=== PATIENT | male | born 1955 | race African-American/Black ===

== ENCOUNTER → 2017-10-09 08:40 | Outpatient (CLI) | payer OTHER, SELFPAY ==
[2017-10-09 12:23] LABS: Absolute Lymphocyte Count 1.53 X10^3/ul (0.83-4.51); Absolute Neutrophil Count 3.5 X10^3/uL (2.0-7.7); Basophil# 0.01 X10^3/uL; Basophil% 0.2 % (0-1); Eosinophil# 0.22 X10^3/uL; Eosinophils% 3.9 % (0-5); Hematocrit 40.4 % (40-54); Hemoglobin 12.7 g/dl (13.0-16.5); Lymphocyte # 1.53 X10^3/ul (4.0); Lymphocyte % 26.9 % (19-41); Mean Corp Hgb Conc 31.4 g/gl (32-36); Mean Corpuscular Hgb 27.5 pg (27.0-32.0); Mean Corpuscular Volume 87.6 fL (80-94); Mean Platelet Vol. 9.9 fl (6.2-12.0); Monocyte# 0.41 X10^3/uL; Monocyte% 7.2 % (0-10); Neutrophil % 61.6 % (47-70); Platelet Count 308 K/mm3 (150-450); RBC Distribution Width CV 15.5 % (11.6-14.6); RBC Distribution Width SD 49.7 fl (35.1-43.9); Red Blood Count 4.61 M/mm3 (4.6-6.2); White Blood Count 5.7 K/mm3 (4.4-11.0)
[2017-10-09 12:31] LABS: POSITIVE COUNT NO; POSITIVE DIFFERENTIAL NO; POSITIVE MORPHOLOGY NO
[2017-10-09 13:00] LABS: ALB/GLOB Ratio 0.7 RATIO (0.9-2.4); AST(SGOT) 18 U/L (15-37); Alanine Aminotransfer ALT/SGPT 31 U/L (16-61); Alkaline Phosphatase 98 U/L (45-117); Anion Gap 12 (5-15); BUN 14 mg/dL (7-18); Calcium,Total 8.5 mg/dL (8.5-10.1); Chloride 107 mmol/L (98-107); Cholesterol 116 mg/dL (200); Creatinine, Serum 1.08 mg/dL (0.70-1.30); EST Glomerular Filtration Rate 74 mL/min (>60); Est Glom Filt Rate - Afr Amer 89 mL/min (>60); Ferritin 199 ng/mL (26-388); Globulin 4.4 g/dL (2.2-4.2); Glucose 103 mg/dL (74-106); High Density Lipoprotein 46 mg/dL; Iron 55 ug/dL (65-175); Potassium 3.6 mmol/L (3.5-5.1); Protein, Total 7.4 g/dL (6.4-8.2); Sodium Level 142 mmol/L (136-145); T4 Free Direct 1.05 ng/dL (0.76-1.46); Triglycerides 102 mg/dL; Very Low Density Lipoprotein 20 mg/dL (5-40)
== END ==
PROVIDERS: Family Provider Family Medicine; PCP Family Medicine; Visit Provider Family Medicine
DX: I25.10 Atherosclerotic heart disease of native coronary artery without angina pectoris (principal); I10 Essential (primary) hypertension; K76.0 Fatty (change of) liver, not elsewhere classified; E61.1 Iron deficiency
CPT/HCPCS: 36415; 80053; 80061; 82728; 83540; 84439; 84443; 85025

== ENCOUNTER 2017-10-20 20:12 | Inpatient (IN) | payer OTHER, MEDICARE, SELFPAY ==
[2017-10-20 20:13] VITALS: BP 180/95; PULSE 80; RESP 16; TEMP 36.8; O2SAT 94; BMI 55.8
[2017-10-20 20:54] LABS: Absolute Lymphocyte Count 2.08 X10^3/ul (0.83-4.51); Absolute Neutrophil Count 3.8 X10^3/uL (2.0-7.7); Basophil# 0.01 X10^3/uL; Basophil% 0.2 % (0-1); Eosinophil# 0.26 X10^3/uL; Eosinophils% 3.9 % (0-5); Hematocrit 41.5 % (40-54); Hemoglobin 13.3 g/dl (13.0-16.5); Lymphocyte # 2.08 X10^3/ul (4.0); Lymphocyte % 31.5 % (19-41); Mean Corpuscular Hgb 27.8 pg (27.0-32.0); Mean Corpuscular Volume 86.6 fL (80-94); Mean Platelet Vol. 9.3 fl (6.2-12.0); Monocyte# 0.49 X10^3/uL; Monocyte% 7.4 % (0-10); Neutrophil # 3.75 X10^3/uL (2.7-7.7); Neutrophil % 56.8 % (47-70); Platelet Count 293 K/mm3 (150-450); RBC Distribution Width CV 15.3 % (11.6-14.6); RBC Distribution Width SD 48.3 fl (35.1-43.9); Red Blood Count 4.79 M/mm3 (4.6-6.2); White Blood Count 6.6 K/mm3 (4.4-11.0)
[2017-10-20 21:00] LABS: POSITIVE COUNT NO; POSITIVE DIFFERENTIAL NO; POSITIVE MORPHOLOGY NO
[2017-10-20] MEDS: Ondansetron 4 MG/2 ML Vial IV (21:10)
--- NOTE | 2017-10-20 21:17 | ED.RN ---
CALLED LAB, THEY ARE LOOKING FOR CHEMISTRY TUBE TO RUN.
[2017-10-20 21:36] LABS: Anion Gap 8 (5-15); BUN 25 mg/dL (7-18); BUN/Creat Ratio 18.4 RATIO (10-20); Calcium,Total 8.9 mg/dL (8.5-10.1); Chloride 107 mmol/L (98-107); Creatinine, Serum 1.36 mg/dL (0.70-1.30); EST Glomerular Filtration Rate 57 mL/min (>60); Est Glom Filt Rate - Afr Amer 68 mL/min (>60); Estimated Creatinine Clearance 53.33 ml/min; Glucose 109 mg/dL (74-106); Potassium 4.1 mmol/L (3.5-5.1); Sodium Level 141 mmol/L (136-145)
[2017-10-20] MEDS: Lidocaine Jelly 2% 20 ML Syringe (URO-JET) 20 APPLIC TOPICAL (22:18)
--- NOTE | 2017-10-20 22:20 | ED.VISSUMM ---
- ER Visit Summary Date of Service: 10/20/17 Chief Complaint: Bright red blood with urination History of Present Illness: The patient is a 62 M who has a history of prostate cancer. He was last treated at the [facility] 2012. He states the last time he had bleeding this significantly was during treatment. He had problems after radiation treatment and had a stent placed which resulted in significant amount of bleeding. He states he had minimal bleeding October 03 of this year. He does complain of discomfort at the end of urination. He denies any vaginal discharge or lesions. He denies any testicular pain. He is uncertain whether he is voiding completely. He denies any low back or flank pain. He has no history of renal ureterolithiasis. Patient has history of COPD, type 2 diabetes, hypertension, obstructive sleep apnea and prostate cancer. He also has history of C. difficile (Pseudomonas enterocolitis), acute kidney injury and rhabdomyolysis. Physical Examination: Patient is morbidly obese with a BMI of 55.9. Blood pressure elevated 180/95. Head is atraumatic normocephalic. Pupils are equal round reactive. Extraocular muscles are intact. TMs are pearly white with landmarks noted. Nares patent with no drainage. Posterior pharynx without erythema or exudate. Uvula is midline. There is no dysphonia or dysphasia. Trachea is midline. There is no stridor with auscultation of the neck. Heart is regular without murmur, gallop or rub. S1 and S2 are normal. Lungs are clear to auscultation with good movement of air bilaterally. Abdomen is soft flabby nontender. Unable to appreciate whether he has a distended bladder secondary to a large panniculus. exam is limited because of body habitus. He has blood and small clots noted at the ureteral meatus. Testes are descended bilaterally. There is no inguinal lymphadenopathy or mass appreciated. Again, exam is limited secondary to body habitus. Test Results: White count is normal with an H&H of 13.3 and 41.5. Creatinine is slightly elevated 1.36. Urine is grossly bloody. Emergency Department Course and Treatment: Blood work was ordered and Urojet to anesthetize the urethra and prostate. Three-way was placed by nursing staff. He has been irrigated with 3.5 L. His urine has gone from bright red blood to a red tinged blood consistent with the color of a white [place]. He has never cleared. Treatment Plan: Dr. Gomez hospitalist has been paged to admit the patient so he can be seen in the morning by urology. Urology will be available at 08 100. It is my professional medical opinion that patient is hemogram is stable and does not require emergent surgery or intervention and could be observed overnight. Disposition: [facility] consultation to urology. Impression: Gross hematuria uncertain etiology History of prostate cancer, remote History of type 2 diabetes History of hypertension History obstructive sleep apnea History of COPD This note was generated with [employer] dictation software. It may contain incorrect words, spelling, and punctuation that were not noted in review of the chart prior to signing ED Disposition - Plan for ED Patient: Chief Complaint: Complaint Referrals: Keyur Mendez MD [Primary Care Provider] -
[2017-10-20 22:26] LABS: Bacteria 0 SEEN /hpf (None Seen); Mucous, Urine 0 SEEN /hpf (<or=2+)
[2017-10-20 22:29] LABS: Color, Urine Red (Yellow); Glucose, Dipstick Normal (Normal); Ketone-Dipstick Negative (Negative); Leukocyte Esterase-Dipstick 100 /ul (Negative); Nitrite-Dipstick Negative (Negative); Occult Blood-Urine 250 /ul (Negative); Protein-Dipstick 30 mg/dl (Negative); Specific Gravity, Urine 1.005 (1.002-1.030); Urine Bilirubin Dipstick Negative (Negative); Urine Clarity Cloudy (Clear); Urine Urobilinogen Normal (Normal); Urine pH 6.5 (5.0 - 8.0)
[2017-10-20 22:36] LABS: Red Blood Cells-Urine > 100 SEEN /hpf (0-5); Squamous Epithelial Cells - UA 0-5 SEEN /hpf (0-5); White Blood Cells 5-10 SEEN /hpf (0-5)
[2017-10-20 22:37] LABS: Amorphous Sediment 1+ URATE
[2017-10-20 23:01] VITALS: BP 130/69; PULSE 71; RESP 16; TEMP 37.2; O2SAT 99
--- NOTE | 2017-10-20 23:26 | HP.PCM_ITS ---
Problem List (1) Hematuria Status: Acute (2) RICO (acute kidney injury) Status: Acute (3) CAD (coronary artery disease) Status: Chronic Comment: moderate disease max 45% cath 09/08 [facility] oatebt stebt ramus intermedius (4) COPD, mild Status: Chronic Comment: mild-mod obstr, mild restrictive d/t obesity fvc 55% improved to 65% w aerosols fev1/fvc=75% tlc=71% (5) Depression Status: Chronic (6) Diabetes mellitus type 2 in obese Status: Chronic (7) HTN (hypertension) Status: Chronic (8) Non-compliance Status: Chronic (9) Onychomycosis Status: Chronic (10) Prostate cancer Status: Chronic Comment: radiotherapy (11) Sleep apnea Status: Chronic Comment: bipap History of Present Illness Date of Admission: 10/21/17 Chief Complaint: Hematuria The patient is a 62 year old male w/ h/o DMII, HTN, AMRIK, COPD, prostate cancer, and anemia admitted for gross hematuria. Pt had radiation for his prostate cancer in 2011 and has been doing well. Before he left to [place] 4-5 months ago , he followed up at the [facility]] and was cleared. On September 02, 2017, he had an episode of gross hematuria in [place]. He did not follow up because he knows he will be back to [place]. He had another episode of gross hematuria today. It was persistent and severe. No associated pain. He appeared to be very anxious about the event. Nothing made his hematuria better or worse. He became concern so he went to the ED for further workup. Past Medical History Past Medical History (Chronic Problems): Chronic Problems Obesities, morbid (Chronic) COPD, mild (Chronic) mild-mod obstr, mild restrictive d/t obesity fvc 55% improved to 65% w aerosols fev1/fvc=75% tlc=71% HTN (hypertension) (Chronic) Sleep apnea (Chronic) bipap Prostate cancer (Chronic) radiotherapy Diabetes mellitus type 2 in obese (Chronic) Anemia (Chronic) Non-compliance (Chronic) Super obesity (Chronic) CAD (coronary artery disease) (Chronic) moderate disease max 45% cath 09/08 [facility] oatebt stebt ramus intermedius Type II diabetes mellitus (Chronic) Onychomycosis (Chronic) Depression (Chronic) Allergies oxycodone HCl [From Percodan] Allergy (Verified 05/15/17 10:27) Hives oxycodone terephthalate [From Percodan] Allergy (Verified 05/15/17 10:27) Hives Home Medications: Ambulatory Orders Medication Instructions Recorded Albuterol Aerosols [Ventolin 2.5 mg INHALATION Q2H PRN PRN 05/15/17 Aerosols] Amlodipine Besylate [Norvasc] 10 mg PO DAILY 05/15/17 Aspirin [Aspirin, Baby] 81 mg PO DAILY@0800 05/15/17 Atorvastatin Calcium [Lipitor] 40 mg PO QHS 05/15/17 HydrALAZINE [Apresoline] 25 mg PO TID 05/15/17 Hydroxyzine HCl 50 mg PO DAILY 05/15/17 Ipratropium/Albuterol Respimat 1 puff INHALATION 4X/DAY 05/15/17 [Combivent Respimat Inhal [place]] Ipratropium/Albuterol Respimat 1 puff INHALATION PRN PRN 05/15/17 [Combivent Respimat Inhal [place]] Lisinopril/Hydrochlorothiazide 1 tablet PO DAILY 05/15/17 [Zestoretic 10/12.5 Tablet] Metoprolol Tartrate [Lopressor 25 mg PO BID 05/15/17 (Beta [place])] Nitroglycerin [Nitrostat] 0.4 mg SL PRN PRN 05/15/17 Nystatin Powder [Mycostatin Powder] 1 applic TOPICAL Q6H 05/15/17 Omeprazole 20 mg PO BID 05/15/17 Oxybutynin Chloride [Ditropan Xl] 10 mg PO DAILY 05/15/17 Tamsulosin HCl [Flomax] 0.4 mg PO DAILY 05/15/17 Surgical History: - - knee arthroscopy and menisectomy Psychiatric History: Depression Smoking Status: Former smoker - *Family History Sibling History Items: Asthma Maternal History Items: No pertinent history Paternal History Items: No pertinent history Review of Systems Constitutional: Denies: Chills, Fever, Weight Change HEENT: Denies: Head Aches, Sinus Congestion, Sinus Drainage Cardiovascular: Denies: Chest Pain, Palpitations Respiratory: Denies: Cough, Shortness of breath at rest, Sputum production Gastrointestinal: Denies: Abdominal Pain, Nausea, Vomiting Genitourinary: Denies: Dysuria Musculoskeletal: Denies: Joint Pain, Joint Tenderness Skin: Denies: Rash, Wounds Neurological: Denies: Numbness, Tingling, Focal weakness Psychiatric: Denies: Anxiety, Depression, Homicidal Ideations, Suicidal Ideations Hematologic/ Lymphatic: Denies: Easy Bruising, Easy Bleeding VTE Information - Inpt Only VTE Present on Admission: No VTE Mechan Device Prophylaxis: SCD's VTE Pharm Prophylaxis ordered?: Yes Patient Problems: Active and Suspected Problems Hematuria (Acute) RICO (acute kidney injury) (Acute) - Physical Exam General: Alert, Oriented x3, Cooperative HEENT: Atraumatic, PERRLA, EOMI, Normocephalic Neck: Supple, No JVD, Negative Carotid Bruits Lungs: Clear to auscultation, Normal air movement Cardiovascular: Regular rate, No murmurs Abdomen: Bowel Sounds Present, Soft, Non Tender Extremities: No edema, Capillary Refill Less than 3 Seconds Skin: No rashes, No breakdown Musculoskeletal: No Tenderness to Palpation of Joints or Extremities Neurological: Cranial nerves II-XII grossly intact Psych/Mental Status: Normal Affect, Appropriate Vital Signs Temp Pulse Resp BP Pulse Ox 98.9 F 71 16 130/69 H 99 10/20/17 23:01 10/20/17 23:01 10/20/17 23:01 10/20/17 23:01 10/20/17 23:01 Oxygen Delivery Method Room Air Weight: 161.8 kg Body Mass Index (BMI) 55.8 Laboratory Tests Past 24 Hrs 10/20/17 10/20/17 10/20/17 20:40 20:40 22:22 WBC 6.6 RBC 4.79 Hgb 13.3 Hct 41.5 MCV 86.6 MCH 27.8 MCHC 32.0 RDW 15.3 H RDW Differential 48.3 H Plt Count 293 MPV 9.3 Immature Gran % (Auto) 0.200 Neut % (Auto) 56.8 Lymph % (Auto) 31.5 [place] % (Auto) 7.4 Eos % (Auto) 3.9 Baso % (Auto) 0.2 Absolute Neuts (auto) 3.8 Absolute Lymphs (auto) 2.08 Total Counted Not Reportable Sodium 141 Potassium 4.1 Chloride 107 Carbon Dioxide 26.0 Anion Gap 8 BUN 25 H Creatinine 1.36 H Estim Creat Clear Calc 53.33 Est GFR (MDRD) Af Amer 68 Est GFR (MDRD) Non-Af 57 L BUN/Creatinine Ratio 18.4 Glucose 109 H Calcium 8.9 Urine Color Red Urine Clarity Cloudy Urine pH 6.5 Ur Specific [place] 1.005 Urine Protein 30 H Urine Glucose (UA) Normal Urine Ketones Negative Urine Occult Blood 250 H Urine Nitrite Negative Urine Bilirubin Negative Urine Urobilinogen Normal Ur Leukocyte Esterase 100 H Urine RBC > 100 SEEN Urine WBC 5-10 SEEN Ur Squamous Epith Cells 0-5 SEEN Amorphous Sediment 1+ URATE Urine Bacteria 0 SEEN Urine Mucus 0 SEEN Assessment/Plan Active and Suspected Problems Hematuria (Acute) RICO (acute kidney injury) (Acute) 62 year old male w/ h/o DMII, HTN, AMRIK, COPD, prostate cancer, and anemia admitted for gross hematuria. 1) Hematuria: Unclear etiology. Suspect recurrent prostate cancer. Will consult urology. Continuous bladder irrigation. If negative, will workup GNs. 2) RICO: Baseline Cr 1. Cr 1.3 Probably azotemia. If no resolution, consider renal U/S vs abdominal CT to r/o obstruction. Monitor. 3) H/o prostate cancer: C/w flomax and tolterodine. PSA pending. Urology consult. 4) Prophylaxis: SCD
[2017-10-20 23:54] VITALS: PULSE 86; RESP 16; BMI 57.1
[2017-10-21] VITALS (20 sets, daily range): BP systolic 119–184; BP diastolic 72–95; PULSE 75–102; RESP 16–19; TEMP 36.7–37.1; O2SAT 98–99; BMI 55.0
[2017-10-21] MEDS: Atorvastatin Calcium 40 MG Tablet PO (02:17)
[2017-10-21] MEDS: LORazepam 2 MG/ML Syringe IV ×3 (02:42→21:33)
--- NOTE | 2017-10-21 02:57 | NURSING ---
pt c/o having bladder spasms and very anxious, prn ativan and b&o supp given
--- NOTE | 2017-10-21 03:40 | NURSING ---
PT CALLED C/O SEVERE ABD PRESSURE, BLADDER IRRIGATED, LARGE CLOTS OUT. CONT IRRIGATION RESTARTED
[2017-10-21 06:23] LABS: Absolute Lymphocyte Count 1.34 X10^3/ul (0.83-4.51); Absolute Neutrophil Count 5.4 X10^3/uL (2.0-7.7); Basophil# 0.02 X10^3/uL; Basophil% 0.3 % (0-1); Eosinophil# 0.16 X10^3/uL; Eosinophils% 2.1 % (0-5); Hemoglobin 12.9 g/dl (13.0-16.5); Lymphocyte # 1.34 X10^3/ul (4.0); Lymphocyte % 17.8 % (19-41); Mean Corp Hgb Conc 33.1 g/gl (32-36); Mean Corpuscular Hgb 28.5 pg (27.0-32.0); Mean Corpuscular Volume 86.1 fL (80-94); Mean Platelet Vol. 9.5 fl (6.2-12.0); Monocyte# 0.58 X10^3/uL; Monocyte% 7.7 % (0-10); Platelet Count 278 K/mm3 (150-450); RBC Distribution Width CV 15.2 % (11.6-14.6); RBC Distribution Width SD 47.3 fl (35.1-43.9); Red Blood Count 4.53 M/mm3 (4.6-6.2); White Blood Count 7.5 K/mm3 (4.4-11.0)
[2017-10-21 06:29] LABS: POSITIVE COUNT NO; POSITIVE DIFFERENTIAL NO; POSITIVE MORPHOLOGY NO
[2017-10-21 06:35] LABS: Anion Gap 7 (5-15); BUN 23 mg/dL (7-18); BUN/Creat Ratio 17.8 RATIO (10-20); Calcium,Total 8.7 mg/dL (8.5-10.1); Chloride 103 mmol/L (98-107); Creatinine, Serum 1.29 mg/dL (0.70-1.30); EST Glomerular Filtration Rate 60 mL/min (>60); Est Glom Filt Rate - Afr Amer 73 mL/min (>60); Estimated Creatinine Clearance 56.22 ml/min; Glucose 113 mg/dL (74-106); Potassium 3.8 mmol/L (3.5-5.1); Sodium Level 137 mmol/L (136-145)
[2017-10-21 06:59] LABS: PSA,Total - Annual Screen 0.34 ng/mL (0.00-4.00)
[2017-10-21] MEDS: Ipratropium/Albuterol Sulfate 3 ML AMPUL.NEB INHALATION ×3 (07:07→19:10)
--- NOTE | 2017-10-21 08:21 | CPS ---
PT REQUESTED O2, SAYS IT HELPS HIM, R.T. INFORMED RN THAT O2 WAS FOR PT COMFORT NOT D/T LOW SAT.
[2017-10-21] MEDS: Pantoprazole Sodium 20 MG Tablet PO ×2 (10:09→21:31)
[2017-10-21] MEDS: amLODIPine 10 MG Tablet PO (10:09)
[2017-10-21] MEDS: Tolterodine Tartrate 2 MG CAP.SA PO (10:10)
[2017-10-21] MEDS: Tamsulosin HCl 0.4 MG Capsule PO (10:10)
[2017-10-21] MEDS: Metoprolol Tartrate 25 MG Tablet PO ×2 (10:10→21:32)
--- NOTE | 2017-10-21 10:46 | CASEMGMT ---
RN CM Face to Face with patient for initial transition planning/care coordination assessment. RN CM introduced self and role at [facility]. Patient lying in bed, alert and oriented and anxious. Patient is not willing to participate in assessment at this time and does not want to answer RN CM's questions. Patient states that he doesn't want to think about discharge needs till after he talks with the doctor and knows what is going on with him. Patient states that if his prostate cancer is back he wants to transfer to [place] to [facility]. If not he is going to go home and has no needs. RN CM offered to come back later after seen by physician and discuss discharge plans. CM to follow for discharge planning needs that may arise. Disposition Plan: TBD. RN CM will reassess patient at later time when he is more willing to participate.
[2017-10-21] MEDS: 0.9% NaCl Peripheral Flush Adult/Peds IV ×2 (11:01→21:33)
[2017-10-21] MEDS: Calcium (Elemental) 500 MG Tablet PO (13:33)
[2017-10-21] MEDS: Ferrous Sulfate 325 MG Tablet PO (13:33)
--- NOTE | 2017-10-21 14:18 | PCM.PROGNOTE ---
Patient Problems: Active and Suspected Problems Hematuria (Acute) RICO (acute kidney injury) (Acute) Gross hematuria (Acute) onset of gross hematuria, h/o prostate cancer treated with XRT Subjective: Patient is a 62-year-old male with a past medical history artery disease, COPD, depression, diabetes mellitus type 2, hypertension, noncompliance, prostate cancer, AMRIK and COPD who presented to the emergency room at [facility] on 10/20/2017 complaining of gross hematuria. He has had radiation for tx of prostate CA in 2011. Approximately 4-5 months ago he moved to [place] higher to that was seen at the [facility] and cleared of cancer per patient report. On September 02, 2017 he had an episode of gross hematuria and [place] not follow-up because he going to come back to [place] in follow-up at the [facility] He denied any dysuria and had no fevers or chills. Temp in the ER was 98.2 with a heart rate of 80, blood pressure of 180/95, respiratory rate of 16 and he was 94% saturated on room air. Lab in the emergency room revealed a normal white blood cell count of 6.6 with 57% neutrophils. BMP is unremarkable with a BUN of 23 and a creatinine of 1.29. Urine had greater than 100 RBCs per high-power field with 0-5 WBCs and no bacteria. He was admitted to the hospital with a diagnosis of gross hematuria and Dr. Chavis has been consulted. The urine in the fong bag today is clear after CBI. He appears to be in no distress. He is making sexually inappropriate comments to female staff again......he has been cautioned about this behavior on previous admissions. He was also rude to the [place] community development planner and would not answer her questions. He denies this which is his pattern. - Physical Exam General: No apparent distress, - - drowsy, does not have CPAP with him. Has not been out of bed since admission and will not even sit up to eat. HEENT: Atraumatic, Normocephalic Oral: Moist Mucosa Lungs: Clear to auscultation, Diminished Abdomen: Bowel Sounds Present, Soft, Non-Distended, Obese Extremities: No clubbing, No cyanosis, No Calf Tenderness Neurological: Cranial nerves II-XII grossly intact, Neuro grossly intact Psych/Mental Status: - - He is passive aggressive and makes inappropriate remarks to female staff. This is his pattern in the past and it has not changed. He is unwilling to do anything for himself if the nurse will do it for him. Vital Signs Temp Pulse Resp BP Pulse Ox 98.0 F 88 19 H 140/78 H 98 10/21/17 07:58 10/21/17 13:38 10/21/17 13:38 10/21/17 07:58 10/21/17 07:58 Oxygen Flow Rate 2 Oxygen Delivery Method Room Air Weight: 364 lb 14.193 oz Body Mass Index (BMI) 57.1 Intake and Output for Last 24 Hours 10/19/17 10/20/17 10/21/17 23:59 23:59 23:59 Intake Total 1200 / 1200 Output Total 1700 / 1700 Balance -500 / -500 Laboratory Tests Past 24 Hrs 10/21/17 10/21/17 10/21/17 05:48 05:48 05:48 WBC 7.5 RBC 4.53 L Hgb 12.9 L Hct 39.0 L MCV 86.1 MCH 28.5 MCHC 33.1 RDW 15.2 H RDW Differential 47.3 H Plt Count 278 MPV 9.5 Immature Gran % (Auto) 0.100 Neut % (Auto) 72.0 H Lymph % (Auto) 17.8 L [place] % (Auto) 7.7 Eos % (Auto) 2.1 Baso % (Auto) 0.3 Absolute Neuts (auto) 5.4 Absolute Lymphs (auto) 1.34 Total Counted Not Reportable Sodium 137 Potassium 3.8 Chloride 103 Carbon Dioxide 27.0 Anion Gap 7 BUN 23 H Creatinine 1.29 Estim Creat Clear Calc 56.22 Est GFR (MDRD) Af Amer 73 Est GFR (MDRD) Non-Af 60 BUN/Creatinine Ratio 17.8 Glucose 113 H Calcium 8.7 PSA Screen 0.34 Assessment/Plan Active and Suspected Problems Hematuria (Acute) RICO (acute kidney injury) (Acute) Gross hematuria (Acute) onset of gross hematuria, h/o prostate cancer treated with XRT Impressions 1. Gross hematuria, recurrent. With hx of prostate CA with a high [place] score he could have recurrent prostate CA and/or extension into the bladder. He also could have radiation cystitis. There is no evidence of infection. 2. Prostate cancer in the past with external beam radiation to the pelvis and no anti-hormone therapy. 3. super obesity 4. Coronary artery disease 5. COPD 6. Diabetes mellitus type 2 7. Hypertension 8. Obstructive sleep apnea 9. non-compliance 10. Chronic renal failure stage II Await Dr. Chavis's consult. Continue the CBI for now. Recheck a CBC in the AM and a BMP. PSA is 0.34 Check a hemoglobin A1c and order Accu-Cheks with sliding scale NovoLog
[2017-10-21] MEDS: Ibuprofen 200 MG Tablet PO ×2 (14:21→21:31)
--- NOTE | 2017-10-21 14:29 | PN_ITS ---
Patient Problems: Active and Suspected Problems Hematuria (Acute) RICO (acute kidney injury) (Acute) Gross hematuria (Acute) onset of gross hematuria, h/o prostate cancer treated with XRT Subjective: Patient is a 62-year-old male with a past medical history artery disease, COPD, depression, diabetes mellitus type 2, hypertension, noncompliance, prostate cancer, AMRIK and COPD who presented to the emergency room at [facility] on 10/20/2017 complaining of gross hematuria. He has had radiation for tx of prostate CA in 2011. Approximately 4-5 months ago he moved to [place] higher to that was seen at the [facility] and cleared of cancer per patient report. On September 02, 2017 he had an episode of gross hematuria and [place] not follow-up because he going to come back to [place] in follow-up at the [facility]. He denied any dysuria and had no fevers or chills. Temp in the ER was 98.2 with a heart rate of 80, blood pressure of 180/95, respiratory rate of 16 and he was 94% saturated on room air. Lab in the emergency room revealed a normal white blood cell count of 6.6 with 57% neutrophils. BMP is unremarkable with a BUN of 23 and a creatinine of 1.29. Urine had greater than 100 RBCs per high-power field with 0-5 WBCs and no bacteria. He was admitted to the hospital with a diagnosis of gross hematuria and Dr. Chavis has been consulted. The urine in the fong bag today is clear after CBI. He appears to be in no distress. He is making sexually inappropriate comments to female staff again......he has been cautioned about this behavior on previous admissions. He was also rude to the [place] cyber ops planner and would not answer her questions. He denies this which is his pattern. - Physical Exam General: No apparent distress, - - drowsy, does not have CPAP with him. Has not been out of bed since admission and will not even sit up to eat. HEENT: Atraumatic, Normocephalic Oral: Moist Mucosa Lungs: Clear to auscultation, Diminished Abdomen: Bowel Sounds Present, Soft, Non-Distended, Obese Extremities: No clubbing, No cyanosis, No Calf Tenderness Neurological: Cranial nerves II-XII grossly intact, Neuro grossly intact Psych/Mental Status: - - He is passive aggressive and makes inappropriate remarks to female staff. This is his pattern in the past and it has not changed. He is unwilling to do anything for himself if the nurse will do it for him. Vital Signs Temp Pulse Resp BP Pulse Ox 98.0 F 88 19 H 140/78 H 98 10/21/17 07:58 10/21/17 13:38 10/21/17 13:38 10/21/17 07:58 10/21/17 07:58 Oxygen Flow Rate 2 Oxygen Delivery Method Room Air Weight: 364 lb 14.193 oz Body Mass Index (BMI) 57.1 Intake and Output for Last 24 Hours 10/19/17 10/20/17 10/21/17 23:59 23:59 23:59 Intake Total 1200 / 1200 Output Total 1700 / 1700 Balance -500 / -500 Laboratory Tests Past 24 Hrs 10/21/17 10/21/17 10/21/17 05:48 05:48 05:48 WBC 7.5 RBC 4.53 L Hgb 12.9 L Hct 39.0 L MCV 86.1 MCH 28.5 MCHC 33.1 RDW 15.2 H RDW Differential 47.3 H Plt Count 278 MPV 9.5 Immature Gran % (Auto) 0.100 Neut % (Auto) 72.0 H Lymph % (Auto) 17.8 L [place] % (Auto) 7.7 Eos % (Auto) 2.1 Baso % (Auto) 0.3 Absolute Neuts (auto) 5.4 Absolute Lymphs (auto) 1.34 Total Counted Not Reportable Sodium 137 Potassium 3.8 Chloride 103 Carbon Dioxide 27.0 Anion Gap 7 BUN 23 H Creatinine 1.29 Estim Creat Clear Calc 56.22 Est GFR (MDRD) Af Amer 73 Est GFR (MDRD) Non-Af 60 BUN/Creatinine Ratio 17.8 Glucose 113 H Calcium 8.7 PSA Screen 0.34 Assessment/Plan Active and Suspected Problems Hematuria (Acute) RICO (acute kidney injury) (Acute) Gross hematuria (Acute) onset of gross hematuria, h/o prostate cancer treated with XRT Impressions 1. Gross hematuria, recurrent. With hx of prostate CA with a high [place] score he could have recurrent prostate CA and/or extension into the bladder. He also could have radiation cystitis. There is no evidence of infection. 2. Prostate cancer in the past with external beam radiation to the pelvis and no anti-hormone therapy. 3. super obesity 4. Coronary artery disease 5. COPD 6. Diabetes mellitus type 2 7. Hypertension 8. Obstructive sleep apnea 9. non-compliance 10. Chronic renal failure stage II Await Dr. Chavis's consult. Continue the CBI for now. Recheck a CBC in the AM and a BMP. PSA is 0.34 Check a hemoglobin A1c and order Accu-Cheks with sliding scale NovoLog
--- NOTE | 2017-10-21 17:27 | PCM.CONS.U ---
Problem List (1) Gross hematuria Status: Acute Comment: onset of gross hematuria, h/o prostate cancer treated with XRT Reason for Consult Date of Consultation: 10/21/17 Reason for Consultation: gross hematuria, pain in penis, rectal area History of Present Illness: The patient is a 62 year old male, who prostate cancer, [place] high grade, underwent radiation with no hormone shots had radiation therapy in [place] by Johnson Juan with [facility]. Onset on gross hematuria this past day, admitted to hospital with bleedind placed a fong, then on irrigation and now urine clear, no more bleeding. no imaging done, no prior cystoscopy. Past Medical History Past Medical History (Chronic Problems): Chronic Problems Obesities, morbid (Chronic) COPD, mild (Chronic) mild-mod obstr, mild restrictive d/t obesity fvc 55% improved to 65% w aerosols fev1/fvc=75% tlc=71% HTN (hypertension) (Chronic) Sleep apnea (Chronic) bipap Prostate cancer (Chronic) radiotherapy Diabetes mellitus type 2 in obese (Chronic) Anemia (Chronic) Non-compliance (Chronic) Super obesity (Chronic) CAD (coronary artery disease) (Chronic) moderate disease max 45% cath 09/08 [facility] oatebt stebt ramus intermedius Type II diabetes mellitus (Chronic) Onychomycosis (Chronic) Depression (Chronic) Allergies oxycodone HCl [From Percodan] Allergy (Verified 05/15/17 10:27) Hives oxycodone terephthalate [From Percodan] Allergy (Verified 05/15/17 10:27) Hives Home Medications: Ambulatory Orders Medication Instructions Recorded Albuterol Aerosols [Ventolin 2.5 mg INHALATION Q4H PRN PRN 05/15/17 Aerosols] Aspirin [Aspirin, Baby] 81 mg PO DAILY@0800 05/15/17 Atorvastatin Calcium [Lipitor] 40 mg PO QHS 05/15/17 HydrALAZINE [Apresoline] 25 mg PO TID 05/15/17 Metoprolol Tartrate [Lopressor 25 mg PO BID 05/15/17 (Beta Haydee)] Nitroglycerin [Nitrostat] 0.4 mg SL PRN PRN 05/15/17 Nystatin Powder [Mycostatin Powder] 1 applic TOPICAL Q6H 05/15/17 Acetaminophen 325 mg PO Q4H PRN PRN 10/21/17 Calcium Carbonate [Calcium] 500 mg PO DAILY 10/21/17 Docusate Sodium [Colace] 100 mg PO DAILY PRN PRN 10/21/17 Ferrous Sulfate 324 mg PO DAILY 10/21/17 Folic Acid 1 mg PO DAILY@0800 10/21/17 Guaifenesin [Mucinex] 600 mg PO Q12H PRN PRN 10/21/17 Ibuprofen 200 mg PO TID 10/21/17 Melatonin 10 mg PO QHS 10/21/17 Surgical History: - - knee arthroscopy and menisectomy heart Stent Psychiatric History: Depression Lives: Alone Smoking Status: Former smoker Tobacco Use: Non-smoker Alcohol: Rare Drugs: None - *Family History Sibling History Items: Asthma Maternal History Items: No pertinent history Paternal History Items: No pertinent history Review of Systems Constitutional: Denies: Chills, Fever, Weight Change HEENT: Denies: Head Aches, Sinus Congestion, Sinus Drainage Cardiovascular: Denies: Chest Pain, Palpitations Respiratory: Denies: Cough, Shortness of breath at rest, Sputum production Gastrointestinal: Denies: Abdominal Pain, Nausea, Vomiting Genitourinary: Denies: Dysuria Musculoskeletal: Denies: Joint Pain, Joint Tenderness Skin: Denies: Rash, Wounds Neurological: Denies: Numbness, Tingling, Focal weakness Psychiatric: Denies: Anxiety, Depression, Homicidal Ideations, Suicidal Ideations Hematologic/ Lymphatic: Denies: Easy Bruising, Easy Bleeding Physical Exam - Physical Exam Vital Signs Temp 98.5 F 10/21/17 14:30 Pulse 75 10/21/17 14:30 Resp 18 10/21/17 16:00 BP 142/81 H 10/21/17 14:30 Pulse Ox 99 10/21/17 14:30 Intake & Output 10/19/17 10/20/17 10/21/17 23:59 23:59 23:59 Intake Total 1200 / 1200 Output Total 1700 / 1700 Balance -500 / -500 Weight: 165.516 kg 165.51 kg Intake: Oral 1200 / 1200 Output: Urine 1700 / 1700 Other: Intake, Continuous Bladder 6,000 Irrigation Output, Continuous Bladder 6,000 Irrigation General: Alert, Oriented x3 HEENT: Atraumatic Oral: Moist Mucosa Neck: Supple Lungs: Normal air movement Cardiovascular: Regular rate, Regular Rhythm Abdomen: Bowel Sounds Present, Obese Rectal: Exam deferred Penis: Circumcised Extremities: No clubbing, No cyanosis, No edema Psych/Mental Status: Appropriate Laboratory Tests Past 24 Hrs 10/21/17 10/21/17 10/21/17 05:48 05:48 05:48 WBC 7.5 RBC 4.53 L Hgb 12.9 L Hct 39.0 L MCV 86.1 MCH 28.5 MCHC 33.1 RDW 15.2 H RDW Differential 47.3 H Plt Count 278 MPV 9.5 Immature Gran % (Auto) 0.100 Neut % (Auto) 72.0 H Lymph % (Auto) 17.8 L [place] % (Auto) 7.7 Eos % (Auto) 2.1 Baso % (Auto) 0.3 Absolute Neuts (auto) 5.4 Absolute Lymphs (auto) 1.34 Total Counted Not Reportable Sodium 137 Potassium 3.8 Chloride 103 Carbon Dioxide 27.0 Anion Gap 7 BUN 23 H Creatinine 1.29 Estim Creat Clear Calc 56.22 Est GFR (MDRD) Af Amer 73 Est GFR (MDRD) Non-Af 60 BUN/Creatinine Ratio 17.8 Glucose 113 H Calcium 8.7 PSA Screen 0.34 Assessment/Plan Active and Suspected Problems Hematuria (Acute) RICO (acute kidney injury) (Acute) Gross hematuria (Acute) onset of gross hematuria, h/o prostate cancer treated with XRT gross hematuria cleared up with irrigation plan to d/c fong in am stop cbi today check CT scan abd/pelvis IV contrast pt needs to follow up with treat oncologist in [facility] with regards to his gross hematuria.
--- NOTE | 2017-10-21 17:33 | CT_ITS ---
STUDY: CT ABDOMEN AND PELVIS WITH CONTRAST REASON FOR EXAM: Male, 62 years old. GROSS HEMATURIA RADIATION DOSAGE (If Supplied By Facility): CTDIvol = ( 18.33 ) mGy, DLP = ( 2155.03 ) mGycm TECHNIQUE: Transaxial images were obtained from the dome of the diaphragm to the symphysis pubis without oral contrast. 100 ml of Isovue 300 contrast was administered. Sagittal and coronal images were reconstructed. Individualized dose optimization techniques were used for this CT. COMPARISON: None. FINDINGS: There are atherosclerotic calcifications of visualized coronary arteries. The visualized portions of the heart are within normal limits. Normal liver. Normal gallbladder and extrahepatic biliary system. Normal spleen. Normal pancreas. Normal bilateral adrenal glands. Normal right kidney. Normal left kidney. Normal visualized stomach. Normal small intestine. Stool throughout the colon. The appendix is visualized and appears normal. There is diffuse atherosclerotic calcification of the abdominal aorta, without a demonstrated aneurysm. Normal inferior vena cava. Normal retroperitoneum. There is a Del Toro balloon catheter in the urinary bladder. There are prostatic seed implants. Urinary bladder wall has wall thickening. This can be related to a partially contractile state. However, a cystitis is not excluded. Urinalysis should be performed in an effort to exclude cystitis. Air in the urinary bladder. This is likely iatrogenic. There is a right-sided inguinal hernia containing adipose tissue. There is endplate spondylosis of the vertebral body. CT/Abdomen/Pelvis WITH Contrast IMPRESSION: CONSTIPATION Urinary bladder wall has wall thickening. This can be related to a partially contractile state. However, a cystitis is not excluded. Urinalysis should be performed in an effort to exclude cystitis. Electronically Signed: Say Mueller MD at 21:13 EST , Service support ,
--- NOTE | 2017-10-21 20:50 | NURSING ---
Patient returned from CT at this time
[2017-10-21] MEDS: MELATONIN 10 MG TABLET PO (21:32)
[2017-10-21 22:40] LABS: Bedside Glucose 105 mg/dL (70-110)
[2017-10-22] VITALS (14 sets, daily range): BP systolic 115–162; BP diastolic 58–86; PULSE 74–104; RESP 16–18; TEMP 36.6–36.8; O2SAT 95–98
[2017-10-22] MEDS: Ibuprofen 200 MG Tablet PO ×2 (06:19→13:24)
[2017-10-22 06:40] LABS: Hematocrit 38.4 % (40-54); Hemoglobin 12.1 g/dl (13.0-16.5); Mean Corp Hgb Conc 31.5 g/gl (32-36); Mean Corpuscular Hgb 27.8 pg (27.0-32.0); Mean Corpuscular Volume 88.1 fL (80-94); Mean Platelet Vol. 9.2 fl (6.2-12.0); Platelet Count 247 K/mm3 (150-450); RBC Distribution Width CV 15.6 % (11.6-14.6); RBC Distribution Width SD 50.3 fl (35.1-43.9); Red Blood Count 4.36 M/mm3 (4.6-6.2)
[2017-10-22 06:50] LABS: Bedside Glucose 107 mg/dL (70-110)
--- NOTE | 2017-10-22 06:50 | NURSING ---
Del Toro catheter removed this AM per orders.
[2017-10-22 06:54] LABS: Anion Gap 7 (5-15); BUN 18 mg/dL (7-18); BUN/Creat Ratio 14.6 RATIO (10-20); Calcium,Total 8.7 mg/dL (8.5-10.1); Chloride 102 mmol/L (98-107); Creatinine, Serum 1.23 mg/dL (0.70-1.30); EST Glomerular Filtration Rate 64 mL/min (>60); Est Glom Filt Rate - Afr Amer 77 mL/min (>60); Estimated Creatinine Clearance 58.96 ml/min; Glucose 106 mg/dL (74-106); Sodium Level 138 mmol/L (136-145)
[2017-10-22 07:13] LABS: Scan Indicated on CBC? Y/N NO
[2017-10-22] MEDS: Folic Acid 1 MG Tablet PO (08:09)
[2017-10-22] MEDS: Ferrous Sulfate 325 MG Tablet PO (08:10)
[2017-10-22 08:12] LABS: Hemoglobin A1c 6.7 % (4.2-6.3)
[2017-10-22] MEDS: Calcium (Elemental) 500 MG Tablet PO (08:12)
[2017-10-22] MEDS: Metoprolol Tartrate 25 MG Tablet PO (10:03)
[2017-10-22] MEDS: Tolterodine Tartrate 2 MG CAP.SA PO (10:03)
[2017-10-22] MEDS: amLODIPine 10 MG Tablet PO (10:04)
[2017-10-22] MEDS: Pantoprazole Sodium 20 MG Tablet PO (10:04)
[2017-10-22] MEDS: Tamsulosin HCl 0.4 MG Capsule PO (10:05)
[2017-10-22 12:26] LABS: Bedside Glucose 107 mg/dL (70-110)
[2017-10-22] MEDS: Ipratropium/Albuterol Sulfate 3 ML AMPUL.NEB INHALATION (12:45)
[2017-10-22 17:26] LABS: Bedside Glucose 96 mg/dL (70-110)
--- NOTE | 2017-10-22 19:03 | DCINST_ITS ---
- Discharge Diagnoses Current Active Problems: Current Active and Chronic Problems Hematuria (Acute) RICO (acute kidney injury) (Acute) Gross hematuria (Acute) onset of gross hematuria, h/o prostate cancer treated with XRT You will use the following diet at home:: Calorie/Carbohydrate Controlled ( specify 1200, 1400, etc), Cardiac Your food should be the consistency of: Regular Your liquids should be the consistency of: Regular/Thin Discharge Activity: Return to Normal Activity Call your doctor if you observe: Fever of 101 or Higher, Inability to urinate, Dizziness, Fainting spells Additional Instructions: Your kidney function is stable. You are able to urinate without difficulty. The CT scan of the abdomen and pelvis showed no massess but did show thickening of the bladder wall....this could be because the bladder was contracted but it needs to be checked out. You need to follow up with your oncololgist at [facility] as soon as possible. You do not have a urinary tract infection. The PSA is 0.34. Pending Tests on Discharge: none Allergies/Adverse Reactions: Allergies oxycodone HCl [From Percodan] Allergy (Verified 05/15/17 10:27) Hives oxycodone terephthalate [From Percodan] Allergy (Verified 05/15/17 10:27) Hives Medications to take at Discharge Albuterol Aerosols [Ventolin Aerosols] 2.5 mg INHALATION Q4H PRN PRN 05/15/17 Aspirin [Aspirin, Baby] 81 mg PO DAILY@0800 05/15/17 Atorvastatin Calcium [Lipitor] 40 mg PO QHS 05/15/17 HydrALAZINE [Apresoline] 25 mg PO TID 05/15/17 Metoprolol Tartrate [Lopressor (beta lev)] 25 mg PO BID 05/15/17 Nitroglycerin [Nitrostat] 0.4 mg SL PRN PRN 05/15/17 Nystatin Powder [Mycostatin Powder] 1 applic TOPICAL Q6H 05/15/17 Acetaminophen 325 mg PO Q4H PRN PRN 10/21/17 Calcium Carbonate [Calcium] 500 mg PO DAILY 10/21/17 Docusate Sodium [Colace] 100 mg PO DAILY PRN PRN 10/21/17 Ferrous Sulfate 324 mg PO DAILY 10/21/17 Folic Acid 1 mg PO DAILY@0800 10/21/17 Guaifenesin [Mucinex] 600 mg PO Q12H PRN PRN 10/21/17 Ibuprofen 200 mg PO TID 10/21/17 Melatonin 10 mg PO QHS 10/21/17 Amlodipine [Norvasc] 10 mg PO DAILY tablet 10/22/17 HydrOXYzine ARLEY [Vistaril] 50 mg PO DAILY capsule 10/22/17 Primary Care Physician: Keyur Mendez MD [Primary Care Provider] - Please follow up with your Primary Care Physician in: 3-5 days Proposed Discharge Date: 10/22/17
--- NOTE | 2017-10-22 19:05 | PCM.DC.SUM ---
Discharge Date and Diagnosis - Problem List Patient Problems: Active and Suspected Problems Hematuria (Acute) Date of Admission: 10/21/17 Date of Discharge: 10/22/17 - Primary Discharge Diagnosis Active and Suspected Problems Hematuria (Acute) - recurrent - Secondary Discharge Diagnosis Chronic Problems COPD, mild (Chronic) mild-mod obstr, mild restrictive d/t obesity fvc 55% improved to 65% w aerosols fev1/fvc=75% tlc=71% HTN (hypertension) (Chronic) Sleep apnea (Chronic) he is not compliant with CPAP bipap Prostate cancer (Chronic) radiotherapy - implanted seeds Diabetes mellitus type 2 in obese (Chronic) Anemia (Chronic) Non-compliance (Chronic) Super obesity (Chronic) CAD (coronary artery disease) (Chronic) moderate disease max 45% cath 09/08 [facility] oatebt stebt ramus intermedius Onychomycosis (Chronic) Depression (Chronic) Hospital Course and Treatment Imaging Results: Clinical Impression(s) from Imaging Studies Abdomen/Pelvis CT 10/21/17 17:33 IMPRESSION: CONSTIPATION Urinary bladder wall has wall thickening. This can be related to a partially contractile state. However, a cystitis is not excluded. Urinalysis should be performed in an effort to exclude cystitis. Electronically Signed: Say Mueller MD at 21:13 EST , Service support , Dr. Jovi Chavis - urology Operations: None Procedures: None Summary of Care Provided: Patient is a 62-year-old male with a past medical history pf coronary artery disease, COPD, super obesity, depression, diabetes mellitus type 2, hypertension, noncompliance, prostate cancer, AMRIK and COPD who presented to the emergency room at [facility] on 10/20/2017 complaining of gross hematuria. He has had radiation for tx of prostate CA in 2011. Approximately 4-5 months prior to presenting to the [facility] ED he moved to [place]. Prior to moving he was seen at the [facility] and cleared per pt. On September 02, 2017 he had an episode of gross hematuria while in [place] but did not see a physician not because he was going to come back to [place] and follow-up at the [facility]. He denied any dysuria and had no fevers or chills. vital signs in the ER were Temp 98.2, heart rate 80, blood pressure 180/95, respiratory rate 16 and he was 94% saturated on room air. Lab in the emergency room revealed a normal white blood cell count of 6.6 with 57% neutrophils. BMP was unremarkable with a BUN of 23 and a creatinine of 1.29. Urine had greater than 100 RBCs per high-power field with 0-5 WBCs and no bacteria. He was admitted to the hospital with a diagnosis of gross hematuria and Dr. Chavis was consulted. Del Toro catheter was placed and he was started on continuous bladder irrigation. The urine cleared up and the CBI was discontinued on the evening of 10/21. The urine the following morning was clear with occasional clot. He was able to urinate in a urinal without pain or obstruction. A CT scan of the abdomen and pelvis with contrast showed a normal right kidney and normal left kidney. There was a Del Toro balloon catheter in the urinary bladder and the prostatic seed implants were also visualized. The urinary bladder had wall thickening which was nonspecific. There were no definitive masses seen. A PSA level was normal at 0.34. Dr. Chavis recommended he follow up with the treating urologist at [facility]. He was discharged home on 10/22. HGB at DC is 12.1 and the CREAT is 1.23 with a BUN of 18. This note was generated with [employer] dictation software. It may contain incorrect words, spelling, and punctuation that were not noted in checking the note before signing. Discharge Activity: Return to Normal Activity Call your doctor if you observe: Fever of 101 or Higher, Inability to urinate, Dizziness, Fainting spells Home Medications: Medications to take at Discharge Albuterol Aerosols [Ventolin Aerosols] 2.5 mg INHALATION Q4H PRN PRN 05/15/17 Aspirin [Aspirin, Baby] 81 mg PO DAILY@0800 05/15/17 Atorvastatin Calcium [Lipitor] 40 mg PO QHS 05/15/17 HydrALAZINE [Apresoline] 25 mg PO TID 05/15/17 Metoprolol Tartrate [Lopressor (beta lev)] 25 mg PO BID 05/15/17 Nitroglycerin [Nitrostat] 0.4 mg SL PRN PRN 05/15/17 Nystatin Powder [Mycostatin Powder] 1 applic TOPICAL Q6H 05/15/17 Acetaminophen 325 mg PO Q4H PRN PRN 10/21/17 Calcium Carbonate [Calcium] 500 mg PO DAILY 10/21/17 Docusate Sodium [Colace] 100 mg PO DAILY PRN PRN 10/21/17 Ferrous Sulfate 324 mg PO DAILY 10/21/17 Folic Acid 1 mg PO DAILY@0800 10/21/17 Guaifenesin [Mucinex] 600 mg PO Q12H PRN PRN 10/21/17 Ibuprofen 200 mg PO TID 10/21/17 Melatonin 10 mg PO QHS 10/21/17 Amlodipine [Norvasc] 10 mg PO DAILY tablet 10/22/17 HydrOXYzine ARLEY [Vistaril] 50 mg PO DAILY capsule 10/22/17 Primary Care Physician: Keyur Mendez MD [Primary Care Provider] - Please follow up with your Primary Care Physician in: 3-5 days Disposition: Home Minutes spent on discharge:: 30 Patient Condition:: Stable Meaningful Use Info Meaningful Use Diagnoses (Choose all that apply): None applicable Code Visit Inpatient E&M: 51573 Disch Hosp
--- NOTE | 2017-10-22 19:17 | DS.PCM_ITS ---
Discharge Date and Diagnosis - Problem List Patient Problems: Active and Suspected Problems Hematuria (Acute) Date of Admission: 10/21/17 Date of Discharge: 10/22/17 - Primary Discharge Diagnosis Active and Suspected Problems Hematuria (Acute) - recurrent - Secondary Discharge Diagnosis Chronic Problems COPD, mild (Chronic) mild-mod obstr, mild restrictive d/t obesity fvc 55% improved to 65% w aerosols fev1/fvc=75% tlc=71% HTN (hypertension) (Chronic) Sleep apnea (Chronic) he is not compliant with CPAP bipap Prostate cancer (Chronic) radiotherapy - implanted seeds Diabetes mellitus type 2 in obese (Chronic) Anemia (Chronic) Non-compliance (Chronic) Super obesity (Chronic) CAD (coronary artery disease) (Chronic) moderate disease max 45% cath 09/08 [facility] oatebt stebt ramus intermedius Onychomycosis (Chronic) Depression (Chronic) Hospital Course and Treatment Imaging Results: Clinical Impression(s) from Imaging Studies Abdomen/Pelvis CT 10/21/17 17:33 IMPRESSION: CONSTIPATION Urinary bladder wall has wall thickening. This can be related to a partially contractile state. However, a cystitis is not excluded. Urinalysis should be performed in an effort to exclude cystitis. Electronically Signed: Say Mueller MD at 21:13 EST , Service support , Dr. Jovi Chavis - urology Operations: None Procedures: None Summary of Care Provided: Patient is a 62-year-old male with a past medical history pf coronary artery disease, COPD, super obesity, depression, diabetes mellitus type 2, hypertension, noncompliance, prostate cancer, AMRIK and COPD who presented to the emergency room at [facility] on 10/20/2017 complaining of gross hematuria. He has had radiation for tx of prostate CA in 2011. Approximately 4-5 months prior to presenting to the [facility] ED he moved to [place]. Prior to moving he was seen at the [facility] and cleared per pt. On September 02, 2017 he had an episode of gross hematuria while in [place] but did not see a physician not because he was going to come back to [place] and follow- up at the [facility]. He denied any dysuria and had no fevers or chills. vital signs in the ER were Temp 98.2, heart rate 80, blood pressure 180/95, respiratory rate 16 and he was 94% saturated on room air. Lab in the emergency room revealed a normal white blood cell count of 6.6 with 57% neutrophils. BMP was unremarkable with a BUN of 23 and a creatinine of 1.29. Urine had greater than 100 RBCs per high-power field with 0-5 WBCs and no bacteria. He was admitted to the hospital with a diagnosis of gross hematuria and Dr. Chavis was consulted. Del Toro catheter was placed and he was started on continuous bladder irrigation. The urine cleared up and the CBI was discontinued on the evening of 10/21. The urine the following morning was clear with occasional clot. He was able to urinate in a urinal without pain or obstruction. A CT scan of the abdomen and pelvis with contrast showed a normal right kidney and normal left kidney. There was a Del Toro balloon catheter in the urinary bladder and the prostatic seed implants were also visualized. The urinary bladder had wall thickening which was nonspecific. There were no definitive masses seen. A PSA level was normal at 0.34. Dr. Chavis recommended he follow up with the treating urologist at [facility]. He was discharged home on 10/22. HGB at DC is 12.1 and the CREAT is 1.23 with a BUN of 18. This note was generated with [employer] dictation software. It may contain incorrect words, spelling, and punctuation that were not noted in checking the note before signing. Discharge Activity: Return to Normal Activity Call your doctor if you observe: Fever of 101 or Higher, Inability to urinate, Dizziness, Fainting spells Home Medications: Medications to take at Discharge Albuterol Aerosols [Ventolin Aerosols] 2.5 mg INHALATION Q4H PRN PRN 05/15/17 Aspirin [Aspirin, Baby] 81 mg PO DAILY@0800 05/15/17 Atorvastatin Calcium [Lipitor] 40 mg PO QHS 05/15/17 HydrALAZINE [Apresoline] 25 mg PO TID 05/15/17 Metoprolol Tartrate [Lopressor (beta lev)] 25 mg PO BID 05/15/17 Nitroglycerin [Nitrostat] 0.4 mg SL PRN PRN 05/15/17 Nystatin Powder [Mycostatin Powder] 1 applic TOPICAL Q6H 05/15/17 Acetaminophen 325 mg PO Q4H PRN PRN 10/21/17 Calcium Carbonate [Calcium] 500 mg PO DAILY 10/21/17 Docusate Sodium [Colace] 100 mg PO DAILY PRN PRN 10/21/17 Ferrous Sulfate 324 mg PO DAILY 10/21/17 Folic Acid 1 mg PO DAILY@0800 10/21/17 Guaifenesin [Mucinex] 600 mg PO Q12H PRN PRN 10/21/17 Ibuprofen 200 mg PO TID 10/21/17 Melatonin 10 mg PO QHS 10/21/17 Amlodipine [Norvasc] 10 mg PO DAILY tablet 10/22/17 HydrOXYzine ARLEY [Vistaril] 50 mg PO DAILY capsule 10/22/17 Primary Care Physician: Keyur Mendez MD [Primary Care Provider] - Please follow up with your Primary Care Physician in: 3-5 days Disposition: Home Minutes spent on discharge:: 30 Patient Condition:: Stable Meaningful Use Info Meaningful Use Diagnoses (Choose all that apply): None applicable Code Visit Inpatient E&M: 80229 Disch Hosp
--- NOTE | 2017-10-22 19:45 | NURSING ---
Home medications returned to patient prior to D/C.
--- NOTE | 2017-11-06 12:29 | ED.RN ---
on October [address] [place] catheter was placed due to gross hematuria. order to place catheter was given by Dr. Thomas. pt was given a Urojet of lidocaine to help with the pain. pt was anxious about catheter start. pt reassured and procedure started. pt was a hard cath and required multiple stops of procedure for the patient to regain composer and agree to continue. medic was present at insertion and assisted with care. pt was cleaned and hospital procedure for catheter insertion was followed.
== END 2017-10-22 19:45 | disposition home or self-care (01) | DRG 699 ==
LOC: ED 23:33 → MS3 23:36
PROVIDERS: Admitting Provider Internal Medicine; Emergency Provider Emergency Medicine; Family Provider Family Medicine; PCP Family Medicine; Visit Provider Internal Medicine
DX: N02.9 Recurrent and persistent hematuria with unspecified morphologic changes (principal); Z68.43 Body mass index [BMI] 50.0-59.9, adult; E66.01 Morbid (severe) obesity due to excess calories; F32.9 Major depressive disorder, single episode, unspecified; D64.9 Anemia, unspecified; E11.9 Type 2 diabetes mellitus without complications; B35.1 Tinea unguium; G47.33 Obstructive sleep apnea (adult) (pediatric); I25.10 Atherosclerotic heart disease of native coronary artery without angina pectoris; J44.9 Chronic obstructive pulmonary disease, unspecified; Z87.891 Personal history of nicotine dependence; Z92.3 Personal history of irradiation; Z85.46 Personal history of malignant neoplasm of prostate; Z91.19 Patient's noncompliance with other medical treatment and regimen; I10 Essential (primary) hypertension
CPT/HCPCS: 36415; 74177; 80048; 81001; 82962; 83036; 84153; 85025; 85027; 94640; 99283; Q9967; A4216; G0103; J2405

== ENCOUNTER 2017-10-23 17:59 | Inpatient (IN) | payer OTHER, MEDICARE, SELFPAY ==
[2017-10-23] VITALS (7 sets, daily range): BP systolic 122–151; BP diastolic 65–85; PULSE 81–115; RESP 14–32; TEMP 36.3–38.1; O2SAT 92–97; BMI 53.2; BMI 57.2
--- NOTE | 2017-10-23 18:48 | CT_ITS ---
STUDY: CT BRAIN WITHOUT CONTRAST REASON FOR EXAM: Male, 62 years old. N/V SCHUSTER SINCE D/C 2 DAYS AGO, WAS HERE FOR HEMATURIA, PT HAS HX KS, COPD, HTN, CIRRHOSIS, DIAB, PROSTATE CA RADIATION DOSAGE (If Supplied By Facility): CTDIvol = ( 44.99 ) mGy, DLP = ( 829.85 ) mGycm TECHNIQUE: Transaxial CT imaging of the brain was performed without administration of intravenous contrast material. Individualized dose optimization techniques were used for this CT. COMPARISON: 05.06.14 FINDINGS: Normal soft tissue structures. Normal calvarium. Normal size ventricles and extra-axial spaces for the patient's age. Normal white matter tracts of the cerebral hemispheres. Normal basal ganglia and thalami. Normal brainstem. Normal cerebellum. There is no intracranial hemorrhage. There are no findings of an acute ischemic infarction. Normal visualized paranasal sinuses. CT/Brain/Head without Contrast IMPRESSION: Normal unenhanced CT scan of the brain. Electronically Signed: Say Mueller MD at 20:37 EST , Service support ,
[2017-10-23] MEDS: 0.9% Normal Saline 1,000 ML 150 ML IV (19:08)
[2017-10-23] MEDS: Ondansetron 4 MG/2 ML Vial IV (19:09)
[2017-10-23] MEDS: Albuterol 2.5 MG/3 ML VIAL.NEB. INHALATION (19:15)
[2017-10-23 19:20] LABS: Absolute Lymphocyte Count 1.51 X10^3/ul (0.83-4.51); Absolute Neutrophil Count 13.2 X10^3/uL (2.0-7.7); Basophil# 0.02 X10^3/uL; Basophil% 0.1 % (0-1); Eosinophil# 0.03 X10^3/uL; Eosinophils% 0.2 % (0-5); Hematocrit 36.5 % (40-54); Hemoglobin 11.9 g/dl (13.0-16.5); Lymphocyte # 1.51 X10^3/ul (4.0); Lymphocyte % 9.4 % (19-41); Mean Corp Hgb Conc 32.6 g/gl (32-36); Mean Corpuscular Hgb 28.1 pg (27.0-32.0); Mean Corpuscular Volume 86.1 fL (80-94); Mean Platelet Vol. 9.3 fl (6.2-12.0); Monocyte# 1.23 X10^3/uL; Monocyte% 7.7 % (0-10); Neutrophil # 13.18 X10^3/uL (2.7-7.7); Neutrophil % 82.4 % (47-70); POSITIVE COUNT NO; POSITIVE DIFFERENTIAL NO; POSITIVE MORPHOLOGY NO; Platelet Count 247 K/mm3 (150-450); RBC Distribution Width CV 15.5 % (11.6-14.6); RBC Distribution Width SD 49.4 fl (35.1-43.9); Red Blood Count 4.24 M/mm3 (4.6-6.2)
[2017-10-23 19:31] LABS: ALB/GLOB Ratio 0.5 RATIO (0.9-2.4); AST(SGOT) 24 U/L (15-37); Alanine Aminotransfer ALT/SGPT 23 U/L (16-61); Albumin, Serum 2.6 g/dL (3.2-5.0); Alkaline Phosphatase 130 U/L (45-117); Anion Gap 9 (5-15); BUN 17 mg/dL (7-18); BUN/Creat Ratio 11.3 RATIO (10-20); Calcium,Total 8.7 mg/dL (8.5-10.1); Chloride 101 mmol/L (98-107); EST Glomerular Filtration Rate 51 mL/min (>60); Est Glom Filt Rate - Afr Amer 61 mL/min (>60); Estimated Creatinine Clearance 48.35 ml/min; Globulin 5.1 g/dL (2.2-4.2); Glucose 114 mg/dL (74-106); Potassium 3.7 mmol/L (3.5-5.1); Protein, Total 7.7 g/dL (6.4-8.2); Sodium Level 138 mmol/L (136-145)
[2017-10-23 20:12] LABS: Mucous, Urine 0 SEEN /hpf (<or=2+); Squamous Epithelial Cells - UA 0 SEEN /hpf (0-5)
[2017-10-23 20:14] LABS: Color, Urine Yellow (Yellow); Glucose, Dipstick Normal (Normal); Ketone-Dipstick Negative (Negative); Leukocyte Esterase-Dipstick 500 /ul (Negative); Nitrite-Dipstick Negative (Negative); Occult Blood-Urine 150 /ul (Negative); Protein-Dipstick 100 mg/dl (Negative); Urine Bilirubin Dipstick Negative (Negative); Urine Clarity Cloudy (Clear); Urine Urobilinogen 1 mg/dl (Normal)
--- NOTE | 2017-10-23 20:20 | RAD_ITS ---
STUDY: X-RAY CHEST REASON FOR EXAM: Male, 62 years old. Nausea vomiting headache TECHNIQUE: Frontal and lateral view of the chest. COMPARISON: None. FINDINGS: The lungs are clear and expanded. There is no demonstrated pleural abnormality. There is borderline cardiomegaly. Normal mediastinum and henrique. Normal visualized pulmonary arteries. Normal visualized aortic arch and descending thoracic aorta. There are diffuse degenerative changes of the visualized thoracic spine. Normal visualized ribs, clavicles, and shoulders. There is no demonstrated abnormality of the visualized soft tissue structures of the upper abdomen. RAD/Chest PA and Lateral IMPRESSION: There are no acute findings in the chest. Electronically Signed: Say Mueller MD at 20:40 EST , Service support ,
[2017-10-23 20:35] LABS: Bacteria 1+ /hpf (None Seen); Red Blood Cells-Urine 0-5 SEEN /hpf (0-5); White Blood Cells 50-100 SEEN /hpf (0-5)
[2017-10-23 20:45] LABS: Lactic Acid 1.4 mmol/L (0.4-2.0)
--- NOTE | 2017-10-23 22:11 | PCM.HP.STD ---
Problem List (1) UTI (urinary tract infection) Status: Acute (2) Acute delirium Status: Chronic (3) Urinary incontinence Status: Acute (4) Hematuria Status: Acute (5) RICO (acute kidney injury) Status: Ruled-out (6) COPD, mild Status: Chronic Comment: mild-mod obstr, mild restrictive d/t obesity fvc 55% improved to 65% w aerosols fev1/fvc=75% tlc=71% (7) HTN (hypertension) Status: Chronic (8) Sleep apnea Status: Chronic Comment: bipap 20/16 (9) Prostate cancer Status: Chronic Comment: radiotherapy (10) Diabetes mellitus type 2 in obese Status: Chronic (11) Dehydration Status: Acute (12) Elevated serum creatinine Status: Acute (13) Anemia Status: Chronic (14) Non-compliance Status: Chronic (15) Super obesity Status: Chronic (16) CAD (coronary artery disease) Status: Chronic Comment: moderate disease max 45% cath 09/08 [facility] oatebt stebt ramus intermedius (17) Type II diabetes mellitus Status: Chronic (18) Onychomycosis Status: Chronic (19) Depression Status: Chronic History of Present Illness Date of Admission: 10/23/17 Chief Complaint: Confusion along with UTI The patient is a 62 year old M with multiple comorbidities including prostate cancer status post seeds was discharged yesterday after admitted for hematuria came back ER with complaint of nausea, vomiting, headache, generalized weakness along with confusion and altered mental status. Patient also complained of headache. As per his son, he is not answering questions appropriately and was not in himself. Patient had Del Toro catheter removed prior to discharge and patient is urinary incontinent. In ER UA shows UTI. Initial blood work shows leukocytosis 16,000 with left shift. Creatinine 1.5, lactic acid 1.4. He was discharged yesterday on creatinine 1.23. He also had history of acute kidney injury with creatinine 1.9 in February 2016. [] Past Medical History Past Medical History (Chronic Problems): Chronic Problems Acute delirium (Chronic) COPD, mild (Chronic) mild-mod obstr, mild restrictive d/t obesity fvc 55% improved to 65% w aerosols fev1/fvc=75% tlc=71% HTN (hypertension) (Chronic) Sleep apnea (Chronic) bipap 20/16 Prostate cancer (Chronic) radiotherapy Diabetes mellitus type 2 in obese (Chronic) Anemia (Chronic) Non-compliance (Chronic) Super obesity (Chronic) CAD (coronary artery disease) (Chronic) moderate disease max 45% cath 09/08 [facility] oatebt stebt ramus intermedius Type II diabetes mellitus (Chronic) Onychomycosis (Chronic) Depression (Chronic) Allergies oxycodone HCl [From Percodan] Allergy (Verified 05/15/17 10:27) Hives oxycodone terephthalate [From Percodan] Allergy (Verified 05/15/17 10:27) Hives Home Medications: Ambulatory Orders Medication Instructions Recorded Albuterol Aerosols [Ventolin 2.5 mg INHALATION Q4H PRN PRN 05/15/17 Aerosols] Aspirin [Aspirin, Baby] 81 mg PO DAILY@0800 05/15/17 Atorvastatin Calcium [Lipitor] 40 mg PO QHS 05/15/17 HydrALAZINE [Apresoline] 25 mg PO TID 05/15/17 Metoprolol Tartrate [Lopressor 25 mg PO BID 05/15/17 (beta lev)] Nitroglycerin [Nitrostat] 0.4 mg SL PRN PRN 05/15/17 Nystatin Powder [Mycostatin Powder] 1 applic TOPICAL Q6H 05/15/17 Acetaminophen 325 mg PO Q4H PRN PRN 10/21/17 Melatonin 10 mg PO QHS PRN 10/21/17 Ferrous Sulfate [Iron] 325 mg PO DAILY 10/23/17 Omeprazole [Prilosec] 20 mg PO BID 10/23/17 Oxybutynin Chloride [Ditropan Xl] 10 mg PO DAILY 10/23/17 Tamsulosin HCl [Flomax] 0.4 mg PO DAILY 10/23/17 Surgical History: - - knee arthroscopy and menisectomy heart Stent Psychiatric History: Depression Smoking Status: Never smoker - *Family History Sibling History Items: Asthma Maternal History Items: No pertinent history Paternal History Items: No pertinent history Review of Systems Constitutional: Reports: Anorexia, Chills, Fever, Weakness, Fatigue HEENT: Reports: Head Aches. Denies: Sinus Congestion, Sinus Drainage Cardiovascular: Denies: Chest Pain, Palpitations Respiratory: Denies: Cough, Shortness of breath at rest, Sputum production Gastrointestinal: Reports: Nausea, Vomiting. Denies: Abdominal Pain Genitourinary: Reports: Frequency, Incontinence, Urgency. Denies: Dysuria Musculoskeletal: Reports: Joint Pain. Denies: Joint Tenderness Skin: Denies: Rash, Wounds Neurological: Reports: Confusion, Headaches. Denies: Focal weakness, Numbness, Tingling Psychiatric: Reports: Anxiety. Denies: Depression, Homicidal Ideations, Suicidal Ideations Hematologic/ Lymphatic: Denies: Easy Bruising, Easy Bleeding VTE Information - Inpt Only VTE Present on Admission: No VTE Mechan Device Prophylaxis: SCD's VTE Pharm Prophylaxis ordered?: Yes Patient Problems: Active and Suspected Problems UTI (urinary tract infection) (Acute) Urinary incontinence (Acute) - Physical Exam General: Alert, Oriented x3, Cooperative HEENT: Atraumatic, PERRLA, EOMI, Normocephalic Oral: Dry Mucosa Neck: Supple, No JVD, Negative Carotid Bruits Lungs: Clear to auscultation, No rhonchi, No wheeze, No rales, Diminished Cardiovascular: Regular rate, Regular Rhythm, Normal S1, Normal S2, No murmurs Abdomen: Bowel Sounds Present, Soft, Non Tender, Non-Distended, - - Perineal region is soaked with urine. NH3 smell. Extremities: No edema, Capillary Refill Less than 3 Seconds Skin: No rashes, No breakdown Musculoskeletal: No Tenderness to Palpation of Joints or Extremities, Arthritic Changes, - - Weakness of lower extremity mainly due to arthritis and physical deconditioning Neurological: Cranial nerves II-XII grossly intact Psych/Mental Status: Normal Affect, Appropriate Vital Signs Temp Pulse Resp BP Pulse Ox 97.4 F L 112 H 14 151/65 H 95 10/23/17 18:00 10/23/17 21:35 10/23/17 21:35 10/23/17 21:35 10/23/17 21:35 Oxygen Delivery Method Room Air Weight: 340 lb Body Mass Index (BMI) 53.2 Microbiology Past 72 Hours 10/23/17 19:00 Influenza Types A,B Direct FA (ALISHA) - Final Mucosa - Nose Laboratory Tests Past 24 Hrs 10/23/17 10/23/17 10/23/17 19:00 19:00 20:00 WBC 16.0 H RBC 4.24 L Hgb 11.9 L Hct 36.5 L MCV 86.1 MCH 28.1 MCHC 32.6 RDW 15.5 H RDW Differential 49.4 H Plt Count 247 MPV 9.3 Immature Gran % (Auto) 0.200 Neut % (Auto) 82.4 H Lymph % (Auto) 9.4 L Walsh % (Auto) 7.7 Eos % (Auto) 0.2 Baso % (Auto) 0.1 Absolute Neuts (auto) 13.2 H Absolute Lymphs (auto) 1.51 Total Counted Not Reportable Sodium 138 Potassium 3.7 Chloride 101 Carbon Dioxide 28.0 Anion Gap 9 BUN 17 Creatinine 1.50 H Estim Creat Clear Calc 48.35 Est GFR (MDRD) Af Amer 61 Est GFR (MDRD) Non-Af 51 L BUN/Creatinine Ratio 11.3 Glucose 114 H Lactic Acid Calcium 8.7 Total Bilirubin 0.80 AST 24 ALT 23 Alkaline Phosphatase 130 H Total Protein 7.7 Albumin 2.6 L Globulin 5.1 H Albumin/Globulin Ratio 0.5 L Urine Color Yellow Urine Clarity Cloudy Urine pH 6.0 Ur Specific [employer] 1.010 Urine Protein 100 H Urine Glucose (UA) Normal Urine Ketones Negative Urine Occult Blood 150 H Urine Nitrite Negative Urine Bilirubin Negative Urine Urobilinogen 1 H Ur Leukocyte Esterase 500 H Urine RBC 0-5 SEEN Urine WBC 50-100 SEEN Ur Squamous Epith Cells 0 SEEN Urine Bacteria 1+ Urine Mucus 0 SEEN 10/23/17 20:10 WBC RBC Hgb Hct MCV MCH MCHC RDW RDW Differential Plt Count MPV Immature Gran % (Auto) Neut % (Auto) Lymph % (Auto) Walsh % (Auto) Eos % (Auto) Baso % (Auto) Absolute Neuts (auto) Absolute Lymphs (auto) Total Counted Sodium Potassium Chloride Carbon Dioxide Anion Gap BUN Creatinine Estim Creat Clear Calc Est GFR (MDRD) Af Amer Est GFR (MDRD) Non-Af BUN/Creatinine Ratio Glucose Lactic Acid 1.4 Calcium Total Bilirubin AST ALT Alkaline Phosphatase Total Protein Albumin Globulin Albumin/Globulin Ratio Urine Color Urine Clarity Urine pH Ur Specific [employer] Urine Protein Urine Glucose (UA) Urine Ketones Urine Occult Blood Urine Nitrite Urine Bilirubin Urine Urobilinogen Ur Leukocyte Esterase Urine RBC Urine WBC Ur Squamous Epith Cells Urine Bacteria Urine Mucus Assessment/Plan Active and Suspected Problems UTI (urinary tract infection) (Acute) Urinary incontinence (Acute) The patient is a 62 year old M with multiple comorbidities including prostate cancer status post seeds was discharged yesterday after admitted for hematuria came back ER with complaint of nausea, vomiting, headache, generalized weakness along with confusion and altered mental status. Patient also complained of headache. As per his son, he is not answering questions appropriately and was not in himself. Patient had Del Toro catheter removed prior to discharge and patient is urinary incontinent. In ER UA shows UTI. Initial blood work shows leukocytosis 16,000 with left shift. Creatinine 1.5, lactic acid 1.4. He was discharged yesterday on creatinine 1.23. He also had history of acute kidney injury with creatinine 1.9 in February 2016. 1. Altered mental status mainly acute encephalopathy most probably due to infectious/metabolic encephalopathy: [facility] on IV fluid normal saline. Treat the underlying cause as mentioned below. CT head is normal. 2. Complicated catheter associated UTI with urinary tract symptoms predominantly urinary incontinence and frequency history of prostate cancer: Patient recently had Del Toro catheter discontinued. Urine culture and blood culture ?2 ordered. Started on IV cefepime in ER when she is to ceftriaxone. Follow-up the culture. Follow-up CBC and BMP. Chest x-ray does not show acute finding. Continue Flomax and oxybutynin. 3. Recent hematuria with history of prostate cancer and chronic anemia, normocytic normochromic anemia.: Hemoglobin is 11.9 g percent. CBC tomorrow a.m. 4. Coronary artery disease, no chest pain. Continue home medication. Stable. Continue home cardiac medications including metoprolol and atorvastatin and aspirin. 5 Diabetes mellitus type 2 in obese: Accu-Chek before meals and at bedtime and cover with NovoLog sliding scale. Hypertension on hydralazine. 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 In view of recent hematuria and anemia, hold on pharmacological prophylaxis. Microbiology Past 72 Hours 10/23/17 19:00 Mucosa - Nose Influenza Types A,B Direct FA (ALISHA) - Final Laboratory Results 10/23/17 19:00: WBC 16.0 H, RBC 4.24 L, Hgb 11.9 L, Hct 36.5 L, MCV 86.1, MCH 28.1, MCHC 32.6, RDW 15.5 H, RDW Differential 49.4 H, Plt Count 247, MPV 9.3, Immature Gran % (Auto) 0.200, Neut % (Auto) 82.4 H, Lymph % (Auto) 9.4 L, Walsh % (Auto) 7.7, Eos % (Auto) 0.2, Baso % (Auto) 0.1, Absolute Neuts (auto) 13.2 H, Absolute Lymphs (auto) 1.51, Total Counted Not Reportable 10/23/17 19:00: Sodium 138, Potassium 3.7, Chloride 101, Carbon Dioxide 28.0, Anion Gap 9, BUN 17, Creatinine 1.50 H, Estim Creat Clear Calc 48.35, Est GFR (MDRD) Af Amer 61, Est GFR (MDRD) Non-Af 51 L, BUN/Creatinine Ratio 11.3, Glucose 114 H, Calcium 8.7, Total Bilirubin 0.80, AST 24, ALT 23, Alkaline Phosphatase 130 H, Total Protein 7.7, Albumin 2.6 L, Globulin 5.1 H, Albumin/Globulin Ratio 0.5 L 10/23/17 20:00: Urine Color Yellow, Urine Clarity Cloudy, Urine pH 6.0, Ur Specific [employer] 1.010, Urine Protein 100 H, Urine Glucose (UA) Normal, Urine Ketones Negative, Urine Occult Blood 150 H, Urine Nitrite Negative, Urine Bilirubin Negative, Urine Urobilinogen 1 H, Ur Leukocyte Esterase 500 H, Urine RBC 0-5 SEEN, Urine WBC 50-100 SEEN, Ur Squamous Epith Cells 0 SEEN, Urine Bacteria 1+, Urine Mucus 0 SEEN 10/23/17 20:10: Lactic Acid 1.4 Clinical Impression(s) from Imaging Studies Brain CT 10/23/17 18:48 IMPRESSION: Normal unenhanced CT scan of the brain. Electronically Signed: Say Mueller MD at 20:37 EST , Service support , Chest X-Ray 10/23/17 20:20 IMPRESSION: There are no acute findings in the chest. Electronically Signed: Say Mueller MD at 20:40 EST , Service support , Code Visit Inpatient E&M: 88405 Init Hosp L3
--- NOTE | 2017-10-23 23:34 | ED.VISSUMM ---
- ER Visit Summary Date of Service: 10/23/17 Chief Complaint: Headache and confusion History of Present Illness: The patient is a [address] Keyur Mendez and Dr. Vanessa. Patient was discharged from the hospital yesterday following a stay for hematuria. Family reports that he began to get confused last night. Patient complains of a headache that began yesterday. It is diffuse. Is gradually gotten worse. It is a sharp pain is 10 out of 10 at worst 9-10 currently. Is worsened by coughing. Is not taking anything for this. He does complain of nausea. He has not had any vomiting. He does have photophobia. Review of systems the patient complains of subjective fever and chills. He reports that he has a cough productive of white/yellow sputum without blood for the past 2 days. Complains of generalized abdominal pain. States his last bowel was 3 days ago. Physical Examination: Vitals: 97.4, 135/79, 81, 16, 96% sat on room air which is not hypoxic. General: Well-nourished and well-developed. Head: Normocephalic atraumatic. Neck: Supple, no lymphadenopathy. No JVD. Nontender. Cardiovascular: Regular rate and rhythm. No murmurs. Respiratory: No respiratory distress. Clear to auscultation bilaterally. Abdominal: Soft, mild suprapubic tenderness to palpation, nondistended, normal bowel sounds. No guarding, rebound, or peritoneal signs. Back: Nontender. Extremities: Nontender, no edema. Skin: Normal color, no rash. Neurologic: Alert with waxing and waning levels of confusion. He moves all extremities well. Test Results: CT head is normal. Chest x-ray shows no acute disease. CBC is marked for a white count of 16.0, H&H 11.0 and 36.5, 7 neutrophils 82, leukocytes of 9. Chem-7 is more for creatinine 1.5 and glucose 114. LFTs marked for an alk phos of 130, albumin 2.6, globulin 5.1. Lactic acid is 1.4. UA shows an obvious infection with 50-100 white blood cells leukocyte and blood. Emergency Department Course and Treatment: The patient was treated with Zofran and morphine for his headache. He was given albuterol Atrovent aerosol as he reports he supposed to take this at home. After urine culture and blood cultures were obtained. The patient was given a dose of cefepime IV as this is a healthcare acquired UTI. Treatment Plan: The patient was discussed with Dr. Quiñones. He will be admitted to the hospital for further wish and treatment. Disposition: Admitted in serious condition Impression: 1. UTI, healthcare acquired. 2. Acute delirium. This note was generated with [employer] dictation software. It may contain incorrect words, spelling, and punctuation that were not noted in review of the chart prior to signing ED Disposition - Plan for ED Patient: Disposition: Acute Care Hospital [facility] Chief Complaint: Headache
[2017-10-24] VITALS (8 sets, daily range): BP systolic 142–157; BP diastolic 57–73; PULSE 90–112; RESP 18–20; TEMP 36.7–37.9; O2SAT 94–100
[2017-10-24] MEDS: 0.9% Normal Saline 1,000 ML 100 ML IV ×2 (00:14→15:55)
[2017-10-24 01:02] LABS: Erythrocyte Sedimentation Rate 94 mm/hr (0-20)
[2017-10-24] MEDS: Acetaminophen 325 MG Tablet 650 MG PO ×2 (05:25→21:22)
[2017-10-24] MEDS: Docusate Sodium 100 MG Capsule 200 MG PO ×2 (05:29→21:22)
[2017-10-24 06:43] LABS: Absolute Lymphocyte Count 1.22 X10^3/ul (0.83-4.51); Absolute Neutrophil Count 11.6 X10^3/uL (2.0-7.7); Basophil# 0.02 X10^3/uL; Basophil% 0.1 % (0-1); Eosinophil# 0.03 X10^3/uL; Eosinophils% 0.2 % (0-5); Hematocrit 33.9 % (40-54); Hemoglobin 11.1 g/dl (13.0-16.5); Lymphocyte # 1.22 X10^3/ul (4.0); Lymphocyte % 8.2 % (19-41); Mean Corp Hgb Conc 32.7 g/gl (32-36); Mean Corpuscular Hgb 28.5 pg (27.0-32.0); Mean Corpuscular Volume 86.9 fL (80-94); Mean Platelet Vol. 9.5 fl (6.2-12.0); Monocyte# 1.89 X10^3/uL; Monocyte% 12.7 % (0-10); Neutrophil # 11.64 X10^3/uL (2.7-7.7); Neutrophil % 78.6 % (47-70); Platelet Count 238 K/mm3 (150-450); RBC Distribution Width CV 15.5 % (11.6-14.6); RBC Distribution Width SD 48.9 fl (35.1-43.9); White Blood Count 14.8 K/mm3 (4.4-11.0)
[2017-10-24 06:44] LABS: Differential Indicated SCAN CRITERIA MET; POSITIVE COUNT NO; POSITIVE DIFFERENTIAL YES; POSITIVE MORPHOLOGY NO
--- NOTE | 2017-10-24 10:00 | NURSING ---
attempted iv start without success. pt states difficult iv stick, verbalized has had to have IV in neck in the past and that IVT has had issues. Call placed to IVT, left message for her to call this nurse.
[2017-10-24] MEDS: Polyethylene Glycol 3350 17 GM PACKET PO (10:20)
[2017-10-24] MEDS: Ceftriaxone 1 GM/50 ML BAG IV ×2 (13:14→21:22)
--- NOTE | 2017-10-24 13:18 | PN_ITS ---
Patient Problems: Active and Suspected Problems UTI (urinary tract infection) (Acute) Urinary incontinence (Acute) Subjective: Patient is a 62-year-old gentleman recently discharged from the hospital following admission for hematuria readmitted with changes in mental status. On assessment of acute cystitis made admitted to regular nursing floor for further management 10/24/2017: Patient blood cultures so far positive for gram-negative rods on Rocephin Objective: GENERAL: cooperative HEENT: Clear conjunctiva, NECK; supple, normal thyroid, CHEST: Diminished to auscultation bilaterally, HEART: Regular S1 S2, no audible murmurs ABDOMEN: soft, non-tender, normoactive bowel sounds, RECTAL: deferred EXTREMITIES: No edema, no clubbing, no cyanosis. 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 SKIN: No Rash Vitals/I&O's: Vital Signs Temp Pulse Resp BP Pulse Ox 98.3 F 99 18 148/73 H 100 10/24/17 10:40 10/24/17 10:40 10/24/17 10:40 10/24/17 10:40 10/24/17 10:40 Oxygen Delivery Method Room Air Weight: 165.6 kg Body Mass Index (BMI) 57.2 Intake and Output for Last 24 Hours 10/22/17 10/23/17 10/24/17 23:59 23:59 23:59 Intake Total 1680 / 1680 Output Total 480 / 480 Balance 1200 / 1200 Laboratory Results 10/24/17 06:16: WBC 14.8 H, RBC 3.90 L, Hgb 11.1 L, Hct 33.9 L, MCV 86.9, MCH 28.5, MCHC 32.7, RDW 15.5 H, RDW Differential 48.9 H, Plt Count 238, MPV 9.5, Immature Gran % (Auto) 0.200, Neut % (Auto) 78.6 H, Lymph % (Auto) 8.2 L, [place] % (Auto) 12.7 H, Eos % (Auto) 0.2, Baso % (Auto) 0.1, Absolute Neuts (auto) 11.6 H, Absolute Lymphs (auto) 1.22, Total Counted Not Reportable Current Medications Acetaminophen (Tylenol) 650 mg PO Q6H PRN PRN PRN Reason: Mild Pain (scale 0-3)/T>100.7 Last Admin: 10/24/17 05:25 Dose: 650 mg Al Hydroxide/Mg Hydroxide (Mylanta Ii) 30 ml PO Q6H PRN PRN PRN Reason: Gastric Burning Bisacodyl (Dulcolax) 10 mg RECTAL DAILY PRN PRN PRN Reason: Constipation Docusate Sodium (Colace) 200 mg PO BID PRN PRN PRN Reason: Constipation Last Admin: 10/24/17 05:29 Dose: 200 mg Sodium Chloride () 1,000 mls @ 100 mls/hr IV .Q10H WILL Last Admin: 10/24/17 00:14 Dose: 100 mls/hr Ceftriaxone Sodium (Rocephin) 1 gm in 50 mls @ 100 mls/hr IV Q12 WILL Morphine Sulfate (Morphine) 1 - 2 mg IV Q4H PRN PRN PRN Reason: SEVERE PAIN (6-10/10) Last Admin: 10/24/17 05:25 Dose: 2 mg Ondansetron HCl (Zofran) 4 mg IV Q8H PRN PRN PRN Reason: Nausea Polyethylene Glycol (Miralax) 17 gm PO DAILY WILL Last Admin: 10/24/17 10:20 Dose: 17 gm Sodium Chloride () 5 - 30 ml IV UD PRN PRN Reason: SALINE FLUSH Zolpidem Tartrate (Ambien (Generic)) 5 mg PO QHS PRN PRN PRN Reason: INSOMNIA Assessment/Plan Active and Suspected Problems UTI (urinary tract infection) (Acute) Urinary incontinence (Acute) Patient is a 62-year-old gentleman recently discharged from the hospital following admission for hematuria readmitted with changes in mental status. On assessment of acute cystitis made admitted to regular nursing floor for further management 1. Acute infectious encephalopathy secondary to acute cystitis 2. Acute cystitis due to the presence of indwelling catheter (catheter associated UTI): Patient is bacteremic with gram-negative rods. Admitted to regular nursing floor managed with broad-spectrum antibiotic therapy with plans to adjust medication based on culture results 3. History of recent hematuria 4. Prostate CA patient is followed by a urologist in [facility] 5. CAD per history unstable 6. Morbid obesity with BMI of 57.2 lifestyle modification including weight loss advised 7. Hypertension-blood pressure controlled, home medications continued with dose adjustment as needed 8. Obesity hypoventilation syndrome with restrictive lung disease 9. Obstructive sleep apnea on BiPAP at night (apparently noncompliant) 10. Diabetes mellitus type 2 did continue with home regimen also placed on Accu -Cheks before meals and at bedtime with sliding scale coverage 11. DVT prophylaxis bilateral SCDs in view of patient recent hematuria chemoprophylaxis was avoided on admission Code Visit Inpatient E&M: [id number] Subs Hosp L3
[2017-10-24] MEDS: Ondansetron 4 MG/2 ML Vial IV (15:59)
[2017-10-25 01:59] VITALS: PULSE 87
[2017-10-25 02:31] VITALS: BP 137/54; PULSE 87; RESP 14; TEMP 37.8; O2SAT 95
[2017-10-25] MEDS: 0.9% Normal Saline 1,000 ML 100 ML IV ×2 (02:40→16:48)
--- NOTE | 2017-10-25 08:00 | PCM.PN.HOSP ---
Patient Problems: Active and Suspected Problems UTI (urinary tract infection) (Acute) Acute delirium (Acute) Urinary incontinence (Acute) Subjective: Urine cultures grew Klebsiella sensitive to ciprofloxacin therefore is for patient to be discharged home on Cipro Objective: GENERAL: cooperative HEENT: Clear conjunctiva, NECK; supple, normal thyroid, CHEST: Diminished to auscultation bilaterally, HEART: Regular S1 S2, no audible murmurs ABDOMEN: soft, non-tender, normoactive bowel sounds, RECTAL: deferred EXTREMITIES: No edema, no clubbing, no cyanosis. 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 SKIN: No Rash Vitals/I&O's: Vital Signs Temp Pulse Resp BP Pulse Ox 100.0 F H 87 14 137/54 H 95 10/25/17 02:31 10/25/17 02:31 10/25/17 02:31 10/25/17 02:31 10/25/17 02:31 Oxygen Delivery Method Room Air Weight: 165.6 kg Body Mass Index (BMI) 57.2 Intake and Output for Last 24 Hours 10/23/17 10/24/17 10/25/17 23:59 23:59 23:59 Intake Total 1680 / 1680 2011 Output Total 480 / 480 925 / 925 Balance 1200 / 1200 1087 / 1087 Current Medications Acetaminophen (Tylenol) 650 mg PO Q6H PRN PRN PRN Reason: Mild Pain (scale 0-3)/T>100.7 Last Admin: 10/24/17 21:22 Dose: 650 mg Al Hydroxide/Mg Hydroxide (Mylanta Ii) 30 ml PO Q6H PRN PRN PRN Reason: Gastric Burning Albuterol Sulfate (Ventolin Aerosols) 2.5 mg INHALATION Q4H PRN PRN PRN Reason: SOB &/OR WHEEZING Bisacodyl (Dulcolax) 10 mg RECTAL DAILY PRN PRN PRN Reason: Constipation Docusate Sodium (Colace) 200 mg PO BID PRN PRN PRN Reason: Constipation Last Admin: 10/24/17 21:22 Dose: 200 mg Sodium Chloride () 1,000 mls @ 100 mls/hr IV .Q10H WILL Last Admin: 10/25/17 02:40 Dose: 100 mls/hr Ceftriaxone Sodium (Rocephin) 1 gm in 50 mls @ 100 mls/hr IV Q12 WILL Last Admin: 10/24/17 21:22 Dose: 100 mls/hr Morphine Sulfate (Morphine) 1 - 2 mg IV Q4H PRN PRN PRN Reason: SEVERE PAIN (6-10/10) Last Admin: 10/24/17 21:34 Dose: 2 mg Ondansetron HCl (Zofran) 4 mg IV Q8H PRN PRN PRN Reason: Nausea Last Admin: 10/24/17 15:59 Dose: 4 mg Polyethylene Glycol (Miralax) 17 gm PO DAILY WILL Last Admin: 10/24/17 10:20 Dose: 17 gm Sodium Chloride () 5 - 30 ml IV UD PRN PRN Reason: SALINE FLUSH Zolpidem Tartrate (Ambien (Generic)) 5 mg PO QHS PRN PRN PRN Reason: INSOMNIA Assessment/Plan Active and Suspected Problems UTI (urinary tract infection) (Acute) Acute delirium (Acute) Urinary incontinence (Acute) Patient is a 62-year-old gentleman recently discharged from the hospital following admission for hematuria readmitted with changes in mental status. On assessment of acute cystitis made admitted to regular nursing floor for further management 1. Acute infectious encephalopathy secondary to acute cystitis 2. Acute cystitis due to the presence of indwelling catheter (catheter associated UTI): Patient is bacteremic with gram-negative rods. Admitted to regular nursing floor managed with broad-spectrum antibiotic therapy with plans to adjust medication based on culture results 3. History of recent hematuria 4. Prostate CA patient is followed by a urologist in [facility] 5. CAD per history unstable 6. Morbid obesity with BMI of 57.2 lifestyle modification including weight loss advised 7. Hypertension-blood pressure controlled, home medications continued with dose adjustment as needed 8. Obesity hypoventilation syndrome with restrictive lung disease 9. Obstructive sleep apnea on BiPAP at night (apparently noncompliant) 10. Diabetes mellitus type 2 did continue with home regimen also placed on Accu-Cheks before meals and at bedtime with sliding scale coverage 11. DVT prophylaxis bilateral SCDs in view of patient recent hematuria chemoprophylaxis was avoided on admission Code Visit Inpatient E&M: 03614 [facility] Hosp L3
[2017-10-25 09:16] LABS: Anion Gap 6 (5-15); BUN 14 mg/dL (7-18); BUN/Creat Ratio 9.5 RATIO (10-20); Calcium,Total 8.4 mg/dL (8.5-10.1); Chloride 105 mmol/L (98-107); Creatinine, Serum 1.47 mg/dL (0.70-1.30); EST Glomerular Filtration Rate 52 mL/min (>60); Est Glom Filt Rate - Afr Amer 63 mL/min (>60); Estimated Creatinine Clearance 49.34 ml/min; Glucose 103 mg/dL (74-106); Potassium 3.8 mmol/L (3.5-5.1); Sodium Level 139 mmol/L (136-145)
[2017-10-25 10:00] VITALS: PULSE 90
[2017-10-25 10:11] VITALS: BP 108/60; PULSE 87; RESP 18; TEMP 37; O2SAT 93
[2017-10-25] MEDS: Ceftriaxone 1 GM/50 ML BAG IV ×2 (10:31→21:44)
[2017-10-25] MEDS: Polyethylene Glycol 3350 17 GM PACKET PO (10:31)
--- NOTE | 2017-10-25 10:31 | PCM.DC ---
- Discharge Diagnoses Current Active Problems: Current Active and Chronic Problems UTI (urinary tract infection) (Acute) Acute delirium (Chronic) Urinary incontinence (Acute) You will use the following diet at home:: No restrictions Discharge Activity: Return to Normal Activity Allergies/Adverse Reactions: Allergies oxycodone HCl [From Percodan] Allergy (Verified 05/15/17 10:27) Hives oxycodone terephthalate [From Percodan] Allergy (Verified 05/15/17 10:27) Hives Medications to take at Discharge Albuterol Aerosols [Ventolin Aerosols] 2.5 mg INHALATION Q4H PRN PRN 05/15/17 Aspirin [Aspirin, Baby] 81 mg PO DAILY@0800 05/15/17 Atorvastatin Calcium [Lipitor] 40 mg PO QHS 05/15/17 HydrALAZINE [Apresoline] 25 mg PO TID 05/15/17 Metoprolol Tartrate [Lopressor (beta lev)] 25 mg PO BID 05/15/17 Nitroglycerin [Nitrostat] 0.4 mg SL PRN PRN 05/15/17 Nystatin Powder [Mycostatin Powder] 1 applic TOPICAL Q6H 05/15/17 Acetaminophen 325 mg PO Q4H PRN PRN 10/21/17 Melatonin 10 mg PO QHS PRN 10/21/17 Ferrous Sulfate [Iron] 325 mg PO DAILY 10/23/17 Omeprazole [Prilosec] 20 mg PO BID 10/23/17 Oxybutynin Chloride [Ditropan Xl] 10 mg PO DAILY 10/23/17 Tamsulosin HCl [Flomax] 0.4 mg PO DAILY 10/23/17 Ciprofloxacin [Cipro] 500 mg PO BID #16 tab 10/25/17 Lactobacillus Acidophilus [Acidophilus] 1 tab PO DAILY #30 tab 10/25/17 The following prescriptions were given: Ciprofloxacin [Cipro] 500 mg PO BID #16 tab Lactobacillus Acidophilus [Acidophilus] 1 tab PO DAILY #30 tab Primary Care Physician: Keyur Mendez MD [Primary Care Provider] - Please follow up with your Primary Care Physician in: in 5-7 days Proposed Discharge Date: 10/25/17
--- NOTE | 2017-10-25 10:33 | PCM.DC.SUM ---
Discharge Date and Diagnosis - Problem List Patient Problems: Active and Suspected Problems UTI (urinary tract infection) (Acute) Acute delirium (Acute) Urinary incontinence (Acute) Date of Admission: 10/23/17 Date of Discharge: 10/25/17 - Primary Discharge Diagnosis Active and Suspected Problems UTI (urinary tract infection) (Acute) Acute delirium (Acute) Urinary incontinence (Acute) - Secondary Discharge Diagnosis Chronic Problems COPD, mild (Chronic) mild-mod obstr, mild restrictive d/t obesity fvc 55% improved to 65% w aerosols fev1/fvc=75% tlc=71% HTN (hypertension) (Chronic) Sleep apnea (Chronic) bipap Prostate cancer (Chronic) radiotherapy Diabetes mellitus type 2 in obese (Chronic) Anemia (Chronic) Non-compliance (Chronic) Super obesity (Chronic) CAD (coronary artery disease) (Chronic) moderate disease max 45% cath 09/08 [facility] oatebt stebt ramus intermedius Type II diabetes mellitus (Chronic) Onychomycosis (Chronic) Depression (Chronic) Hospital Course and Treatment Imaging Results: Clinical Impression(s) from Imaging Studies Brain CT 10/23/17 18:48 IMPRESSION: Normal unenhanced CT scan of the brain. Electronically Signed: Say Mueller MD at 20:37 EST , Service support , Chest X-Ray 10/23/17 20:20 IMPRESSION: There are no acute findings in the chest. Electronically Signed: Say Mueller MD at 20:40 EST , Service support , Operations: None Summary of Care Provided: Patient is a 62-year-old gentleman recently discharged from the hospital following admission for hematuria readmitted with changes in mental status. On assessment of acute cystitis made admitted to regular nursing floor for further management 1. Acute infectious encephalopathy secondary to acute cystitis 2. Acute cystitis due to the presence of indwelling catheter (catheter associated UTI) Klebsiella pneumonia. Patient was also bacteremic: Patient is bacteremic with gram-negative rods. Admitted to regular nursing floor managed with broad-spectrum antibiotic therapy antibiotic therapy adjusted after obtaining culture result. Patient was discharged home on ciprofloxacin to complete a 10 day therapy she was counseled on the need to be compliant 3. History of recent hematuria 4. Prostate CA patient is followed by a urologist in [facility] 5. CAD per history unstable 6. Morbid obesity with BMI of 57.2 lifestyle modification including weight loss advised 7. Hypertension-blood pressure controlled, home medications continued with dose adjustment as needed 8. Obesity hypoventilation syndrome with restrictive lung disease 9. Obstructive sleep apnea on BiPAP at night (apparently noncompliant) 10. Diabetes mellitus type 2 did continue with home regimen also placed on Accu-Cheks before meals and at bedtime with sliding scale coverage 11. DVT prophylaxis bilateral SCDs in view of patient recent hematuria chemoprophylaxis was avoided on admission Discharge Activity: Return to Normal Activity Home Medications: Medications to take at Discharge Albuterol Aerosols [Ventolin Aerosols] 2.5 mg INHALATION Q4H PRN PRN 05/15/17 Aspirin [Aspirin, Baby] 81 mg PO DAILY@0800 05/15/17 Atorvastatin Calcium [Lipitor] 40 mg PO QHS 05/15/17 HydrALAZINE [Apresoline] 25 mg PO TID 05/15/17 Metoprolol Tartrate [Lopressor (beta lev)] 25 mg PO BID 05/15/17 Nitroglycerin [Nitrostat] 0.4 mg SL PRN PRN 05/15/17 Nystatin Powder [Mycostatin Powder] 1 applic TOPICAL Q6H 05/15/17 Acetaminophen 325 mg PO Q4H PRN PRN 10/21/17 Melatonin 10 mg PO QHS PRN 10/21/17 Ferrous Sulfate [Iron] 325 mg PO DAILY 10/23/17 Omeprazole [Prilosec] 20 mg PO BID 10/23/17 Oxybutynin Chloride [Ditropan Xl] 10 mg PO DAILY 10/23/17 Tamsulosin HCl [Flomax] 0.4 mg PO DAILY 10/23/17 Ciprofloxacin [Cipro] 500 mg PO BID #16 tab 10/25/17 Lactobacillus Acidophilus [Acidophilus] 1 tab PO DAILY #30 tab 10/25/17 Following Prescrptions Were Given to Patient: Ciprofloxacin [Cipro] 500 mg PO BID #16 tab Lactobacillus Acidophilus [Acidophilus] 1 tab PO DAILY #30 tab Primary Care Physician: Keyur Mendez MD [Primary Care Provider] - Please follow up with your Primary Care Physician in: in 5-7 days Disposition: Home Minutes spent on discharge:: 35 Patient Condition:: Stable Meaningful Use Info Meaningful Use Diagnoses (Choose all that apply): None applicable Code Visit Inpatient E&M: 28115 Disch Hosp
--- NOTE | 2017-10-25 15:00 | CCN.REFER ---
EZIO CM in to discuss discharge plans with patient and family. Family states that they feel patient is unable to go home. Patient currently has orders for discharge. Encouraged family to speak with physician. admission discharge rn nurse aware and of family requesting to speak with physician and Dr. Arianna gómez. EZIO CARUSO discussed possible HHC with patient and family and they were agreeable to HHC. EZIO CARUSO requested HHC referral through [facility] to set up HHC for care home and therapy. EZIO CARUSO will fax clinical information to [facility]. EZIO CARUSO will continue to follow patient and plan for a safe discharge.
--- NOTE | 2017-10-25 15:45 | CASEMGMT ---
EZIO CARUSO received update from physician that patient and family are now requesting SNF placement. EZIO CARUSO notified CHRISTIAN Cornejo of patient and family request for SNF placement.
[2017-10-25 16:15] VITALS: BP 142/75; PULSE 85; RESP 16; TEMP 36.9; O2SAT 96
--- NOTE | 2017-10-25 16:55 | CASEMGMT ---
Social Work SW received a referral from physician that pt cannot return home alone as previously planned. SW met with pt and brother and pt is agreeable to SNF placement. Brother does not feel pt is safe at home alone and cannot return home. CHRISTIAN provided a list of local SNFs in network with pt insurance. Pt would like to go to [facility]. Phone call to Farrah at [facility] and they will have a room available on Saturday. Clinicals faxed for review to determine if they can accept him. At this time pt has not accepted PT or OT. SW discussed this with pt and need to participate in therapy. Pt states he will participate with therapy. [facility] placement has not been confirmed and precert will need obtained. CHRISTIAN will follow up on Saturday. Plan: SNF, pending acceptance and insurance auth TL Natarajan
[2017-10-25 21:30] VITALS: BP 144/76; PULSE 98; RESP 14; TEMP 37.3; O2SAT 94
[2017-10-25] MEDS: Zolpidem Tartrate 5 MG Tablet PO (21:44)
[2017-10-26] VITALS (10 sets, daily range): BP systolic 128–160; BP diastolic 51–87; PULSE 74–101; RESP 16–24; TEMP 36.6–37.5; O2SAT 92–98
[2017-10-26] MEDS: 0.9% Normal Saline 1,000 ML 100 ML IV ×2 (02:56→14:21)
[2017-10-26] MEDS: Albuterol 2.5 MG/3 ML VIAL.NEB. INHALATION ×4 (04:09→22:21)
[2017-10-26 07:06] LABS: Hematocrit 31.3 % (40-54); Hemoglobin 10.2 g/dl (13.0-16.5); Mean Corp Hgb Conc 32.6 g/gl (32-36); Mean Corpuscular Hgb 28.2 pg (27.0-32.0); Mean Corpuscular Volume 86.5 fL (80-94); Mean Platelet Vol. 9.6 fl (6.2-12.0); Platelet Count 255 K/mm3 (150-450); RBC Distribution Width CV 15.7 % (11.6-14.6); RBC Distribution Width SD 48.6 fl (35.1-43.9); Red Blood Count 3.62 M/mm3 (4.6-6.2); White Blood Count 6.4 K/mm3 (4.4-11.0)
[2017-10-26 07:09] LABS: Scan Indicated on CBC? Y/N NO
[2017-10-26 07:28] LABS: Anion Gap 8 (5-15); BUN 14 mg/dL (7-18); BUN/Creat Ratio 11.4 RATIO (10-20); Calcium,Total 8.4 mg/dL (8.5-10.1); Chloride 103 mmol/L (98-107); Creatinine, Serum 1.23 mg/dL (0.70-1.30); EST Glomerular Filtration Rate 64 mL/min (>60); Est Glom Filt Rate - Afr Amer 77 mL/min (>60); Estimated Creatinine Clearance 58.96 ml/min; Glucose 95 mg/dL (74-106); Potassium 3.5 mmol/L (3.5-5.1); Sodium Level 137 mmol/L (136-145)
[2017-10-26] MEDS: Ceftriaxone 1 GM/50 ML BAG IV ×2 (09:33→22:18)
--- NOTE | 2017-10-26 09:38 | PCM.PN.HOSP ---
Patient Problems: Active and Suspected Problems UTI (urinary tract infection) (Acute) Acute delirium (Acute) Urinary incontinence (Acute) Subjective: Patient seen complains of feeling tired. Plan to discharge patient home was discontinued after he was found to be significantly deconditioned subsequently requested for PT OT eval and nephrology social worker to assist with discharge planning Objective: GENERAL: cooperative HEENT: Clear conjunctiva, NECK; supple, normal thyroid, CHEST: Diminished to auscultation bilaterally, HEART: Regular S1 S2, no audible murmurs ABDOMEN: soft, non-tender, normoactive bowel sounds, RECTAL: deferred EXTREMITIES: No edema, no clubbing, no cyanosis. 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 SKIN: No Rash Vitals/I&O's: Vital Signs Temp Pulse Resp BP Pulse Ox 98.7 F 91 18 128/59 H 92 10/26/17 02:49 10/26/17 04:09 10/26/17 04:09 10/26/17 02:49 10/26/17 02:49 Oxygen Delivery Method Room Air Intake and Output for Last 24 Hours 10/24/17 10/25/17 10/26/17 23:59 23:59 23:59 Intake Total 1843 / 1843 Output Total 500 / 500 Balance 1343 / 1343 Laboratory Results 10/26/17 06:10: Sodium 137, Potassium 3.5, Chloride 103, Carbon Dioxide 26.0, Anion Gap 8, BUN 14, Creatinine 1.23, Estim Creat Clear Calc 58.96, Est GFR (MDRD) Af Amer 77, Est GFR (MDRD) Non-Af 64, BUN/Creatinine Ratio 11.4, Glucose 95, Calcium 8.4 L 10/26/17 06:10: WBC 6.4, RBC 3.62 L, Hgb 10.2 L, Hct 31.3 L, MCV 86.5, MCH 28.2, MCHC 32.6, RDW 15.7 H, RDW Differential 48.6 H, Plt Count 255, MPV 9.6 Current Medications Acetaminophen (Tylenol) 650 mg PO Q6H PRN PRN PRN Reason: Mild Pain (scale 0-3)/T>100.7 Last Admin: 10/24/17 21:22 Dose: 650 mg Al Hydroxide/Mg Hydroxide (Mylanta Ii) 30 ml PO Q6H PRN PRN PRN Reason: Gastric Burning Albuterol Sulfate (Ventolin Aerosols) 2.5 mg INHALATION Q4H PRN PRN PRN Reason: SOB &/OR WHEEZING Last Admin: 10/26/17 04:09 Dose: 2.5 mg Bisacodyl (Dulcolax) 10 mg RECTAL DAILY PRN PRN PRN Reason: Constipation Docusate Sodium (Colace) 200 mg PO BID PRN PRN PRN Reason: Constipation Last Admin: 10/24/17 21:22 Dose: 200 mg Sodium Chloride () 1,000 mls @ 100 mls/hr IV .Q10H WILL Last Admin: 10/26/17 02:56 Dose: 100 mls/hr Ceftriaxone Sodium (Rocephin) 1 gm in 50 mls @ 100 mls/hr IV Q12 WILL Last Admin: 10/26/17 09:33 Dose: 100 mls/hr Morphine Sulfate (Morphine) 1 - 2 mg IV Q4H PRN PRN PRN Reason: SEVERE PAIN (6-10/10) Last Admin: 10/25/17 16:47 Dose: 2 mg Ondansetron HCl (Zofran) 4 mg IV Q8H PRN PRN PRN Reason: Nausea Last Admin: 10/24/17 15:59 Dose: 4 mg Polyethylene Glycol (Miralax) 17 gm PO DAILY WILL Last Admin: 10/25/17 10:31 Dose: 17 gm Sodium Chloride () 5 - 30 ml IV UD PRN PRN Reason: SALINE FLUSH Tramadol HCl (Ultram (G)) 50 mg PO Q4H PRN PRN PRN Reason: MODERATE PAIN (4-5/10) Zolpidem Tartrate (Ambien (Generic)) 5 mg PO QHS PRN PRN PRN Reason: INSOMNIA Last Admin: 10/25/17 21:44 Dose: 5 mg Assessment/Plan Active and Suspected Problems UTI (urinary tract infection) (Acute) Acute delirium (Acute) Urinary incontinence (Acute) Patient is a 62-year-old gentleman recently discharged from the hospital following admission for hematuria readmitted with changes in mental status. On assessment of acute cystitis made admitted to regular nursing floor for further management 1. Acute infectious encephalopathy secondary to acute cystitis 2. Acute cystitis due to the presence of indwelling catheter (catheter associated UTI) with klebsiella pneumonia. Patient was also bacteremic: Admitted to regular nursing floor managed with broad-spectrum antibiotic therapy antibiotic therapy adjusted after obtaining culture result. Antibiotic change ciprofloxacin after obtaining culture results 3. History of recent hematuria 4. Prostate CA patient is followed by a urologist in [facility] 5. CAD per history unstable 6. Morbid obesity with BMI of 57.2 lifestyle modification including weight loss advised 7. Hypertension-blood pressure controlled, home medications continued with dose adjustment as needed 8. Obesity hypoventilation syndrome with restrictive lung disease 9. Obstructive sleep apnea on BiPAP at night (apparently noncompliant) 10. Diabetes mellitus type 2 did continue with home regimen also placed on Accu-Cheks before meals and at bedtime with sliding scale coverage 11. DVT prophylaxis bilateral SCDs in view of patient recent hematuria chemoprophylaxis was avoided on admission 12. Physical deconditioning requested for PT OT and nephrology social worker to assist with discharge planning 13. Acute kidney injury resolved with rehydration Code Visit Inpatient E&M: 82701 Subs Hosp L2
--- NOTE | 2017-10-26 22:27 | EKG12_ITS ---
Test Reason : CP Blood Pressure : / mmHG Vent. Rate : 090 BPM Atrial Rate : 090 BPM P-R Int : 152 ms QRS Dur : 092 ms QT Int : 376 ms P-R-T Axes : 069 -60 059 degrees QTc Int : 459 ms Normal sinus rhythm Low voltage QRS Left anterior fascicular block Abnormal ECG Confirmed by BARBARA JACKSON, WIN ([id number]), newspaper editor DAGO SOMMERS ([id number]) on 11/06/2017 4:18:42 PM Referred By: JOSE MANUEL Confirmed By:WIN JIMENEZ MD
[2017-10-26] MEDS: Zolpidem Tartrate 5 MG Tablet PO (23:31)
[2017-10-27] VITALS (8 sets, daily range): BP systolic 129–172; BP diastolic 67–75; PULSE 67–88; RESP 18–20; TEMP 36.6–37.1; O2SAT 95–98
[2017-10-27] MEDS: 0.9% Normal Saline 1,000 ML 100 ML IV ×3 (00:22→22:12)
[2017-10-27] MEDS: Albuterol 2.5 MG/3 ML VIAL.NEB. INHALATION ×2 (02:21→07:15)
[2017-10-27 07:07] LABS: Hematocrit 30.5 % (40-54); Hemoglobin 9.9 g/dl (13.0-16.5); Mean Corp Hgb Conc 32.5 g/gl (32-36); Mean Corpuscular Hgb 28.2 pg (27.0-32.0); Mean Corpuscular Volume 86.9 fL (80-94); Mean Platelet Vol. 9.3 fl (6.2-12.0); Platelet Count 272 K/mm3 (150-450); RBC Distribution Width CV 15.8 % (11.6-14.6); RBC Distribution Width SD 49.1 fl (35.1-43.9); Red Blood Count 3.51 M/mm3 (4.6-6.2); White Blood Count 7.2 K/mm3 (4.4-11.0)
[2017-10-27 07:29] LABS: Scan Indicated on CBC? Y/N NO
--- NOTE | 2017-10-27 07:30 | NURSING ---
CPS came up to this nurse to inform her that Mr. Han has refused his Aerosol treatment this morning.
--- NOTE | 2017-10-27 07:35 | PN_ITS ---
Patient Problems: Active and Suspected Problems UTI (urinary tract infection) (Acute) Acute delirium (Acute) Urinary incontinence (Acute) Subjective: Patient seen admit to a more restful night compared to previous evenings. Awaiting social security assessor to assist with discharge planning to a [facility] facility Objective: GENERAL: cooperative HEENT: Clear conjunctiva, NECK; supple, normal thyroid, CHEST: Diminished to auscultation bilaterally, HEART: Regular S1 S2, no audible murmurs ABDOMEN: soft, non-tender, normoactive bowel sounds, RECTAL: deferred EXTREMITIES: No edema, no clubbing, no cyanosis. 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 SKIN: No Rash Vitals/I&O's: Vital Signs Temp Pulse Resp BP Pulse Ox 98.8 F 80 18 129/68 H 95 10/27/17 04:00 10/27/17 04:28 10/27/17 04:28 10/27/17 04:00 10/27/17 04:28 Oxygen Delivery Method Room Air Weight: 165.6 kg Intake and Output for Last 24 Hours 10/25/17 10/26/17 10/27/17 23:59 23:59 23:59 Intake Total 3936 / 3936 2158 / 2158 Output Total 1285 / 1285 825 / 825 Balance 2651 / 2651 1333 / 1333 Laboratory Results 10/26/17 22:50: Troponin I < 0.02 10/27/17 02:35: Troponin I < 0.02 10/27/17 06:00: Sodium Pending, Potassium Pending, Chloride Pending, Carbon Dioxide Pending, Anion Gap Pending, BUN Pending, Creatinine Pending, Est GFR ( MDRD) Af Amer Pending, Est GFR (MDRD) Non-Af Pending, BUN/Creatinine Ratio Pending, Glucose Pending, Calcium Pending 10/27/17 06:00: WBC 7.2, RBC 3.51 L, Hgb 9.9 L, Hct 30.5 L, MCV 86.9, MCH 28.2, MCHC 32.5, RDW 15.8 H, RDW Differential 49.1 H, Plt Count 272, MPV 9.3 10/27/17 06:00: Troponin I Pending Current Medications Acetaminophen (Tylenol) 650 mg PO Q6H PRN PRN PRN Reason: Mild Pain (scale 0-3)/T>100.7 Last Admin: 10/24/17 21:22 Dose: 650 mg Al Hydroxide/Mg Hydroxide (Mylanta Ii) 30 ml PO Q6H PRN PRN PRN Reason: Gastric Burning Albuterol Sulfate (Ventolin Aerosols) 2.5 mg INHALATION Q4H PRN PRN PRN Reason: SOB &/OR WHEEZING Last Admin: 10/27/17 02:21 Dose: 2.5 mg Bisacodyl (Dulcolax) 10 mg RECTAL DAILY PRN PRN PRN Reason: Constipation Docusate Sodium (Colace) 200 mg PO BID PRN PRN PRN Reason: Constipation Last Admin: 10/24/17 21:22 Dose: 200 mg Sodium Chloride () 1,000 mls @ 100 mls/hr IV .Q10H WILL Last Admin: 10/27/17 00:22 Dose: 100 mls/hr Ceftriaxone Sodium (Rocephin) 1 gm in 50 mls @ 100 mls/hr IV Q12 WILL Last Admin: 10/26/17 22:18 Dose: 100 mls/hr Morphine Sulfate (Morphine) 1 - 2 mg IV Q4H PRN PRN PRN Reason: SEVERE PAIN (6-10/10) Last Admin: 10/25/17 16:47 Dose: 2 mg Ondansetron HCl (Zofran) 4 mg IV Q8H PRN PRN PRN Reason: Nausea Last Admin: 10/24/17 15:59 Dose: 4 mg Polyethylene Glycol (Miralax) 17 gm PO DAILY WILL Last Admin: 10/26/17 12:47 Dose: Not Given Sodium Chloride () 5 - 30 ml IV UD PRN PRN Reason: SALINE FLUSH Tramadol HCl (Ultram (G)) 50 mg PO Q4H PRN PRN PRN Reason: MODERATE PAIN (4-5/10) Zolpidem Tartrate (Ambien (Generic)) 5 mg PO QHS PRN PRN PRN Reason: INSOMNIA Last Admin: 10/26/17 23:31 Dose: 5 mg Assessment/Plan Active and Suspected Problems UTI (urinary tract infection) (Acute) Acute delirium (Acute) Urinary incontinence (Acute) Patient is a 62-year-old gentleman recently discharged from the hospital following admission for hematuria readmitted with changes in mental status. On assessment of acute cystitis made admitted to regular nursing floor for further management 1. Acute infectious encephalopathy secondary to acute cystitis 2. Acute cystitis due to the presence of indwelling catheter (catheter associated UTI) with klebsiella pneumonia. Patient was also bacteremic: Admitted to regular nursing floor managed with broad-spectrum antibiotic therapy antibiotic therapy adjusted after obtaining culture result. Antibiotic changed to ciprofloxacin after obtaining culture results 3. History of recent hematuria 4. Prostate CA patient is followed by a urologist in [facility] 5. CAD per history unstable 6. Morbid obesity with BMI of 57.2 lifestyle modification including weight loss advised 7. Hypertension-blood pressure controlled, home medications continued with dose adjustment as needed 8. Obesity hypoventilation syndrome with restrictive lung disease 9. Obstructive sleep apnea on BiPAP at night (apparently noncompliant) 10. Diabetes mellitus type 2 did continue with home regimen also placed on Accu -Cheks before meals and at bedtime with sliding scale coverage 11. DVT prophylaxis bilateral SCDs in view of patient recent hematuria chemoprophylaxis was avoided on admission 12. Physical deconditioning requested for PT OT and social security assessor to assist with discharge planning 13. Acute kidney injury resolved with rehydration Code Visit Inpatient E&M: 46745 Subs Hosp L2
--- NOTE | 2017-10-27 08:19 | CPS ---
Walked into patients room to give aerosol treatment per patients request. Patient stated he did not want treatment. RN informed.
[2017-10-27 08:22] LABS: Anion Gap 9 (5-15); BUN 11 mg/dL (7-18); BUN/Creat Ratio 10.4 RATIO (10-20); Calcium,Total 7.6 mg/dL (8.5-10.1); Chloride 107 mmol/L (98-107); Creatinine, Serum 1.06 mg/dL (0.70-1.30); EST Glomerular Filtration Rate 75 mL/min (>60); Est Glom Filt Rate - Afr Amer 91 mL/min (>60); Estimated Creatinine Clearance 68.42 ml/min; Glucose 89 mg/dL (74-106); Potassium 3.5 mmol/L (3.5-5.1); Sodium Level 141 mmol/L (136-145)
[2017-10-27] MEDS: Ceftriaxone 1 GM/50 ML BAG IV ×2 (10:58→22:11)
[2017-10-27] MEDS: Polyethylene Glycol 3350 17 GM PACKET PO (10:58)
--- NOTE | 2017-10-27 18:45 | NURSING ---
pt med list reviewed after pt states he hasnt gotten his flomax. This nurse informed pt that the doctor could be called and asked if could order is home meds, that none of them are ordered. pt refused. I dont take them at night, dont worry about it.
[2017-10-27] MEDS: Zolpidem Tartrate 5 MG Tablet PO (23:02)
[2017-10-28 00:13] VITALS: BP 170/75; PULSE 72; RESP 20; O2SAT 99
[2017-10-28 01:49] VITALS: BP 185/91; PULSE 94; RESP 20; TEMP 36.8; O2SAT 97
--- NOTE | 2017-10-28 01:57 | NURSING ---
Pt BP is still up, Pt refused Apresoline. Had small amount of blood in stool, let him know I felt a hemorrhoid, he states he has had that forever and it is not the source of blood. Did cardiac workup yesterday. Pt stating he is having chest pressure. I said it could be anxiety related, and I could get some Ativan ordered. Pt refused. Pt refused Zofran for nausea, gave some Katiana Tanisha. Refused Morphine for pain. Got home med list ordered. Pt states he is not going to take them as he does not want to pay for the meds. Offered breathing treatment. Patient refused. Let know and he said to let patient rest as he does not want anything and see how he is in the morning.
[2017-10-28 02:01] VITALS: PULSE 94; RESP 20; O2SAT 97
--- NOTE | 2017-10-28 07:34 | NURSING ---
PER REPORT DR DIAZ REFUSED TO SEE PT AFTER BEING CALLED FOR CONSULT
--- NOTE | 2017-10-28 08:16 | PN_ITS ---
Patient Problems: Active and Suspected Problems UTI (urinary tract infection) (Acute) Acute delirium (Acute) Urinary incontinence (Acute) Subjective: Patient was seen and examined. He admits to having hematuria on and off, last had some this morning. Denied any fever or chills. Been on IV ceftriaxone for UTI. Patient appears alert, oriented, no episodes of confusion. According to the nursing staff, he has been refusing some of his medication. Noted blood pressure was elevated. Refusing IV hydralazine. According to the patient, he has an appointment in [facility] tomorrow morning at 7 AM and needs to be discharged to follow-up on the appointment. Made aware also by the nursing staff that Dr. Chavis would like patient to follow-up in [facility]. Vitals/I&O's: Vital Signs Temp Pulse Resp BP Pulse Ox 98.3 F 94 20 H 185/91 H 97 10/28/17 01:49 10/28/17 02:01 10/28/17 02:01 10/28/17 01:49 10/28/17 02:01 Oxygen Delivery Method Room Air Weight: 165.6 kg Intake and Output for Last 24 Hours 10/26/17 10/27/17 10/28/17 23:59 23:59 23:59 Intake Total 3936 / 3936 3336 / 3336 1937 / 1937 Output Total 1285 / 1285 2075 / 2075 1550 / 1550 Balance 2651 / 2651 1261 / 1261 387 / 387 General: Alert, Oriented x3, Cooperative, No apparent distress, - - obese HEENT: Atraumatic, PERRLA, EOMI, Normocephalic Oral: Moist Mucosa Neck: Supple Lungs: Clear to auscultation, Normal air movement Cardiovascular: Regular rate, Regular Rhythm, Normal S1, Normal S2, No murmurs Abdomen: Bowel Sounds Present, Soft, Non Tender, Non-Distended, No Hepato- splenomegaly, Obese Extremities: No edema Skin: No rashes Musculoskeletal: No Tenderness to Palpation of Joints or Extremities Neurological: Cranial nerves II-XII grossly intact, Neuro grossly intact Psych/Mental Status: Normal Affect, Appropriate Laboratory Results 10/27/17 06:00: Sodium 141, Potassium 3.5, Chloride 107, Carbon Dioxide 25.0, Anion Gap 9, BUN 11, Creatinine 1.06, Estim Creat Clear Calc 68.42, Est GFR ( MDRD) Af Amer 91, Est GFR (MDRD) Non-Af 75, BUN/Creatinine Ratio 10.4, Glucose 89, Calcium 7.6 L, Troponin I < 0.02 10/27/17 12:13: Troponin I < 0.02 Current Medications Acetaminophen (Tylenol) 650 mg PO Q6H PRN PRN PRN Reason: Mild Pain (scale 0-3)/T>100.7 Last Admin: 10/24/17 21:22 Dose: 650 mg Acetaminophen (Tylenol) 325 mg PO Q4H PRN PRN PRN Reason: PAIN Al Hydroxide/Mg Hydroxide (Mylanta Ii) 30 ml PO Q6H PRN PRN PRN Reason: Gastric Burning Albuterol Sulfate (Ventolin Aerosols) 2.5 mg INHALATION Q4H PRN PRN PRN Reason: SOB &/OR WHEEZING Last Admin: 10/27/17 07:15 Dose: 2.5 mg Aspirin (Aspirin, Baby) 81 mg PO DAILY@0800 [facility] Atorvastatin Calcium (Lipitor) 40 mg PO QHS [facility] Bisacodyl (Dulcolax) 10 mg RECTAL DAILY PRN PRN PRN Reason: Constipation Docusate Sodium (Colace) 200 mg PO BID PRN PRN PRN Reason: Constipation Last Admin: 10/24/17 21:22 Dose: 200 mg Ferrous Sulfate (Ferrous Sulfate) 325 mg PO DAILYCM [facility] Hydralazine HCl (Apresoline) 10 mg IV Q4H PRN PRN PRN Reason: BLOOD PRESSURE ELEVATION Last Admin: 10/27/17 23:03 Dose: 10 mg Hydralazine HCl (Apresoline) 25 mg PO TID [facility] Last Admin: 10/28/17 06:42 Dose: Not Given Sodium Chloride () 1,000 mls @ 100 mls/hr IV .Q10H [facility] Last Admin: 10/27/17 22:12 Dose: 100 mls/hr Ceftriaxone Sodium (Rocephin) 1 gm in 50 mls @ 100 mls/hr IV Q12 [facility] Last Admin: 10/27/17 22:11 Dose: 100 mls/hr Melatonin (Melatonin) 10 mg PO QHS PRN PRN PRN Reason: INSOMNIA Morphine Sulfate (Morphine) 1 - 2 mg IV Q4H PRN PRN PRN Reason: SEVERE PAIN (6-10/10) Last Admin: 10/25/17 16:47 Dose: 2 mg Ondansetron HCl (Zofran) 4 mg IV Q8H PRN PRN PRN Reason: Nausea Last Admin: 10/24/17 15:59 Dose: 4 mg Pantoprazole Sodium (Protonix) 20 mg PO BID WILL Polyethylene Glycol (Miralax) 17 gm PO DAILY WILL Last Admin: 10/27/17 10:58 Dose: 17 gm Sodium Chloride () 5 - 30 ml IV UD PRN PRN Reason: SALINE FLUSH Tamsulosin HCl (Flomax) 0.4 mg PO DAILY WILL Tolterodine Tartrate (Detrol La) 2 mg PO DAILY WILL Tramadol HCl (Ultram (G)) 50 mg PO Q4H PRN PRN PRN Reason: MODERATE PAIN (4-5/10) Zolpidem Tartrate (Ambien (Generic)) 5 mg PO QHS PRN PRN PRN Reason: INSOMNIA Last Admin: 10/27/17 23:02 Dose: 5 mg Assessment/Plan Active and Suspected Problems UTI (urinary tract infection) (Acute) Acute delirium (Acute) Urinary incontinence (Acute) 62-year-old gentleman recently discharged from the hospital for hematuria readmitted with acute encephalopathy secondary to acute cystitis. 1. Acute encephalopathy secondary to acute cystitis, improved. 2. Acute Klebisella cystitis due to the presence of indwelling catheter ( catheter associated UTI), on IV ceftriaxone, pansensitive, will be discharged on Cipro oral for 5 more days making 10 days total of antibiotics. 3. Klebsiella pneumonia bacteremia due to acute Klebsiella cystitis, repeat blood cultures have been negative ?48 hours, patient is on Cipro oral, we will needed for a total of 10 days of antibiotics, needs to follow-up with his primary care doctor on discharge and outpatient. 4. History of recent hematuria, Prostate CA patient, appointment to see his urologist in [facility] tomorrow at 7am. 5. CAD, on aspirin, statin, beta-lev 6. Morbid obesity with BMI of 57.2, lifestyle modification including weight loss advised 7. Hypertension-controlled, patient is refusing as needed hydralazine, would increase her home metoprolol to 50 mg p.o. twice daily 8. Obesity hypoventilation syndrome with restrictive lung disease 9. Obstructive sleep apnea on BiPAP at night (apparently noncompliant) 10. Diabetes mellitus type 2, continue with home regimen, on Accu-Cheks before meals and at bedtime with sliding scale coverage 11. DVT prophylaxis bilateral SCDs in view of patient recent hematuria chemoprophylaxis was avoided on admission 12. Physical deconditioning requested for PT OT and social insurance analyst to assist with discharge planning 13. cute kidney injury secondary to dehydration, resolved.
--- NOTE | 2017-10-28 08:49 | PCM.DC ---
- Discharge Diagnoses Current Active Problems: Current Active and Chronic Problems UTI (urinary tract infection) (Acute) Acute delirium (Acute) Urinary incontinence (Acute) Reason(s) for Visit for Discharge Instructions: Confusion, urine infection You will use the following diet at home:: Calorie/Carbohydrate Controlled (specify 1200, 1400, etc), Cardiac Your food should be the consistency of: Regular Your liquids should be the consistency of: Regular/Thin Discharge Activity: Return to Normal Activity Additional Instructions: Follow-up up with your urologist in [facility] as previous scheduled tomorrow morning. Continue to take all your medications. Allergies/Adverse Reactions: Allergies oxycodone HCl [From Percodan] Allergy (Verified 05/15/17 10:27) Hives oxycodone terephthalate [From Percodan] Allergy (Verified 05/15/17 10:27) Hives Medications to take at Discharge Albuterol Aerosols [Ventolin Aerosols] 2.5 mg INHALATION Q4H PRN PRN 05/15/17 Aspirin [Aspirin, Baby] 81 mg PO DAILY@0800 05/15/17 Atorvastatin Calcium [Lipitor] 40 mg PO QHS 05/15/17 HydrALAZINE [Apresoline] 25 mg PO TID 05/15/17 Nitroglycerin [Nitrostat] 0.4 mg SL PRN PRN 05/15/17 Nystatin Powder [Mycostatin Powder] 1 applic TOPICAL Q6H 05/15/17 Acetaminophen 325 mg PO Q4H PRN PRN 10/21/17 Melatonin 10 mg PO QHS PRN 10/21/17 Ferrous Sulfate [Iron] 325 mg PO DAILY 10/23/17 Omeprazole [Prilosec] 20 mg PO BID 10/23/17 Oxybutynin Chloride [Ditropan Xl] 10 mg PO DAILY 10/23/17 Tamsulosin HCl [Flomax] 0.4 mg PO DAILY 10/23/17 Lactobacillus Acidophilus [Acidophilus] 1 tab PO DAILY #30 tab 10/25/17 Ciprofloxacin [Cipro] 500 mg PO BID #10 tab 10/28/17 Metoprolol Tartrate [Lopressor (beta lev)] 50 mg PO BID #60 tab 10/28/17 The following prescriptions were given: Lactobacillus Acidophilus [Acidophilus] 1 tab PO DAILY #30 tab Ciprofloxacin [Cipro] 500 mg PO BID #10 tab Metoprolol Tartrate [Lopressor (beta lev)] 50 mg PO BID #60 tab Primary Care Physician: Keyur Mendez MD [Primary Care Provider] - Please follow up with your Primary Care Physician in: in 5-7 days to follow-up on your blood pressure and other medical problems. Proposed Discharge Date: 10/25/17
--- NOTE | 2017-10-28 08:52 | DCINST_ITS ---
- Discharge Diagnoses Current Active Problems: Current Active and Chronic Problems UTI (urinary tract infection) (Acute) Acute delirium (Acute) Urinary incontinence (Acute) Reason(s) for Visit for Discharge Instructions: Confusion, urine infection You will use the following diet at home:: Calorie/Carbohydrate Controlled ( specify 1200, 1400, etc), Cardiac Your food should be the consistency of: Regular Your liquids should be the consistency of: Regular/Thin Discharge Activity: Return to Normal Activity Additional Instructions: Follow-up up with your urologist in [facility] as previous scheduled tomorrow morning. Continue to take all your medications. Allergies/Adverse Reactions: Allergies oxycodone HCl [From Percodan] Allergy (Verified 05/15/17 10:27) Hives oxycodone terephthalate [From Percodan] Allergy (Verified 05/15/17 10:27) Hives Medications to take at Discharge Albuterol Aerosols [Ventolin Aerosols] 2.5 mg INHALATION Q4H PRN PRN 05/15/17 Aspirin [Aspirin, Baby] 81 mg PO DAILY@0800 05/15/17 Atorvastatin Calcium [Lipitor] 40 mg PO QHS 05/15/17 HydrALAZINE [Apresoline] 25 mg PO TID 05/15/17 Nitroglycerin [Nitrostat] 0.4 mg SL PRN PRN 05/15/17 Nystatin Powder [Mycostatin Powder] 1 applic TOPICAL Q6H 05/15/17 Acetaminophen 325 mg PO Q4H PRN PRN 10/21/17 Melatonin 10 mg PO QHS PRN 10/21/17 Ferrous Sulfate [Iron] 325 mg PO DAILY 10/23/17 Omeprazole [Prilosec] 20 mg PO BID 10/23/17 Oxybutynin Chloride [Ditropan Xl] 10 mg PO DAILY 10/23/17 Tamsulosin HCl [Flomax] 0.4 mg PO DAILY 10/23/17 Lactobacillus Acidophilus [Acidophilus] 1 tab PO DAILY #30 tab 10/25/17 Ciprofloxacin [Cipro] 500 mg PO BID #10 tab 10/28/17 Metoprolol Tartrate [Lopressor (beta lev)] 50 mg PO BID #60 tab 10/28/17 The following prescriptions were given: Lactobacillus Acidophilus [Acidophilus] 1 tab PO DAILY #30 tab Ciprofloxacin [Cipro] 500 mg PO BID #10 tab Metoprolol Tartrate [Lopressor (beta lev)] 50 mg PO BID #60 tab Primary Care Physician: Keyur Mendez MD [Primary Care Provider] - Please follow up with your Primary Care Physician in: in 5-7 days to follow-up on your blood pressure and other medical problems. Proposed Discharge Date: 10/25/17
--- NOTE | 2017-10-28 08:57 | DS.PCM_ITS ---
Discharge Date and Diagnosis - Problem List Patient Problems: Active and Suspected Problems UTI (urinary tract infection) (Acute) Acute delirium (Acute) Urinary incontinence (Acute) Date of Admission: 10/23/17 Date of Discharge: 10/28/17 - Primary Discharge Diagnosis Active and Suspected Problems UTI (urinary tract infection) (Acute) Acute delirium (Acute) Urinary incontinence (Acute) Klebsiella bacteremia Acute Klebsiella pneumoniae UTI - Secondary Discharge Diagnosis Chronic Problems COPD, mild (Chronic) mild-mod obstr, mild restrictive d/t obesity fvc 55% improved to 65% w aerosols fev1/fvc=75% tlc=71% HTN (hypertension) (Chronic) Sleep apnea (Chronic) bipap Prostate cancer (Chronic) radiotherapy Diabetes mellitus type 2 in obese (Chronic) Anemia (Chronic) Non-compliance (Chronic) Super obesity (Chronic) CAD (coronary artery disease) (Chronic) moderate disease max 45% cath 09/08 [facility] oatebt stebt ramus intermedius Type II diabetes mellitus (Chronic) Onychomycosis (Chronic) Depression (Chronic) Hospital Course and Treatment Imaging Results: Clinical Impression(s) from Imaging Studies Brain CT 10/23/17 18:48 IMPRESSION: Normal unenhanced CT scan of the brain. Electronically Signed: Say Mueller MD at 20:37 EST , Service support , Chest X-Ray 10/23/17 20:20 IMPRESSION: There are no acute findings in the chest. Electronically Signed: Say Mueller MD at 20:40 EST , Service support , Operations: None Procedures: None Summary of Care Provided: 62-year-old gentleman recently discharged from the hospital for hematuria readmitted with acute encephalopathy secondary to acute cystitis. She was found to be febrile, his blood cultures grew Klebsiella pneumoniae, cultures were negative ?48 hours. His urine culture also grew the same organisms. 1. Acute encephalopathy secondary to acute cystitis, resolved with antibiotic treatment. 2. Acute Klebisella cystitis due to the presence of indwelling catheter( catheter associated UTI), on IV ceftriaxone, pansensitive, catheter discontinued , patient discharged on Cipro oral for 5 more days making 10 days total of antibiotics. 3. Klebsiella pneumonia bacteremia due to acute Klebsiella cystitis, repeat blood cultures have been negative ?48 hours, on Cipro oral, will need to follow- up with his primary care doctor on discharge and outpatient. 4. History of recent hematuria, Prostate CA patient, appointment to see his urologist in [facility] tomorrow at 7am. 5. CAD, on aspirin, statin, beta-lev 6. Morbid obesity with BMI of 57.2, lifestyle modification including weight loss advised 7. Hypertension-controlled, patient is refusing as needed hydralazine, would increase his home metoprolol to 50 mg p.o. twice daily 8. Obesity hypoventilation syndrome with restrictive lung disease 9. Obstructive sleep apnea on BiPAP at night (apparently noncompliant) 10. Diabetes mellitus type 2, continue with home regimen, on Accu-Cheks before meals and at bedtime with sliding scale coverage 11. DVT prophylaxis bilateral SCDs in view of patient recent hematuria chemoprophylaxis was avoided on admission 12. Acute kidney injury secondary to dehydration, resolved. Discharge Diet: Low fat/ Low Cholesterol, 2000 mg Sodium Diet, Carb Control Diet Discharge Activity: Return to Normal Activity Home Medications: Medications to take at Discharge Albuterol Aerosols [Ventolin Aerosols] 2.5 mg INHALATION Q4H PRN PRN 05/15/17 Aspirin [Aspirin, Baby] 81 mg PO DAILY@0800 05/15/17 Atorvastatin Calcium [Lipitor] 40 mg PO QHS 05/15/17 HydrALAZINE [Apresoline] 25 mg PO TID 05/15/17 Nitroglycerin [Nitrostat] 0.4 mg SL PRN PRN 05/15/17 Nystatin Powder [Mycostatin Powder] 1 applic TOPICAL Q6H 05/15/17 Acetaminophen 325 mg PO Q4H PRN PRN 10/21/17 Melatonin 10 mg PO QHS PRN 10/21/17 Ferrous Sulfate [Iron] 325 mg PO DAILY 10/23/17 Omeprazole [Prilosec] 20 mg PO BID 10/23/17 Oxybutynin Chloride [Ditropan Xl] 10 mg PO DAILY 10/23/17 Tamsulosin HCl [Flomax] 0.4 mg PO DAILY 10/23/17 Lactobacillus Acidophilus [Acidophilus] 1 tab PO DAILY #30 tab 10/25/17 Ciprofloxacin [Cipro] 500 mg PO BID #10 tab 10/28/17 Metoprolol Tartrate [Lopressor (beta lev)] 50 mg PO BID #60 tab 10/28/17 Following Prescrptions Were Given to Patient: Lactobacillus Acidophilus [Acidophilus] 1 tab PO DAILY #30 tab Ciprofloxacin [Cipro] 500 mg PO BID #10 tab Metoprolol Tartrate [Lopressor (beta lev)] 50 mg PO BID #60 tab Primary Care Physician: Keyur Mendez MD [Primary Care Provider] - Please follow up with your Primary Care Physician in: in 5-7 days to follow-up on your blood pressure and other medical problems. Disposition: Home Minutes spent on discharge:: 25 Patient Condition:: Stable Meaningful Use Info Meaningful Use Diagnoses (Choose all that apply): None applicable Code Visit Inpatient E&M: 55486 Disch Hosp
[2017-10-28 09:13] VITALS: BP 158/72; PULSE 72; RESP 18; TEMP 37.2; O2SAT 97
[2017-10-28 09:26] VITALS: BP 158/72; PULSE 72
[2017-10-28] MEDS: Metoprolol Tartrate 50 MG Tablet PO (09:26)
[2017-10-28] MEDS: Tolterodine Tartrate 2 MG CAP.SA PO (09:26)
[2017-10-28] MEDS: Aspirin 81 MG TAB.CHEW PO (09:26)
[2017-10-28] MEDS: Ferrous Sulfate 325 MG Tablet PO (09:26)
[2017-10-28] MEDS: Pantoprazole Sodium 20 MG Tablet PO (09:27)
[2017-10-28] MEDS: Tamsulosin HCl 0.4 MG Capsule PO (09:27)
--- NOTE | 2017-10-28 10:20 | CASEMGMT ---
Social Work SW informed by RN SHADY that pt has decided that he does not want to go to [facility] and that he will be returning home today. SW entered pt room and attempted to engage in conversation about discharge plan. Pt stating he does not want to talk to SW as he needs his rest. SW explained reason for visit and need to confirm d/c plan. SW explained that d/c was planned for Saturday then pt and family decided pt was not safe to return home and SNF placement was planned. Pt stating he has an appointment tomorrow morning in [place] with cancer doctor and he will be going home today so he can stay overnight in [facility] SW reminded pt that on Saturday SW explained that pt can go to SNF and still keep appointment in [place]. Pt requesting SW leave the room as he does not want to discuss this further. SW left pt room. SW returned to room a second time to ask pt if SW could notify family of pt change of D/C plan and if so to obtain phone number. Pt did give permission to call pt brother and showed SW phone number on board in room. Phone call placed to Reverend Mil Han, Pt brother whom SW spoke with on Saturday ([phone]). Rev Han states he is aware of pt plan to return home and although he does not agree it is a good idea, he realizes he cannot make decisions for pt at this time. SW inquired if he will be transporting pt home and pt brother denied that he will. He states pt has made arrangements and although Rev Han does not know who will be assisting him, he will not be transporting pt home. RN notified of above. VM left with Farrah at [facility] and referral canceled. No further SW needs at this time. TL Natarajan
[2017-10-28 11:38] VITALS: BP 148/65; PULSE 67; RESP 18; TEMP 36.7; O2SAT 95
== END 2017-10-28 12:36 | disposition home or self-care (01) | DRG 698 ==
LOC: ED 19:30 → MS3 21:34
PROVIDERS: Internal Medicine; Admitting Provider Internal Medicine; Emergency Provider Emergency Medicine; Family Provider Family Medicine; PCP Family Medicine; Visit Provider Internal Medicine
DX: T83.511A Infection and inflammatory reaction due to indwelling urethral catheter, initial encounter (principal); G93.49 Other encephalopathy; N17.9 Acute kidney failure, unspecified; R78.81 Bacteremia; C61 Malignant neoplasm of prostate; E66.2 Morbid (severe) obesity with alveolar hypoventilation; B96.1 Klebsiella pneumoniae [K. pneumoniae] as the cause of diseases classified elsewhere; N30.00 Acute cystitis without hematuria; Z68.43 Body mass index [BMI] 50.0-59.9, adult; E11.9 Type 2 diabetes mellitus without complications; I10 Essential (primary) hypertension; R32 Unspecified urinary incontinence; J44.9 Chronic obstructive pulmonary disease, unspecified; I25.10 Atherosclerotic heart disease of native coronary artery without angina pectoris; E86.0 Dehydration; Y84.6 Urinary catheterization as the cause of abnormal reaction of the patient, or of later complication, without mention of misadventure at the time of the procedure
CPT/HCPCS: 36415; 70450; 71046; 80048; 80053; 81001; 83605; 83735; 84484; 85025; 85027; 85652; 87040; 87077; 87086; 87088; 87186; 87633; 87804; 93005; 94640; 99285; J7030; J2405

== ENCOUNTER → 2018-01-09 12:55 | Outpatient (CLI) | payer OTHER, MEDICARE, SELFPAY ==
[2018-01-09 14:10] LABS: Hemoglobin A1c 6.4 % (4.2-6.3)
[2018-01-09 14:24] LABS: ALB/GLOB Ratio 0.7 RATIO (0.9-2.4); AST(SGOT) 16 U/L (15-37); Alanine Aminotransfer ALT/SGPT 20 U/L (16-61); Albumin, Serum 3.3 g/dL (3.2-5.0); Alkaline Phosphatase 106 U/L (45-117); Amylase 81 U/L (25-115); Anion Gap 7 (5-15); BUN 16 mg/dL (7-18); BUN/Creat Ratio 12.2 RATIO (10-20); Calcium,Total 8.6 mg/dL (8.5-10.1); Chloride 105 mmol/L (98-107); Cholesterol 194 mg/dL (200); Creatinine, Serum 1.31 mg/dL (0.70-1.30); EST Glomerular Filtration Rate 59 mL/min (>60); Est Glom Filt Rate - Afr Amer 71 mL/min (>60); Globulin 4.6 g/dL (2.2-4.2); Glucose 119 mg/dL (74-106); High Density Lipoprotein 52 mg/dL; Lipase 217 U/L (73-393); Magnesium 1.5 mg/dL (1.6-2.6); Potassium 3.4 mmol/L (3.5-5.1); Protein, Total 7.9 g/dL (6.4-8.2); Sodium Level 139 mmol/L (136-145); T4 Free Direct 1.01 ng/dL (0.76-1.46); Thyroid Stim Hormone (TSH) 2.01 uIU/mL (0.358-3.74); Triglycerides 213 mg/dL; Very Low Density Lipoprotein 43 mg/dL (5-40)
[2018-01-10 09:15] LABS: T3 Total - Triiodothyronine 1.57 ng/mL (0.6-1.81); Vitamin D,25 Hydroxy 11.2 ng/mL (29.95-100.01)
[2018-01-15 03:08] LABS: HEPATITIS B SURFACE AG Negative (Negative); Hepatitis A IgM Antibody Negative (Negative); Hepatitis B Core AB IgM Negative (Negative); QNTFERON TB Ag Minus Nil Value < 0 IU/mL (.); QNTFERON TB Ag Value 0.04 IU/mL (.); QNTFERON TB Mitogen Value > 10.00 IU/mL (.); QNTFERON TB Nil Value 0.05 IU/mL (.)
[2018-01-15 10:22] LABS: Hep C Antibodies <0.1 s/co ratio (0.0-0.9); QNTIFERON TB Gold Negative (Negative)
== END ==
PROVIDERS: Family Provider Family Medicine; PCP Family Medicine
DX: E66.9 Obesity, unspecified (principal); F50.89 Other specified eating disorder
CPT/HCPCS: 36415; 80053; 80061; 80074; 82150; 82306; 83036; 83690; 83735; 84439; 84443; 84480; 86480

== ENCOUNTER 2018-08-27 14:17 | Observation (INO) | payer OTHER, MEDICARE, SELFPAY ==
[2018-08-27] VITALS (9 sets, daily range): BP systolic 156–188; BP diastolic 58–96; PULSE 74–110; RESP 16–20; TEMP 36.5–36.7; O2SAT 94–99; BMI 59.5; BMI 60.3
--- NOTE | 2018-08-27 16:15 | NURSING ---
CALLED [facility], TALKED TO JOSE MCFARLAND, FOR MED LIST AND LAST OFFICE VISIT. SHE WILL FAX IT
--- NOTE | 2018-08-27 16:15 | ED.RN ---
PT REFUSES TO GET IN BED. ALSO STATES HIS MIND IS TOO MESSED UP TO GIVE MEDICAL HISTORY OR MED LIST. CURRENTLY TRYING TO OBTAIN RECORDS AND MED LIST FROM DR AQUINO OFFICE.
--- NOTE | 2018-08-27 16:32 | EKG12_ITS ---
Test Reason : CP Blood Pressure : / mmHG Vent. Rate : 095 BPM Atrial Rate : 095 BPM P-R Int : 162 ms QRS Dur : 104 ms QT Int : 376 ms P-R-T Axes : 052 -61 066 degrees QTc Int : 472 ms Normal sinus rhythm Incomplete right bundle branch block Left anterior fascicular block Cannot rule out Anterior infarct , age undetermined Abnormal ECG Confirmed by JOSE JACKSON, ALPHONSE ([id number]), material expeditor DAGO SOMMERS ([id number]) on 08/29/2018 2:27:52 PM Referred By: TORIE Confirmed By:ALPHONSE GARCIA MD
--- NOTE | 2018-08-27 16:32 | RAD_ITS ---
STUDY: X-RAY CHEST REASON FOR EXAM: Male, 63 years old. Chest pain. TECHNIQUE: Single AP portable view of the chest. COMPARISON: October 23, 2017. FINDINGS: The lungs are clear and expanded. There is no demonstrated pleural abnormality. Normal size heart. Normal mediastinum and henrique. Normal visualized pulmonary arteries. Normal visualized aortic arch and descending thoracic aorta. There are diffuse degenerative changes of the visualized thoracic spine. Normal visualized ribs, clavicles, and shoulders. There is no demonstrated abnormality of the visualized soft tissue structures of the upper abdomen. RAD/Chest 1 View (Portable) IMPRESSION: No acute cardiopulmonary disease. There is no interval change. Electronically Signed: Jamie Kirkpatrick DO at 17:11 EST Tel [phone], Service support ,
--- NOTE | 2018-08-27 16:33 | RAD_ITS ---
STUDY: X-RAY - RIGHT FOOT CLINICAL: Male, 63 years old. Pain and swelling. TECHNIQUE: 3 view(s) of the foot. COMPARISON: January 13, 2014. FINDINGS: There is a plantar calcaneal spur. Normal talus and tarsal bones. Normal visualized subtalar, talonavicular, calcaneocuboid, tarsal and tarsometatarsal articulations. Normal metatarsi. Normal metatarsophalangeal joint of the great toe. Normal tibial and fibular sesamoid bones. Normal interphalangeal joint of the great toe. Normal phalanges of the great toe. Normal second through fifth metatarsophalangeal joints. Normal interphalangeal joints and phalanges of the lesser toes. There is stable mild swelling of the forefoot. RAD/Foot min 3 Views IMPRESSION: No acute abnormality of the right fourth or major interval change. Electronically Signed: Jamie Kirkpatrick DO at 17:12 EST Tel [phone], Service support ,
[2018-08-27 17:25] LABS: Absolute Lymphocyte Count 1.78 X10^3/ul (0.83-4.51); Basophil# 0.01 X10^3/uL; Basophil% 0.1 % (0-1); Eosinophil# 0.13 X10^3/uL; Eosinophils% 1.7 % (0-5); Hemoglobin 12.6 g/dl (13.0-16.5); Lymphocyte # 1.78 X10^3/ul (4.0); Lymphocyte % 23.5 % (19-41); Mean Corp Hgb Conc 32.3 g/gl (32-36); Mean Corpuscular Hgb 28.6 pg (27.0-32.0); Mean Corpuscular Volume 88.4 fL (80-94); Mean Platelet Vol. 8.6 fl (6.2-12.0); Monocyte# 0.63 X10^3/uL; Monocyte% 8.3 % (0-10); Neutrophil # 5.02 X10^3/uL (2.7-7.7); Neutrophil % 66.3 % (47-70); Platelet Count 287 K/mm3 (150-450); RBC Distribution Width CV 13.8 % (11.6-14.6); RBC Distribution Width SD 44.8 fl (35.1-43.9); Red Blood Count 4.41 M/mm3 (4.6-6.2); White Blood Count 7.6 K/mm3 (4.4-11.0)
[2018-08-27 17:28] LABS: POSITIVE COUNT NO; POSITIVE DIFFERENTIAL NO; POSITIVE MORPHOLOGY NO
[2018-08-27 17:41] LABS: Anion Gap 9 (5-15); BUN 13 mg/dL (7-18); BUN/Creat Ratio 9.6 RATIO (10-20); Calcium,Total 8.6 mg/dL (8.5-10.1); Chloride 108 mmol/L (98-107); Creatinine, Serum 1.35 mg/dL (0.70-1.30); EST Glomerular Filtration Rate 57 mL/min (>60); Est Glom Filt Rate - Afr Amer 69 mL/min (>60); Estimated Creatinine Clearance 53.04 ml/min; Glucose 94 mg/dL (74-106); Potassium 3.8 mmol/L (3.5-5.1); Sodium Level 142 mmol/L (136-145); Uric Acid 8.9 mg/dL (3.5-7.2)
[2018-08-27] MEDS: HYDROcodone Bitartrate/Apap 5/325 Tablet PO (18:37)
[2018-08-27] MEDS: predniSONE 20 MG Tablet 60 MG PO (18:37)
--- NOTE | 2018-08-27 18:43 | CM.ED ---
SOCIAL WORK ASSESSMENT REFERRAL DATE:08/27/17 DATE OF ASSESSMENT:08/27/17 INFORMANT: PHYSICIAN AND NURSING REASON FOR CONSULT: RESOURCES/SAFE D/C PLANNING INFORMATION OBTAINED FROM: NURSE, PHYSICIAN AND CHART REVIEW. LIVING ARRANGEMENTS: PT STATES LIVES HOME ALONE IN AN APARTMENT. EMPLOYMENT/FINANCIAL: PT STATES HAS BEEN ON DISABILITY SINCE 2013. SUPPORTS: PT STATES DOES NOT HAVE ANY SUPPORT OR FAMILY WHO CAN ASSIST. SOCIAL/FAMILY STRESSORS: PT STATES THE PAIN IN HIS FOOT IS MAKING HIM DEPENDANT FOR NEEDS. PT STATES URINATED ON THE FLOOR OF HIS APARTMENT HE WAS UNABLE TO GET TO THE BATHROOM. MENTAL HEALTH HX: PT DECLINED TO ANSWER QUESTION. PT DOES NOT VOICE ANY THOUGHTS OF HARMING SELF. SUBSTANCE ABUSE HX: PT ADMITS TO HX OF SUBSTANCE ABUSE, BUT DOES NOT DISCLOSE WHAT SUBSTANCES. PT STATES NO CURRENT USE. ASSESSMENT: PT IS A 63 Y/O MALE WHO PRESENTS TO ED WITH CHEST PAIN, ANXIETY, AND R FOOT PAIN. PT DECLINED TO ANSWER QUESTIONS REGARDING MENTAL HEALTH. PT STATES LIVES HOME ALONE IN AN APARTMENT AND STATES IS NORMALLY INDEPENDENT. PT STATES DROVE SELF TO HOSPITAL. PT REPORTS DME IN THE HOME CONSISTS OF WALKER AND CANE. PT STATES DOES NOT FEEL SAFE RETURNING HOME HE DOES NOT KNOW HOW HE WILL CARE FOR SELF BECAUSE THE PAIN IN FOOT IS SO BAD THAT HE CANNOT WALK. PT STATES I DON'T KNOW WHAT YOU CAN DO FOR ME. DISCUSSED POSSIBLE NEED FOR FPC PLACEMENT. PT DOES NOT GIVE ANY DIRECTION TO THIS WORKER ON NEEDS. PT STATES JUST WANTS MEDICATION TO HELP WITH THE PAIN AND MAYBE BE GIVEN A FEW HOURS TO SEE IF THE MEDICATION WORKS. PT STATES I KNOW THEY JUST WANT TO DISCHARGE ME. SUPPORT AND EDUCATION PROVIDED. CASE DISCUSSED WITH PHYSICIAN. PHYSICIAN REPORTS PT HAS NOT BEEN GIVEN ANY MEDICATIONS YET. WILL OBSERVE AFTER MEDICATIONS GIVEN. THIS WORKER TO FOLLOW UP. PLAN: TBD
--- NOTE | 2018-08-27 19:34 | ED.DCSUM_ITS ---
- ER Visit Summary Date of Service: 08/27/18 Chief Complaint: Right foot pain and chest pain History of Present Illness: The patient is a 63 M who presents with right foot pain for the past 4 days. No significant known injury. Foot is more swollen and he feels that it is slightly red. He is having difficulty ambulating on that foot secondary to pain and is having trouble taking care of himself because of this. He also reports chest heaviness and some mild shortness of breath since this morning. It is worse with movement and exertion. He did undergo heart cath at [facility] in June 2018 and this was reviewed. Physical Examination: Vital signs significant for blood pressure of 188/96, otherwise unremarkable. Patient sitting upright in his wheelchair. He is in no acute distress. Head and neck examination unremarkable. Heart is regular rate and rhythm. Lung sounds are clear. Abdomen is soft and nontender. Lower extremity examination reveals diffuse edema throughout the right foot. There are no open wounds or sores. There is very minimal erythema at the third and fourth MTP joints. Test Results: EKG is sinus at 95 with no acute ischemia. Right bundle branch block is noted. CBC was normal white count hemoglobin of 12.6. Chemistry stud ies significant for a creatinine 1.35. Troponin is less than 0.015. Uric acid is elevated at 8.9. Right foot x-ray showed no acute bony abnormality. Portable chest x-ray shows no acute disease. Emergency Department Course and Treatment: Patient was given prednisone and [place]. He attempted to stand at bedside and walk but was unable to secondary to his right foot pain. He will be discussed with hospitalist for overnight admission, PT eval, possible placement. Treatment Plan: [] Disposition: Admit Impression: 1. Right foot pain, suspect gout 2. Chest pain 3. Unable to ambulate secondary to pain This note was generated with [employer] dictation software. It may contain incorrect words, spelling, and punctuation that were not noted in review of the chart prior to signing ED Disposition - Plan for ED Patient: Chief Complaint: Chest Pain Referrals: Keyur Mendez MD [Primary Care Provider] -
--- NOTE | 2018-08-27 19:37 | HP.PCM_ITS ---
Problem List (1) Gout Status: Suspected History of Present Illness Date of Admission: 08/27/18 Chief Complaint: right foot pain The patient is a 63 year old M with a significant history of CAD status post stent; former smoker hypertension; diabetes; COPD; super morbid obesity; prostate cancer status post radiation who presented with 4 day history of progressively worsening excruciating right foot pain. Associated with his symptoms is right foot swelling. His pain increases with walking. There are no ameliorating factors. He tried home heat and ice without any real relief. His pain is so severe that he cannot bear weight on his right foot. His pain is aching type of pain. At emergency department his uric acid was elevated. Emergency department doctor suspected gout and prednisone as well as [place] was given. Chest pain Patient reported that he has had chest pain for 2-3 weeks. His chest pain is located at his right side of his chest. His chest pain is intermittent. His chest pain increases with exertion. There are no ameliorating factors. His chest pain radiated to in between his shoulder blades. He denies any vomiting or diaphoresis. He reports nausea. Patient was seen at [facility] and he had a heart cath on 07/08/2018. The heart cath showed:Patent ramus arterial stent. No significant disease in the territory assisted with abnormal stress. Unable to cannulate RCA from left radial. LVEDP approximately 30-35 mmHg. Shortness of breath Patient reports shortness of breath with exertion. He thinks he was having a panic attack on the day of admission as he was very anxious. He reported that he lost some weight but in the last year he gained about 30 pounds back. Past Medical History Past Medical History (Chronic Problems): Chronic Problems COPD, mild (Chronic) mild-mod obstr, mild restrictive d/t obesity fvc 55% improved to 65% w aerosols fev1/fvc=75% tlc=71% HTN (hypertension) (Chronic) Sleep apnea (Chronic) bipap Prostate cancer (Chronic) radiotherapy Diabetes mellitus type 2 in obese (Chronic) Anemia (Chronic) Non-compliance (Chronic) Super obesity (Chronic) CAD (coronary artery disease) (Chronic) moderate disease max 45% cath 09/08 [facility] oatebt stebt ramus intermedius Type II diabetes mellitus (Chronic) Onychomycosis (Chronic) Depression (Chronic) Allergies oxycodone HCl [From Percodan] Allergy (Verified 08/27/18 14:21) Hives oxycodone terephthalate [From Percodan] Allergy (Verified 08/27/18 14:21) Hives Home Medications: Ambulatory Orders Medication Instructions Recorded Albuterol Aerosols [Ventolin 2.5 mg INHALATION Q4H PRN PRN 05/15/17 Aerosols] Aspirin [Aspirin, Baby] 81 mg PO DAILY@0800 05/15/17 Atorvastatin Calcium [Lipitor] 40 mg PO QHS 05/15/17 Nitroglycerin [Nitrostat] 0.4 mg SL PRN PRN 05/15/17 Melatonin 10 mg PO QHS PRN 10/21/17 Oxybutynin Chloride [Ditropan Xl] 10 mg PO DAILY 10/23/17 Tamsulosin HCl [Flomax] 0.4 mg PO BID 10/23/17 Hydralazine HCl 50 mg PO TID 08/27/18 Ipratropium/Albuterol Respimat 1 puff INHALATION 4X/DAY 08/27/18 [Combivent Respimat Inhal [place]] Metoprolol Tartrate [Lopressor 50 mg PO BID 08/27/18 (beta lev)] Potassium Chloride [K-Dur] 10 meq PO DAILY 08/27/18 Surgical History: - - knee arthroscopy and menisectomy; heart Stent Psychiatric History: Depression Lives: Alone Smoking Status: Former smoker - *Family History Sibling History Items: Asthma Maternal History Items: Diabetes, Heart Disease, Hypertension Paternal History Items: - - Patient does not know. Review of Systems Constitutional: Reports: Weight Change - Reports gaining about 30 pounds in the last year.. Denies: Chills, Fever HEENT: Denies: Head Aches, Sinus Congestion, Sinus Drainage Cardiovascular: Reports: Chest Pain, Edema - Right foot. Denies: Palpitations Respiratory: Denies: Cough, Shortness of breath at rest, Sputum production Gastrointestinal: Reports: Nausea. Denies: Abdominal Pain, Vomiting Genitourinary: Denies: Dysuria Musculoskeletal: Reports: Foot Pain - Right. Denies: Joint Pain, Joint Tenderness Skin: Denies: Rash, Wounds Neurological: Denies: Numbness, Tingling, Focal weakness Psychiatric: Reports: Anxiety. Denies: Depression, Homicidal Ideations, Suicidal Ideations Hematologic/ Lymphatic: Denies: Easy Bruising, Easy Bleeding VTE Information - Inpt Only VTE Present on Admission: No VTE Mechan Device Prophylaxis: None VTE Pharm Prophylaxis ordered?: Yes Patient Problems: Active and Suspected Problems Gout (Suspected) - Physical Exam General: Alert, Oriented x3, Cooperative HEENT: Atraumatic, PERRLA, EOMI, Normocephalic Neck: Supple, No JVD, Negative Carotid Bruits Lungs: Clear to auscultation, Normal air movement Cardiovascular: Regular rate, No murmurs Abdomen: Bowel Sounds Present, Soft, Non Tender, Obese Extremities: Capillary Refill Less than 3 Seconds, Edema - Right foot, Tenderness - Right foot Skin: No rashes, No breakdown Musculoskeletal: No Muscle Wasting Neurological: Neuro grossly intact Psych/Mental Status: Normal Affect, Appropriate Vital Signs Temp Pulse Resp BP Pulse Ox 98.1 F 79 20 H 167/86 H 98 08/27/18 14:18 08/27/18 18:45 08/27/18 18:45 08/27/18 18:45 08/27/18 18:45 Oxygen Delivery Method Room Air Weight: 172.365 kg Body Mass Index (BMI) 59.5 Laboratory Tests Past 24 Hrs 08/27/18 08/27/18 17:15 17:15 WBC 7.6 RBC 4.41 L Hgb 12.6 L Hct 39.0 L MCV 88.4 MCH 28.6 MCHC 32.3 RDW 13.8 RDW Differential 44.8 H Plt Count 287 MPV 8.6 Immature Gran % (Auto) 0.100 Neut % (Auto) 66.3 Lymph % (Auto) 23.5 [place] % (Auto) 8.3 Eos % (Auto) 1.7 Baso % (Auto) 0.1 Absolute Neuts (auto) 5.0 Absolute Lymphs (auto) 1.78 Total Counted Not Reportable Sodium 142 Potassium 3.8 Chloride 108 H Carbon Dioxide 25.0 Anion Gap 9 BUN 13 Creatinine 1.35 H Estim Creat Clear Calc 53.04 Est GFR (MDRD) Af Amer 69 Est GFR (MDRD) Non-Af 57 L BUN/Creatinine Ratio 9.6 L Glucose 94 Uric Acid 8.9 H Calcium 8.6 Troponin I < 0.015 Assessment/Plan All Active Problems Hematuria (Resolved) Elevated serum creatinine (Acute) Abdominal pain (Resolved) Acute asthma exacerbation (Resolved) CAP (community acquired pneumonia) (Resolved) Chest pain (Resolved) Clostridium difficile enterocolitis (Resolved) Confusion (Resolved) Hypokalemia (Resolved) Hyponatremia (Resolved) Rhabdomyolysis (Resolved) Colonic mass (Ruled-out) The patient is a 63 year old M with a significant history of CAD status post stent; former smoker hypertension; diabetes; COPD; super morbid obesity; prostate cancer status post radiation who presented with a 4 day history of progressively worsening right foot pain; and also with shortness of breath; chest pain; and severely elevated blood pressure.. Suspect Gout of R foot. X-ray of his right foot was unremarkable. His uric acid on admission was 8.9. Although there is no classic podagra his uric acid is elevated and his other risk factor is obesity. He did not have any redness to his foot; it is unlikely cellulitis. He received prednisone and [place] at emergency department and indicated it help with his pain. We will schedule patient on prednisone 40 mg daily; and [place] as needed. Will stay away from Indocin and colchicine since his creatinine is elevated although not to the extent of RICO. Outpatient patient can get a 24 hours uric acid level. Patient is on baby aspirin daily. Because of association of low-dose aspirin with gout we will escalate aspirin regimen to 325 mg daily. High dose aspirin does not aggravate gout. Chest pain And had unremarkable cardiac cath about 2 months ago. His chest pain likely was due to hypertensive emergency; or anxiety. CXR does not show any acute cardiopulmonary process. EKG independently reviewed did not show any acute pathology. It showed right bundle branch block. ASA 325 mg p.o. daily SL NTG 0.4 mg prn as needed for chest pain Serial cardiac enzymes Stat EKG as needed for chest pain Hypertensive emergency. On admission his systolic blood pressure was 188. His diastolic blood pressure was 96. And it is probable that his chest pain could be due to his high blood pressure. Metoprolol and Apresoline continued. As needed labetalol ordered Pickwickian syndrome Likely contributing to his chest pain and shortness of breath. PT and OT to work patient. 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 Patient may be a candidate for rehabilitation. Elevated creatinine His creatinine on admission was 1.35. Review of records show that his baseline creatinine is about 1.23. At this time this does not qualify to be RICO. Trend BMP. COPD Breathing treatment continued History of CAD Aspirin as above Lipitor continued Anxiety disorder with probable panic attack Counselled. DVT prophylaxis Code Visit OBSV E&M: 53494 Initial observation care L3
--- NOTE | 2018-08-27 19:58 | CM.ED ---
SOCIAL WORK NOTE: UPDATED BY NURSE, PT UNABLE TO AMBULATE. UNSAFE FOR D/C HOME AT THIS TIME. PT TO BE ADMITTED.
--- NOTE | 2018-08-27 20:44 | EKG12_ITS ---
Test Reason : CP ADMIT Blood Pressure : / mmHG Vent. Rate : 069 BPM Atrial Rate : 069 BPM P-R Int : 166 ms QRS Dur : 098 ms QT Int : 412 ms P-R-T Axes : 076 -50 061 degrees QTc Int : 441 ms Normal sinus rhythm Left anterior fascicular block Cannot rule out Inferior infarct (masked by fascicular block?) , age undetermined Poor R wave progression Abnormal ECG Confirmed by JOSE JACKSON, ALPHONSE ([id number]), editor book DAGO SOMMERS ([id number]) on 08/29/2018 2:43:01 PM Referred By: DR WEST Confirmed By:ALPHONSE GARCIA MD
[2018-08-27] MEDS: hydrALAZINE 50 MG Tablet PO (22:41)
[2018-08-27] MEDS: Heparin Injection (Vial) 5,000 UNIT/ML VIAL 5000 UNIT SC (22:41)
[2018-08-27] MEDS: Metoprolol Tartrate 50 MG Tablet PO (22:41)
[2018-08-27] MEDS: Tamsulosin HCl 0.4 MG Capsule PO (22:43)
[2018-08-27] MEDS: Atorvastatin Calcium 40 MG Tablet PO (22:53)
[2018-08-27 23:45] LABS: Bedside Glucose 191 mg/dL (70-110)
[2018-08-28] VITALS (10 sets, daily range): BP systolic 111–164; BP diastolic 57–83; PULSE 66–90; RESP 18–20; TEMP 36.3–36.6; O2SAT 95–97
[2018-08-28 06:46] LABS: Absolute Lymphocyte Count 0.91 X10^3/ul (0.83-4.51); Absolute Neutrophil Count 6.9 X10^3/uL (2.0-7.7); Hematocrit 38.2 % (40-54); Hemoglobin 12.3 g/dl (13.0-16.5); Lymphocyte # 0.91 X10^3/ul (4.0); Mean Corp Hgb Conc 32.2 g/gl (32-36); Mean Corpuscular Hgb 28.7 pg (27.0-32.0); Mean Corpuscular Volume 89.3 fL (80-94); Mean Platelet Vol. 9.2 fl (6.2-12.0); Monocyte# 0.44 X10^3/uL; Monocyte% 5.3 % (0-10); Neutrophil # 6.93 X10^3/uL (2.7-7.7); Neutrophil % 83.6 % (47-70); Platelet Count 314 K/mm3 (150-450); RBC Distribution Width CV 13.7 % (11.6-14.6); RBC Distribution Width SD 44.1 fl (35.1-43.9); Red Blood Count 4.28 M/mm3 (4.6-6.2); White Blood Count 8.3 K/mm3 (4.4-11.0)
[2018-08-28 06:47] LABS: POSITIVE COUNT NO; POSITIVE DIFFERENTIAL NO; POSITIVE MORPHOLOGY NO
[2018-08-28] MEDS: Heparin Injection (Vial) 5,000 UNIT/ML VIAL 5000 UNIT SC (06:47)
[2018-08-28] MEDS: hydrALAZINE 50 MG Tablet PO (06:47)
[2018-08-28 06:55] LABS: Bedside Glucose 130 mg/dL (70-110)
[2018-08-28] MEDS: Ipratropium/Albuterol Sulfate 3 ML AMPUL.NEB INHALATION ×2 (07:08→10:39)
[2018-08-28 07:11] LABS: Anion Gap 9 (5-15); BUN 16 mg/dL (7-18); BUN/Creat Ratio 12.6 RATIO (10-20); Calcium,Total 8.6 mg/dL (8.5-10.1); Chloride 108 mmol/L (98-107); Creatinine, Serum 1.27 mg/dL (0.70-1.30); EST Glomerular Filtration Rate 61 mL/min (>60); Est Glom Filt Rate - Afr Amer 74 mL/min (>60); Estimated Creatinine Clearance 58.35 ml/min; Glucose 139 mg/dL (74-106); Potassium 4.5 mmol/L (3.5-5.1); Sodium Level 140 mmol/L (136-145)
[2018-08-28] MEDS: predniSONE 20 MG Tablet 40 MG PO (09:40)
[2018-08-28] MEDS: Metoprolol Tartrate 50 MG Tablet PO (09:40)
[2018-08-28] MEDS: Tamsulosin HCl 0.4 MG Capsule PO (09:40)
[2018-08-28] MEDS: Aspirin 325 MG Tablet PO (09:40)
[2018-08-28] MEDS: Senna/Docusate Sodium 1 Tablet 2 TABLET PO (09:40)
[2018-08-28] MEDS: Tolterodine Tartrate 2 MG CAP.SA PO (09:40)
--- NOTE | 2018-08-28 11:36 | PCM.DC ---
You will use the following diet at home:: Calorie/Carbohydrate Controlled (specify 1200, 1400, etc), Cardiac Discharge Activity: Return to Normal Activity Call your doctor if you observe: Shortness of breath, Dizziness, Fainting spells, Chest pain, Uncontrolled pain Allergies/Adverse Reactions: Allergies oxycodone HCl [From Percodan] Allergy (Verified 08/27/18 14:21) Hives oxycodone terephthalate [From Percodan] Allergy (Verified 08/27/18 14:21) Hives Medications to take at Discharge Albuterol Aerosols [Ventolin Aerosols] 2.5 mg INHALATION Q4H PRN PRN 05/15/17 Aspirin [Aspirin, Baby] 81 mg PO DAILY@0800 05/15/17 Atorvastatin Calcium [Lipitor] 40 mg PO QHS 05/15/17 Nitroglycerin [Nitrostat] 0.4 mg SL PRN PRN 05/15/17 Melatonin 10 mg PO QHS PRN 10/21/17 Oxybutynin Chloride [Ditropan Xl] 10 mg PO DAILY 10/23/17 Tamsulosin HCl [Flomax] 0.4 mg PO BID 10/23/17 Hydralazine HCl 50 mg PO TID 08/27/18 Ipratropium/Albuterol Respimat [Combivent Respimat Inhal [place]] 1 puff INHALATION 4X/DAY 08/27/18 Metoprolol Tartrate [Lopressor (beta lev)] 50 mg PO BID 08/27/18 Potassium Chloride [K-Dur] 10 meq PO DAILY 08/27/18 predniSONE tablet See Taper PO DAILY@0800 #30 tablet 08/28/18 The following prescriptions were given: predniSONE tablet See Taper PO DAILY@0800 #30 tablet Primary Care Physician: Keyur Mendez MD [Primary Care Provider] - Please follow up with your Primary Care Physician in: 1 Week Test Results: Test results from this visit will be discussed in further detail at your follow-up appointment, if applicable. Please Follow Up With: Caleb Dickens MD When: As scheduled Proposed Discharge Date: 08/28/18
--- NOTE | 2018-08-28 11:46 | PCM.DC.SUM ---
Discharge Date and Diagnosis Date of Admission: 08/27/18 Date of Discharge: 08/28/18 - Primary Discharge Diagnosis Active and Suspected Problems 1. Acute gout right foot 2. Non-cardiac chest pain 3. Hypertensive urgency due to noncompliance with prescribed blood pressure regimen 4. History of prostate cancer 5. Type 2 diabetes mellitus 6. Super obesity 7. COPD 8. AMRIK 9. CAD - Secondary Discharge Diagnosis Chronic Problems COPD, mild (Chronic) mild-mod obstr, mild restrictive d/t obesity fvc 55% improved to 65% w aerosols fev1/fvc=75% tlc=71% HTN (hypertension) (Chronic) Sleep apnea (Chronic) bipap Prostate cancer (Chronic) radiotherapy Diabetes mellitus type 2 in obese (Chronic) Anemia (Chronic) Non-compliance (Chronic) Super obesity (Chronic) CAD (coronary artery disease) (Chronic) moderate disease max 45% cath 09/08 [facility] oatebt stebt ramus intermedius Type II diabetes mellitus (Chronic) Onychomycosis (Chronic) Depression (Chronic) Hospital Course and Treatment Imaging Results: Diagnostic Data Chest X-Ray 08/27/18 16:32 IMPRESSION: No acute cardiopulmonary disease. There is no interval change. Electronically Signed: Jamie Kirkpatrick DO at 17:11 EST Tel [phone], Service support , Foot X-Ray 08/27/18 16:33 IMPRESSION: No acute abnormality of the right fourth or major interval change. Electronically Signed: Jamie Kirkpatrick DO at 17:12 EST Tel [phone], Service support , Operations: None Procedures: None Summary of Care Provided: The patient is a 63 year old M who presents emergency room due to right foot pain. Patient reported he was unable to ambulate due to significant right foot pain. He also complains of ongoing intermittent chest pain for 2 weeks. 1. Acute gout, right foot pain-uric acid level 8.9. X-ray of the right foot showed no acute abnormality. Pain improved with prednisone. Patient will continue prednisone taper at discharge. Follow-up with primary care physician in 1 week. 2. Non-cardiac chest pain-EKG on admission without evidence of ischemia. Troponin negative. Patient had recent cardiac catheterization at [facility] June 2018 without any intervention. Chest x-ray unremarkable. Patient will follow-up with primary credit negotiator as scheduled 09/17/2018. 3. Hypertensive urgency due to noncompliance with prescribed blood pressure regimen-patient reports he has not been taking his blood pressure medication. Blood pressure improved on home medication regimen. 4. History of prostate cancer-continue outpatient follow-up. 5. Type 2 diabetes mellitus-currently diet controlled. Recommend repeat hemoglobin A1c by primary care physician. Most recent hemoglobin A1c 6.4% 01/09/2018. 6. Super obesity-strongly encouraged diet lifestyle modifications. BMI 60.3. 7. COPD-no acute exacerbation. Continue albuterol inhaler as needed. 8. AMRIK 9. CAD-continue aspirin, statin, metoprolol. Recent cath with no significant disease. General: Alert, Oriented x3, Cooperative HEENT: Atraumatic, PERRLA, EOMI, Normocephalic Neck: Supple, No JVD, Negative Carotid Bruits Lungs: Clear to auscultation, Normal air movement Cardiovascular: Regular rate, regular rhythm, no murmurs Abdomen: Bowel Sounds Present, Soft, Non Tender, Obese Extremities: Capillary Refill Less than 3 Seconds, Edema - Right foot Skin: No rashes, No breakdown Musculoskeletal: Mild tenderness to palpation right foot Neurological: Neuro grossly intact Psych/Mental Status: Normal Affect, Appropriate Patient seen and examined prior to discharge. Physical assessment as noted above. Patient is stable for discharge with follow up recommendations as noted above. This patient was seen by MAYRA Granda under the supervision of Dr. Egan. - Physical Exam Vital Signs Temp Pulse Resp BP Pulse Ox 97.5 F L 71 18 155/78 H 96 08/28/18 11:03 08/28/18 11:03 08/28/18 11:03 08/28/18 11:03 08/28/18 11:03 Oxygen Flow Rate (L/min) 2 Oxygen Delivery Method Room Air Weight: 396 lb 13.313 oz Body Mass Index (BMI) 60.3 Intake and Output for Last 24 Hours 08/26/18 08/27/18 08/28/18 23:59 23:59 23:59 Intake Total 720 / 720 Output Total 400 / 400 Balance 320 / 320 Laboratory Tests Past 24 Hrs 08/27/18 08/27/18 08/27/18 17:15 17:15 20:55 WBC 7.6 RBC 4.41 L Hgb 12.6 L Hct 39.0 L MCV 88.4 MCH 28.6 MCHC 32.3 RDW 13.8 RDW Differential 44.8 H Plt Count 287 MPV 8.6 Immature Gran % (Auto) 0.100 Neut % (Auto) 66.3 Lymph % (Auto) 23.5 [place] % (Auto) 8.3 Eos % (Auto) 1.7 Baso % (Auto) 0.1 Absolute Neuts (auto) 5.0 Absolute Lymphs (auto) 1.78 Total Counted Not Reportable Sodium 142 Potassium 3.8 Chloride 108 H Carbon Dioxide 25.0 Anion Gap 9 BUN 13 Creatinine 1.35 H Estim Creat Clear Calc 53.04 Est GFR (MDRD) Af Amer 69 Est GFR (MDRD) Non-Af 57 L BUN/Creatinine Ratio 9.6 L Glucose 94 Uric Acid 8.9 H Calcium 8.6 Troponin I < 0.015 < 0.015 08/27/18 08/28/18 08/28/18 22:56 06:00 06:00 WBC 8.3 RBC 4.28 L Hgb 12.3 L Hct 38.2 L MCV 89.3 MCH 28.7 MCHC 32.2 RDW 13.7 RDW Differential 44.1 H Plt Count 314 MPV 9.2 Immature Gran % (Auto) 0.100 Neut % (Auto) 83.6 H Lymph % (Auto) 11.0 L [place] % (Auto) 5.3 Eos % (Auto) 0.0 Baso % (Auto) 0.0 Absolute Neuts (auto) 6.9 Absolute Lymphs (auto) 0.91 Total Counted Not Reportable Sodium 140 Potassium 4.5 Chloride 108 H Carbon Dioxide 23.0 Anion Gap 9 BUN 16 Creatinine 1.27 Estim Creat Clear Calc 58.35 Est GFR (MDRD) Af Amer 74 Est GFR (MDRD) Non-Af 61 BUN/Creatinine Ratio 12.6 Glucose 139 H Uric Acid Calcium 8.6 Troponin I < 0.015 POC Glucose 08/28/18 08/27/18 06:38 22:52 POC Glucose 130 H 191 H Discharge Diet: Low fat/ Low Cholesterol, 1800 Calorie Control Diet, Carb Control Diet Discharge Activity: Return to Normal Activity Call your doctor if you observe: Shortness of breath, Dizziness, Fainting spells, Chest pain, Uncontrolled pain Home Medications: Medications to take at Discharge Albuterol Aerosols [Ventolin Aerosols] 2.5 mg INHALATION Q4H PRN PRN 05/15/17 Aspirin [Aspirin, Baby] 81 mg PO DAILY@0800 05/15/17 Atorvastatin Calcium [Lipitor] 40 mg PO QHS 05/15/17 Nitroglycerin [Nitrostat] 0.4 mg SL PRN PRN 05/15/17 Melatonin 10 mg PO QHS PRN 10/21/17 Oxybutynin Chloride [Ditropan Xl] 10 mg PO DAILY 10/23/17 Tamsulosin HCl [Flomax] 0.4 mg PO BID 10/23/17 Hydralazine HCl 50 mg PO TID 08/27/18 Ipratropium/Albuterol Respimat [Combivent Respimat Inhal [place]] 1 puff INHALATION 4X/DAY 08/27/18 Metoprolol Tartrate [Lopressor (beta lev)] 50 mg PO BID 08/27/18 Potassium Chloride [K-Dur] 10 meq PO DAILY 08/27/18 predniSONE tablet See Taper PO DAILY@0800 #30 tablet 08/28/18 Following Prescrptions Were Given to Patient: predniSONE tablet See Taper PO DAILY@0800 #30 tablet Primary Care Physician: Keyur Mendez MD [Primary Care Provider] - Please follow up with your Primary Care Physician in: 1 Week Please Follow Up With: Caleb Dickens MD When: As scheduled Disposition: Home Minutes spent on discharge:: 35 Patient Condition:: Stable Medical Necessity - Tobacco Use Smoking Status: Former smoker Tobacco Use: Cigars Meaningful Use Info Meaningful Use Diagnoses (Choose all that apply): None applicable
--- NOTE | 2018-08-28 11:51 | DS.PCM_ITS ---
Discharge Date and Diagnosis Date of Admission: 08/27/18 Date of Discharge: 08/28/18 - Primary Discharge Diagnosis Active and Suspected Problems 1. Acute gout right foot 2. Non-cardiac chest pain 3. Hypertensive urgency due to noncompliance with prescribed blood pressure regimen 4. History of prostate cancer 5. Type 2 diabetes mellitus 6. Super obesity 7. COPD 8. AMRIK 9. CAD - Secondary Discharge Diagnosis Chronic Problems COPD, mild (Chronic) mild-mod obstr, mild restrictive d/t obesity fvc 55% improved to 65% w aerosols fev1/fvc=75% tlc=71% HTN (hypertension) (Chronic) Sleep apnea (Chronic) bipap Prostate cancer (Chronic) radiotherapy Diabetes mellitus type 2 in obese (Chronic) Anemia (Chronic) Non-compliance (Chronic) Super obesity (Chronic) CAD (coronary artery disease) (Chronic) moderate disease max 45% cath 09/08 [facility] oatebt stebt ramus intermedius Type II diabetes mellitus (Chronic) Onychomycosis (Chronic) Depression (Chronic) Hospital Course and Treatment Imaging Results: Diagnostic Data Chest X-Ray 08/27/18 16:32 IMPRESSION: No acute cardiopulmonary disease. There is no interval change. Electronically Signed: Jamie Kirkpatrick DO at 17:11 EST Tel [phone], Service support , Foot X-Ray 08/27/18 16:33 IMPRESSION: No acute abnormality of the right fourth or major interval change. Electronically Signed: Jamie Kirkpatrick DO at 17:12 EST Tel [phone], Service support , Operations: None Procedures: None Summary of Care Provided: The patient is a 63 year old M who presents emergency room due to right foot pain. Patient reported he was unable to ambulate due to significant right foot pain. He also complains of ongoing intermittent chest pain for 2 weeks. 1. Acute gout, right foot pain-uric acid level 8.9. X-ray of the right foot showed no acute abnormality. Pain improved with prednisone. Patient will continue prednisone taper at discharge. Follow-up with primary care physician in 1 week. 2. Non-cardiac chest pain-EKG on admission without evidence of ischemia. Troponin negative. Patient had recent cardiac catheterization at [facility] June 2018 without any intervention. Chest x-ray unremarkable. Patient will follow- up with primary seat maker as scheduled 09/17/2018. 3. Hypertensive urgency due to noncompliance with prescribed blood pressure regimen-patient reports he has not been taking his blood pressure medication. Blood pressure improved on home medication regimen. 4. History of prostate cancer-continue outpatient follow-up. 5. Type 2 diabetes mellitus-currently diet controlled. Recommend repeat hemoglobin A1c by primary care physician. Most recent hemoglobin A1c 6.4% 01/09/2018. 6. Super obesity-strongly encouraged diet lifestyle modifications. BMI 60.3. 7. COPD-no acute exacerbation. Continue albuterol inhaler as needed. 8. AMRIK 9. CAD-continue aspirin, statin, metoprolol. Recent cath with no significant disease. General: Alert, Oriented x3, Cooperative HEENT: Atraumatic, PERRLA, EOMI, Normocephalic Neck: Supple, No JVD, Negative Carotid Bruits Lungs: Clear to auscultation, Normal air movement Cardiovascular: Regular rate, regular rhythm, no murmurs Abdomen: Bowel Sounds Present, Soft, Non Tender, Obese Extremities: Capillary Refill Less than 3 Seconds, Edema - Right foot Skin: No rashes, No breakdown Musculoskeletal: Mild tenderness to palpation right foot Neurological: Neuro grossly intact Psych/Mental Status: Normal Affect, Appropriate Patient seen and examined prior to discharge. Physical assessment as noted above. Patient is stable for discharge with follow up recommendations as noted above. This patient was seen by MAYRA Granda under the supervision of Dr. Egan. - Physical Exam Vital Signs Temp Pulse Resp BP Pulse Ox 97.5 F L 71 18 155/78 H 96 08/28/18 11:03 08/28/18 11:03 08/28/18 11:03 08/28/18 11:03 08/28/18 11:03 Oxygen Flow Rate (L/min) 2 Oxygen Delivery Method Room Air Weight: 396 lb 13.313 oz Body Mass Index (BMI) 60.3 Intake and Output for Last 24 Hours 08/26/18 08/27/18 08/28/18 23:59 23:59 23:59 Intake Total 720 / 720 Output Total 400 / 400 Balance 320 / 320 Laboratory Tests Past 24 Hrs 08/27/18 08/27/18 08/27/18 17:15 17:15 20:55 WBC 7.6 RBC 4.41 L Hgb 12.6 L Hct 39.0 L MCV 88.4 MCH 28.6 MCHC 32.3 RDW 13.8 RDW Differential 44.8 H Plt Count 287 MPV 8.6 Immature Gran % (Auto) 0.100 Neut % (Auto) 66.3 Lymph % (Auto) 23.5 [place] % (Auto) 8.3 Eos % (Auto) 1.7 Baso % (Auto) 0.1 Absolute Neuts (auto) 5.0 Absolute Lymphs (auto) 1.78 Total Counted Not Reportable Sodium 142 Potassium 3.8 Chloride 108 H Carbon Dioxide 25.0 Anion Gap 9 BUN 13 Creatinine 1.35 H Estim Creat Clear Calc 53.04 Est GFR (MDRD) Af Amer 69 Est GFR (MDRD) Non-Af 57 L BUN/Creatinine Ratio 9.6 L Glucose 94 Uric Acid 8.9 H Calcium 8.6 Troponin I < 0.015 < 0.015 08/27/18 08/28/18 08/28/18 22:56 06:00 06:00 WBC 8.3 RBC 4.28 L Hgb 12.3 L Hct 38.2 L MCV 89.3 MCH 28.7 MCHC 32.2 RDW 13.7 RDW Differential 44.1 H Plt Count 314 MPV 9.2 Immature Gran % (Auto) 0.100 Neut % (Auto) 83.6 H Lymph % (Auto) 11.[address] [place] % (Auto) 5.3 Eos % (Auto) 0.0 Baso % (Auto) 0.0 Absolute Neuts (auto) 6.9 Absolute Lymphs (auto) 0.91 Total Counted Not Reportable Sodium 140 Potassium 4.5 Chloride 108 H Carbon Dioxide 23.0 Anion Gap 9 BUN 16 Creatinine 1.27 Estim Creat Clear Calc 58.35 Est GFR (MDRD) Af Amer 74 Est GFR (MDRD) Non-Af 61 BUN/Creatinine Ratio 12.6 Glucose 139 H Uric Acid Calcium 8.6 Troponin I < 0.015 POC Glucose 08/28/18 08/27/18 06:38 22:52 POC Glucose 130 H 191 H Discharge Diet: Low fat/ Low Cholesterol, 1800 Calorie Control Diet, Carb Control Diet Discharge Activity: Return to Normal Activity Call your doctor if you observe: Shortness of breath, Dizziness, Fainting spells, Chest pain, Uncontrolled pain Home Medications: Medications to take at Discharge Albuterol Aerosols [Ventolin Aerosols] 2.5 mg INHALATION Q4H PRN PRN 05/15/17 Aspirin [Aspirin, Baby] 81 mg PO DAILY@0800 05/15/17 Atorvastatin Calcium [Lipitor] 40 mg PO QHS 05/15/17 Nitroglycerin [Nitrostat] 0.4 mg SL PRN PRN 05/15/17 Melatonin 10 mg PO QHS PRN 10/21/17 Oxybutynin Chloride [Ditropan Xl] 10 mg PO DAILY 10/23/17 Tamsulosin HCl [Flomax] 0.4 mg PO BID 10/23/17 Hydralazine HCl 50 mg PO TID 08/27/18 Ipratropium/Albuterol Respimat [Combivent Respimat Inhal [place]] 1 puff INHALATION 4X/DAY 08/27/18 Metoprolol Tartrate [Lopressor (beta lev)] 50 mg PO BID 08/27/18 Potassium Chloride [K-Dur] 10 meq PO DAILY 08/27/18 predniSONE tablet See Taper PO DAILY@0800 #30 tablet 08/28/18 Following Prescrptions Were Given to Patient: predniSONE tablet See Taper PO DAILY@0800 #30 tablet Primary Care Physician: Keyur Mendez MD [Primary Care Provider] - Please follow up with your Primary Care Physician in: 1 Week Please Follow Up With: Caleb Dickens MD When: As scheduled Disposition: Home Minutes spent on discharge:: 35 Patient Condition:: Stable Medical Necessity - Tobacco Use Smoking Status: Former smoker Tobacco Use: Cigars Meaningful Use Info Meaningful Use Diagnoses (Choose all that apply): None applicable
== END 2018-08-28 11:37 | disposition home or self-care (01) ==
LOC: ED 17:47 → PCU 20:16
PROVIDERS: Admitting Provider Hospitalist; Emergency Provider Emergency Medicine; Family Provider Family Medicine; PCP Family Medicine; Visit Provider Internal Medicine
DX: M10.9 Gout, unspecified (principal); R07.89 Other chest pain; R06.02 Shortness of breath; I25.10 Atherosclerotic heart disease of native coronary artery without angina pectoris; E78.5 Hyperlipidemia, unspecified; J44.9 Chronic obstructive pulmonary disease, unspecified; Z68.44 Body mass index [BMI] 60.0-69.9, adult; Z71.3 Dietary counseling and surveillance; Z92.3 Personal history of irradiation; Z85.46 Personal history of malignant neoplasm of prostate; Z95.5 Presence of coronary angioplasty implant and graft; Z87.891 Personal history of nicotine dependence; Z79.899 Other long term (current) drug therapy; Z79.82 Long term (current) use of aspirin; I16.1 Hypertensive emergency; E66.2 Morbid (severe) obesity with alveolar hypoventilation; F41.9 Anxiety disorder, unspecified; G47.33 Obstructive sleep apnea (adult) (pediatric); Z91.19 Patient's noncompliance with other medical treatment and regimen
CPT/HCPCS: 36415; 71045; 73630; 80048; 82962; 84484; 84550; 85025; 93005; 94640; 96372; 97802; 99218; 99284; A4216; G0378

== ENCOUNTER 2018-11-20 16:42 | Emergency (ER) | payer MEDICARE, MEDICAID, SELFPAY ==
[2018-08-27 20:47] VITALS: BMI 60.3
[2018-11-20 16:43] VITALS: BP 143/61; PULSE 70; RESP 18; TEMP 36.6; O2SAT 98; BMI 61.8
--- NOTE | 2018-11-20 16:57 | ED.VISSUMM ---
- ER Visit Summary Date of Service: 11/20/18 Chief Complaint: Left foot pain History of Present Illness: The patient is a 63 M who presents with left foot pain that became severe today. Patient states the pain is gradually been getting worse over the past couple weeks. Patient describes the pain is burning and stabbing. Patient states pain is worse with weightbearing. Patient is concerned that he may have stepped on something and there may be something lodged in his foot. Patient is diabetic. Patient was recently started on prednisone and metformin. Physical Examination: Vital signs are stable. Patient is afebrile. Patient is in no acute distress. Musculoskeletal exam reveals tenderness over the plantar fascia of the left foot. There is no bony crepitance or step-off. There is some mild edema. There is no deformity noted. Range of motion is slightly limited in all motions of the left foot secondary to pain. Sensation was intact to light touch in all digits. Capillary refill is less than 2 seconds in all digits. Pedal pulses are equal bilaterally. Test Results: X-rays of the left foot were obtained. There is no acute fracture. There is no foreign body noted. Emergency Department Course and Treatment: Patient was instructed to ice and elevate the left foot. Patient was instructed to take his prednisone as prescribed. Patient was instructed to follow-up with his primary care physician in 5-7 days. Patient understood and was agreeable with the plan. All questions were answered. Disposition: Discharge home Impression: Plantar fasciitis This note was generated with [employer] dictation software. It may contain incorrect words, spelling, and punctuation that were not noted in review of the chart prior to signing ED Disposition - Plan for ED Patient: Disposition: Home or Assisted Living Diagnosis: Plantar fasciitis Instructions: ED Plantar Fasciitis Prescriptions: Meloxicam [Mobic] 15 mg PO DAILY #10 tab Referrals: Keyur Mendez MD [NON-STAFF] - 5-7 Days Additional Instructions: Use ice to the area. You may take a water bottle and put it in the freezer. When the water is frozen you may put her foot on top of it and roll it back and forth. This will help with the swelling and pain in your foot. This will also stretch the plantar fascia on the bottom of your foot which will help with the pain. Take your prednisone as prescribed.
--- NOTE | 2018-11-20 17:01 | RAD_ITS ---
STUDY: X-RAY - LEFT FOOT CLINICAL: Male, 63 years old. Pain, no known injury TECHNIQUE: 3 view(s) of the foot. COMPARISON: Prior study of 05/07/2014 FINDINGS: There is a small enthesophyte in the region of the Achilles tendon insertion on the posterior calcaneal tuberosity. There is a small plantar aspect calcaneal spur. Normal visualized subtalar, talonavicular, calcaneocuboid, tarsal and tarsometatarsal articulations. Normal metatarsi. Normal metatarsophalangeal joint of the great toe. Normal tibial and fibular sesamoid bones. Normal interphalangeal joint of the great toe. Normal phalanges of the great toe. Normal second through fifth metatarsophalangeal joints. Normal interphalangeal joints and phalanges of the lesser toes. The soft tissue structures are unremarkable. RAD/Foot min 3 Views IMPRESSION: Calcaneal spurs. There is no evidence of fracture or dislocation. Findings are stable in the interval. Electronically Signed: Cheng Pal MD at 18:06 EDT , Service support ,
[2018-11-20] MEDS: Ondansetron ODT 4 MG Tablet PO (18:59)
[2018-11-20] MEDS: Acetaminophen 500 MG Tablet 1000 MG PO (18:59)
[2018-11-20 19:00] VITALS: BP 149/70; PULSE 82; RESP 15; O2SAT 96
== END 2018-11-20 19:03 | disposition home or self-care (01) ==
PROVIDERS: Emergency Provider Emergency Medicine; Family Provider Family Medicine; PCP Family Medicine
DX: M72.2 Plantar fascial fibromatosis (principal); E11.9 Type 2 diabetes mellitus without complications; I10 Essential (primary) hypertension; E66.9 Obesity, unspecified; Z79.82 Long term (current) use of aspirin; Z79.899 Other long term (current) drug therapy
CPT/HCPCS: 73630; 99283

== ENCOUNTER 2020-05-12 17:23 | Emergency (ER) | payer MEDICARE, SELFPAY ==
[2020-05-12] VITALS (7 sets, daily range): BP systolic 151–195; BP diastolic 77–103; PULSE 94–102; RESP 16–25; TEMP 36.3; O2SAT 94–98; BMI 65.1
--- NOTE | 2020-05-12 17:40 | EKG12_ITS ---
Test Reason : CP Blood Pressure : / mmHG Vent. Rate : 100 BPM Atrial Rate : 100 BPM P-R Int : 184 ms QRS Dur : 106 ms QT Int : 380 ms P-R-T Axes : 060 -61 074 degrees QTc Int : 490 ms Normal sinus rhythm Low voltage QRS Incomplete right bundle branch block Left anterior fascicular block Cannot rule out Inferior infarct (masked by fascicular block?), age undetermined Possible Anterolateral infarct , age undetermined Abnormal ECG Confirmed by BARBARA JACKSON, WIN ([id number]), script editor CHACHA PACHECO ([id number]) on 05/16/2020 1:37:46 PM Referred By: Confirmed By:WIN JIMENEZ MD
--- NOTE | 2020-05-12 17:46 | ED.DCSUM_ITS ---
History of Present Illness Chief Complaint: Chest Pain Detail of Chief Complaint: Pleuritic right-sided chest pain Informant: Patient Onset: Today Context: Sudden Onset Timing: Intermittent Quality: Pain Location: Right anterior chest Current Severity: Mild Maximum Severity: Severe Worsened by: Breathing Relieved by: Nothing Associated Symptoms: Shortness of breath and upper respiratory symptoms Narrative: Wil is a 65-year-old morbidly obese male with history of coronary disease, COPD, hypertension, diabetes, hyperlipidemia, obstructive sleep apnea, pulmonary hypertension who presents with abrupt onset of right-sided pleuritic chest pain with increased shortness of breath. He states he has had shortness of breath that started 2 days ago. He does report congestion and sore throat as well as headache. He states he had chills last evening and had visual hallucinations. He did not take his temperature. He denies nausea, vomiting diarrhea. He denies food intolerance. He denies pain radiating through to his back. He denies black or maroon stool. He denies increased swelling of his lower extremities. He states the swelling has improved. There is no history of VTE. He denies ocular, visual or auditory symptoms. He does report nasal congestion. He also reports postnasal drainage. He denies hemoptysis. There is no history of trauma. Prior similar symptoms: No Recent Illness/Hospitalization: No - Past Medical History (1) Anemia Status: Chronic (2) CAD (coronary artery disease) Status: Chronic Comment: moderate disease max 45% cath 09/08 [facility] oatebt stebt ramus intermedius (3) COPD, mild Status: Chronic Comment: mild-mod obstr, mild restrictive d/t obesity fvc 55% improved to 65% w aerosols fev1/fvc=75% tlc=71% (4) Depression Status: Chronic (5) Diabetes mellitus type 2 in obese Status: Chronic (6) HTN (hypertension) Status: Chronic (7) Onychomycosis Status: Chronic (8) Prostate cancer Status: Chronic Comment: radiotherapy (9) Sleep apnea Status: Chronic Comment: bipap (10) Super obesity Status: Chronic (11) Gout Status: Suspected (12) Dehydration Status: Inactive Past Medical History - Allergies and Home Meds Allergies/Adverse Reactions: Allergies oxycodone HCl [From Percodan] Allergy (Verified 05/12/20 17:24) Hives oxycodone terephthalate [From Percodan] Allergy (Verified 05/12/20 17:24) Hives Primary Care Physician: Simon Victoria MD [Primary Care Provider] - Prior records reviewed: Yes Surgical History: - - knee arthroscopy and menisectomy; heart Stent Lives: Alone Smoking Status: Former smoker Alcohol: None Drugs: None - Family History Sibling Family History: Reports: Asthma Maternal Family History: Reports: Diabetes, Heart Disease, Hypertension Paternal Family History: Reports: - - Patient does not know. Review of Systems General: Reports: Chills. Denies: Fever, Malaise, Subjective, Sweats Eyes: Denies: Visual changes - bilaterally, Blurred Vision - bilaterally ENT: Denies: Rhinorrhea, Sore throat Cardiovascular: Reports: Chest pain Respiratory: Reports: Dyspnea, Cough, Sputum, Dyspnea on exertion. Denies: Orthopnea, Paroxysmal nocturnal dyspnea Gastrointestinal: Denies: Abdominal pain, Nausea, Vomiting, Diarrhea, Melena, Hematochezia Genitourinary: Denies: Dysuria, Hematuria, Frequency Musculoskeletal: Denies: Myalgias, Arthralgias, Neck pain, Back pain, Swelling, Extremity Pain, -, - Skin: Denies: Rash, Wounds Neurological: Reports: Headache. Denies: Weakness, Parasthesia, Numbness, -, - Endocrine: Denies: Polyuria, Polydipsia Allergy: Denies: Uticaria Physical Exam Vital Signs/Narrative: Vital Signs Temp Pulse Resp BP Pulse Ox 05/12/20 17:24 97.3 F L 102 H 25 H 195/103 H 98 Inital Vital Signs reviewed: Yes General: Well nourished, Well developed, Obese, Acute Distress - Patient does appear tachypneic. Head: Normocephalic, Atraumatic Eyes: Perrl, EOMI. Negative for: Pale conjunctiva, Scleral icterus ENT: Moist mucous membranes, No rhinorrhea, TM's clear Neck: Supple, Nontender, No lymphadenopathy, No JVD Cardiovascular: Regular rhythm, No murmurs, Normal S1, Normal S2, Tachycardia Respiratory: CTA bilaterally, Chest nontender. Negative for: No distress Abdomen: Soft, Nontender, Nondistended, Normal bowel sounds, No masses Rectal: Deferred Back: Nontender, Normal Inspection Extremities: Nontender, No edema Skin: Normal color, No rash Neurological: Alert, Oriented x3, Cranial nerves II-XII grossly intact, Normal Strength, Normal Sensation Psychological: Normal affect Diagnostic/Tx/Re-eval Impressions Chest X-Ray 05/12/20 18:55 IMPRESSION: Hazy opacity within the right mid and lower lung may be secondary to a confluence of shadows however cannot exclude underlying edema and/or an infectious process. Electronically Signed: Yvette Laguerre MD at 19:20 EDT Tel , Service support , 05/12/20 18:55 Chest 1 View (Portable) [RAD] Stat 05/12/20 21:18 CTA Chest W/WO Contrast [CT] Stat Laboratory Results 05/12/20 05/12/20 05/12/20 17:46 17:58 17:58 WBC RBC Hgb Hct MCV MCH MCHC RDW Std Deviation RDW Coeff of Francis Plt Count MPV Immature Gran % (Auto) Neut % (Auto) Lymph % (Auto) [place] % (Auto) Eos % (Auto) Baso % (Auto) Absolute Neuts (auto) Absolute Lymphs (auto) Nucleated RBC % D-Dimer Quant (PE/DVT) 0.63 H* Sodium 140 Potassium 3.6 Chloride 107 Carbon Dioxide 25.0 Anion Gap 8 BUN 12 Creatinine 1.37 H Estim Creat Clear Calc 50.93 Est GFR (MDRD) Af Amer 67 Est GFR (MDRD) Non-Af 56 L BUN/Creatinine Ratio 8.8 L Glucose 125 H Lactic Acid Calcium 8.9 Total Bilirubin 0.30 AST 15 ALT 26 Alkaline Phosphatase 89 Troponin I < 0.015 Total Protein 7.6 Albumin 3.2 Globulin 4.4 H Albumin/Globulin Ratio 0.7 L COVID-19 (PADMA) Negative 05/12/20 05/12/20 17:58 17:58 WBC 7.3 RBC 4.30 L Hgb 12.6 L Hct 38.4 L MCV 89.3 MCH 29.3 MCHC 32.8 RDW Std Deviation 44.9 H RDW Coeff of Francis 13.8 Plt Count 296 MPV 8.8 Immature Gran % (Auto) 0.600 Neut % (Auto) 65.8 Lymph % (Auto) 24.4 [place] % (Auto) 6.3 Eos % (Auto) 2.6 Baso % (Auto) 0.3 Absolute Neuts (auto) 4.8 Absolute Lymphs (auto) 1.77 Nucleated RBC % 0 D-Dimer Quant (PE/DVT) Sodium Potassium Chloride Carbon Dioxide Anion Gap BUN Creatinine Estim Creat Clear Calc Est GFR (MDRD) Af Amer Est GFR (MDRD) Non-Af BUN/Creatinine Ratio Glucose Lactic Acid 2.3 H* Calcium Total Bilirubin AST ALT Alkaline Phosphatase Troponin I Total Protein Albumin Globulin Albumin/Globulin Ratio COVID-19 (PADMA) Receive a call from radiologist. There is evidence of bilateral pulmonary embolus. Since patient not tachycardic, tachypneic or hypoxic plan is to treat with Eliquis. Received first dose in the emergency department. He was given a prescription for the first month supply. He will need to follow-up with his primary care physician. This is a unprovoked PE and per literature regarding requires anticoagulation therapy for life. - Medical Decision Making Differential diagnosis includes upper respiratory infection with pleurisy, pneumonia, pulmonary embolus, EKG, chest x-ray appropriate labs were obtained including COVID test since he has upper respiratory symptoms that started less than 48 hours ago. He states he attended a family gathering over the holiday weekend. He states there were many family members he did not wear a mask. Lactate is elevated. This may be due to multiple causes including diabetes. Agree with radiology read that there is mild subtle abnormalities which may represent inflammatory process from COVID, pneumonia, pulmonary infarct or artifact due to body habitus. Because d-dimer is elevated even after correction for age we will obtain CTA of the chest to evaluate for pulmonary embolus and to determine if these findings on chest x-ray are artifact or represent in filtrates. ED Disposition - Plan for ED Patient: Disposition: Home or Assisted Living Diagnosis: Bilateral pulmonary embolism, Lactic acidosis due to diabetes mellitus Instructions: Pulmonary Embolism Prescriptions: Apixaban [Eliquis] 5 mg PO BID #74 tab Transmission Status: Pending to [facility]/pharmacy #[id number] Referrals: Simon Victoria MD [Primary Care Provider] - 1-2 Weeks
[2020-05-12 18:08] LABS: Absolute Lymphocyte Count 1.77 X10^3/uL (0.83-4.51); Absolute Neutrophil Count 4.8 X10^3/uL (2.0-7.7); Basophil# 0.02 X10^3/uL; Basophil% 0.3 % (0-1); Eosinophil# 0.19 X10^3/uL; Eosinophils% 2.6 % (0-5); Hematocrit 38.4 % (40-54); Hemoglobin 12.6 g/dL (13.0-16.5); Lymphocyte # 1.77 X10^3/ul (4.0); Lymphocyte % 24.4 % (19-41); Mean Corp Hgb Conc 32.8 g/dL (32-36); Mean Corpuscular Hgb 29.3 pg (27.0-32.0); Mean Corpuscular Volume 89.3 fL (80-94); Mean Platelet Vol. 8.8 fl (6.2-12.0); Monocyte# 0.46 X10^3/uL; Monocyte% 6.3 % (0-10); NRBC Flagged by Analyzer 0 % (0-5); Neutrophil # 4.78 X10^3/uL (2.7-7.7); Neutrophil % 65.8 % (47-70); Platelet Count 296 K/mm3 (150-450); RBC Distribution Width CV 13.8 % (11.6-14.6); RBC Distribution Width SD 44.9 fl (35.1-43.9); White Blood Count 7.3 K/mm3 (4.4-11.0)
[2020-05-12 18:26] LABS: ALB/GLOB Ratio 0.7 RATIO (0.9-2.4); AST(SGOT) 15 U/L (15-37); Alanine Aminotransfer ALT/SGPT 26 U/L (16-61); Albumin, Serum 3.2 g/dL (3.2-5.0); Alkaline Phosphatase 89 U/L (45-117); Anion Gap 8 (5-15); BUN 12 mg/dL (7-18); BUN/Creat Ratio 8.8 RATIO (10-20); Calcium,Total 8.9 mg/dL (8.5-10.1); Chloride 107 mmol/L (98-107); Creatinine, Serum 1.37 mg/dL (0.70-1.30); EST Glomerular Filtration Rate 56 mL/min (>60); Est Glom Filt Rate - Afr Amer 67 mL/min (>60); Estimated Creatinine Clearance 50.93 ml/min; Globulin 4.4 g/dL (2.2-4.2); Glucose 125 mg/dL (74-106); Potassium 3.6 mmol/L (3.5-5.1); Protein, Total 7.6 g/dL (6.4-8.2); Sodium Level 140 mmol/L (136-145)
--- NOTE | 2020-05-12 18:55 | RAD_ITS ---
STUDY: X-RAY CHEST REASON FOR EXAM: Male, 65 years old. Chest pain and shortness of breath x2 days. TECHNIQUE: Single frontal view of the chest. COMPARISON: 08/27/2018. FINDINGS: There is a hazy opacity within the right mid and lower lung. Normal size heart. Normal mediastinum and henrique. Normal visualized pulmonary arteries. Normal visualized aortic arch and descending thoracic aorta. Normal visualized thoracic spine. Normal visualized ribs, clavicles, and shoulders. There is no demonstrated abnormality of the visualized soft tissue structures of the upper abdomen. RAD/Chest 1 View (Portable) IMPRESSION: Hazy opacity within the right mid and lower lung may be secondary to a confluence of shadows however cannot exclude underlying edema and/or an infectious process. Electronically Signed: Yvette Laguerre MD at 19:20 EDT Tel , Service support ,
[2020-05-12 19:07] LABS: D-Dimer Quantitative (DVT/PE) 0.63 FEU/ug/m (0.27-0.49)
[2020-05-12 20:05] LABS: Lactic Acid 2.3 mmol/L (0.4-1.9)
--- NOTE | 2020-05-12 21:18 | CT_ITS ---
STUDY: CTA CHEST REASON FOR EXAM: Male, 65 years old. SOB, CP, DIZZINESS X 2 DAYS, elevated D-DIMER, SORE THROAT, CHILL RADIATION DOSAGE (If Supplied By Facility): CTDIvol = ( 28.2 ) mGy, DLP = ( 879.60 ) mGycm TECHNIQUE: The examination was performed with the intravenous administration of IV 100mL Isovue-370. Post-processing of the angiographic images was performed, with multiplanar reformation and 3D reconstruction. Individualized dose optimization techniques were used for this CT. COMPARISON: 02/23/2016 FINDINGS: There is minimal atelectasis and/or scarring within the left upper lobe that is less pronounced than the prior examination. Normal enhancement of the main pulmonary artery and right and left pulmonary arteries. There is suboptimal enhancement of the bilateral peripheral pulmonary arteries. There appear to be filling defect within bilateral segmental and subsegmental pulmonary arteries. There is atherosclerotic calcification of the aortic . There is no demonstrated aortic dissection. There are calcifications of the coronary arteries. Normal mediastinum. Normal hilar regions. Normal visualized trachea and bronchi. Normal chest wall structures. There are degenerative changes of thoracic spine. The limited images of the upper abdomen demonstrate a diffusely low in attenuation liver consistent with fatty infiltration. CT/CTA Chest W/WO Contrast IMPRESSION: Suboptimal opacification of the peripheral pulmonary arteries with filling defects within bilateral segmental and central segmental pulmonary arteries suspicious for bilateral pulmonary emboli. Atherosclerosis. Fatty infiltration of the liver. N.B. : The above information has been verbally conveyed by Yvette Laguerre MD to Luis Enrique Thomas MD, , on 05/12/2020 22:10:12 (ET). Electronically Signed: Yvette Laguerre MD at 22:13 EDT Tel , Service support ,
--- NOTE | 2020-05-12 21:59 | ED.RN ---
pt refuses to leave monitor on.
[2020-05-12 22:02] LABS: Reflex Lactate? Y
[2020-05-12] MEDS: APIXABAN 5 MG TABLET 10 MG PO (22:31)
== END 2020-05-12 22:33 | disposition home or self-care (01) ==
PROVIDERS: Emergency Provider Emergency Medicine; PCP Family Medicine
DX: I26.99 Other pulmonary embolism without acute cor pulmonale (principal); E87.2 Acidosis; E11.69 Type 2 diabetes mellitus with other specified complication; E66.01 Morbid (severe) obesity due to excess calories; I10 Essential (primary) hypertension; B35.1 Tinea unguium; I27.20 Pulmonary hypertension, unspecified; I25.10 Atherosclerotic heart disease of native coronary artery without angina pectoris; J44.9 Chronic obstructive pulmonary disease, unspecified; E78.5 Hyperlipidemia, unspecified; F32.9 Major depressive disorder, single episode, unspecified; G47.33 Obstructive sleep apnea (adult) (pediatric); Z86.2 Personal history of diseases of the blood and blood-forming organs and certain disorders involving the immune mechanism; Z85.46 Personal history of malignant neoplasm of prostate; Z95.5 Presence of coronary angioplasty implant and graft; Z79.82 Long term (current) use of aspirin; Z79.899 Other long term (current) drug therapy; Z87.891 Personal history of nicotine dependence
CPT/HCPCS: 36415; 71045; 71275; 80053; 83605; 84484; 85025; 85379; 87040; 87633; 87635; 93005; 99285; C9803; Q9967; A4216; U0003

== ENCOUNTER → 2021-04-26 09:08 | Outpatient (CLI) | payer MEDICARE, SELFPAY ==
[2020-05-12 17:24] VITALS: BMI 65.1
[2021-04-26 11:28] LABS: PSA,Total- Diagnostic 0.34 ng/mL (0.0-4.0)
== END ==
LOC: LAB 09:15
PROVIDERS: PCP Family Medicine
DX: C61 Malignant neoplasm of prostate (principal)
CPT/HCPCS: 36415; 84153

== ENCOUNTER 2021-07-28 10:53 | Emergency (ER) | payer MEDICARE, SELFPAY ==
[2021-07-28] VITALS (8 sets, daily range): BP systolic 151–169; BP diastolic 83–91; PULSE 73–82; RESP 17–22; TEMP 36.3; O2SAT 95–98; BMI 60.9
--- NOTE | 2021-07-28 10:57 | EKG12_ITS ---
Test Reason : CP Blood Pressure : / mmHG Vent. Rate : 073 BPM Atrial Rate : 073 BPM P-R Int : 216 ms QRS Dur : 128 ms QT Int : 428 ms P-R-T Axes : 057 -49 039 degrees QTc Int : 471 ms Sinus rhythm with 1st degree A-V block Right bundle branch block Left anterior fascicular block Bifascicular block Abnormal ECG Confirmed by FARZAD JACKSON, RACHAEL ([id number]), proposal editor CHACHA PACHECO ([id number]) on 07/31/2021 9:10:27 AM Referred By: BART/TANG Confirmed By:KEISHA PANDA MD
[2021-07-28 12:07] LABS: Absolute Lymphocyte Count 1.79 X10^3/uL (0.83-4.51); Absolute Neutrophil Count 2.9 X10^3/uL (2.0-7.7); Basophil# 0.03 X10^3/uL; Basophil% 0.6 % (0-1); Eosinophil# 0.21 X10^3/uL; Eosinophils% 3.9 % (0-5); Hematocrit 40.4 % (40-54); Hemoglobin 12.9 g/dL (13.0-16.5); Lymphocyte # 1.79 X10^3/ul (0.83-4.51); Lymphocyte % 32.9 % (19-41); Mean Corp Hgb Conc 31.9 g/dL (32-36); Mean Corpuscular Hgb 28.5 pg (27.0-32.0); Mean Corpuscular Volume 89.2 fL (80-94); Mean Platelet Vol. 9.1 fl (6.2-12.0); Monocyte% 9.2 % (0-10); NRBC Flagged by Analyzer 0 % (0-5); Neutrophil # 2.89 X10^3/uL (2.7-7.7); Platelet Count 279 K/mm3 (150-450); RBC Distribution Width CV 13.9 % (11.6-14.6); RBC Distribution Width SD 45.4 fl (35.1-43.9); Red Blood Count 4.53 M/mm3 (4.6-6.2); White Blood Count 5.4 K/mm3 (4.4-11.0)
--- NOTE | 2021-07-28 12:17 | EDS_ITS ---
HPI History of Present Illness Chief Complaint: Shortness of Breath Narrative Narrative: Patient presents with shortness of breath. He states that symptoms began on the approximately 6 days ago. He went to get a Covid test but states that they lost it. Today, he wanted to get another Covid test because of shortness of breath and chest tightness along with fatigue, but he states he was told to come to the emergency department for his shortness of breath. Past medical history includes obstructive sleep apnea for which he wears CPAP. He states he has been wearing that during the day to help him breathe. He states he also has a heart condition and a stent. Past medical history also includes morbid obesity and he states he weighs 390 pounds. He presents because of the shortness of breath and also that he was told to come immediately to the emergency department by a provider where he wanted to get a Covid test. [facility] Medical History Chest pain COPD (chronic obstructive pulmonary disease) Encounter for screening for COVID-19 Obesity SOBOE (shortness of breath on exertion) Home Medications albuterol sulfate 2.5 mg INHALATION Q4H PRN PRN 05/15/17 [History Last Taken 08/26/18] aspirin 81 mg PO DAILY@0800 05/15/17 [History Last Taken 08/27/18] atorvastatin 40 mg PO QHS 05/15/17 [History Last Taken 08/26/18] nitroglycerin [Nitrostat] 0.4 mg SUBLINGUAL PRN PRN 05/15/17 [History Last Taken Unknown] melatonin 10 mg PO QHS PRN 10/21/17 [History Last Taken Unknown] oxybutynin chloride [Ditropan XL] 20 mg PO DAILY 10/23/17 [History Last Taken 08/26/18] tamsulosin 0.4 mg PO QHS 10/23/17 [History Last Taken 08/26/18] meloxicam 15 mg PO DAILY #10 tab 11/20/18 [Rx Last Taken Unknown] albuterol sulfate 2 puff INHALATION Q4H PRN PRN 05/12/20 [History Last Taken Unknown] amlodipine 5 mg PO DAILY 05/12/20 [History Last Taken Unknown] apixaban 5 mg PO BID #74 tab 05/12/20 [Rx Last Taken Unknown] carvedilol 25 mg PO BID 05/12/20 [History Last Taken Unknown] cholecalciferol (vitamin D3) 50,000 unit PO QWEEK 05/12/20 [History Last Taken Unknown] liraglutide 1.8 mg SQ DAILY 05/12/20 [History Last Taken Unknown] omeprazole 20 mg PO DAILY 05/12/20 [History Last Taken Unknown] Allergy/AdvReac Type Severity Reaction Status Date / Time oxycodone HCl [From Percodan] Allergy Hives Verified 07/28/21 10:53 oxycodone terephthalate Allergy Hives Verified 07/28/21 09:52 [From Percodan] Social History Smoking Status: Former smoker ROS ROS ED ROS Narrative Constitutional: No fever, no chills. HEENT: Positive sore throat-resolved. No neck pain. No loss of vision. No rhinorrhea. Cardiovascular: Positive chest pain. No palpitations. No pedal edema. Respiratory: No cough, positive shortness of breath. Abdominal: No abdominal pain. No nausea. No vomiting. Genitourinary: No dysuria. No hematuria. Musculoskeletal: No myalgias. No arthralgias. Neurologic: No headaches. No dizziness. No lightheadedness. Skin: No rash. No change in color. Psychiatric: No depression. No anxiety. EXAM Physical Exam Narrative Exam Narrative: Afebrile. Vital signs noted. HEENT: Normocephalic. Atraumatic. PERRL, EOMI. Neck soft and supple. No point tenderness or step off. Cardiovascular: Regular rate and rhythm. No murmurs, rubs, or gallops appreciated. Respiratory: No tachypnea. Lungs clear to auscultation bilaterally. Diminished breath sounds bilateral bases. No wheezing. Gastrointestinal: Abdomen soft, nontender, obese, with normoactive bowel sounds. No rebound or guarding. Neurological: Awake. Alert. Nonfocal, nonlateralizing. Sitting up in bed. Skin: No rash. Normal color. No pallor. Musculoskeletal: No pedal edema. Full range of motion extremities. Const Vital Signs: 07/28/21 10:53 07/28/21 10:56 07/28/21 11:56 Temperature 97.4 F L 97.4 F L 97.4 F L Temperature Source Temporal Temporal Temporal Pulse Rate 80 80 80 Respiratory Rate 22 H 22 H 22 H Respiratory Effort Blood Pressure 169/83 H 169/83 H 169/83 H Blood Pressure Mean 111 111 111 Pulse Ox 98 98 98 Oxygen Delivery Method Room Air Room Air Room Air 07/28/21 12:00 07/28/21 12:11 07/28/21 12:12 Temperature 97.4 F L Temperature Source Temporal Pulse Rate 74 Respiratory Rate 17 Respiratory Effort Short of Breath Labored Blood Pressure 159/91 H Blood Pressure Mean 113 Pulse Ox 98 98 Oxygen Delivery Method Room Air Room Air Room Air 07/28/21 13:00 Temperature Temperature Source Pulse Rate 82 Respiratory Rate 22 H Respiratory Effort Blood Pressure 151/86 H Blood Pressure Mean 107 Pulse Ox 95 Oxygen Delivery Method Room Air MDM MDM MDM Narrative Medical decision making narrative: Comprehensive work-up was pursued, nursing protocol was initiated. Covid swab was obtained. His Covid swab is negative. CBC shows WBC count normal at 5.4, hemoglobin stable at 12.9. Electrolyte panel is grossly unremarkable except for chloride slightly elevated 108. Troponin is negative at 9. B-natruretic peptide is also normal at 8.9. Chest x-ray shows no acute process. Pulse ox ranges from 95 to 98% on room air. At this point in time, I feel he can be discharged safely home with follow-up. I did discuss with him possible follow-up with pulmonology for his reported dyspnea on exertion and overall shortness of breath. Return instructions were reviewed. Disposition is discharged home in stable condition. Lab Data Attestation: I reviewed the patient's lab results. Labs: Laboratory Results - last 24 hr 07/28/21 07/28/21 07/28/21 12:00 12:00 12:00 WBC 5.4 RBC 4.53 L Hgb 12.9 L Hct 40.4 MCV 89.2 MCH 28.5 MCHC 31.9 L RDW Std Deviation 45.4 H RDW Coeff of Francis 13.9 Plt Count 279 MPV 9.1 Immature Gran % (Auto) 0.400 Neut % (Auto) 53.0 Lymph % (Auto) 32.9 [place] % (Auto) 9.2 Eos % (Auto) 3.9 Baso % (Auto) 0.6 Absolute Neuts (auto) 2.9 Absolute Lymphs (auto) 1.79 Nucleated RBC % 0 Sodium 139 Potassium 4.5 Chloride 108 H Carbon Dioxide 26.0 Anion Gap 5 BUN 13 Creatinine 1.16 Estim Creat Clear Calc 59.36 Est GFR (MDRD) Af Amer 81 Est GFR (MDRD) Non-Af 67 BUN/Creatinine Ratio 11.2 Glucose 87 Calcium 8.9 Troponin I High Sens 9 B-Natriuretic Peptide 8.9 Radiography Diagnostic Testing: Clinical Impression(s) from Imaging Studies Chest X-Ray 07/28/21 12:20 IMPRESSION: Nonacute portable x-ray examination of the chest. Electronically Signed: Sonny Perry MD ([place]) at 12:43 EST , Service support , Discharge Plan Triage Chief Complaint: Shortness of Breath ED Provider: Rl Nicolas Dx/Rx/DC Orders Clinical Impression: SOB (shortness of breath), Dyspnea on exertion Instructions: ED Dyspnea Prescriptions: No Action atorvastatin 40 MG tablet 40 mg PO QHS RF: 0 albuterol sulfate 2.5 MG/3 ML solution for nebulization 2.5 mg inhalation Q4H PRN PRN (Reason: Sob &/Or Wheezing) RF: 0 nitroglycerin [Nitrostat] 0.4 MG tablet, sublingual 0.4 mg sublingual PRN PRN (Reason: CHEST PAIN) RF: 0 aspirin 81 MG tablet,chewable 81 mg PO DAILY@0800 RF: 0 melatonin 10 MG tablet 10 mg PO QHS PRN (Reason: Insomnia) RF: 0 oxybutynin chloride [Ditropan XL] 10 MG tablet extended release 24hr 20 mg PO DAILY RF: 0 tamsulosin 0.4 MG capsule 0.4 mg PO QHS RF: 0 meloxicam 15 MG tablet 15 mg PO DAILY Qty: 10 RF: 0 carvedilol 25 MG tablet 25 mg PO BID RF: 0 amlodipine 5 MG tablet 5 mg PO DAILY RF: 0 omeprazole 20 MG capsule,delayed release(DR/EC) 20 mg PO DAILY RF: 0 albuterol sulfate 90 mcg/actuation HFA aerosol inhaler 2 puff inhalation Q4H PRN PRN (Reason: Sob &/Or Wheezing) RF: 0 cholecalciferol (vitamin D3) 1,250 MCG capsule 50,000 unit PO QWEEK RF: 0 liraglutide 0.6 mg/0.1 mL (18 mg/3 mL) pen injector 1.8 mg SQ DAILY RF: 0 apixaban 5 MG tablet 5 mg PO BID Qty: 74 RF: 0 Primary Care Provider: Simon Victoria Referrals: Mirza Jasmine MD [STAFF PHYSICIAN] - 08/04/21 Simon Victoria MD [Primary Care Provider] - 07/31/21 Disposition Disposition: Home, Self Care
--- NOTE | 2021-07-28 12:20 | RAD_ITS ---
STUDY: X-RAY CHEST REASON FOR EXAM: Male, 66 years old. chest pain TECHNIQUE: AP COMPARISON: 05/12/2020 FINDINGS: The lungs are clear and expanded. There is no demonstrated pleural abnormality. Normal size heart. Normal mediastinum and henrique. Normal visualized pulmonary arteries. Normal visualized aortic arch and descending thoracic aorta. There are diffuse degenerative changes of the visualized thoracic spine. Normal visualized ribs, clavicles, and shoulders. There is no demonstrated abnormality of the visualized soft tissue structures of the upper abdomen. RAD/Chest 1 View (Portable) IMPRESSION: Nonacute portable x-ray examination of the chest. Electronically Signed: Sonny Perry MD ([place]) at 12:43 EST , Service support ,
[2021-07-28 12:26] LABS: Anion Gap 5 (5-15); BUN 13 mg/dL (7-18); BUN/Creat Ratio 11.2 RATIO (10-20); Calcium,Total 8.9 mg/dL (8.5-10.1); Chloride 108 mmol/L (98-107); Creatinine, Serum 1.16 mg/dL (0.70-1.30); EST Glomerular Filtration Rate 67 mL/min (>60); Est Glom Filt Rate - Afr Amer 81 mL/min (>60); Estimated Creatinine Clearance 59.36 ml/min; Glucose 87 mg/dL (74-106); Potassium 4.5 mmol/L (3.5-5.1); Sodium Level 139 mmol/L (136-145); Troponin-I HS 9 pg/mL (3.0-78.0)
[2021-07-28 12:42] LABS: BNP,B-Type NATRIURETIC PEPTIDE 8.9 pg/mL (0-100)
== END 2021-07-28 15:35 | disposition home or self-care (01) ==
PROVIDERS: Emergency Provider Emergency Medicine; PCP Family Medicine
DX: R06.02 Shortness of breath (principal); R07.89 Other chest pain; R53.83 Other fatigue; E66.01 Morbid (severe) obesity due to excess calories; Z68.44 Body mass index [BMI] 60.0-69.9, adult; G47.33 Obstructive sleep apnea (adult) (pediatric); J44.9 Chronic obstructive pulmonary disease, unspecified; Z95.5 Presence of coronary angioplasty implant and graft; Z79.01 Long term (current) use of anticoagulants; Z79.82 Long term (current) use of aspirin; Z79.899 Other long term (current) drug therapy; Z87.891 Personal history of nicotine dependence
CPT/HCPCS: 71045; 80048; 83880; 84484; 85025; 87426; 93005; 99284

== ENCOUNTER 2021-12-27 10:33 | Emergency (ER) | payer MEDICARE, SELFPAY ==
[2021-12-27 10:34] VITALS: BP 185/97; PULSE 100; RESP 14; TEMP 36.8; O2SAT 99; BMI 62.1
[2021-12-27 10:45] LABS: Bedside Glucose 135 mg/dL (74-106)
--- NOTE | 2021-12-27 10:48 | CT_ITS ---
STUDY: CT BRAIN WITHOUT CONTRAST REASON FOR EXAM: Male, 66 years old. Altered mental status. RADIATION DOSAGE (If Supplied By Facility): CTDIvol = ( 44.99 ) mGy, DLP = ( 829.85 ) mGycm TECHNIQUE: Transaxial CT imaging of the brain was performed without administration of intravenous contrast material. Individualized dose optimization techniques were used for this CT. COMPARISON: Comparison is made with prior study 10/15/2017. FINDINGS: Normal soft tissue structures. Normal calvarium. Normal size ventricles and extra-axial spaces for the patient''s age. Normal white matter tracts of the cerebral hemispheres. Normal basal ganglia and thalami. Normal brainstem. Normal cerebellum. There is no intracranial hemorrhage. There are no findings of an acute ischemic infarction. Atherosclerotic calcific plaques of the cavernous portions of the internal carotid arteries bilaterally. Normal visualized paranasal sinuses. CT/Brain/Head without Contrast IMPRESSION: No acute abnormality is seen. Electronically Signed: Kevon Liz MD at 12:19 EDT ,
--- NOTE | 2021-12-27 10:49 | EKG12_ITS ---
Test Reason : DIZZY Blood Pressure : / mmHG Vent. Rate : 087 BPM Atrial Rate : 087 BPM P-R Int : 194 ms QRS Dur : 104 ms QT Int : 394 ms P-R-T Axes : 086 -51 031 degrees QTc Int : 474 ms Normal sinus rhythm Left axis deviation Inferior infarct , age undetermined Anterolateral infarct , age undetermined Abnormal ECG Confirmed by FARZAD JACKSON, RACHAEL ([id number]), general expeditor CHACHA PACHECO ([id number]) on 12/29/2021 8:11:12 AM Referred By: JACQUES Confirmed By:KEISHA PANDA MD
--- NOTE | 2021-12-27 10:50 | EDS_ITS ---
HPI History of Present Illness Chief Complaint: Dizziness Informant: patient Narrative Narrative: 66-year-old male presented to the emergency department with lightheadedness. Patient states that he woke this morning and felt pretty normal. He states he felt a little odd walking out of his bedroom but he got dressed and went to get a haircut. When he went to stand up out of the chair he was very lightheaded but was able to get into his car and start driving. He states he Smelling exhaust fumes in the car and wonders if he has a carbon monoxide leak. He states that he was very nauseated and was worried that he may pass out. He did not have any palpitations chest pain shortness of breath or sweating. He notes a slight headache. He feels better now but was very concerned especially while driving. [facility] Medical History Chest pain COPD (chronic obstructive pulmonary disease) Encounter for screening for COVID-19 Obesity SOBOE (shortness of breath on exertion) Home Medications albuterol sulfate 2.5 mg INHALATION Q4H PRN PRN 05/15/17 [History Last Taken 08/26/18] aspirin 81 mg PO DAILY@0800 05/15/17 [History Last Taken 08/27/18] atorvastatin 40 mg PO QHS 05/15/17 [History Last Taken 08/26/18] nitroglycerin [Nitrostat] 0.4 mg SUBLINGUAL PRN PRN 05/15/17 [History Last Taken Unknown] melatonin 10 mg PO QHS PRN 10/21/17 [History Last Taken Unknown] oxybutynin chloride [Ditropan XL] 20 mg PO DAILY 10/23/17 [History Last Taken 08/26/18] tamsulosin 0.4 mg PO QHS 10/23/17 [History Last Taken 08/26/18] meloxicam 15 mg PO DAILY #10 tab 11/20/18 [Rx Last Taken Unknown] albuterol sulfate 2 puff INHALATION Q4H PRN PRN 05/12/20 [History Last Taken Unknown] amlodipine 5 mg PO DAILY 05/12/20 [History Last Taken Unknown] apixaban 5 mg PO BID #74 tab 05/12/20 [Rx Last Taken Unknown] carvedilol 25 mg PO BID 05/12/20 [History Last Taken Unknown] cholecalciferol (vitamin D3) 50,000 unit PO QWEEK 05/12/20 [History Last Taken Unknown] liraglutide 1.8 mg SQ DAILY 05/12/20 [History Last Taken Unknown] omeprazole 20 mg PO DAILY 05/12/20 [History Last Taken Unknown] Allergy/AdvReac Type Severity Reaction Status Date / Time oxycodone HCl [From Percodan] Allergy Hives Verified 12/27/21 10:36 oxycodone terephthalate Allergy Hives Verified 12/27/21 10:36 [From Percodan] Social History (Updated 12/27/21 @ 10:[address] Yaya Warner, DO) current gender identity: male Smoking Status: Former smoker ROS ROS ED Constitutional Constitutional ED: Denies chills, fever(s) or weight loss Eyes Eyes: Denies change in vision or diplopia ENT ENT ED: Denies ear pain, rhinorrhea or sore throat Cardiovascular Cardiovascular: Reports other Details: Lightheaded ; Denies chest pain, orthopnea, palpitations or racing heartbeat Respiratory/Chest Respiratory/Chest: Denies cough, dyspnea or orthopnea Gastrointestinal Gastrointestinal: Reports nausea; Denies abdominal pain, diarrhea or vomiting Genitourinary Genitourinary ED: Denies dysuria, hematuria or urinary frequency Musculoskeletal Musculoskeletal: Denies arthralgias or myalgias Integumentary Denies abscess or rash Neurologic Neurologic: Reports headache(s); Denies weakness Psychiatric Psychiatric: Denies anxiety, depression, suicidal ideation or suicidal thoughts Endocrine Endocrinology: Denies polydipsia, polyphagia or polyuria Allergic/Immunologic Allergic/Immunologic ED: Denies mouth swelling, tongue swelling or urticaria EXAM Physical Exam Const Vital Signs: 12/27/21 10:34 12/27/21 10:44 12/27/21 12:34 Temperature 98.3 F Temperature Source Temporal Pulse Rate 100 78 Respiratory Rate 14 14 Respiratory Pattern Normal Blood Pressure 185/97 H 148/78 H Blood Pressure Mean 126 101 Pulse Ox 99 98 Oxygen Delivery Method Room Air Room Air Positive well nourished, well developed and obese General Appearance ED: well developed Nutritional Appearance: obese HEENT Reports normocephalic, head/scalp atraumatic, TM's clear and moist mucous membranes Negative for trauma Tympanic Membrane ED: Yes TM's clear Eyes PERRL and EOMs intact bilaterally Neck no lymphadenopathy, supple and no JVD Resp normal respiratory effort and clear to auscultation bilaterally Cardio regular rate, regular rhythm and no murmurs GI normal to inspection, nondistended, normoactive bowel sounds and non-tender Palpation: soft Back/Spine no CVA tenderness and normal ROM Extremity normal to inspection General Extremety ED: Negative for edema General Extremity: Negative for edema Neuro oriented x3 and CN's II-XII intact bilaterally Sensorium / Orientation: alert Motor Exam: strength 5/5 throughout Psych mental status grossly normal Mood & Affect: Negative for depressed or tearful Skin no rashes or lesions noted and no wounds MDM MDM MDM Narrative Medical decision making narrative: Patient had a episode of his dizziness while on the monitor in the presence of nursing. They note that his heart rate was unchanged on the monitor and that he was normotensive. Basic blood work showed a white count of 6.3 and hemoglobin of 13.9. Platelet count 304. CMP demonstrates a creatinine 1.41 with a glucose of 179. The patient's carboxyhemoglobin is elevated at 3.5% CT the brain was obtained which was negative. Patient developed a headache and was given Toradol. This point patient was advised to definitely get his car evaluated. Follow-up with primary care if not improving return if worsening or concerns Lab Data Attestation: I reviewed the patient's lab results. Labs: Laboratory Results - last 24 hr 12/27/21 12/27/21 12/27/21 10:41 11:20 11:20 WBC 6.3 RBC 4.84 Hgb 13.9 Hct 43.3 MCV 89.5 MCH 28.7 MCHC 32.1 RDW Std Deviation 44.2 H RDW Coeff of Francis 13.6 Plt Count 304 MPV 9.1 Immature Gran % (Auto) 0.500 Neut % (Auto) 61.5 Lymph % (Auto) 27.4 [place] % (Auto) 6.8 Eos % (Auto) 3.3 Baso % (Auto) 0.5 Absolute Neuts (auto) 3.9 Absolute Lymphs (auto) 1.73 Nucleated RBC % 0 Sodium 140 Potassium 4.0 Chloride 107 Carbon Dioxide 27.0 Anion Gap 6 BUN 18 Creatinine 1.41 H Estim Creat Clear Calc 48.83 Est GFR (MDRD) Af Amer 65 Est GFR (MDRD) Non-Af 54 L BUN/Creatinine Ratio 12.8 Glucose 179 H Calcium 9.2 Total Bilirubin 0.30 AST 16 ALT 22 Alkaline Phosphatase 100 Troponin I High Sens 10 Total Protein 7.6 Albumin 3.2 Globulin 4.4 H Albumin/Globulin Ratio 0.7 L POC Glucose 135 H ABG Data ABG results: ABG 12/27/21 11:20 VBG Carboxyhemoglobin 3.5 H Radiography Diagnostic Testing: Clinical Impression(s) from Imaging Studies Brain CT 12/27/21 10:48 IMPRESSION: No acute abnormality is seen. Electronically Signed: Kevon Liz MD at 12:19 EDT , Discharge Plan Triage Chief Complaint: Dizziness ED Provider: Yaya Warner Dx/Rx/DC Orders Clinical Impression: Lightheadedness, Accidental exposure to carbon monoxide Instructions: ED Dizziness, Uncertain Cause Prescriptions: No Action atorvastatin 40 MG tablet 40 mg PO QHS RF: 0 albuterol sulfate 2.5 MG/3 ML solution for nebulization 2.5 mg inhalation Q4H PRN PRN (Reason: Sob &/Or Wheezing) RF: 0 nitroglycerin [Nitrostat] 0.4 MG tablet, sublingual 0.4 mg sublingual PRN PRN (Reason: CHEST PAIN) RF: 0 aspirin 81 MG tablet,chewable 81 mg PO DAILY@0800 RF: 0 melatonin 10 MG tablet 10 mg PO QHS PRN (Reason: Insomnia) RF: 0 oxybutynin chloride [Ditropan XL] 10 MG tablet extended release 24hr 20 mg PO DAILY RF: 0 tamsulosin 0.4 MG capsule 0.4 mg PO QHS RF: 0 meloxicam 15 MG tablet 15 mg PO DAILY Qty: 10 RF: 0 carvedilol 25 MG tablet 25 mg PO BID RF: 0 amlodipine 5 MG tablet 5 mg PO DAILY RF: 0 omeprazole 20 MG capsule,delayed release(DR/EC) 20 mg PO DAILY RF: 0 albuterol sulfate 90 mcg/actuation HFA aerosol inhaler 2 puff inhalation Q4H PRN PRN (Reason: Sob &/Or Wheezing) RF: 0 cholecalciferol (vitamin D3) 1,250 MCG capsule 50,000 unit PO QWEEK RF: 0 liraglutide 0.6 mg/0.1 mL (18 mg/3 mL) pen injector 1.8 mg SQ DAILY RF: 0 apixaban 5 MG tablet 5 mg PO BID Qty: 74 RF: 0 Stand Alone Forms: ED Work / School Excuse Primary Care Provider: Simon Victoria Referrals: Simon Victoria MD [Primary Care Provider] - 3-5 Days if not improving Disposition Disposition: Home, Self Care
[2021-12-27 11:26] LABS: Absolute Lymphocyte Count 1.73 X10^3/uL (0.83-4.51); Absolute Neutrophil Count 3.9 X10^3/uL (2.0-7.7); Basophil# 0.03 X10^3/uL; Basophil% 0.5 % (0-1); Eosinophil# 0.21 X10^3/uL; Eosinophils% 3.3 % (0-5); Hematocrit 43.3 % (40-54); Hemoglobin 13.9 g/dL (13.0-16.5); Lymphocyte # 1.73 X10^3/ul (0.83-4.51); Lymphocyte % 27.4 % (19-41); Mean Corp Hgb Conc 32.1 g/dL (32-36); Mean Corpuscular Hgb 28.7 pg (27.0-32.0); Mean Corpuscular Volume 89.5 fL (80-94); Mean Platelet Vol. 9.1 fl (6.2-12.0); Monocyte# 0.43 X10^3/uL; Monocyte% 6.8 % (0-10); NRBC Flagged by Analyzer 0 % (0-5); Neutrophil # 3.88 X10^3/uL (2.7-7.7); Neutrophil % 61.5 % (47-70); Platelet Count 304 K/mm3 (150-450); RBC Distribution Width CV 13.6 % (11.6-14.6); RBC Distribution Width SD 44.2 fl (35.1-43.9); Red Blood Count 4.84 M/mm3 (4.6-6.2); White Blood Count 6.3 K/mm3 (4.4-11.0)
[2021-12-27 11:28] LABS: Carboxyhemoglobin Frac (CO) 3.5 % (0.0-1.5)
[2021-12-27 11:46] LABS: ALB/GLOB Ratio 0.7 RATIO (0.9-2.4); AST(SGOT) 16 U/L (15-37); Alanine Aminotransfer ALT/SGPT 22 U/L (16-61); Albumin, Serum 3.2 g/dL (3.2-5.0); Alkaline Phosphatase 100 U/L (45-117); Anion Gap 6 (5-15); BUN 18 mg/dL (7-18); BUN/Creat Ratio 12.8 RATIO (10-20); Calcium,Total 9.2 mg/dL (8.5-10.1); Chloride 107 mmol/L (98-107); Creatinine, Serum 1.41 mg/dL (0.70-1.30); EST Glomerular Filtration Rate 54 mL/min (>60); Est Glom Filt Rate - Afr Amer 65 mL/min (>60); Estimated Creatinine Clearance 48.83 ml/min; Globulin 4.4 g/dL (2.2-4.2); Glucose 179 mg/dL (74-106); Protein, Total 7.6 g/dL (6.4-8.2); Sodium Level 140 mmol/L (136-145); Troponin-I HS 10 pg/mL (3.0-78.0)
[2021-12-27] MEDS: Ketorolac 30 MG/ML Syringe IV (12:31)
[2021-12-27 12:34] VITALS: BP 148/78; PULSE 78; RESP 14; O2SAT 98
== END 2021-12-27 12:50 | disposition home or self-care (01) ==
PROVIDERS: Emergency Provider Emergency Medicine; PCP Family Medicine; Visit Provider Emergency Medicine
DX: R42 Dizziness and giddiness (principal); J44.9 Chronic obstructive pulmonary disease, unspecified; Z68.44 Body mass index [BMI] 60.0-69.9, adult; E66.9 Obesity, unspecified; Z79.82 Long term (current) use of aspirin; Z87.891 Personal history of nicotine dependence; T58.91XA Toxic effect of carbon monoxide from unspecified source, accidental (unintentional), initial encounter
CPT/HCPCS: 70450; 80053; 82375; 82962; 84484; 85025; 93005; 96374; 99284

== ENCOUNTER 2022-03-05 12:21 | Emergency (ER) | payer MEDICARE, SELFPAY ==
[2022-03-05 12:21] VITALS: BP 160/94; PULSE 96; RESP 16; TEMP 37; O2SAT 95; BMI 60.2
--- NOTE | 2022-03-05 13:07 | ED.RN ---
PT NOTICED BY THIS RN WALKING OUTSIDE TO THE BENCH IN FRONT OF ED ENTRANCE AT 1230. PT CALLED TO BE ROOMED AT THIS TIME AND NO ANSWER. PT IS NOT OUTSIDE OF ED ENTRANCE.
== END 2022-03-05 13:09 | disposition left against medical advice (07) ==
LOC: ED 13:08
PROVIDERS: PCP Family Medicine
DX: Z53.21 Procedure and treatment not carried out due to patient leaving prior to being seen by health care provider (principal)

== ENCOUNTER 2022-03-05 16:06 | Emergency (ER) | payer MEDICARE, SELFPAY ==
[2022-03-05 16:07] VITALS: BP 166/103; PULSE 103; RESP 16; TEMP 36.8; O2SAT 98; BMI 61.0
--- NOTE | 2022-03-05 16:33 | CT_ITS ---
STUDY: CT ABDOMEN AND PELVIS WITH CONTRAST ENHANCEMENT OF 1727 HOURS ON 03/05/2022 REASON FOR EXAM: 66-year-old male with left lower quadrant pain. RADIATION DOSAGE (If Supplied By Facility): CTDIvol = ( 17.33 ) mGy, DLP = ( 1939.12 ) mGycm TECHNIQUE: Transaxial images were obtained from the dome of the diaphragm to the symphysis pubis without oral contrast. [id number] 100ML was administered. Sagittal and coronal images were reconstructed. Individualized dose optimization techniques were used for this CT. COMPARISON: None. FINDINGS: Obesity. The visualized lung bases are unremarkable. The visualized portions of the heart are within normal limits. Mild hepatomegaly with mild diffuse fatty infiltration.. Normal gallbladder and extrahepatic biliary system; no cholelithiasis or cholecystitis.. Normal spleen. Normal pancreas; no pancreatitis or pancreatic mass lesions.. Normal bilateral adrenal glands. Normal kidneys without obstructive uropathy or pyelonephritis. Fluid-filled mildly dilated stomach. Mildly dilated fluid-filled loops of small intestine to the level of the mid ileum.. Mild sigmoid colitis. The appendix is visualized and appears normal. Normal abdominal aorta. Normal inferior vena cava. Normal retroperitoneum. Normal urinary bladder. Metallic densities in the prostate that either represent surgical clips or radioactive seeds. Normal abdominal wall. Normal osseous structures. CT/Abdomen/Pelvis W IV Cont ONLY IMPRESSION: 1. Mild sigmoid colitis. 2. Mildly dilated fluid-filled loops of small intestine to the level of the mid ileum. 3. Fluid-filled mildly dilated stomach. 4. Mild hepatomegaly with mild diffuse fatty infiltration. 5. No cholecystitis or pancreatitis. 6. Normal kidneys without obstructive uropathy or pyelonephritis. 7. Metallic densities of prostate evaluated represent surgical clips or radioactive seeds. 8. Obesity. Electronically Signed: Nicola Navarrete MD at 18:17 EDT ,
[2022-03-05] MEDS: 0.9% Normal Saline 1,000 ML 1000 ML IV (16:49)
[2022-03-05] MEDS: Ondansetron 4 MG/2 ML Vial IV (16:49)
[2022-03-05] MEDS: Morphine 4 MG/ML Syringe IV ×2 (16:50→18:08)
[2022-03-05 17:00] LABS: Absolute Lymphocyte Count 1.54 X10^3/uL (0.83-4.51); Absolute Neutrophil Count 7.1 X10^3/uL (2.0-7.7); Basophil# 0.01 X10^3/uL; Basophil% 0.1 % (0-1); Eosinophil# 0.06 X10^3/uL; Eosinophils% 0.7 % (0-5); Hematocrit 46.4 % (40-54); Hemoglobin 14.9 g/dL (13.0-16.5); Lymphocyte # 1.54 X10^3/ul (0.83-4.51); Lymphocyte % 16.7 % (19-41); Mean Corp Hgb Conc 32.1 g/dL (32-36); Mean Corpuscular Hgb 28.7 pg (27.0-32.0); Mean Corpuscular Volume 89.4 fL (80-94); Mean Platelet Vol. 9.3 fl (6.2-12.0); Monocyte# 0.51 X10^3/uL; Monocyte% 5.5 % (0-10); NRBC Flagged by Analyzer 0 % (0-5); Neutrophil # 7.05 X10^3/uL (2.7-7.7); Neutrophil % 76.7 % (47-70); Platelet Count 366 K/mm3 (150-450); RBC Distribution Width CV 13.7 % (11.6-14.6); RBC Distribution Width SD 44.3 fl (35.1-43.9); Red Blood Count 5.19 M/mm3 (4.6-6.2); White Blood Count 9.2 K/mm3 (4.4-11.0)
[2022-03-05 17:07] LABS: ALB/GLOB Ratio 0.8 RATIO (0.9-2.4); AST(SGOT) 18 U/L (15-37); Alanine Aminotransfer ALT/SGPT 26 U/L (16-61); Albumin, Serum 3.7 g/dL (3.2-5.0); Alkaline Phosphatase 114 U/L (45-117); Anion Gap 10 (5-15); BUN 17 mg/dL (7-18); BUN/Creat Ratio 11.3 RATIO (10-20); Calcium,Total 10.5 mg/dL (8.5-10.1); Chloride 102 mmol/L (98-107); EST Glomerular Filtration Rate 50 mL/min (>60); Est Glom Filt Rate - Afr Amer 60 mL/min (>60); Globulin 4.9 g/dL (2.2-4.2); Glucose 129 mg/dL (74-106); Lipase 130 U/L (73-393); Protein, Total 8.6 g/dL (6.4-8.2); Sodium Level 139 mmol/L (136-145)
--- NOTE | 2022-03-05 17:48 | ED.VIS.GI ---
HPI HPI - GI History of Present Illness Chief Complaint: Nausea/Vomiting/Diarrhea Narrative Narrative: 66 year old male with N/V/D as well as LLQ abdominal pain since last night. It started after eating chicken. Patient states he feels dehydrated. He denies coffee ground emesis, hematemesis, Melena, or hematochezia. He denies fever, chills. He denies headache. No urinary symptoms. Patient states he came to the ER earlier but vomited on him self and defecated in his pants so he went home to change and clean up and came back. PFSH [facility] Medical History Chest pain COPD (chronic obstructive pulmonary disease) Encounter for screening for COVID-19 Obesity SOBOE (shortness of breath on exertion) Home Medications albuterol sulfate 2.5 mg inhalation Q4H PRN PRN Sob &/Or Wheezing 05/15/17 [History Last Taken 08/26/18] aspirin 81 mg chewable tablet 81 mg PO DAILY@0800 heart health 05/15/17 [History Last Taken 08/27/18] atorvastatin 40 mg tablet 40 mg PO QHS cholesterol 05/15/17 [History Last Taken 08/26/18] nitroglycerin 0.4 mg sublingual tablet (Nitrostat) 0.4 mg sublingual PRN PRN CHEST PAIN 05/15/17 [History Last Taken Unknown] melatonin 10 mg sublingual tablet 10 mg PO QHS PRN Insomnia 10/21/17 [History Last Taken Unknown] oxybutynin chloride 10 mg tablet,extended release 24 hr (Ditropan XL) 20 mg PO DAILY 10/23/17 [History Last Taken 08/26/18] tamsulosin 0.4 mg capsule 0.4 mg PO QHS 10/23/17 [History Last Taken 08/26/18] meloxicam 15 mg tablet 15 mg PO DAILY #10 tabs 11/20/18 [Rx Last Taken Unknown] albuterol sulfate 90 mcg/actuation aerosol inhaler 2 puff inhalation Q4H PRN PRN Sob &/Or Wheezing 05/12/20 [History Last Taken Unknown] amlodipine 5 mg tablet 5 mg PO DAILY bp 05/12/20 [History Last Taken Unknown] apixaban 5 mg tablet 5 mg PO BID #74 tabs 05/12/20 [Rx Last Taken Unknown] carvedilol 25 mg tablet 25 mg PO BID heart 05/12/20 [History Last Taken Unknown] cholecalciferol (vitamin D3) 1,250 mcg (50,000 unit) capsule 50,000 unit PO QWEEK supplement 05/12/20 [History Last Taken Unknown] liraglutide 0.6 mg/0.1 mL (18 mg/3 mL) subcutaneous pen injector 1.8 mg SQ DAILY dm 05/12/20 [History Last Taken Unknown] omeprazole 20 mg capsule,delayed release 20 mg PO DAILY gerd 05/12/20 [History Last Taken Unknown] dicyclomine 10 mg capsule 10 mg PO BID #10 caps 03/05/22 [Rx Last Taken Unknown] ondansetron 4 mg disintegrating tablet 4 mg PO Q8H PRN nausea and vomiting #10 tabs 03/05/22 [Rx Last Taken Unknown] Allergy/AdvReac Type Severity Reaction Status Date / Time oxycodone HCl [From Percodan] Allergy Hives Verified 03/05/22 12:23 oxycodone terephthalate Allergy Hives Verified 03/05/22 12:23 [From Percodan] Social History Smoking Status: Former smoker ROS ROS ED Constitutional Constitutional ED: Denies chills or fever(s) ENT ENT ED: Denies rhinorrhea or sore throat Cardiovascular Cardiovascular: Denies chest pain or palpitations Respiratory/Chest Respiratory/Chest: Denies cough or dyspnea Gastrointestinal Gastrointestinal: Reports abdominal pain, diarrhea, nausea and vomiting Genitourinary Genitourinary ED: Denies dysuria or hematuria Musculoskeletal Musculoskeletal: Denies arthralgias or back pain Integumentary Denies abscess or Abrasions Neurologic Neurologic: Denies headache(s) or paresthesias Psychiatric Psychiatric: Denies anxiety or depression Endocrine Endocrinology: Denies polydipsia or polyphagia EXAM Physical Exam Const Vital Signs: 03/05/22 16:07 03/05/22 19:15 Temperature 98.3 F Temperature Source Temporal Pulse Rate 103 H Respiratory Rate 16 19 H Blood Pressure 166/103 H Blood Pressure Mean 124 Pulse Ox 98 Oxygen Delivery Method Room Air Positive obese General Appearance ED: NAD; Negative for pallor Nutritional Appearance: obese HEENT Reports TM's clear and moist mucous membranes Tympanic Membrane ED: Yes TM's clear Eyes PERRL and EOMs intact bilaterally Resp normal respiratory effort and clear to auscultation bilaterally Cardio regular rate and regular rhythm GI Palpation: tender LLQ and LUQ Back/Spine no CVA tenderness Neuro CN's II-XII intact bilaterally and moves all extremities Psych mental status grossly normal Skin General Skin Exam: Negative for jaundice or pallor MDM MDM MDM Narrative Medical decision making narrative: Patient with benign abdominal exam. I did obtain blood work and his CBC shows no leukocytosis. Hemoglobin hematocrit are stable. Renal function is near baseline. Electrolytes are normal. LFTs are normal. Lipase within normal limits. Patient treated initially with morphine and Zofran. He was also given IV fluids. On reevaluation he was still having some mild crampy pain and requested more pain medication. He was given a second dose of morphine. I obtained a CT of the abdomen pelvis which shows a mild colitis. Patient counseled on findings. This is likely either from the chicken that he ate or something viral however I do not believe he needs antibiotics. He is given Zofran and Bentyl for home. Return precautions are discussed. Impression: 1. Nausea/vomiting 2. Diarrhea 3. Colitis Lab Data Labs: Laboratory Results - last 24 hr 03/05/22 03/05/22 16:15 16:15 WBC 9.2 RBC 5.19 Hgb 14.9 Hct 46.4 MCV 89.4 MCH 28.7 MCHC 32.1 RDW Std Deviation 44.3 H RDW Coeff of Francis 13.7 Plt Count 366 MPV 9.3 Immature Gran % (Auto) 0.300 Neut % (Auto) 76.7 H Lymph % (Auto) 16.7 L [place] % (Auto) 5.5 Eos % (Auto) 0.7 Baso % (Auto) 0.1 Absolute Neuts (auto) 7.1 Absolute Lymphs (auto) 1.54 Nucleated RBC % 0 Sodium 139 Potassium 4.0 Chloride 102 Carbon Dioxide 27.0 Anion Gap 10 BUN 17 Creatinine 1.50 H Estim Creat Clear Calc 45.90 Est GFR (MDRD) Af Amer 60 Est GFR (MDRD) Non-Af 50 L BUN/Creatinine Ratio 11.3 Glucose 129 H Calcium 10.5 H Total Bilirubin 0.40 AST 18 ALT 26 Alkaline Phosphatase 114 Total Protein 8.6 H Albumin 3.7 Globulin 4.9 H Albumin/Globulin Ratio 0.8 L Lipase 130 Radiography Diagnostic Testing: Clinical Impression(s) from Imaging Studies Abdomen/Pelvis CT 03/05/22 16:33 IMPRESSION: 1. Mild sigmoid colitis. 2. Mildly dilated fluid-filled loops of small intestine to the level of the mid ileum. 3. Fluid-filled mildly dilated stomach. 4. Mild hepatomegaly with mild diffuse fatty infiltration. 5. No cholecystitis or pancreatitis. 6. Normal kidneys without obstructive uropathy or pyelonephritis. 7. Metallic densities of prostate evaluated represent surgical clips or radioactive seeds. 8. Obesity. Electronically Signed: Nicola Navarrete MD at 18:17 EDT , Discharge Plan Triage Chief Complaint: Nausea/Vomiting/Diarrhea ED Provider: Rafael Albarran Dx/Rx/DC Orders Instructions: ED Food Poison Or Gastroenteritis Prescriptions: New ondansetron 4 mg tablet,disintegrating 4 mg PO Q8H PRN (Reason: nausea and vomiting) Qty: 10 0RF dicyclomine 10 mg capsule 10 mg PO BID Qty: 10 0RF No Action atorvastatin 40 MG tablet 40 mg PO QHS albuterol sulfate 2.5 MG/3 ML solution for nebulization 2.5 mg inhalation Q4H PRN PRN (Reason: Sob &/Or Wheezing) nitroglycerin [Nitrostat] 0.4 MG tablet, sublingual 0.4 mg sublingual PRN PRN (Reason: CHEST PAIN) Label Comments: TAKEE Q 5 MIN PRN FOR CHEST PAIN X'S 3 DOSES aspirin 81 MG tablet,chewable 81 mg PO DAILY@0800 melatonin 10 MG tablet 10 mg PO QHS PRN (Reason: Insomnia) oxybutynin chloride [Ditropan XL] 10 MG tablet extended release 24hr 20 mg PO DAILY tamsulosin 0.4 MG capsule 0.4 mg PO QHS meloxicam 15 MG tablet 15 mg PO DAILY Qty: 10 0RF carvedilol 25 MG tablet 25 mg PO BID amlodipine 5 MG tablet 5 mg PO DAILY omeprazole 20 MG capsule,delayed release(DR/EC) 20 mg PO DAILY albuterol sulfate 90 mcg/actuation HFA aerosol inhaler 2 puff inhalation Q4H PRN PRN (Reason: Sob &/Or Wheezing) Label Comments: INHALE 2 PUFFS INSTRUCTED EVERY 4 HOURS NEEDED FOR WHEEZING/SHORTNESS OF BREATH. cholecalciferol (vitamin D3) 1,250 MCG capsule 50,000 unit PO QWEEK liraglutide 0.6 mg/0.1 mL (18 mg/3 mL) pen injector 1.8 mg SQ DAILY Label Comments: INJECT 1.8 MG UNDER THE SKIN ONCE DAILY apixaban 5 MG tablet 5 mg PO BID Qty: 74 0RF Rx Instructions: 10 mg twice a day for the first week. Then 5 mg twice a day. Primary Care Provider: Simon Victoria Referrals: Simon Victoria MD [Primary Care Provider] - Disposition Disposition: Home, Self Care
[2022-03-05 19:15] VITALS: RESP 19
== END 2022-03-05 20:35 | disposition home or self-care (01) ==
PROVIDERS: Emergency Provider Student in an Organized Health Care Education/Training Program; PCP Family Medicine; Visit Provider Student in an Organized Health Care Education/Training Program
DX: K52.9 Noninfective gastroenteritis and colitis, unspecified (principal); J44.9 Chronic obstructive pulmonary disease, unspecified; Z68.44 Body mass index [BMI] 60.0-69.9, adult; Z87.891 Personal history of nicotine dependence; E66.9 Obesity, unspecified; Z79.82 Long term (current) use of aspirin; Z79.899 Other long term (current) drug therapy
CPT/HCPCS: 74177; 80053; 83690; 85025; 87811; 96361; 96374; 96375; 96376; 99285; Q9967; A4216; J2405

== ENCOUNTER → 2022-04-07 | Outpatient (CLI) | payer MEDICARE, SELFPAY ==
--- NOTE | 2022-04-07 11:17 | RAD_ITS ---
STUDY: X-RAY - LEFT FOOT CLINICAL: Male, 66 years old. Rheumatoid arthritis, unspecified TECHNIQUE: 4 view(s) of the foot. COMPARISON: None. FINDINGS: Normal talus and tarsal bones. Calcaneal spurs Normal visualized subtalar, talonavicular, calcaneocuboid, tarsal and tarsometatarsal articulations. Normal metatarsi. Normal metatarsophalangeal joint of the great toe. Normal tibial and fibular sesamoid bones. Normal interphalangeal joint of the great toe. Normal phalanges of the great toe. Normal second through fifth metatarsophalangeal joints. Normal interphalangeal joints and phalanges of the lesser toes. The soft tissue structures are unremarkable. RAD/Foot min 3 Views IMPRESSION: Calcaneal spurs, no demonstrated fracture or suspicious osseous lesion Electronically Signed: Henry Lombardo MD at 11:12 EDT ,
[2022-04-07 11:45] LABS: Erythrocyte Sedimentation Rate 51 mm/hr (0-20)
[2022-04-07 11:56] LABS: Rheumatoid Factor < 10.0 IU/mL (<15); Uric Acid 7.5 mg/dL (3.5-7.2)
[2022-04-10 12:50] LABS: Anti-Nuclear Antibody Test Negative (.)
[2022-04-17 08:01] LABS: HLA B27 Negative (.)
== END | disposition home or self-care (01) ==
LOC: RAD 11:16
PROVIDERS: PCP Family Medicine; Referring Provider Podiatrist; Visit Provider Podiatrist
DX: M06.9 Rheumatoid arthritis, unspecified (principal)
CPT/HCPCS: 36415; 73630; 81374; 84550; 85652; 86038; 86140; 86431

== ENCOUNTER 2022-06-13 17:33 | Emergency (ER) | payer MEDICARE, SELFPAY ==
[2022-06-13] VITALS (8 sets, daily range): BP systolic 106–156; BP diastolic 64–84; PULSE 70–82; RESP 15–20; TEMP 36; O2SAT 97–100; BMI 61.0
--- NOTE | 2022-06-13 18:27 | EKG12_ITS ---
Test Reason : CP Blood Pressure : / mmHG Vent. Rate : 072 BPM Atrial Rate : 072 BPM P-R Int : 188 ms QRS Dur : 120 ms QT Int : 430 ms P-R-T Axes : 047 -43 031 degrees QTc Int : 470 ms Poor data quality, interpretation may be adversely affected Normal sinus rhythm Left axis deviation Right bundle branch block Cannot rule out Anterior infarct , age undetermined Abnormal ECG Confirmed by JOSE JACKSON, ALPHONSE ([id number]), research editor CHACHA PACHECO ([id number]) on 06/18/2022 9:37:14 AM Referred By: JAVIER Confirmed By:ALPHONSE GARCIA MD
--- NOTE | 2022-06-13 18:32 | ED.VIS.CHEST ---
HPI History of Present Illness Chief Complaint: Chest Pain Narrative Narrative: Patient presents with chest pain that began today. Patient states it began approximately 4 hours prior to arrival. Patient states it is gradually getting worse. Patient states it is constant. Patient describes it as aching. Patient states the pain is over the substernal area and radiates into both arms. Patient states nothing makes it better nothing makes it worse. Patient does admit to some shortness of breath. Patient also admits to some dizziness and acid reflux. Patient also states she has had diarrhea that has been very watery today. Patient denies any abdominal pain. Patient denies any nausea or vomiting. Patient denies any melena or hematochezia. CVD Risk Factors: Positive for Hypertension, Diabetes and Family History 1' </=55; Negative for Hypercholesterolemia or Smoking PE Risk Factors: Negative for Recent Travel/Surgery, Recent Immobilization, Prior DVT or PE, Cancer or OCP + Smoking + >/=35 PFSH PFSH Medical History Chest pain COPD (chronic obstructive pulmonary disease) Encounter for screening for COVID-19 Obesity SOBOE (shortness of breath on exertion) Home Medications albuterol sulfate 2.5 mg/3 mL (0.083 %) solution for nebulization 2.5 mg inhalation Q4H PRN PRN Sob &/Or Wheezing 05/15/17 [History Last Taken 08/26/18] atorvastatin 40 mg tablet 40 mg PO QHS cholesterol 05/15/17 [History Last Taken 08/26/18] nitroglycerin 0.4 mg sublingual tablet (Nitrostat) 0.4 mg sublingual PRN PRN CHEST PAIN 05/15/17 [History Last Taken Unknown] melatonin 10 mg sublingual tablet 10 mg PO QHS PRN Insomnia 10/21/17 [History Last Taken Unknown] tamsulosin 0.4 mg capsule 0.4 mg PO QHS 10/23/17 [History Last Taken 08/26/18] meloxicam 15 mg tablet 15 mg PO DAILY #10 tabs 11/20/18 [Rx Last Taken Unknown] albuterol sulfate 90 mcg/actuation aerosol inhaler 2 puff inhalation Q4H PRN PRN Sob &/Or Wheezing 05/12/20 [History Last Taken Unknown] amlodipine 5 mg tablet 5 mg PO DAILY bp 05/12/20 [History Last Taken Unknown] carvedilol 25 mg tablet 25 mg PO BID heart 05/12/20 [History Last Taken Unknown] cholecalciferol (vitamin D3) 1,250 mcg (50,000 unit) capsule 50,000 unit PO QWEEK supplement 05/12/20 [History Last Taken Unknown] liraglutide 0.6 mg/0.1 mL (18 mg/3 mL) subcutaneous pen injector 1.8 mg SQ DAILY dm 05/12/20 [History Last Taken Unknown] omeprazole 20 mg capsule,delayed release 20 mg PO DAILY gerd 05/12/20 [History Last Taken Unknown] dicyclomine 10 mg capsule 10 mg PO TID PRN cramps #10 caps 03/05/22 [Rx Last Taken Unknown] ondansetron 4 mg disintegrating tablet 4 mg PO Q8H PRN nausea and vomiting #10 tabs 03/05/22 [Rx Last Taken Unknown] oxybutynin chloride 10 mg tablet,extended release 24 hr 10 mg PO DAILY 06/13/22 [History Last Taken Unknown] Allergy/AdvReac Type Severity Reaction Status Date / Time oxycodone HCl [From Percodan] Allergy Hives Verified 06/13/22 17:34 oxycodone terephthalate Allergy Hives Verified 06/13/22 17:34 [From Percodan] Social History Smoking Status: Former smoker ROS ROS ED Constitutional Constitutional ED: Denies chills or fever(s) Eyes Eyes: Reports blurry vision; Denies change in vision ENT ENT ED: Denies rhinorrhea or sore throat Cardiovascular Cardiovascular: Reports chest pain; Denies palpitations Respiratory/Chest Respiratory/Chest: Reports dyspnea; Denies cough Gastrointestinal Gastrointestinal: Reports diarrhea; Denies abdominal pain, nausea or vomiting Genitourinary Genitourinary ED: Denies dysuria or hematuria Musculoskeletal Musculoskeletal: Reports neck pain; Denies back pain Integumentary Denies abscess or rash Neurologic Neurologic: Denies headache(s) or weakness Allergic/Immunologic Allergic/Immunologic ED: Denies mouth swelling or urticaria EXAM Physical Exam Const Vital Signs: 06/13/22 17:34 06/13/22 18:34 06/13/22 19:07 Temperature 96.8 F L Temperature Source Temporal Pulse Rate 72 73 Respiratory Rate 16 Blood Pressure 146/80 H 156/84 H Blood Pressure Mean 102 Pulse Ox 100 97 Oxygen Delivery Method Room Air Room Air 06/13/22 18:34 06/13/22 19:12 06/13/22 19:17 Temperature Temperature Source Pulse Rate 70 79 82 Respiratory Rate 15 Blood Pressure 128/71 H 112/64 Blood Pressure Mean Pulse Ox 99 Oxygen Delivery Method Room Air 06/13/22 19:00 06/13/22 20:22 06/13/22 22:12 Temperature Temperature Source Pulse Rate 79 70 81 Respiratory Rate 16 20 H 16 Blood Pressure 135/70 H 106/64 Blood Pressure Mean 91 78 Pulse Ox 97 100 97 Oxygen Delivery Method Room Air Room Air Positive well nourished, well developed and obese General Appearance ED: well developed and NAD Nutritional Appearance: obese morbidly obese HEENT normocephalic and atraumatic Eyes PERRL and EOMs intact bilaterally Neck supple and no JVD Chest Wall palpation of chest normal Resp normal respiratory effort and clear to auscultation bilaterally Effort and Inspection: Negative for respiratory distress Cardio regular rate, regular rhythm and no murmurs GI normal to inspection, nondistended, normoactive bowel sounds, soft to palpation, non-tender and non-distended Extremity normal to inspection General Extremety ED: Negative for edema or tenderness General Extremity: Negative for edema Neuro oriented x3, CN's II-XII intact bilaterally and no sensory deficits noted Sensorium / Orientation: awake and alert Motor Exam: strength 5/5 throughout Psych mental status grossly normal Heart Score History: Slightly/Non-Suspicious ECG: Normal Age: >/= 65 years Risk Factors: >/= 3 Risk Factors or History of CAD Troponin: </= Normal Limit Score: 4 MDM MDM MDM Narrative Medical decision making narrative: Patient was given aspirin and sublingual nitroglycerin here. Patient was given IV fluids. EKG was obtained. On my interpretation, it showed a normal sinus rhythm with a rate of 72. IN interval, QRS interval, and QTc intervals were all normal. There is left axis deviation at -43. There is a right bundle branch block pattern noted. There are nonspecific ST-T wave changes. Portable 1 view chest x-ray was obtained. On my interpretation, lung mclean are clear. There is normal cardiac silhouette. Bony thorax is normal. There is no acute process noted. Radiologist also interpreted the x-ray and agrees. CBC was within normal limits. Basic metabolic profile shows a creatinine of 1.37. D-dimer was elevated at 1.54. High-sensitivity troponin was normal at 17. Because of the elevated D-dimer, CTA of the chest was obtained. There is no evidence of pulmonary embolism or aortic dissection. This was interpreted by the radiologist and reviewed by myself. 2-hour repeat troponin was obtained and was normal at 14. Patient had no change of his chest pain with the nitroglycerin. Patient was advised of his findings. Patient has a HEART score of 3. Patient was advised that this is low risk for acute cardiac event. Patient was instructed to follow-up with his primary care physician in 5 to 7 days. Patient understood and was agreeable with the plan. All questions were answered. Lab Data Attestation: I reviewed the patient's lab results. Labs: Laboratory Results - last 24 hr 06/13/22 06/13/22 06/13/22 18:45 18:45 18:45 WBC 7.5 RBC 4.84 Hgb 13.8 Hct 43.7 MCV 90.3 MCH 28.5 MCHC 31.6 L RDW Std Deviation 46.6 H RDW Coeff of Francis 13.9 Plt Count 306 MPV 9.6 Immature Gran % (Auto) 0.500 Neut % (Auto) 62.1 Lymph % (Auto) 26.8 [place] % (Auto) 7.1 Eos % (Auto) 3.2 Baso % (Auto) 0.3 Absolute Neuts (auto) 4.7 Absolute Lymphs (auto) 2.01 Nucleated RBC % 0 D-Dimer Quant (PE/DVT) 1.54 H* Sodium 138 Potassium 3.8 Chloride 108 H Carbon Dioxide 24.0 Anion Gap 6 BUN 17 Creatinine 1.37 H Estim Creat Clear Calc 49.59 Est GFR (MDRD) Af Amer 67 Est GFR (MDRD) Non-Af 55 L BUN/Creatinine Ratio 12.4 Glucose 104 Calcium 9.4 Troponin I High Sens 17 06/13/22 21:00 WBC RBC Hgb Hct MCV MCH MCHC RDW Std Deviation RDW Coeff of Francis Plt Count MPV Immature Gran % (Auto) Neut % (Auto) Lymph % (Auto) [place] % (Auto) Eos % (Auto) Baso % (Auto) Absolute Neuts (auto) Absolute Lymphs (auto) Nucleated RBC % D-Dimer Quant (PE/DVT) Sodium Potassium Chloride Carbon Dioxide Anion Gap BUN Creatinine Estim Creat Clear Calc Est GFR (MDRD) Af Amer Est GFR (MDRD) Non-Af BUN/Creatinine Ratio Glucose Calcium Troponin I High Sens 14 Radiography Diagnostic Testing: Clinical Impression(s) from Imaging Studies Chest X-Ray 06/13/22 18:54 IMPRESSION: No acute cardiopulmonary disease or major interval change. Electronically Signed: Jamie Kirkpatrick DO at 19:09 EDT Reading Location ID and State: [facility] / [place] Tel [phone], Service support , Chest CTA 06/13/22 19:36 IMPRESSION: Normal CTA chest examination, without a demonstrated pulmonary embolism or arterial dissection. Electronically Signed: Jamie Kirkpatrick DO at 20:17 EDT Reading Location ID and State: [place] / [place] Tel [phone], Service support , EKG Initial EKG: Attestation: I personally reviewed and interpreted this EKG as follows: Interpretation: Sinus Rhythm (72), RBBB, Non-Specific ST Changes and - (Left axis deviation) Prior EKG tracings: available for review Prior: Unchanged (12/27/2021) Discharge Plan Triage Chief Complaint: Chest Pain ED Provider: Dawood Vasquez Dx/Rx/DC Orders Clinical Impression: Chest pain, Type II diabetes mellitus, HTN (hypertension), Diarrhea, Morbid obesity with BMI of 60.0-69.9, adult Instructions: ED Chest Pain, Uncertain Cause Prescriptions: No Action atorvastatin 40 MG tablet 40 mg PO QHS albuterol sulfate 2.5 MG/3 ML solution for nebulization 2.5 mg inhalation Q4H PRN PRN (Reason: Sob &/Or Wheezing) nitroglycerin [Nitrostat] 0.4 MG tablet, sublingual 0.4 mg sublingual PRN PRN (Reason: CHEST PAIN) Label Comments: TAKEE Q 5 MIN PRN FOR CHEST PAIN X'S 3 DOSES melatonin 10 MG tablet 10 mg PO QHS PRN (Reason: Insomnia) tamsulosin 0.4 MG capsule 0.4 mg PO QHS meloxicam 15 MG tablet 15 mg PO DAILY Qty: 10 0RF carvedilol 25 MG tablet 25 mg PO BID amlodipine 5 MG tablet 5 mg PO DAILY omeprazole 20 MG capsule,delayed release(DR/EC) 20 mg PO DAILY albuterol sulfate 90 mcg/actuation HFA aerosol inhaler 2 puff inhalation Q4H PRN PRN (Reason: Sob &/Or Wheezing) Label Comments: INHALE 2 PUFFS INSTRUCTED EVERY 4 HOURS NEEDED FOR WHEEZING/SHORTNESS OF BREATH. cholecalciferol (vitamin D3) 1,250 MCG capsule 50,000 unit PO QWEEK liraglutide 0.6 mg/0.1 mL (18 mg/3 mL) pen injector 1.8 mg SQ DAILY Label Comments: INJECT 1.8 MG UNDER THE SKIN ONCE DAILY ondansetron 4 mg tablet,disintegrating 4 mg PO Q8H PRN (Reason: nausea and vomiting) Qty: 10 0RF dicyclomine 10 mg capsule 10 mg PO TID PRN (Reason: cramps) Qty: 10 0RF oxybutynin chloride 10 mg Tablet Extended Release 24hr 10 mg PO DAILY Primary Care Provider: Simon Victoria Referrals: Simon Victoria MD [Primary Care Provider] - 3-5 Days Disposition Disposition: Home, Self Care Discharge Date/Time: 06/13/22 22:19
[2022-06-13 18:54] LABS: Absolute Lymphocyte Count 2.01 X10^3/uL (0.83-4.51); Absolute Neutrophil Count 4.7 X10^3/uL (2.0-7.7); Basophil# 0.02 X10^3/uL; Basophil% 0.3 % (0-1); Eosinophil# 0.24 X10^3/uL; Eosinophils% 3.2 % (0-5); Hematocrit 43.7 % (40-54); Hemoglobin 13.8 g/dL (13.0-16.5); Lymphocyte # 2.01 X10^3/ul (0.83-4.51); Lymphocyte % 26.8 % (19-41); Mean Corp Hgb Conc 31.6 g/dL (32-36); Mean Corpuscular Hgb 28.5 pg (27.0-32.0); Mean Corpuscular Volume 90.3 fL (80-94); Mean Platelet Vol. 9.6 fl (6.2-12.0); Monocyte# 0.53 X10^3/uL; Monocyte% 7.1 % (0-10); NRBC Flagged by Analyzer 0 % (0-5); Neutrophil # 4.66 X10^3/uL (2.7-7.7); Neutrophil % 62.1 % (47-70); Platelet Count 306 K/mm3 (150-450); RBC Distribution Width CV 13.9 % (11.6-14.6); RBC Distribution Width SD 46.6 fl (35.1-43.9); Red Blood Count 4.84 M/mm3 (4.6-6.2); White Blood Count 7.5 K/mm3 (4.4-11.0)
--- NOTE | 2022-06-13 18:54 | RAD_ITS ---
STUDY: X-RAY CHEST REASON FOR EXAM: Male, 67 years old. Chest pain for one day. Shortness of breath and pain radiating down both arms. History of cardiac stent placed 5 years ago. TECHNIQUE: Single AP portable view of the chest. COMPARISON: 07/30/2021 FINDINGS: The lungs are clear and expanded. There is no demonstrated pleural abnormality. Normal size heart. Normal mediastinum and henrique. Normal visualized pulmonary arteries. Normal visualized aortic arch and descending thoracic aorta. The thoracic spine is obscured by the mediastinum. There is degenerative osteoarthritis of the bilateral shoulders. There is no demonstrated abnormality of the visualized soft tissue structures of the upper abdomen. RAD/Chest 1 View (Portable) IMPRESSION: No acute cardiopulmonary disease or major interval change. Electronically Signed: Jamie Kirkpatrick DO at 19:09 EDT ,
[2022-06-13] MEDS: Aspirin 81 MG TAB.CHEW 324 MG PO (19:03)
[2022-06-13 19:05] LABS: D-Dimer Quantitative (DVT/PE) 1.54 FEU/ug/m (0.27-0.49)
--- NOTE | 2022-06-13 19:06 | ED.RN ---
d-dimer 1.54 md aware
[2022-06-13] MEDS: Nitroglycerin SL (ED/IMG/CATH) 0.4 MG TABLET SL ×3 (19:07→19:17)
[2022-06-13 19:14] LABS: Anion Gap 6 (5-15); BUN 17 mg/dL (7-18); BUN/Creat Ratio 12.4 RATIO (10-20); Calcium,Total 9.4 mg/dL (8.5-10.1); Chloride 108 mmol/L (98-107); Creatinine, Serum 1.37 mg/dL (0.70-1.30); EST Glomerular Filtration Rate 55 mL/min (>60); Est Glom Filt Rate - Afr Amer 67 mL/min (>60); Estimated Creatinine Clearance 49.59 ml/min; Glucose 104 mg/dL (74-106); Potassium 3.8 mmol/L (3.5-5.1); Sodium Level 138 mmol/L (136-145); Troponin-I HS (w/2H Reflex) 17 pg/mL (3.0-78.0)
--- NOTE | 2022-06-13 19:36 | CT_ITS ---
STUDY: CTA CHEST REASON FOR EXAM: Male, 67 years old. Pain. Elevated d-dimer. RADIATION DOSAGE (If Supplied By Facility): CTDIvol = ( 28.2 ) mGy, DLP = ( 902.15 ) mGycm TECHNIQUE: The examination was performed with the intravenous administration of IV 100mL [id number]. Post-processing of the angiographic images was performed, with multiplanar reformation and 3D reconstruction. Individualized dose optimization techniques were used for this CT. COMPARISON: Chest, 06/13/2022. CTA of the chest, 05/12/2020. FINDINGS: Normal enhancement of the main pulmonary artery and right and left pulmonary arteries. Normal enhancement of the bilateral peripheral pulmonary arteries. There is no demonstrated pulmonary embolism. Normal thoracic aorta and visualized great vessels. There is no demonstrated aortic dissection. Normal heart and pericardium. Normal mediastinum. Normal hilar regions. Normal visualized trachea and bronchi. The lungs are well expanded. Normal pulmonary parenchyma. Normal pleura. Normal chest wall structures. There are degenerative changes of thoracic spine. Normal visualized upper abdomen. CT/CTA Chest W/WO Contrast IMPRESSION: Normal CTA chest examination, without a demonstrated pulmonary embolism or arterial dissection. Electronically Signed: Jamie Kirkpatrick DO at 20:17 EDT ,
[2022-06-13] MEDS: 0.9% Normal Saline 1,000 ML 1000 ML IV (19:56)
[2022-06-13 20:49] LABS: Reflex Troponin-HS? (from REC) Y
[2022-06-13 21:27] LABS: Troponin-I HS 14 pg/mL (3.0-78.0)
== END 2022-06-13 22:19 | disposition home or self-care (01) ==
PROVIDERS: Emergency Provider Emergency Medicine; PCP Family Medicine; Visit Provider Emergency Medicine
DX: R07.9 Chest pain, unspecified (principal); J44.9 Chronic obstructive pulmonary disease, unspecified; E66.01 Morbid (severe) obesity due to excess calories; Z68.44 Body mass index [BMI] 60.0-69.9, adult; E11.9 Type 2 diabetes mellitus without complications; I10 Essential (primary) hypertension; I45.10 Unspecified right bundle-branch block; R19.7 Diarrhea, unspecified; R42 Dizziness and giddiness; Z87.891 Personal history of nicotine dependence
CPT/HCPCS: 71045; 71275; 80048; 84484; 85025; 85379; 93005; 96360; 99285; J7030; Q9967; A4216

== ENCOUNTER → 2022-09-20 | Outpatient (CLI) | payer MEDICARE, SELFPAY ==
[2022-09-20 09:14] LABS: PSA,Total- Diagnostic 0.62 ng/mL (0.0-4.0)
== END | disposition home or self-care (01) ==
LOC: PAVLAB 08:36
PROVIDERS: PCP Family Medicine
DX: C61 Malignant neoplasm of prostate (principal)
CPT/HCPCS: 36415; 84153

== ENCOUNTER 2023-06-24 21:11 | Emergency (ER) | payer MEDICARE, SELFPAY ==
[2023-06-24 21:11] VITALS: BP 187/77; BP 228/81; PULSE 86; PULSE 89; RESP 14; RESP 26; TEMP 35.9; O2SAT 98; O2SAT 99
[2023-06-24 21:14] VITALS: BMI 138.0
--- NOTE | 2023-06-24 22:13 | US_ITS ---
STUDY: VENOUS DOPPLER ULTRASOUND - LEFT LOWER EXTREMITY REASON FOR EXAM: Male, 68 years old. LT PAIN AND SWELLING TECHNIQUE: Ultrasound evaluation of the deep vein system to include solano-scale imaging and compression was performed. Solano-scale imaging and Doppler sonographic evaluation, including duplex spectral analysis and qualitative color flow sonography, was performed. COMPARISON: None. FINDINGS: Common Femoral Vein: Normal compression, spontaneity and augmentation. Normal color Doppler. Common Femoral Vein/Greater Saphenous Junction: Normal compression, spontaneity and augmentation. Normal color Doppler. Deep Femoral Vein: Normal compression. Normal color Doppler. Femoral Proximal: Normal compression. Normal color Doppler. Femoral Middle: Normal compression, spontaneity and augmentation. Normal color Doppler. Femoral Distal: Normal compression. Normal color Doppler. Popliteal Vein: Normal compression, spontaneity and augmentation. Normal color Doppler. Posterior Tibial Vein: Normal compression. Normal color Doppler. Peroneal Vein: Normal compression. Normal color Doppler. There is no demonstrated deep venous thrombosis. US/Venous Duplex Imag/Limited/Uni IMPRESSION: Normal venous Doppler ultrasound of the left lower extremity. Electronically Signed: Jessica Humphrey MD at 23:17 EDT ,
--- NOTE | 2023-06-24 22:13 | EX.ED.DYSGE1 ---
HPI History of Present Illness Chief Complaint: Edema Narrative Narrative: Presents with left lower extremity edema for 4 days. This is nontraumatic. He has no chest pain or shortness of breath. 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 He has no fevers or chills or erythema. [facility] Medical History Chest pain COPD (chronic obstructive pulmonary disease) Encounter for screening for COVID-19 Obesity SOBOE (shortness of breath on exertion) Home Medications albuterol sulfate 2.5 mg/3 mL (0.083 %) solution for nebulization 2.5 mg inhalation Q4H PRN PRN Sob &/Or Wheezing 05/15/17 [History Last Taken 08/26/18] atorvastatin 40 mg tablet 40 mg PO QHS cholesterol 05/15/17 [History Last Taken 08/26/18] nitroglycerin 0.4 mg sublingual tablet (Nitrostat) 0.4 mg sublingual PRN PRN CHEST PAIN 05/15/17 [History Last Taken Unknown] melatonin 10 mg sublingual tablet 10 mg PO QHS PRN Insomnia 10/21/17 [History Last Taken Unknown] tamsulosin 0.4 mg capsule 0.4 mg PO QHS 10/23/17 [History Last Taken 08/26/18] meloxicam 15 mg tablet 15 mg PO DAILY #10 tabs 11/20/18 [Rx Last Taken Unknown] albuterol sulfate 90 mcg/actuation aerosol inhaler 2 puff inhalation Q4H PRN PRN Sob &/Or Wheezing 05/12/20 [History Last Taken Unknown] amlodipine 5 mg tablet 5 mg PO DAILY bp 05/12/20 [History Last Taken Unknown] carvedilol 25 mg tablet 25 mg PO BID heart 05/12/20 [History Last Taken Unknown] cholecalciferol (vitamin D3) 1,250 mcg (50,000 unit) capsule 50,000 unit PO QWEEK supplement 05/12/20 [History Last Taken Unknown] liraglutide 0.6 mg/0.1 mL (18 mg/3 mL) subcutaneous pen injector 1.8 mg SQ DAILY dm 05/12/20 [History Last Taken Unknown] omeprazole 20 mg capsule,delayed release 20 mg PO DAILY gerd 05/12/20 [History Last Taken Unknown] dicyclomine 10 mg capsule 10 mg PO TID PRN cramps #10 caps 03/05/22 [Rx Last Taken Unknown] ondansetron 4 mg disintegrating tablet 4 mg PO Q8H PRN nausea and vomiting #10 tabs 03/05/22 [Rx Last Taken Unknown] oxybutynin chloride 10 mg tablet,extended release 24 hr 10 mg PO DAILY 06/13/22 [History Last Taken Unknown] hydrocodone-acetaminophen 5-325mg 5mg-325mg 1 tab PO Q4H PRN PRN Pain 3 days #10 TABLETS 06/24/23 [Rx Last Taken Unknown] Allergy/AdvReac Type Severity Reaction Status Date / Time oxycodone HCl [From Percodan] Allergy Hives Verified 06/13/22 17:34 oxycodone terephthalate Allergy Hives Verified 06/13/22 17:34 [From Percodan] Social History Smoking Status: Former smoker ROS ROS ED ROS Narrative Review of systems: All systems negative except as indicated General: No fever Eyes: No visual changes ENT: No upper airway congestion, normal voice Neck: No neck pain Cardiovascular: No chest pain Respiratory: No shortness of breath or cough Gastrointestinal: No abdominal pain, nausea vomiting or diarrhea Genitourinary: No dysuria Musculoskeletal: Lower extremity edema as in HPI Skin: No rash Neurological: No memory loss, confusion or any focal weakness EXAM Physical Exam Narrative Exam Narrative: Physical exam General: Well nourished, Well developed, No Acute Distress Head: Normocephalic, Atraumatic Eyes: Conjunctiva not pale ENT: Moist mucous membranes Neck: Supple, Nontender, No lymphadenopathy Cardiovascular: Regular rate, Regular rhythm Respiratory: No distress, CTA bilaterally Abdomen: Soft, Nontender, Nondistended Back: Nontender, Normal Inspection. Negative for: CVA tenderness Extremities: Asymmetric left lower extremity edema, includes the foot and the leg up to the knee. There is no erythema or calor. No bony tenderness. The right lower extremity also has edema but not as bad as the left side. Skin: Normal color, No rash Neurological: Alert, Normal Strength, Normal Sensation Const Vital Signs: 06/24/23 21:11 06/24/23 21:11 06/24/23 21:36 Temperature 96.7 F L Temperature Source Temporal Pulse Rate 89 86 Respiratory Rate 26 H 14 Respiratory Effort Short of Breath Respiratory Pattern Blood Pressure 228/81 H 187/77 H Blood Pressure Mean 130 113 Pulse Ox 99 98 Oxygen Delivery Method Room Air Room Air 06/24/23 21:36 Temperature Temperature Source Pulse Rate Respiratory Rate Respiratory Effort Respiratory Pattern Normal Blood Pressure Blood Pressure Mean Pulse Ox Oxygen Delivery Method MDM MDM MDM Narrative Medical decision making narrative: Patient's ultrasound is negative for DVT. He has chronic lower extremity edema, his doctor recently started him on spironolactone however patient has not filled his prescription. I urged him to do so, I talked him about stockings, I will give him analgesia until then. Otherwise I educated him on elevating his foot. At this time there is no signs or symptoms of cellulitis, natruretic peptide is normal therefore I do not believe this is a CHF issue, creatinine is at baseline thus I do not believe this is a renal issue for his peripheral edema it is likely secondary to venous insufficiency or the lymphatic systems. He can follow-up with PCP. At this time he appears well can ambulate and drove himself to the ED therefore he does not meet admission criteria. Lab Data Labs: Laboratory Results - last 24 hr 06/24/23 21:38 WBC 8.3 RBC 4.30 L Hgb 12.4 L Hct 39.0 L MCV 90.7 MCH 28.8 MCHC 31.8 L RDW Std Deviation 45.5 H RDW Coeff of Francis 13.8 Plt Count 348 MPV 9.1 Immature Gran % (Auto) 0.500 Neut % (Auto) 64.4 Lymph % (Auto) 22.8 [place] % (Auto) 9.4 Eos % (Auto) 2.5 Baso % (Auto) 0.4 Absolute Neuts (auto) 5.4 Absolute Lymphs (auto) 1.90 Nucleated RBC % 0 Sodium 138 Potassium 4.0 Chloride 107 Carbon Dioxide 27.0 Anion Gap 4 L BUN 16 Creatinine 1.50 H Estim Creat Clear Calc 44.68 Est GFR (MDRD) Af Amer 60 Est GFR (MDRD) Non-Af 50 L BUN/Creatinine Ratio 10.7 Glucose 91 Calcium 9.2 Total Bilirubin 0.20 AST 18 ALT 25 Alkaline Phosphatase 95 B-Natriuretic Peptide 9.8 Total Protein 7.7 Albumin 3.2 Globulin 4.5 H Albumin/Globulin Ratio 0.7 L EKG Initial EKG: Comments: Sinus rhythm with a rate of 85. Nonspecific intraventricular conduction delay. Nonspecific ST changes that are unchanged from prior EKG on June 13, 2022. Interpreted by emergency doctor Discharge Plan Triage Chief Complaint: Edema ED Provider: Henok Lentz Dx/Rx/DC Orders Clinical Impression: Edema, CKD (chronic kidney disease) Instructions: ED Lymphedema Prescriptions: New hydrocodone-acetaminophen 5-325 mg tablet 1 tab PO Q4H PRN PRN (Reason: Pain) 3 Days Qty: 10 0RF No Action atorvastatin 40 MG tablet 40 mg PO QHS albuterol sulfate 2.5 MG/3 ML solution for nebulization 2.5 mg inhalation Q4H PRN PRN (Reason: Sob &/Or Wheezing) nitroglycerin [Nitrostat] 0.4 MG tablet, sublingual 0.4 mg sublingual PRN PRN (Reason: CHEST PAIN) Patient Comments: TAKEE Q 5 MIN PRN FOR CHEST PAIN X'S 3 DOSES melatonin 10 MG tablet 10 mg PO QHS PRN (Reason: Insomnia) tamsulosin 0.4 MG capsule 0.4 mg PO QHS meloxicam 15 MG tablet 15 mg PO DAILY Qty: 10 0RF carvedilol 25 MG tablet 25 mg PO BID amlodipine 5 MG tablet 5 mg PO DAILY omeprazole 20 MG capsule,delayed release(DR/EC) 20 mg PO DAILY albuterol sulfate 90 mcg/actuation HFA aerosol inhaler 2 puff inhalation Q4H PRN PRN (Reason: Sob &/Or Wheezing) Patient Comments: INHALE 2 PUFFS INSTRUCTED EVERY 4 HOURS NEEDED FOR WHEEZING/SHORTNESS OF BREATH. cholecalciferol (vitamin D3) 1,250 MCG capsule 50,000 unit PO QWEEK liraglutide 0.6 mg/0.1 mL (18 mg/3 mL) pen injector 1.8 mg SQ DAILY Patient Comments: INJECT 1.8 MG UNDER THE SKIN ONCE DAILY ondansetron 4 mg tablet,disintegrating 4 mg PO Q8H PRN (Reason: nausea and vomiting) Qty: 10 0RF dicyclomine 10 mg capsule 10 mg PO TID PRN (Reason: cramps) Qty: 10 0RF oxybutynin chloride 10 mg Tablet Extended Release 24hr 10 mg PO DAILY Primary Care Provider: Simon Victoria Referrals: Simon Victoria MD [Primary Care Provider] - 3-5 Days Disposition Disposition: Home, Self Care
[2023-06-24 22:20] LABS: Absolute Neutrophil Count 5.4 X10^3/uL (2.0-7.7); Basophil# 0.03 X10^3/uL; Basophil% 0.4 % (0-1); Eosinophil# 0.21 X10^3/uL; Eosinophils% 2.5 % (0-5); Hemoglobin 12.4 g/dL (13.0-16.5); Lymphocyte % 22.8 % (19-41); Mean Corp Hgb Conc 31.8 g/dL (32-36); Mean Corpuscular Hgb 28.8 pg (27.0-32.0); Mean Corpuscular Volume 90.7 fL (80-94); Mean Platelet Vol. 9.1 fl (6.2-12.0); Monocyte# 0.78 X10^3/uL; Monocyte% 9.4 % (0-10); NRBC Flagged by Analyzer 0 % (0-5); Neutrophil # 5.38 X10^3/uL (2.7-7.7); Neutrophil % 64.4 % (47-70); Platelet Count 348 K/mm3 (150-450); RBC Distribution Width CV 13.8 % (11.6-14.6); RBC Distribution Width SD 45.5 fl (35.1-43.9); White Blood Count 8.3 K/mm3 (4.4-11.0)
[2023-06-24 22:39] LABS: ALB/GLOB Ratio 0.7 RATIO (0.9-2.4); AST(SGOT) 18 U/L (15-37); Alanine Aminotransfer ALT/SGPT 25 U/L (16-61); Albumin, Serum 3.2 g/dL (3.2-5.0); Alkaline Phosphatase 95 U/L (45-117); Anion Gap 4 (5-15); BUN 16 mg/dL (7-18); BUN/Creat Ratio 10.7 RATIO (10-20); Calcium,Total 9.2 mg/dL (8.5-10.1); Chloride 107 mmol/L (98-107); EST Glomerular Filtration Rate 50 mL/min (>60); Est Glom Filt Rate - Afr Amer 60 mL/min (>60); Estimated Creatinine Clearance 44.68 ml/min; Globulin 4.5 g/dL (2.2-4.2); Glucose 91 mg/dL (74-106); Protein, Total 7.7 g/dL (6.4-8.2); Sodium Level 138 mmol/L (136-145)
[2023-06-24 22:40] LABS: BNP,B-Type NATRIURETIC PEPTIDE 9.8 pg/mL (0-100)
[2023-06-24] MEDS: HYDROcodone Bitartrate/Apap 5/325 Tablet PO (23:22)
[2023-06-24 23:25] VITALS: BP 178/90; PULSE 83; RESP 16
== END 2023-06-24 23:26 | disposition home or self-care (01) ==
PROVIDERS: Emergency Provider Emergency Medicine; PCP Family Medicine; Visit Provider Emergency Medicine
DX: N18.9 Chronic kidney disease, unspecified (principal); J44.9 Chronic obstructive pulmonary disease, unspecified; R60.9 Edema, unspecified; Z87.891 Personal history of nicotine dependence; Z79.899 Other long term (current) drug therapy
CPT/HCPCS: 80053; 83880; 85025; 93005; 93971; 99284; A4216

== ENCOUNTER 2023-08-08 11:25 | Inpatient (IN) | payer MEDICARE, SELFPAY ==
[2023-08-08 11:27] VITALS: BP 178/115; PULSE 99; RESP 20; TEMP 37.2; O2SAT 95
--- NOTE | 2023-08-08 11:48 | EDS_ITS ---
HPI HPI - GI History of Present Illness Chief Complaint: Abd Pain Detail of Chief Complaint: Vomiting, diarrhea, and abdominal pain Informant: patient Narrative Narrative: Patient presents to the emergency department with complaint of vomiting and diarrhea that started 4 days ago. Patient has been unable to eat or drink very much since then. He has had copious watery stools with incontinence at times. Last vomited last evening. Had an episode of diarrhea this morning. Generally he feels weak. He denies cough. He had abdominal pain and cramping that was worse 2 days ago but has improved and is just minor currently. He had no fever. Denies sick contacts. He has not had any prior abdominal surgeries. [facility] Medical History Chest pain COPD (chronic obstructive pulmonary disease) Encounter for screening for COVID-19 Obesity SOBOE (shortness of breath on exertion) Home Medications albuterol sulfate 2.5 mg/3 mL (0.083 %) solution for nebulization 2.5 mg inhalation Q4H PRN WHEEZING/SHORTNESS OF BREATH 05/15/17 [History Last Taken 08/26/18] atorvastatin 40 mg tablet 40 mg PO QHS CHOLESTEROL 05/15/17 [History Last Taken 08/26/18] nitroglycerin 0.4 mg sublingual tablet (Nitrostat) 0.4 mg sublingual Q5M PRN CHEST PAIN 05/15/17 [History Last Taken Unknown] melatonin 10 mg sublingual tablet 10 mg PO QHS PRN INSOMNIA 10/21/17 [History Last Taken Unknown] tamsulosin 0.4 mg capsule 0.4 mg PO QHS PROSTATE 10/23/17 [History Last Taken 08/26/18] meloxicam 15 mg tablet 15 mg PO DAILY ANTI-INFLAMMATORY #10 tabs 11/20/18 [Rx Last Taken Unknown] albuterol sulfate 90 mcg/actuation aerosol inhaler 2 puff inhalation Q4H PRN WHEEZING/SHORTNESS OF BREATH 05/12/20 [History Last Taken Unknown] amlodipine 5 mg tablet 5 mg PO DAILY BLOOD PRESSURE 05/12/20 [History Last Taken Unknown] carvedilol 25 mg tablet 25 mg PO BID HEART 05/12/20 [History Last Taken Unknown] cholecalciferol (vitamin D3) 1,250 mcg (50,000 unit) capsule 50,000 unit PO QWEEK SUPPLEMENT 05/12/20 [History Last Taken Unknown] liraglutide 0.6 mg/0.1 mL (18 mg/3 mL) subcutaneous pen injector 1.8 mg SQ DAILY BLOOD SUGAR 05/12/20 [History Last Taken Unknown] omeprazole 20 mg capsule,delayed release 20 mg PO DAILY ACID REFLUX 05/12/20 [History Last Taken Unknown] dicyclomine 10 mg capsule 10 mg PO TID PRN IRRITABLE BOWELS #10 caps 03/05/22 [Rx Last Taken Unknown] ondansetron 4 mg disintegrating tablet 4 mg PO Q8H PRN NAUSEA/VOMITING #10 tabs 03/05/22 [Rx Last Taken Unknown] oxybutynin chloride 10 mg tablet,extended release 24 hr 10 mg PO DAILY OVERACTIVE BLADDER 06/13/22 [History Last Taken Unknown] hydrocodone-acetaminophen 5-325mg 5mg-325mg 1 tab PO Q4H PRN PAIN 08/08/23 [History Last Taken Unknown] semaglutide 2 mg/dose (8 mg/3 mL) subcutaneous pen injector (Ozempic) 2 mg subcut QWEEK DIABETES 08/08/23 [History Last Taken Unknown] spironolactone 25 mg tablet 25 mg PO DAILY BLOOD PRESSURE 08/08/23 [History Last Taken Unknown] Allergy/AdvReac Type Severity Reaction Status Date / Time oxycodone HCl [From Percodan] Allergy Hives Verified 08/08/23 11:27 oxycodone terephthalate Allergy Hives Verified 08/08/23 11:27 [From Percodan] Social History Smoking Status: Former smoker ROS ROS ED Review of Systems ROS Unobtainable: other Constitutional Constitutional ED: Reports lethargy; Denies chills, fever(s), sweats or weight loss Eyes Eyes: Denies blurry vision, change in vision or diplopia ENT ENT ED: Denies rhinorrhea or sore throat Cardiovascular Cardiovascular: Denies chest pain, orthopnea or racing heartbeat Respiratory/Chest Respiratory/Chest: Denies cough, dyspnea, dyspnea on exertion, orthopnea or sputum Gastrointestinal Gastrointestinal: Reports abdominal pain, diarrhea, nausea and vomiting Genitourinary Genitourinary ED: Denies dysuria, hematuria or urinary frequency Musculoskeletal Musculoskeletal: Denies arthralgias, back pain, myalgias or neck pain Integumentary Denies abscess, Abrasions or rash Neurologic Neurologic: Denies headache(s) or weakness Psychiatric Psychiatric: Denies anxiety, depression or suicidal thoughts Endocrine Endocrinology: Denies polydipsia, polyphagia or polyuria Hematologic/Lymphatic Hematologic/Lymphatic: Denies easy bleeding, easy bruising or lymphadenopathy Allergic/Immunologic Allergic/Immunologic ED: Denies mouth swelling, tongue swelling or urticaria EXAM Physical Exam Const Vital Signs: 08/08/23 11:27 Temperature 99 F Temperature Source Temporal Pulse Rate 99 Respiratory Rate 20 H Blood Pressure 178/115 H Blood Pressure Mean 136 Pulse Ox 95 Oxygen Delivery Method Room Air Positive well nourished and well developed General Appearance ED: well developed and NAD HEENT Reports TM's clear and moist mucous membranes normocephalic and atraumatic; Negative for trauma or tenderness Tympanic Membrane ED: Yes TM's clear Eyes PERRL and EOMs intact bilaterally General Eye ED: Negative for pale conjunctiva or scleral icterus Neck no lymphadenopathy, supple and no JVD General: Negative for tenderness Chest Wall inspection of chest normal and palpation of chest normal Chest: Negative for tenderness Resp normal respiratory effort and clear to auscultation bilaterally Effort and Inspection: Negative for respiratory distress or pain with movement Auscultation: Negative for rhonchi, wheezes or diminished lung sounds Cardio regular rate, regular rhythm, S1 normal heart sound, S2 normal heart sound and no murmurs Peripheral Pulses: pulses 2+ throughout GI normal to inspection, nondistended, normoactive bowel sounds, soft to palpation, non-tender, non-distended and no masses Back/Spine no CVA tenderness and no thoracic nor lumbar tenderness Extremity normal to inspection General Extremety ED: Negative for edema General Extremity: Negative for edema Neuro oriented x3, CN's II-XII intact bilaterally, no sensory deficits noted and gait normal Sensorium / Orientation: awake, alert, oriented to person, oriented to place and oriented to time Motor Exam: strength 5/5 throughout and strength abnormal Psych mental status grossly normal Skin no rashes or lesions noted and no wounds MDM MDM MDM Narrative Medical decision making narrative: Patient presents with vomiting and diarrhea and abdominal pain that started 5 days ago. Suspected initially viral gastroenteritis. Also on the differential would be bowel obstruction or other intra-abdominal process. IV line established. He had a CBC with differential that showed white count 7.7 with hemoglobin 15 and platelet count of 410. Chemistries unremarkable. BUN 17 creat 1.83. LFTs were unremarkable. Lipase was normal at 59. CT scan obtained as initially you medicated patient with Bentyl and Zofran as well as Imodium and he continued to complain of pain. CT scan shows gastric distention with fluid as well as small bowel distention with transition point concerning for early bowel obstruction. Contacted Dr. Alex who is on for general surgery however he is operating these for the next 45 minutes. Discussed case with hospitalist will evaluate patient for admission as well. Will turn case over to evening emergency room physician pending evaluation by general surgery and likely admission. Lab Data Labs: Laboratory Results - last 24 hr 08/08/23 11:55 WBC 7.7 RBC 5.26 Hgb 15.0 Hct 47.4 MCV 90.1 MCH 28.5 MCHC 31.6 L RDW Std Deviation 45.5 H RDW Coeff of Francis 13.7 Plt Count 410 MPV 9.0 Immature Gran % (Auto) 1.300 H Neut % (Auto) 63.0 Lymph % (Auto) 25.0 [place] % (Auto) 7.8 Eos % (Auto) 2.6 Baso % (Auto) 0.3 Absolute Neuts (auto) 4.9 Absolute Lymphs (auto) 1.92 Nucleated RBC % 0 Sodium 137 Potassium 4.8 Chloride 107 Carbon Dioxide 25.0 Anion Gap 5 BUN 17 Creatinine 1.83 H Estim Creat Clear Calc 36.62 Est GFR (MDRD) Af Amer 48 L Est GFR (MDRD) Non-Af 39 L BUN/Creatinine Ratio 9.3 L Glucose 130 H Calcium 10.1 Total Bilirubin 0.40 AST 33 ALT 54 Alkaline Phosphatase 110 Total Protein 9.2 H Albumin 3.5 Globulin 5.7 H Albumin/Globulin Ratio 0.6 L Lipase 59 Radiography Diagnostic Testing: Clinical Impression(s) from Imaging Studies Abdomen/Pelvis CT 08/08/23 14:11 IMPRESSION: Gastric distention with food and fluid. Mild degree of the fluid in the small bowel with the transition in the distal jejunum in the left lower quadrant. Electronically Signed: Kevon Liz MD at 14:57 EST , Discharge Plan Dx/Rx/DC Orders Clinical Impression: Acute renal insufficiency, SBO (small bowel obstruction), Abdominal pain Disposition Disposition: [facility] albuterol sulfate 2.5 MG/3 ML solution for nebulization 2.5 mg inhalation Q4H PRN PRN (Reason: Sob &/Or Wheezing) nitroglycerin [Nitrostat] 0.4 MG tablet, sublingual 0.4 mg sublingual PRN PRN (Reason: CHEST PAIN) Patient Comments: TAKEE Q 5 MIN PRN FOR CHEST PAIN X'S 3 DOSES melatonin 10 MG tablet 10 mg PO QHS PRN (Reason: Insomnia) tamsulosin 0.4 MG capsule 0.4 mg PO QHS meloxicam 15 MG tablet 15 mg PO DAILY Qty: 10 0RF carvedilol 25 MG tablet 25 mg PO BID amlodipine 5 MG tablet 5 mg PO DAILY omeprazole 20 MG capsule,delayed release(DR/EC) 20 mg PO DAILY albuterol sulfate 90 mcg/actuation HFA aerosol inhaler 2 puff inhalation Q4H PRN PRN (Reason: Sob &/Or Wheezing) Patient Comments: INHALE 2 PUFFS INSTRUCTED EVERY 4 HOURS NEEDED FOR WHEEZING/SHORTNESS OF BREATH. cholecalciferol (vitamin D3) 1,250 MCG capsule 50,000 unit PO QWEEK liraglutide 0.6 mg/0.1 mL (18 mg/3 mL) pen injector 1.8 mg SQ DAILY Patient Comments: INJECT 1.8 MG UNDER THE SKIN ONCE DAILY ondansetron 4 mg tablet,disintegrating 4 mg PO Q8H PRN (Reason: nausea and vomiting) Qty: 10 0RF dicyclomine 10 mg capsule 10 mg PO TID PRN (Reason: cramps) Qty: 10 0RF oxybutynin chloride 10 mg Tablet Extended Release 24hr 10 mg PO DAILY hydrocodone-acetaminophen 5-325 mg tablet 1 tab PO Q4H PRN PRN (Reason: Pain) 3 Days Qty: 10 0RF Primary Care Provider: Simon Victoria Referrals: Simon Victoria MD [Primary Care Provider] - Disposition Disposition: [facility]
[2023-08-08 11:54] VITALS: BMI 59.0
[2023-08-08] MEDS: Ondansetron 4 MG/2 ML Vial IV (12:11)
[2023-08-08] MEDS: 0.9% Normal Saline (1000mL) 1,000 ML 1000 ML IV (12:11)
[2023-08-08 12:15] LABS: Absolute Lymphocyte Count 1.92 X10^3/uL (0.83-4.51); Absolute Neutrophil Count 4.9 X10^3/uL (2.0-7.7); Basophil# 0.02 X10^3/uL; Basophil% 0.3 % (0-1); Eosinophils% 2.6 % (0-5); Hematocrit 47.4 % (40-54); Lymphocyte # 1.92 X10^3/ul (0.83-4.51); Mean Corp Hgb Conc 31.6 g/dL (32-36); Mean Corpuscular Hgb 28.5 pg (27.0-32.0); Mean Corpuscular Volume 90.1 fL (80-94); Monocyte% 7.8 % (0-10); NRBC Flagged by Analyzer 0 % (0-5); Neutrophil # 4.85 X10^3/uL (2.7-7.7); Platelet Count 410 K/mm3 (150-450); RBC Distribution Width CV 13.7 % (11.6-14.6); RBC Distribution Width SD 45.5 fl (35.1-43.9); Red Blood Count 5.26 M/mm3 (4.6-6.2); White Blood Count 7.7 K/mm3 (4.4-11.0)
[2023-08-08] MEDS: Dicyclomine 20 MG/2 ML Vial IM (12:17)
[2023-08-08] MEDS: Loperamide 2 MG Capsule 4 MG PO (12:17)
[2023-08-08 12:22] LABS: ALB/GLOB Ratio 0.6 RATIO (0.9-2.4); AST(SGOT) 33 U/L (15-37); Alanine Aminotransfer ALT/SGPT 54 U/L (16-61); Albumin, Serum 3.5 g/dL (3.2-5.0); Alkaline Phosphatase 110 U/L (45-117); Anion Gap 5 (5-15); BUN 17 mg/dL (7-18); BUN/Creat Ratio 9.3 RATIO (10-20); Calcium,Total 10.1 mg/dL (8.5-10.1); Chloride 107 mmol/L (98-107); Creatinine, Serum 1.83 mg/dL (0.70-1.30); EST Glomerular Filtration Rate 39 mL/min (>60); Est Glom Filt Rate - Afr Amer 48 mL/min (>60); Estimated Creatinine Clearance 36.62 ml/min; Globulin 5.7 g/dL (2.2-4.2); Glucose 130 mg/dL (74-106); Lipase 59 U/L (13-75); Potassium 4.8 mmol/L (3.5-5.1); Protein, Total 9.2 g/dL (6.4-8.2); Sodium Level 137 mmol/L (136-145)
--- NOTE | 2023-08-08 14:11 | CT_ITS ---
STUDY: CT ABDOMEN AND PELVIS WITHOUT CONTRAST REASON FOR EXAM: Male, 68 years old. Abdominal pain. Nausea and vomiting since Saturday. RADIATION DOSAGE (If Supplied By Facility): CTDIvol = ( 34.45 ) mGy, DLP = ( 1816.22 ) mGycm TECHNIQUE: Transaxial images were obtained from the dome of the diaphragm to the symphysis pubis without oral contrast, and without intravenous contrast. Sagittal and coronal images were reconstructed. Individualized dose optimization techniques were used for this CT. COMPARISON: Comparison is made with prior study dated March 05, 2022. FINDINGS: The visualized lung bases are unremarkable. The visualized portions of the heart are within normal limits. Normal liver. Normal gallbladder and extrahepatic biliary system. Normal spleen. Normal pancreas. Normal bilateral adrenal glands. Normal right kidney. Normal left kidney. The stomach is distended with residual food particles and fluid. Mildly distended fluid-filled small bowel loops. The transition zone is in the left lower quadrant in the distal jejunum. Normal colon. The appendix is visualized and appears normal. Normal abdominal aorta. Normal inferior vena cava. Normal retroperitoneum. Normal urinary bladder. Radiation seeds are seen within the prostate. Normal abdominal wall. There are mild degenerative changes of the visualized lumbar spine. CT/Abdomen/Pelvis without Cont IMPRESSION: Gastric distention with food and fluid. Mild degree of the fluid in the small bowel with the transition in the distal jejunum in the left lower quadrant. Electronically Signed: Kevon Liz MD at 14:57 EST ,
[2023-08-08 15:26] VITALS: BP 150/86; PULSE 85; RESP 16; O2SAT 96
[2023-08-08 15:50] VITALS: BP 150/68; PULSE 85; RESP 16; O2SAT 96
--- NOTE | 2023-08-08 15:52 | PCM.HP.STD ---
HPI - General General Date of Admission: 08/08/23 Date of Service: 08/08/23 Chief Complaint: N/V/D/Abd pain HPI Narrative IRAJ MANNING, is a 68-year-old male w/ history of COPD, obesity, GERD presented to [facility] 08/08/2023 with vomiting and diarrhea and abdominal pain for 4 days with decreased p.o. intake. Copious watery stools with incontinence at times with most recent episode this morning and vomited last evening. He also complained of some generalized weakness and abdominal pain, abdominal pain has been improving however. In ED patient's CBC fairly unremarkable, does have slight increase in his creatinine from baseline and is presently 1.83 with most recent in May 26 0.5, liver function within normal limits. Lipase 59 and COVID and flu negative. CT abdomen pelvis obtained in ED which demonstrated gastric distention with food and fluid and a mild degree of fluid in the small bowel with transition in the distal jejunum in the left lower quadrant. Hospitalist contacted for admission with surgery consult pending. Patient evaluated at bedside and endorsed that he was feeling fine and able to eat Saturday but since Saturday he has had nausea, vomiting, diarrhea as well as abdominal pain. Symptoms have waxed and waned and he thought initially were getting better last night however he woke up today and they are worse, abdominal pain primarily on the right side however generalized at times. Initially had loose stools but they have become liquid and patient has had incontinence of stool over the past 2 days with bodyaches and chills and said that moving at all seems to hurt. Reports still feeling unwell at time of exam and that he can tell he is having involuntary liquid stool but is unable to stop it. He reports he has not really been able to eat or drink for the past 4 to 5 days and when he tried to drink some liquid yesterday made him nauseous and also seem to go right through him. Today was up and moving around but felt dizzy which is a symptom that ended up prompting him to visit the emergency department. Not dizzy while laying flat but symptoms recur when he sits up. [facility] Medical History Chest pain COPD (chronic obstructive pulmonary disease) Encounter for screening for COVID-19 Obesity SOBOE (shortness of breath on exertion) Home Medications albuterol sulfate 2.5 mg/3 mL (0.083 %) solution for nebulization 2.5 mg inhalation Q4H PRN WHEEZING/SHORTNESS OF BREATH 05/15/17 [History Last Taken 08/26/18] atorvastatin 40 mg tablet 40 mg PO QHS CHOLESTEROL 05/15/17 [History Last Taken 08/07/23] nitroglycerin 0.4 mg sublingual tablet (Nitrostat) 0.4 mg sublingual Q5M PRN CHEST PAIN 05/15/17 [History Last Taken Unknown] tamsulosin 0.4 mg capsule 0.4 mg PO QHS PROSTATE 10/23/17 [History Last Taken 08/07/23] albuterol sulfate 90 mcg/actuation aerosol inhaler 2 puff inhalation Q4H PRN WHEEZING/SHORTNESS OF BREATH 05/12/20 [History Last Taken Unknown] amlodipine 5 mg tablet 5 mg PO DAILY BLOOD PRESSURE 05/12/20 [History Last Taken 08/07/23] carvedilol 25 mg tablet 25 mg PO BID HEART 05/12/20 [History Last Taken 08/07/23] omeprazole 20 mg capsule,delayed release 20 mg PO DAILY ACID REFLUX 05/12/20 [History Last Taken 08/07/23] ondansetron 4 mg disintegrating tablet 4 mg PO Q8H PRN NAUSEA/VOMITING #10 tabs 03/05/22 [Rx Last Taken Unknown] oxybutynin chloride 10 mg tablet,extended release 24 hr 20 mg PO DAILY OVERACTIVE BLADDER 06/13/22 [History Last Taken 08/07/23] artificial tears with lanolin eye ointment 1 applic EACH EYE DAILY PRN LEFT EYE 08/08/23 [History Last Taken Unknown] celecoxib 100 mg capsule 100 mg PO BID INFLAMMATION 08/08/23 [History Last Taken 08/07/23] cholecalciferol (vitamin D3) 50 mcg (2,000 unit) tablet (Vitamin D3) 50 mcg PO DAILY SUPPLEMENT 08/08/23 [History Last Taken 08/07/23] cyanocobalamin (vitamin B-12) 1,000 mcg tablet (Vitamin B-12) 1,000 mcg PO DAILY SUUPLEMENT 08/08/23 [History Last Taken 08/07/23] furosemide 40 mg tablet 40 mg PO DAILY FLUID 08/08/23 [History Last Taken 08/07/23] semaglutide 2 mg/dose (8 mg/3 mL) subcutaneous pen injector (Ozempic) 2 mg subcut TH DIABETES 08/08/23 [History Last Taken 08/01/23] spironolactone 25 mg tablet 25 mg PO DAILY BLOOD PRESSURE 08/08/23 [History Last Taken 08/07/23] Allergy/AdvReac Type Severity Reaction Status Date / Time oxycodone HCl [From Percodan] Allergy Hives Verified 08/08/23 11:27 oxycodone terephthalate Allergy Hives Verified 08/08/23 11:27 [From Percodan] Social History Smoking Status: Former smoker Vital Signs Vital Signs Vital Signs: 08/08/23 11:27 08/08/23 15:26 08/08/23 15:50 Temperature 99 F Temperature Source Temporal Pulse Rate 99 85 85 Respiratory Rate 20 H 16 16 Blood Pressure 178/115 H 150/86 H 150/68 H Blood Pressure Mean 136 107 95 Pulse Ox 95 96 96 Oxygen Delivery Method Room Air Room Air Weight Weight: 170.9 kg Body Mass Index (BMI) 59.0 Results Lab / Micro Data 08/08/23 11:55 08/08/23 11:55 Labs: Laboratory Results - last 24 hr 08/08/23 11:55: WBC 7.7, RBC 5.26, Hgb 15.0, Hct 47.4, MCV 90.1, MCH 28.5, MCHC 31.6 L, RDW Std Deviation 45.5 H, RDW Coeff of Francis 13.7, Plt Count 410, MPV 9.0, Immature Gran % (Auto) 1.300 H, Neut % (Auto) 63.0, Lymph % (Auto) 25.0, [place] % (Auto) 7.8, Eos % (Auto) 2.6, Baso % (Auto) 0.3, Absolute Neuts (auto) 4.9, Absolute Lymphs (auto) 1.92, Nucleated RBC % 0, Sodium 137, Potassium 4.8, Chloride 107, Carbon Dioxide 25.0, Anion Gap 5, BUN 17, Creatinine 1.83 H, Estim Creat Clear Calc 36.62, Est GFR (MDRD) Af Amer 48 L, Est GFR (MDRD) Non-Af 39 L, BUN/Creatinine Ratio 9.3 L, Glucose 130 H, Calcium 10.1, Total Bilirubin 0.40, AST 33, ALT 54, Alkaline Phosphatase 110, Total Protein 9.2 H, Albumin 3.5, Globulin 5.7 H, Albumin/Globulin Ratio 0.6 L, Lipase 59 Micro: Microbiology 08/08/23 12:14 Nasal Secretion SARS-CoV-2 & FLU Antigen (Rapid) - Final Imagaing Radiology Impression Abdomen/Pelvis CT 08/08/23 14:11 IMPRESSION: Gastric distention with food and fluid. Mild degree of the fluid in the small bowel with the transition in the distal jejunum in the left lower quadrant. Electronically Signed: Kevon Liz MD at 14:57 EST , Assessment & Plan Assessment/Plan (1) Abdominal pain: (2) COPD, mild: (3) RICO (acute kidney injury): (4) Diabetes mellitus type 2 in obese: (5) HTN (hypertension): (6) Obesity: (7) SBO (small bowel obstruction): (8) Sleep apnea: PLAN: Plan # Intractable diarrhea and abdominal pain with nausea and vomiting -CT scan in ED with gastric distention with food and fluid and a mild degree of fluid in the small bowel with transition in the distal jejunum in the left lower quadrant, concerning for early bowel obstruction -Pain control, nausea control, supportive care -NPO pending surgery recs -Surgery consult -IV fluids # RICO on CKD stage IIIa -Suspect due to decreased p.o. intake especially given pts symptoms of feeling dizzy when standing up after not eating or drinking well for 4-5 days -IV fluids, hold diuretics -Supportive care -Hold celecoxib #Hx prostate cancer -s/p radiation # AMRIK -Continue home BiPAP -If patient requires OR may need extubated to BiPAP # COPD -With mild to moderate obstruction -Only see as needed albuterol, will add nebs while admitted # Hypertension -Continue carvedilol and amlodipine, will hold diuretics #GERD -Continue PPI # BPH -Chronic BPH with obstruction on chronic tamsulosin therapy, continue tamsulosin #Type 2 diabetes mellitus -Glucose checks and sliding scale insulin -Will check a.m. A1c #Morbid obesity -BMI 59 kg/m? -Complicates treatment, prognosis, outcomes -Recommend weight loss and lifestyle changes #DVT ppx: SCDs Kerrie Mullins MD Charges/Coding Visit Charges Inpatient E&M: 60022 Init Hosp L2
[2023-08-08 16:22] LABS: Lactic Acid 1.4 mmol/L (0.4-1.9)
[2023-08-08] MEDS: Lidocaine Jelly 2% 20 ML Syringe (URO-JET) 1 APPLIC TOPICAL (17:24)
[2023-08-08] MEDS: Oxymetazoline 0.05% 1 SPRAY SPRAY.BTL NASAL (17:24)
--- NOTE | 2023-08-08 17:46 | RAD_ITS ---
STUDY: X-RAY - ABDOMEN/PELVIS REASON FOR EXAM: Male, 68 years old. NG Insertion TECHNIQUE: Single AP view of the abdomen / pelvis. COMPARISON: None. FINDINGS: Nasogastric tube coiled in the left upper quadrant likely in the body the stomach. There are dilated loops of the small intestine with a non-distended colon consistent with a small bowel obstruction. The visualized liver, spleen and kidneys are grossly normal in size and morphology. Normal soft tissue structures. Normal visualized osseous structures. RAD/Abdomen Single View (Portable) IMPRESSION: 1. Nasogastric tube with the tip in the left upper quadrant likely in the body the stomach. 2. Moderately dilated small bowel. Electronically Signed: Torsten Trevino MD at 18:10 EST ,
[2023-08-08 18:30] VITALS: BMI 61.7
[2023-08-08 18:37] VITALS: BP 165/82; PULSE 98; RESP 16; TEMP 36.8; O2SAT 98
--- NOTE | 2023-08-08 20:14 | EX.PCM.CON.S ---
Assessment & Plan Assessment/Plan (1) SBO (small bowel obstruction): (2) Diarrhea in adult patient: PLAN: Plan This is a 68-year-old male, with multiple comorbidities, who presents with 4 days of intractable symptoms of nausea, vomiting, and diarrhea with resultant signs of dehydration. Workup with imaging was concerning for possible small bowel obstruction, however, patient's ongoing diarrhea seems to argue for a alternative explanation. Further, patient has no history of prior operation and no evidence of hernia. There is no evidence of mass on CT imaging. Taken together, my impression is that this likely represents infectious enteritis with dehydration. Nasogastric tube was placed on account of gastric distention per emergency medicine. Appearance of this tube on KUB shows it to be in good position. Recommend overnight decompression with low intermittent wall suction and regular flushing. Recommend stool sample analysis. Depending on patient's abdominal exam tomorrow, would consider small bowel follow-through versus diet challenge. Remainder of care per primary team Joey Alex MD General Surgery Endocrine Surgery Pager: [facility] [address] [place] [address], [address] [place] [address] Office: [phone] HPI Consult Data Date of Consult: 08/08/23 HPI Narrative Reason for Consultation: Concern for small bowel obstruction HPI Narrative: IRAJ MANNING, is a 68 M who presents to [facility] [place] with complaints of nausea, vomiting, abdominal pain, and profuse diarrhea since 08/04/2023. He confirms that he was asymptomatic on 08/03/2023, but thereafter began with vomiting and diarrhea ultimately leading to dehydration and dizziness. He denies any prior experience similar to this. His ER workup has been notable for laboratories that show no elevated white blood cell count, no elevated lactate, but mild elevation of his creatinine. CT imaging of the abdomen pelvis was concerning for a small bowel obstruction given multiple dilated loops of small bowel. Mr. Manning is having a nasogastric tube inserted upon my arrival to the room and is limited in his history, however he confirms the above. He also shares that he has had no prior abdominal surgeries. He confirms that he diagnosis of C. difficile colitis approximately 5 years ago, but states that his recall of this event was limited since he passed out and was found down with this diagnosis. [facility] Medical History Chest pain COPD (chronic obstructive pulmonary disease) Encounter for screening for COVID-19 Obesity SOBOE (shortness of breath on exertion) Home Medications albuterol sulfate 2.5 mg/3 mL (0.083 %) solution for nebulization 2.5 mg inhalation Q4H PRN WHEEZING/SHORTNESS OF BREATH 05/15/17 [History Last Taken 08/26/18] atorvastatin 40 mg tablet 40 mg PO QHS CHOLESTEROL 05/15/17 [History Last Taken 08/07/23] nitroglycerin 0.4 mg sublingual tablet (Nitrostat) 0.4 mg sublingual Q5M PRN CHEST PAIN 05/15/17 [History Last Taken Unknown] tamsulosin 0.4 mg capsule 0.4 mg PO QHS PROSTATE 10/23/17 [History Last Taken 08/07/23] albuterol sulfate 90 mcg/actuation aerosol inhaler 2 puff inhalation Q4H PRN WHEEZING/SHORTNESS OF BREATH 05/12/20 [History Last Taken Unknown] amlodipine 5 mg tablet 5 mg PO DAILY BLOOD PRESSURE 05/12/20 [History Last Taken 08/07/23] carvedilol 25 mg tablet 25 mg PO BID HEART 05/12/20 [History Last Taken 08/07/23] omeprazole 20 mg capsule,delayed release 20 mg PO DAILY ACID REFLUX 05/12/20 [History Last Taken 08/07/23] ondansetron 4 mg disintegrating tablet 4 mg PO Q8H PRN NAUSEA/VOMITING #10 tabs 03/05/22 [Rx Last Taken Unknown] oxybutynin chloride 10 mg tablet,extended release 24 hr 20 mg PO DAILY OVERACTIVE BLADDER 06/13/22 [History Last Taken 08/07/23] artificial tears with lanolin eye ointment 1 applic EACH EYE DAILY PRN LEFT EYE 08/08/23 [History Last Taken Unknown] celecoxib 100 mg capsule 100 mg PO BID INFLAMMATION 08/08/23 [History Last Taken 08/07/23] cholecalciferol (vitamin D3) 50 mcg (2,000 unit) tablet (Vitamin D3) 50 mcg PO DAILY SUPPLEMENT 08/08/23 [History Last Taken 08/07/23] cyanocobalamin (vitamin B-12) 1,000 mcg tablet (Vitamin B-12) 1,000 mcg PO DAILY SUUPLEMENT 08/08/23 [History Last Taken 08/07/23] furosemide 40 mg tablet 40 mg PO DAILY FLUID 08/08/23 [History Last Taken 08/07/23] semaglutide 2 mg/dose (8 mg/3 mL) subcutaneous pen injector (Ozempic) 2 mg subcut TH DIABETES 08/08/23 [History Last Taken 08/01/23] spironolactone 25 mg tablet 25 mg PO DAILY BLOOD PRESSURE 08/08/23 [History Last Taken 08/07/23] Allergy/AdvReac Type Severity Reaction Status Date / Time oxycodone HCl [From Percodan] Allergy Hives Verified 08/08/23 11:27 oxycodone terephthalate Allergy Hives Verified 08/08/23 11:27 [From Percodan] Social History Smoking Status: Former smoker Physical Exam Const alert and oriented x3 Constitutional Narrative: Mild distress from nasogastric tube General Appearance: cooperative Resp normal respiratory effort GI GI Narrative: Obese, no obvious hernias, soft, mild tenderness to palpation of the right and left abdomen. Patient shares that right is more tender than left rating them as a 7 out of 10 and 3 out of 10, respectively. There is no guarding. Nasogastric tube output is thin and brown in character. Lab / Micro Data 08/08/23 11:55 08/08/23 11:55 Labs: Laboratory Results - last 24 hr 08/08/23 11:55: WBC 7.7, RBC 5.26, Hgb 15.0, Hct 47.4, MCV 90.1, MCH 28.5, MCHC 31.6 L, RDW Std Deviation 45.5 H, RDW Coeff of Francis 13.7, Plt Count 410, MPV 9.0, Immature Gran % (Auto) 1.300 H, Neut % (Auto) 63.0, Lymph % (Auto) 25.0, [place] % (Auto) 7.8, Eos % (Auto) 2.6, Baso % (Auto) 0.3, Absolute Neuts (auto) 4.9, Absolute Lymphs (auto) 1.92, Nucleated RBC % 0, Sodium 137, Potassium 4.8, Chloride 107, Carbon Dioxide 25.0, Anion Gap 5, BUN 17, Creatinine 1.83 H, Estim Creat Clear Calc 36.62, Est GFR (MDRD) Af Amer 48 L, Est GFR (MDRD) Non-Af 39 L, BUN/Creatinine Ratio 9.3 L, Glucose 130 H, Calcium 10.1, Total Bilirubin 0.40, AST 33, ALT 54, Alkaline Phosphatase 110, Total Protein 9.2 H, Albumin 3.5, Globulin 5.7 H, Albumin/Globulin Ratio 0.6 L, Lipase 59 08/08/23 15:42: Lactic Acid 1.4 Micro: Microbiology 08/08/23 12:14 Nasal Secretion SARS-CoV-2 & FLU Antigen (Rapid) - Final Imagaing Radiology Impression Abdomen/Pelvis CT 08/08/23 14:11 IMPRESSION: Gastric distention with food and fluid. Mild degree of the fluid in the small bowel with the transition in the distal jejunum in the left lower quadrant. Electronically Signed: Kevon Liz MD at 14:57 EST , KUB X-Ray 08/08/23 17:46 IMPRESSION: 1. Nasogastric tube with the tip in the left upper quadrant likely in the body the stomach. 2. Moderately dilated small bowel. Electronically Signed: Torsten Trevino MD at 18:10 EST , Charges/Coding Visit Charges Inpatient E&M: 38448 Init Hosp L2
--- NOTE | 2023-08-08 21:30 | CPS ---
Pt refused to wear BiPAP.
[2023-08-08] MEDS: Pantoprazole Sodium 40 MG in 0.9% Normal Saline (100mL MB+) 100 ML 330 MG IV (22:31)
[2023-08-08] MEDS: 0.9% Normal Saline (1000mL) 1,000 ML 75 ML IV (22:31)
[2023-08-08] MEDS: Carvedilol 25 MG Tablet PO (22:50)
[2023-08-08] MEDS: Tamsulosin HCl 0.4 MG Capsule PO (22:51)
[2023-08-08] MEDS: Atorvastatin Calcium 40 MG Tablet PO (22:51)
[2023-08-09 00:35] VITALS: BP 168/89; PULSE 89; RESP 17; TEMP 36.8; O2SAT 99
[2023-08-09 02:06] VITALS: BP 175/78; PULSE 95; RESP 16; TEMP 36.7; O2SAT 95
[2023-08-09] MEDS: Morphine 2 MG/ML Syringe IV ×2 (02:28→10:30)
[2023-08-09] MEDS: 0.9% Saline Lock 10 ML Syringe IV ×2 (02:30→10:29)
[2023-08-09 02:45] LABS: Bedside Glucose 110 mg/dL (74-106)
[2023-08-09 05:42] VITALS: BMI 61.7
--- NOTE | 2023-08-09 07:37 | RAD_ITS ---
EXAM: FL SMALL BOWEL FOLLOW THROUGH CLINICAL INDICATION: f/u SBO -- Films: Immediately post GG, 6 h, 12 h, and 24h TECHNIQUE: Fluoroscopy of the small bowel including multiple serial delayed images following oral contrast administration. Fluoroscopic guidance was provided by a physician. COMPARISON: No relevant prior studies available. FINDINGS: Contrast administered into the stomach via the endogastric tube demonstrates diffusely distended large and small bowel loops. Contrast is noted within the large bowel at 6 hours. The terminal hour image demonstrates contrast extending to the distal colon and rectum. RAD/Small Bowel Series Only IMPRESSION: No evidence of bowel obstruction. Diffuse bowel distention consistent with ileus. Electronically Signed: Kranthi Montano MD at 9:27 EST ,
--- NOTE | 2023-08-09 08:00 | NURSING ---
Not able to flush NG tube due to patient having a bowel series @ 8am
--- NOTE | 2023-08-09 08:25 | PN.SURG_ITS ---
Subjective Subjective Patient seen and examined during AM rounds. He denies any present nausea. He is still having a headache from the sinus irritation of his nasogastric tube. He does report that he had an additional bowel movement since the emergency department and that his specimen was collected and sent to lab. Objective Data Objective Data Vital Signs: Vital Signs Temp Pulse Resp BP Pulse Ox O2 Del Method 98.1 F 95 16 175/78 H 95 Room Air 08/09/23 02:06 08/09/23 02:06 08/09/23 02:06 08/09/23 02:06 08/09/23 02:06 08/09/23 02:06 Oxygen Delivery Method Room Air Weight: 394 lb 2.984 oz Body Mass Index (BMI) 61.7 Intake & Output: Intake and Output for Last 24 Hours 08/07/23 08/08/23 08/09/23 23:59 23:59 23:59 Intake Total 1130 / 1130 0 / 0 Output Total 300 / 300 Balance 1130 / 830 -300 / -300 Lab / Micro Data 08/09/23 08:45 08/09/23 08:45 Labs: Laboratory Results - last 24 hr 08/08/23 11:55: WBC 7.7, RBC 5.26, Hgb 15.0, Hct 47.4, MCV 90.1, MCH 28.5, MCHC 31.6 L, RDW Std Deviation 45.5 H, RDW Coeff of Francis 13.7, Plt Count 410, MPV 9.0, Immature Gran % (Auto) 1.300 H, Neut % (Auto) 63.0, Lymph % (Auto) 25.0, [place] % (Auto) 7.8, Eos % (Auto) 2.6, Baso % (Auto) 0.3, Absolute Neuts (auto) 4.9, Absolute Lymphs (auto) 1.92, Nucleated RBC % 0, Sodium 137, Potassium 4.8, Chloride 107, Carbon Dioxide 25.0, Anion Gap 5, BUN 17, Creatinine 1.83 H, Estim Creat Clear Calc 36.62, Est GFR (MDRD) Af Amer 48 L, Est GFR (MDRD) Non-Af 39 L, BUN/Creatinine Ratio 9.3 L, Glucose 130 H, Calcium 10.1, Total Bilirubin 0.40, AST 33, ALT 54, Alkaline Phosphatase 110, Total Protein 9.2 H, Albumin 3.5, Globulin 5.7 H, Albumin/Globulin Ratio 0.6 L, Lipase 59 08/08/23 15:42: Lactic Acid 1.4 08/08/23 22:29: POC Glucose 110 H Micro: Microbiology 08/08/23 20:46 Stool C. difficile DNA Amplification - Final 08/08/23 12:14 Nasal Secretion SARS-CoV-2 & FLU Antigen (Rapid) - Final Radiography Diagnostic Testing: Radiology Impression Abdomen/Pelvis CT 08/08/23 14:11 IMPRESSION: Gastric distention with food and fluid. Mild degree of the fluid in the small bowel with the transition in the distal jejunum in the left lower quadrant. Electronically Signed: Kevon Liz MD at 14:57 EST , KUB X-Ray 08/08/23 17:46 IMPRESSION: 1. Nasogastric tube with the tip in the left upper quadrant likely in the body the stomach. 2. Moderately dilated small bowel. Electronically Signed: Torsten Trevino MD at 18:10 EST , Physical Exam Const oriented x3 Constitutional Narrative: Mild distress from nasogastric tube Resp normal respiratory effort GI GI Narrative: Abdomen is obese and does not appear to be significantly distended. Patient's abdomen is also soft and he reports improved tenderness. Assessment & Plan Assessment/Plan (1) SBO (small bowel obstruction): (2) Diarrhea in adult patient: PLAN: Plan This is a 68-year-old male, with multiple comorbidities, who presents with 4 days of intractable symptoms of nausea, vomiting, and diarrhea with resultant signs of dehydration. Workup with imaging was concerning for possible small bowel obstruction, however, patient's ongoing diarrhea seems to argue for a alternative explanation. Further, patient has no history of prior operation and no evidence of hernia. There is no evidence of mass on CT imaging. Taken together, my impression is that this likely represents infectious enteritis with dehydration. Today patient is reporting the symptoms are stable, however he has not had any additional nausea. His nasogastric tube output has been rather minimal despite what appears to be a well-positioned/well-functioning tube. Stool sample results were reviewed and he does not appear to have any positivity for the assayed viruses or bacteria. Yet, on the early pictures from his small bowel follow-through which has been ordered today, there appears to be more colonic gas and less evidence of small bowel distention. Will follow-up the results of the small bowel follow-through to determine further clinical plan. Joey Alex MD General Surgery Endocrine Surgery Pager: [facility] [address] [place] [address], [address] [place] [id number] Office: [phone] Charges/Coding Visit Charges Inpatient E&M: 48878 Subs Hosp L2
[2023-08-09 09:01] LABS: Absolute Lymphocyte Count 1.98 X10^3/uL (0.83-4.51); Absolute Neutrophil Count 5.1 X10^3/uL (2.0-7.7); Basophil# 0.03 X10^3/uL; Basophil% 0.4 % (0-1); Eosinophil# 0.18 X10^3/uL; Eosinophils% 2.3 % (0-5); Hematocrit 41.8 % (40-54); Hemoglobin 13.2 g/dL (13.0-16.5); Lymphocyte # 1.98 X10^3/ul (0.83-4.51); Lymphocyte % 24.9 % (19-41); Mean Corp Hgb Conc 31.6 g/dL (32-36); Mean Corpuscular Hgb 28.6 pg (27.0-32.0); Mean Corpuscular Volume 90.5 fL (80-94); Mean Platelet Vol. 8.6 fl (6.2-12.0); Monocyte# 0.68 X10^3/uL; Monocyte% 8.6 % (0-10); NRBC Flagged by Analyzer 0 % (0-5); Neutrophil # 5.06 X10^3/uL (2.7-7.7); Neutrophil % 63.5 % (47-70); Platelet Count 334 K/mm3 (150-450); RBC Distribution Width CV 14.2 % (11.6-14.6); RBC Distribution Width SD 46.6 fl (35.1-43.9); Red Blood Count 4.62 M/mm3 (4.6-6.2)
[2023-08-09 09:24] LABS: ALB/GLOB Ratio 0.7 RATIO (0.9-2.4); AST(SGOT) 26 U/L (15-37); Alanine Aminotransfer ALT/SGPT 40 U/L (16-61); Albumin, Serum 3.1 g/dL (3.2-5.0); Alkaline Phosphatase 94 U/L (45-117); Anion Gap 6 (5-15); BUN 15 mg/dL (7-18); BUN/Creat Ratio 8.8 RATIO (10-20); Calcium,Total 9.1 mg/dL (8.5-10.1); Chloride 111 mmol/L (98-107); Creatinine, Serum 1.71 mg/dL (0.70-1.30); EST Glomerular Filtration Rate 43 mL/min (>60); Est Glom Filt Rate - Afr Amer 52 mL/min (>60); Estimated Creatinine Clearance 39.19 ml/min; Globulin 4.6 g/dL (2.2-4.2); Glucose 130 mg/dL (74-106); Protein, Total 7.7 g/dL (6.4-8.2); Sodium Level 141 mmol/L (136-145)
[2023-08-09 09:52] LABS: Hemoglobin A1c 6.4 % (3.8-5.6)
[2023-08-09 10:14] VITALS: BP 172/78; PULSE 98; RESP 18; TEMP 36.9; O2SAT 97
[2023-08-09 10:15] VITALS: BP 172/78; PULSE 94; RESP 18; TEMP 36.9; O2SAT 97
--- NOTE | 2023-08-09 10:15 | EKG12_ITS ---
Test Reason : CP Blood Pressure : / mmHG Vent. Rate : 093 BPM Atrial Rate : 093 BPM P-R Int : 162 ms QRS Dur : 128 ms QT Int : 414 ms P-R-T Axes : 056 -60 054 degrees QTc Int : 514 ms Normal sinus rhythm Left axis deviation Right bundle branch block Possible Lateral infarct (cited on or before 27-DEC-2021) Inferior infarct (cited on or before 27-DEC-2021) Abnormal ECG When compared with ECG of 24-JUN-2023 21:29, No significant change was found Confirmed by BARBARA JACKSON, WIN ([id number]), web content editor CHACHA PACHECO ([id number]) on 08/13/2023 11:01:27 AM Referred By: Confirmed By:WIN JIMENEZ MD
[2023-08-09] MEDS: Pantoprazole Sodium 40 MG in 0.9% Normal Saline (100mL MB+) 100 ML 330 MG IV (10:28)
--- NOTE | 2023-08-09 10:45 | CASEMGMT ---
Patient refused RN CM to complete assessment at this time. Patient states he will go home at discharge. CM will attempt to complete assessment at later time.
[2023-08-09 11:42] LABS: Troponin-I HS 15 pg/mL (3.0-78.0)
[2023-08-09 12:40] LABS: Bedside Glucose 128 mg/dL (74-106)
[2023-08-09] MEDS: 0.9% Normal Saline (1000mL) 1,000 ML 75 ML IV (13:00)
[2023-08-09 13:26] LABS: Troponin-I HS 13 pg/mL (3.0-78.0)
--- NOTE | 2023-08-09 14:35 | PN_ITS ---
Subjective Subjective Patient seen and examined. He was admitted with a complaint of nausea, vomiting and abdominal pain as well as diarrhea. Imaging as concerning for small bowel obstruction. He has no active complaints today. He has an NG tube in situ. He denied any nausea, vomiting, fever, chills or any other complaints. He hasnt had any more diarrhea. Review of systems is otherwise negative. Objective Data Objective Data Vital Signs: Vital Signs Temp Pulse Resp BP Pulse Ox O2 Del Method 98.4 F 94 18 172/78 H 97 Room Air 08/09/23 10:15 08/09/23 10:15 08/09/23 10:15 08/09/23 10:15 08/09/23 10:15 08/09/23 12:00 Oxygen Delivery Method Room Air Weight: 394 lb 2.984 oz Body Mass Index (BMI) 61.7 Intake & Output: Intake and Output for Last 24 Hours 08/07/23 08/08/23 08/09/23 23:59 23:59 23:59 Intake Total 1130 / 1130 1110 / 1110 Output Total 600 / 600 Balance 1130 / 830 510 / 510 Lab / Micro Data 08/09/23 08:45 08/09/23 08:45 Labs: Laboratory Results - last 24 hr 08/08/23 15:42: Lactic Acid 1.4 08/08/23 22:29: POC Glucose 110 H 08/09/23 08:45: WBC 8.0, RBC 4.62, Hgb 13.2, Hct 41.8, MCV 90.5, MCH 28.6, MCHC 31.6 L, RDW Std Deviation 46.6 H, RDW Coeff of Francis 14.2, Plt Count 334, MPV 8.6, Immature Gran % (Auto) 0.300, Neut % (Auto) 63.5, Lymph % (Auto) 24.9, [place] % (Auto) 8.6, Eos % (Auto) 2.3, Baso % (Auto) 0.4, Absolute Neuts (auto) 5.1, Absolute Lymphs (auto) 1.98, Nucleated RBC % 0, Sodium 141, Potassium 4.0, Ch loride 111 H, Carbon Dioxide 24.0, Anion Gap 6, BUN 15, Creatinine 1.71 H, Estim Creat Clear Calc 39.19, Est GFR (MDRD) Af Amer 52 L, Est GFR (MDRD) Non-Af 43 L, BUN/Creatinine Ratio 8.8 L, Glucose 130 H, Hemoglobin A1c 6.4 H, Calcium 9.1, Total Bilirubin 0.50, AST 26, ALT 40, Alkaline Phosphatase 94, Total Protein 7.7, Albumin 3.1 L, Globulin 4.6 H, Albumin/Globulin Ratio 0.7 L 08/09/23 11:15: Troponin I High Sens 15 08/09/23 12:04: POC Glucose 128 H 08/09/23 12:43: Troponin I High Sens 13 Micro: Microbiology 08/08/23 20:46 Stool Enteric Bacteriology - Final 08/08/23 20:46 Stool C. difficile DNA Amplification - Final 08/08/23 12:14 Nasal Secretion SARS-CoV-2 & FLU Antigen (Rapid) - Final Radiography Diagnostic Testing: Radiology Impression Abdomen/Pelvis CT 08/08/23 14:11 IMPRESSION: Gastric distention with food and fluid. Mild degree of the fluid in the small bowel with the transition in the distal jejunum in the left lower quadrant. Electronically Signed: Kevon Liz MD at 14:57 EST , KUB X-Ray 08/08/23 17:46 IMPRESSION: 1. Nasogastric tube with the tip in the left upper quadrant likely in the body the stomach. 2. Moderately dilated small bowel. Electronically Signed: Torsten Trevino MD at 18:10 EST , Physical Exam Const alert, oriented x3 and no apparent distress Constitutional Narrative: super morbid obesity General Appearance: cooperative HEENT normocephalic, head/scalp atraumatic and moist oral mucous membranes Eyes PERRL and EOMs intact bilaterally Neck no lymphadenopathy and supple Lymph Lymphatic: no lymphadenopathy noted and no lymphedema noted Resp normal respiratory effort, normal air movement and clear to auscultation bilaterally Cardio regular rate, regular rhythm, S1 normal heart sound, S2 normal heart sound and no murmurs GI normal to inspection, nondistended, normoactive bowel sounds, soft to palpation and non-tender GI Narrative: obese, soft, has good bowel sounds, no guarding or rebound tenderness. Extremity normal capillary refill, no clubbing, cyanosis or edema and no calf tenderness General Extremity: no tenderness to palpation of joints or extremities Skin General Skin Exam: no breakdown Neuro CN's II-XII intact bilaterally, no focal motor deficits, no sensory deficits noted and deep tendon reflexes 2+ bilaterally Motor Exam: strength 5/5 throughout Psych thought process normal, cooperative and affect normal Appearance: appropriate Assessment & Plan Assessment/Plan (1) SBO (small bowel obstruction): (2) Abdominal pain: (3) Diarrhea in adult patient: PLAN: Plan #Intractable diarrhea * Diarrhea is improving. CT of the abdomen in the ED showed gastric distention and mild degree of fluid in the small bowel with a transition in the distal jejunum concerning for a bowel obstruction. * Patient was however having diarrhea also it is unlikely he has small bowel obstruction. * Has NG tube in situ. Being gently hydrated with IV fluids. General surgery on board. * IV morphine as needed for pain. * By general surgery, small bowel follow-through today showed that the findings were more Colonic gas and less likely small bowel distention. * #R[place] on CKD stage IIIa: Diuretics on hold. Patient be hydrated gently with IV f luids. CR is 1.71, down from 1.83 on admission. #History of prostate cancer: S/p radiation. #AMRIK: On BiPAP #COPD: Not in exacerbation. Breathing treatments bronchodilators. #Hypertension: On carvedilol and amlodipine. Diuretics on hold on account of RICO on CKD. #GERD: On PPI. 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 #Type 2 diabetes mellitus: On insulin sliding scale. Accu-Cheks every 6 hourly as patient is NPO. #Super morbid obesity: BMI 61.7. Complicates acute care, expected recovery and prognosis. Charges/Coding Visit Charges Inpatient E&M: 99628 Subs Hosp L2
--- NOTE | 2023-08-09 14:48 | CASEMGMT ---
EZIO CARUSO NOTE: RN SHADY to room to complete initial assessment. Pt resting in bed w/NG tube in place. Pt states shook his head No when RN SHADY introduced self. Visitors @ bedside. Asked pt if EZIO CARUSO could return later to complete assessment and he shook his head again and stated, No, I don't need anything. I'm self-sufficient and stated, You have my address and insurance information and you have everything you need. This RN SHADY reviewed PT note from today and no additional therapy recommended. Pt did inform EZIO CARUSO, Ella, earlier that he plans to discharge home. Plan: discharge home. EZIO CARUSO will be available if any discharge planning need arise. Km MENENDEZN EZIO CARUSO
--- NOTE | 2023-08-09 15:46 | CASEMGMT ---
Per nursing admission questions patient does not have a Healthcare Power of Operation Research Analyst or Healthcare Living Will and is not interested in documents. Meghann Donnelly TECHNICAL AIDE SILVERIO
[2023-08-09 16:00] VITALS: BP 193/79; PULSE 98; RESP 18; TEMP 36.4; O2SAT 96; O2SAT 97
[2023-08-09] MEDS: amLODIPine 5 MG Tablet PO (17:30)
[2023-08-09 18:22] LABS: Bedside Glucose 101 mg/dL (74-106)
[2023-08-09 22:00] VITALS: BP 160/81; PULSE 88; RESP 16; TEMP 36.8; O2SAT 88; O2SAT 98
[2023-08-09] MEDS: Carvedilol 25 MG Tablet PO (22:26)
[2023-08-09] MEDS: Tamsulosin HCl 0.4 MG Capsule PO (22:26)
[2023-08-09] MEDS: Atorvastatin Calcium 40 MG Tablet PO (22:26)
[2023-08-09] MEDS: MELATONIN 3 MG TABLET PO (22:34)
[2023-08-09 23:53] LABS: Bedside Glucose 112 mg/dL (74-106)
[2023-08-10] MEDS: Morphine 2 MG/ML Syringe IV (02:37)
[2023-08-10] MEDS: 0.9% Saline Lock 10 ML Syringe IV ×2 (02:38→09:07)
[2023-08-10 04:00] VITALS: BP 120/61; PULSE 91; RESP 16; TEMP 36.8; O2SAT 96
[2023-08-10 05:28] VITALS: BMI 61.7
[2023-08-10 07:04] LABS: Absolute Neutrophil Count 5.3 X10^3/uL (2.0-7.7); Basophil# 0.02 X10^3/uL; Basophil% 0.2 % (0-1); Eosinophil# 0.23 X10^3/uL; Eosinophils% 2.7 % (0-5); Hematocrit 40.9 % (40-54); Hemoglobin 12.4 g/dL (13.0-16.5); Lymphocyte % 23.9 % (19-41); Mean Corp Hgb Conc 30.3 g/dL (32-36); Mean Corpuscular Hgb 27.9 pg (27.0-32.0); Mean Corpuscular Volume 91.9 fL (80-94); Mean Platelet Vol. 10.5 fl (6.2-12.0); Monocyte# 0.77 X10^3/uL; Monocyte% 9.2 % (0-10); NRBC Flagged by Analyzer 0 % (0-5); Neutrophil # 5.32 X10^3/uL (2.7-7.7); Neutrophil % 63.6 % (47-70); Platelet Count 227 K/mm3 (150-450); RBC Distribution Width SD 47.6 fl (35.1-43.9); Red Blood Count 4.45 M/mm3 (4.6-6.2); White Blood Count 8.4 K/mm3 (4.4-11.0)
[2023-08-10 07:11] LABS: Bedside Glucose 113 mg/dL (74-106)
[2023-08-10 07:25] LABS: Anion Gap 4 (5-15); BUN 16 mg/dL (7-18); BUN/Creat Ratio 10.5 RATIO (10-20); Calcium,Total 9.1 mg/dL (8.5-10.1); Chloride 111 mmol/L (98-107); Creatinine, Serum 1.52 mg/dL (0.70-1.30); EST Glomerular Filtration Rate 49 mL/min (>60); Est Glom Filt Rate - Afr Amer 59 mL/min (>60); Estimated Creatinine Clearance 44.09 ml/min; Glucose 116 mg/dL (74-106); Potassium 4.1 mmol/L (3.5-5.1); Sodium Level 138 mmol/L (136-145)
--- NOTE | 2023-08-10 07:53 | PCM.PN.SRG ---
Subjective Subjective Patient notes that he was feeling better yesterday and then the NG was removed and he tried clear liquids and that made the pain started again in his lower abdomen. He reports he is still having some pain. He had several liquid bowel movements overnight and he is passing flatus. He denies any nausea or vomiting this morning. Objective Data Objective Data Vital Signs: Vital Signs Temp Pulse Resp BP Pulse Ox O2 Del Method 98.3 F 91 16 120/61 96 Room Air 08/10/23 04:00 08/10/23 04:00 08/10/23 04:00 08/10/23 04:00 08/10/23 04:00 08/10/23 04:00 Oxygen Delivery Method Room Air Weight: 394 lb 6.511 oz Body Mass Index (BMI) 61.7 Intake & Output: Intake and Output for Last 24 Hours 08/08/23 08/09/23 08/10/23 23:59 23:59 23:59 Intake Total 1130 / 1130 2373.75 / 2473.75 130 / 130 Output Total 600 / 600 0 / 0 Balance 1130 / 830 1773.75 / 1873.75 130 / 130 Lab / Micro Data 08/10/23 06:24 08/10/23 06:24 Labs: Laboratory Results - last 24 hr 08/09/23 08:45: WBC 8.0, RBC 4.62, Hgb 13.2, Hct 41.8, MCV 90.5, MCH 28.6, MCHC 31.6 L, RDW Std Deviation 46.6 H, RDW Coeff of Francis 14.2, Plt Count 334, MPV 8.6, Immature Gran % (Auto) 0.300, Neut % (Auto) 63.5, Lymph % (Auto) 24.9, [place] % (Auto) 8.6, Eos % (Auto) 2.3, Baso % (Auto) 0.4, Absolute Neuts (auto) 5.1, Absolute Lymphs (auto) 1.98, Nucleated RBC % 0, Sodium 141, Potassium 4.0, Chloride 111 H, Carbon Dioxide 24.0, Anion Gap 6, BUN 15, Creatinine 1.71 H, Estim Creat Clear Calc 39.19, Est GFR (MDRD) Af Amer 52 L, Est GFR (MDRD) Non-Af 43 L, BUN/Creatinine Ratio 8.8 L, Glucose 130 H, Hemoglobin A1c 6.4 H, Calcium 9.1, Total Bilirubin 0.50, AST 26, ALT 40, Alkaline Phosphatase 94, Total Protein 7.7, Albumin 3.1 L, Globulin 4.6 H, Albumin/Globulin Ratio 0.7 L 08/09/23 11:15: Troponin I High Sens 15 08/09/23 12:04: POC Glucose 128 H 08/09/23 12:43: Troponin I High Sens 13 08/09/23 17:33: POC Glucose 101 08/09/23 22:33: POC Glucose 112 H 08/10/23 06:24: WBC 8.4, RBC 4.45 L, Hgb 12.4 L, Hct 40.9, MCV 91.9, MCH 27.9, MCHC 30.3 L, RDW Std Deviation 47.6 H, RDW Coeff of Francis 14.0, Plt Count 227, MPV 10.5, Immature Gran % (Auto) 0.400, Neut % (Auto) 63.6, Lymph % (Auto) 23.9, [place] % (Auto) 9.2, Eos % (Auto) 2.7, Baso % (Auto) 0.2, Absolute Neuts (auto) 5.3, Absolute Lymphs (auto) 2.00, Nucleated RBC % 0, Sodium 138, Potassium 4.1, Chloride 111 H, Carbon Dioxide 23.0, Anion Gap 4 L, BUN 16, Creatinine 1.52 H, Estim Creat Clear Calc 44.09, Est GFR (MDRD) Af Amer 59 L, Est GFR (MDRD) Non-Af 49 L, BUN/Creatinine Ratio 10.5, Glucose 116 H, Calcium 9.1 08/10/23 06:48: POC Glucose 113 H Micro: Microbiology 08/08/23 20:46 Stool Enteric Bacteriology - Final 08/08/23 20:46 Stool C. difficile DNA Amplification - Final 08/08/23 12:14 Nasal Secretion SARS-CoV-2 & FLU Antigen (Rapid) - Final Physical Exam Const oriented x3 and no apparent distress Cardio regular rate and regular rhythm GI soft to palpation Inspection: Negative for abdominal distention Assessment & Plan Assessment/Plan (1) Abdominal pain: QUALIFIERS: Abdominal location: lower abdomen, unspecified Qualified Code(s): R10.30 - Lower abdominal pain, unspecified PLAN: The patient had small bowel follow-through yesterday which showed passage of contrast all the way to the rectum and he is having liquid bowel movements still. He likely had viral gastroenteritis causing this. Unsure why he is still having pain a week after the symptoms started but this may be cramping due to his bowels waking up. At this time I do not believe there is anything surgical to do. Continue observation and I would not advance his diet beyond clears until he is pain-free. Hardik Thomson MD Pager: [facility] [address] [place] [address], [address] [place] [address] Office:
[2023-08-10 08:54] VITALS: BP 132/64; PULSE 80; RESP 16; TEMP 36.6; O2SAT 97
[2023-08-10] MEDS: amLODIPine 5 MG Tablet PO (09:06)
[2023-08-10] MEDS: Carvedilol 25 MG Tablet PO ×2 (09:07→21:32)
[2023-08-10] MEDS: Pantoprazole Sodium 40 MG in 0.9% Normal Saline (100mL MB+) 100 ML 330 MG IV (09:07)
[2023-08-10 13:01] LABS: Bedside Glucose 83 mg/dL (74-106)
--- NOTE | 2023-08-10 13:07 | PN_ITS ---
Subjective Subjective Patient seen and examined. He still complains of abdominal pain. Diarrhea is improving. Review of systems is otherwise negative. Objective Data Objective Data Vital Signs: Vital Signs Temp Pulse Resp BP Pulse Ox O2 Del Method 97.8 F 80 16 132/64 H 97 Room Air 08/10/23 08:54 08/10/23 08:54 08/10/23 08:54 08/10/23 08:54 08/10/23 08:54 08/10/23 08:55 Oxygen Delivery Method Room Air Weight: 394 lb 6.511 oz Body Mass Index (BMI) 61.7 Intake & Output: Intake and Output for Last 24 Hours 08/08/23 08/09/23 08/10/23 23:59 23:59 23:59 Intake Total 1130 / 1130 2373.75 / 2473.75 1040 / 1040 Output Total 600 / 600 0 / 0 Balance 1130 / 830 1773.75 / 1873.75 1040 / 1040 Lab / Micro Data 08/10/23 06:24 08/10/23 06:24 Labs: Laboratory Results - last 24 hr 08/09/23 12:43: Troponin I High Sens 13 08/09/23 17:33: POC Glucose 101 08/09/23 22:33: POC Glucose 112 H 08/10/23 06:24: WBC 8.4, RBC 4.45 L, Hgb 12.4 L, Hct 40.9, MCV 91.9, MCH 27.9, MCHC 30.3 L, RDW Std Deviation 47.6 H, RDW Coeff of Francis 14.0, Plt Count 227, MPV 10.5, Immature Gran % (Auto) 0.400, Neut % (Auto) 63.6, Lymph % (Auto) 23.9, [place] % (Auto) 9.2, Eos % (Auto) 2.7, Baso % (Auto) 0.2, Absolute Neuts (auto) 5.3, Absolute Lymphs (auto) 2.00, Nucleated RBC % 0, Sodium 138, Potassium 4.1, Chloride 111 H, Carbon Dioxide 23.0, Anion Gap 4 L, BUN 16, Creatinine 1.52 H, Estim Creat Clear Calc 44.09, Est GFR (MDRD) Af Amer 59 L, Est GFR (MDRD) Non-Af 49 L, BUN/Creatinine Ratio 10.5, Glucose 116 H, Calcium 9.1 08/10/23 06:48: POC Glucose 113 H 08/10/23 12:43: POC Glucose 83 Micro: Microbiology 08/08/23 20:46 Stool Enteric Bacteriology - Final 08/08/23 20:46 Stool C. difficile DNA Amplification - Final 08/08/23 12:14 Nasal Secretion SARS-CoV-2 & FLU Antigen (Rapid) - Final Radiography Diagnostic Testing: Radiology Impression Small Bowel X-Ray 08/09/23 07:37 IMPRESSION: No evidence of bowel obstruction. Diffuse bowel distention consistent with ileus. Electronically Signed: Kranthi Montano MD at 9:27 EST , Physical Exam Const alert, oriented x3 and no apparent distress Constitutional Narrative: super morbid obesity General Appearance: cooperative HEENT normocephalic, head/scalp atraumatic and moist oral mucous membranes Eyes PERRL and EOMs intact bilaterally Neck no lymphadenopathy and supple Lymph Lymphatic: no lymphadenopathy noted and no lymphedema noted Resp normal respiratory effort, normal air movement and clear to auscultation bilaterally Cardio regular rate, regular rhythm, S1 normal heart sound, S2 normal heart sound and no murmurs GI normal to inspection, nondistended, normoactive bowel sounds and soft to palpation GI Narrative: obese, soft, has good bowel sounds, minimal guarding or rebound tenderness. Extremity normal capillary refill, no clubbing, cyanosis or edema and no calf tenderness General Extremity: no tenderness to palpation of joints or extremities Skin General Skin Exam: no breakdown Neuro CN's II-XII intact bilaterally, no focal motor deficits, no sensory deficits noted and deep tendon reflexes 2+ bilaterally Motor Exam: strength 5/5 throughout and general weakness Psych thought process normal, cooperative and affect normal Appearance: appropriate Assessment & Plan Assessment/Plan (1) SBO (small bowel obstruction): (2) Abdominal pain: QUALIFIERS: Abdominal location: lower abdomen, unspecified Qualified Code(s): R10.30 - Lower abdominal pain, unspecified (3) Diarrhea in adult patient: PLAN: Plan #Intractable diarrhea * Diarrhea is improving. CT of the abdomen in the ED showed gastric distention and mild degree of fluid in the small bowel with a transition in the distal jejunum concerning for a bowel obstruction. * Patient was however having diarrhea also it is unlikely he has small bowel obstruction. * NG tube removed. Symptoms thought to be due to viral gastroenteritis. * Being gently hydrated with IV fluids. General surgery on board. * IV morphine as needed for pain. * small bowel obstruction showed evidence of diffuse bowel distention consistent with ileus, and no evidence of of bowel obstruction. * C Diff negative, and enteric pathogen negative. Per general surgery, likely due to viral gastroenteritis. * per general surgery, to keep on clear liquid diet until abdominal pain resolves. * #RICO on CKD stage IIIa: Diuretics on hold. Patient be hydrated gently with IV fluids. CR is down to 1.52. #History of prostate cancer: S/p radiation. #AMRIK: On BiPAP #COPD: Not in exacerbation. Breathing treatments bronchodilators. #Hypertension: On carvedilol and amlodipine. Diuretics on hold on account of RICO on CKD. #GERD: On PPI. 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 #Type 2 diabetes mellitus: On insulin sliding scale. Accu-Cheks every 6 hourly as patient is NPO. #Super morbid obesity: BMI 61.7. Complicates acute care, expected recovery and prognosis. DVT prophylaxis: lovenox Charges/Coding Visit Charges Inpatient E&M: 99352 Subs Hosp L2
[2023-08-10 16:02] VITALS: BP 142/80; PULSE 88; RESP 16; TEMP 36.9; O2SAT 98
[2023-08-10 17:43] LABS: Bedside Glucose 112 mg/dL (74-106)
[2023-08-10] MEDS: Tamsulosin HCl 0.4 MG Capsule PO (21:32)
[2023-08-10] MEDS: Heparin Injection (Vial) 5,000 UNIT/ML VIAL 5000 UNIT SC (21:32)
[2023-08-10] MEDS: Atorvastatin Calcium 40 MG Tablet PO (21:35)
[2023-08-10 22:00] VITALS: BP 164/63; PULSE 88; RESP 16; TEMP 36.6; O2SAT 99
[2023-08-10 22:25] VITALS: BP 164/63; PULSE 88; RESP 16; TEMP 36.6; O2SAT 99
[2023-08-10 22:27] LABS: Bedside Glucose 77 mg/dL (74-106)
[2023-08-11 03:45] VITALS: BMI 58.6
[2023-08-11 04:00] VITALS: BP 125/83; PULSE 96; RESP 17; TEMP 36.6; O2SAT 93
[2023-08-11 04:25] VITALS: BP 125/83; PULSE 96; RESP 17; TEMP 36.6; O2SAT 93
[2023-08-11] MEDS: Heparin Injection (Vial) 5,000 UNIT/ML VIAL 5000 UNIT SC ×3 (06:24→23:06)
[2023-08-11 06:25] LABS: Absolute Lymphocyte Count 1.92 X10^3/uL (0.83-4.51); Absolute Neutrophil Count 5.9 X10^3/uL (2.0-7.7); Basophil# 0.03 X10^3/uL; Basophil% 0.3 % (0-1); Eosinophil# 0.27 X10^3/uL; Hemoglobin 11.9 g/dL (13.0-16.5); Lymphocyte # 1.92 X10^3/ul (0.83-4.51); Lymphocyte % 21.5 % (19-41); Mean Corp Hgb Conc 32.2 g/dL (32-36); Mean Corpuscular Hgb 29.5 pg (27.0-32.0); Mean Corpuscular Volume 91.6 fL (80-94); Mean Platelet Vol. 9.5 fl (6.2-12.0); Monocyte# 0.81 X10^3/uL; Monocyte% 9.1 % (0-10); NRBC Flagged by Analyzer 0 % (0-5); Neutrophil # 5.87 X10^3/uL (2.7-7.7); Neutrophil % 65.9 % (47-70); Platelet Count 249 K/mm3 (150-450); RBC Distribution Width CV 13.9 % (11.6-14.6); RBC Distribution Width SD 46.9 fl (35.1-43.9); Red Blood Count 4.04 M/mm3 (4.6-6.2); White Blood Count 8.9 K/mm3 (4.4-11.0)
[2023-08-11 06:50] LABS: Anion Gap 4 (5-15); BUN 11 mg/dL (7-18); BUN/Creat Ratio 7.2 RATIO (10-20); Calcium,Total 9.1 mg/dL (8.5-10.1); Chloride 108 mmol/L (98-107); Creatinine, Serum 1.52 mg/dL (0.70-1.30); EST Glomerular Filtration Rate 49 mL/min (>60); Est Glom Filt Rate - Afr Amer 59 mL/min (>60); Estimated Creatinine Clearance 44.09 ml/min; Glucose 96 mg/dL (74-106); Potassium 3.6 mmol/L (3.5-5.1); Sodium Level 137 mmol/L (136-145)
--- NOTE | 2023-08-11 08:20 | PN.SURG_ITS ---
Subjective Subjective Patient reports his abdominal pain has resolved and he did not have any nausea yesterday or overnight. He still did have 2 bouts of diarrhea overnight. Objective Data Objective Data Vital Signs: Vital Signs Temp Pulse Resp BP Pulse Ox O2 Del Method 98 F 96 17 125/83 H 93 Room Air 08/11/23 04:25 08/11/23 04:25 08/11/23 04:25 08/11/23 04:25 08/11/23 04:25 08/11/23 04:25 Oxygen Delivery Method Room Air Weight: 374 lb 12.573 oz Body Mass Index (BMI) 58.6 Intake & Output: Intake and Output for Last 24 Hours 08/09/23 08/10/23 08/11/23 23:59 23:59 23:59 Intake Total 2373.75 / 2473.75 2240 / 2440 200 / 200 Output Total 600 / 600 0 / 0 0 / 0 Balance 1773.75 / 1873.75 2240 / 2440 200 / 200 Lab / Micro Data 08/11/23 05:50 08/11/23 05:50 Labs: Laboratory Results - last 24 hr 08/10/23 12:43: POC Glucose 83 08/10/23 17:21: POC Glucose 112 H 08/10/23 20:57: POC Glucose 77 08/11/23 05:50: WBC 8.9, RBC 4.04 L, Hgb 11.9 L, Hct 37.0 L, MCV 91.6, MCH 29.5, MCHC 32.2 D, RDW Std Deviation 46.9 H, RDW Coeff of Francis 13.9, Plt Count 249, MPV 9.5, Immature Gran % (Auto) 0.200, Neut % (Auto) 65.9, Lymph % (Auto) 21.5, [place] % (Auto) 9.1, Eos % (Auto) 3.0, Baso % (Auto) 0.3, Absolute Neuts (auto) 5.9, Absolute Lymphs (auto) 1.92, Nucleated RBC % 0, Sodium 137, Potassium 3.6, Chloride 108 H, Carbon Dioxide 25.0, Anion Gap 4 L, BUN 11, Creatinine 1.52 H, Estim Creat Clear Calc 44.09, Est GFR (MDRD) Af Amer 59 L, Est GFR (MDRD) Non-Af 49 L, BUN/Creatinine Ratio 7.2 L, Glucose 96, Calcium 9.1 Micro: Microbiology 08/08/23 20:46 Stool Enteric Bacteriology - Final 08/08/23 20:46 Stool C. difficile DNA Amplification - Final 08/08/23 12:14 Nasal Secretion SARS-CoV-2 & FLU Antigen (Rapid) - Final Radiography Diagnostic Testing: Radiology Impression Small Bowel X-Ray 08/09/23 07:37 IMPRESSION: No evidence of bowel obstruction. Diffuse bowel distention consistent with ileus. Electronically Signed: Kranthi Montano MD at 9:27 EST , Physical Exam Const oriented x3 and no apparent distress Resp normal respiratory effort GI soft to palpation and non-tender Assessment & Plan Assessment/Plan (1) Abdominal pain: QUALIFIERS: Abdominal location: lower abdomen, unspecified Qualified Code(s): R10.30 - Lower abdominal pain, unspecified (2) Diarrhea in adult patient: PLAN: Plan Patient's abdominal pain has improved. I will try a regular diet to see if this helps thicken up his stools as well. This is likely gastroenteritis or some viral syndrome. If he tolerates regular diet he can go home from my standpoint and follow-up with Dr. Alex as needed. Hardik Thomson MD Pager: [facility] [address] [place] [address], [address] [place] [address] Office:
[2023-08-11 08:45] LABS: Bedside Glucose 99 mg/dL (74-106)
[2023-08-11 09:07] VITALS: BP 132/68; PULSE 90; RESP 14; TEMP 36.8; O2SAT 97
[2023-08-11] MEDS: Pantoprazole Sodium 40 MG in 0.9% Normal Saline (100mL MB+) 100 ML 330 MG IV (09:10)
[2023-08-11] MEDS: amLODIPine 5 MG Tablet PO (09:11)
[2023-08-11] MEDS: Carvedilol 25 MG Tablet PO ×2 (09:11→23:06)
[2023-08-11] MEDS: 0.9% Saline Lock 10 ML Syringe IV (09:12)
[2023-08-11] MEDS: Acetaminophen 325 MG Tablet 650 MG PO (09:31)
[2023-08-11 15:39] VITALS: BP 134/63; PULSE 92; RESP 14; TEMP 36.6; O2SAT 96
--- NOTE | 2023-08-11 16:04 | PCM.PN.HOSP ---
Reason for Visit Reason for Visit: Diagnoses Type 2 diabetes mellitus without complications (08/08/23) Obesity, unspecified (08/08/23) Sleep apnea, unspecified (08/08/23) Essential (primary) hypertension (08/08/23) Chronic obstructive pulmonary disease, unspecified (08/08/23) Unspecified intestinal obstruction, unspecified as to partial versus complete obstruction (08/08/23) Acute kidney failure, unspecified (08/08/23) Lower abdominal pain, unspecified (08/08/23) Unspecified abdominal pain (08/08/23) Diarrhea, unspecified (08/08/23) Subjective Subjective Patient was seen and examined today, he has not had any diarrhea today, he states he wants to stay until tomorrow to make sure he does not get sick when he goes home. His diet was changed this morning by surgery. Objective Data Objective Data Vital Signs: Vital Signs Temp Pulse Resp BP Pulse Ox O2 Del Method 98 F 92 14 134/63 H 96 Room Air 08/11/23 15:39 08/11/23 15:39 08/11/23 15:39 08/11/23 15:39 08/11/23 15:39 08/11/23 15:39 Oxygen Delivery Method Room Air Weight: 170 kg Body Mass Index (BMI) 58.6 Intake & Output: Intake and Output for Last 24 Hours 08/09/23 08/10/23 08/11/23 23:59 23:59 23:59 Intake Total 2373.75 / 2473.75 2240 / 2440 977.5 / 977.5 Output Total 600 / 600 0 / 0 0 / 0 Balance 1773.75 / 1873.75 2240 / 2440 977.5 / 977.5 Lab / Micro Data 08/11/23 05:50 08/11/23 05:50 Labs: Laboratory Results - last 24 hr 08/10/23 17:21: POC Glucose 112 H 08/10/23 20:57: POC Glucose 77 08/11/23 05:50: WBC 8.9, RBC 4.04 L, Hgb 11.9 L, Hct 37.0 L, MCV 91.6, MCH 29.5, MCHC 32.2 D, RDW Std Deviation 46.9 H, RDW Coeff of Francis 13.9, Plt Count 249, MPV 9.5, Immature Gran % (Auto) 0.200, Neut % (Auto) 65.9, Lymph % (Auto) 21.5, [place] % (Auto) 9.1, Eos % (Auto) 3.0, Baso % (Auto) 0.3, Absolute Neuts (auto) 5.9, Absolute Lymphs (auto) 1.92, Nucleated RBC % 0, Sodium 137, Potassium 3.6, Chloride 108 H, Carbon Dioxide 25.0, Anion Gap 4 L, BUN 11, Creatinine 1.52 H, Estim Creat Clear Calc 44.09, Est GFR (MDRD) Af Amer 59 L, Est GFR (MDRD) Non-Af 49 L, BUN/Creatinine Ratio 7.2 L, Glucose 96, Calcium 9.1 08/11/23 06:22: POC Glucose 99 Micro: Microbiology 08/08/23 20:46 Stool Enteric Bacteriology - Final 08/08/23 20:46 Stool C. difficile DNA Amplification - Final 08/08/23 12:14 Nasal Secretion SARS-CoV-2 & FLU Antigen (Rapid) - Final Physical Exam Const alert, oriented x3 and no apparent distress Constitutional Narrative: Patient is morbidly obese General Appearance: cooperative, well kempt and well developed Orientation / Consciousness: awake, oriented to person, oriented to place and oriented to time HEENT normocephalic, head/scalp atraumatic and moist oral mucous membranes Eyes PERRL, EOMs intact bilaterally and conjunctivae normal Neck supple, no JVD, thyroid normal and no carotid bruits General: trachea midline Resp normal respiratory effort, no retractions, no use of accessory muscles and clear to auscultation bilaterally Auscultation: Negative for rales, rhonchi or wheezes Cardio regular rate, regular rhythm, S1 normal heart sound, S2 normal heart sound, no murmurs, no rub and no gallops GI normal to inspection, nondistended, normoactive bowel sounds, soft to palpation, non-tender and non-distended Extremity no clubbing, cyanosis or edema Skin no rashes or lesions noted General Skin Exam: no breakdown Neuro oriented x3, CN's II-XII intact bilaterally, moves all extremities, no focal motor deficits and no sensory deficits noted Sensorium / Orientation: awake, alert, oriented to person, oriented to place and oriented to time Speech: speech normal Psych affect normal Assessment & Plan Assessment/Plan (1) Diarrhea in adult patient: PLAN: Plan 1. Acute gastroenteritis-patient's diet was increased today, if he remains stable tomorrow, I told him most likely he would be discharged home. #2 chronic kidney disease stage IIIa secondary to type 2 diabetes-complicates care, medical course, recovery, and prognosis #3 morbid obesity-complicates care, medical course, recovery, and prognosis #4 essential hypertension-patient will remain on his present medication #5 hyperlipidemia-patient is on a statin Total clinical time spent by myself addressing the patient's medical issues, reviewing all of his data, and collaborating with patient's care team: 25 minutes Charges/Coding Visit Charges Inpatient E&M: 51488 Subs Hosp L1
[2023-08-11 17:27] LABS: Bedside Glucose 165 mg/dL (74-106)
[2023-08-11 22:00] VITALS: BP 154/68; PULSE 79; RESP 16; TEMP 36.5; O2SAT 100
[2023-08-11 22:54] VITALS: BP 154/68; PULSE 79; RESP 16; TEMP 36.5; O2SAT 100
[2023-08-11] MEDS: Tamsulosin HCl 0.4 MG Capsule PO (23:07)
[2023-08-11] MEDS: MELATONIN 3 MG TABLET PO (23:07)
[2023-08-11] MEDS: Atorvastatin Calcium 40 MG Tablet PO (23:07)
[2023-08-12 00:24] LABS: Bedside Glucose 108 mg/dL (74-106)
[2023-08-12 02:58] VITALS: BP 129/65; PULSE 86; RESP 16; TEMP 36.7; O2SAT 96
[2023-08-12 04:00] VITALS: BP 129/65; PULSE 86; RESP 16; TEMP 36.6; O2SAT 96
[2023-08-12 05:05] VITALS: BMI 58.6
[2023-08-12] MEDS: Heparin Injection (Vial) 5,000 UNIT/ML VIAL 5000 UNIT SC (07:52)
[2023-08-12 08:13] LABS: Bedside Glucose 96 mg/dL (74-106)
--- NOTE | 2023-08-12 08:36 | PCM.PN.HOSP ---
Reason for Visit Reason for Visit: Diagnoses Type 2 diabetes mellitus without complications (08/08/23) Obesity, unspecified (08/08/23) Sleep apnea, unspecified (08/08/23) Essential (primary) hypertension (08/08/23) Chronic obstructive pulmonary disease, unspecified (08/08/23) Unspecified intestinal obstruction, unspecified as to partial versus complete obstruction (08/08/23) Acute kidney failure, unspecified (08/08/23) Lower abdominal pain, unspecified (08/08/23) Unspecified abdominal pain (08/08/23) Diarrhea, unspecified (08/08/23) Objective Data Objective Data Vital Signs: Vital Signs Temp Pulse Resp BP Pulse Ox O2 Del Method 98 F 86 16 129/65 H 96 Room Air 08/12/23 04:00 08/12/23 04:00 08/12/23 04:00 08/12/23 04:00 08/12/23 04:00 08/12/23 04:00 Oxygen Delivery Method Room Air Weight: 170 kg Body Mass Index (BMI) 58.6 Intake & Output: Intake and Output for Last 24 Hours 08/10/23 08/11/23 08/12/23 23:59 23:59 23:59 Intake Total 2240 / 2440 1527.5 / 1527.5 Output Total 0 / 0 0 / 0 Balance 2240 / 2440 1527.5 / 1527.5 Lab / Micro Data 08/11/23 05:50 08/11/23 05:50 Labs: Laboratory Results - last 24 hr 08/11/23 06:22: POC Glucose 99 08/11/23 17:06: POC Glucose 165 H 08/11/23 22:51: POC Glucose 108 H 08/12/23 07:46: POC Glucose 96 Micro: Microbiology 08/08/23 20:46 Stool Enteric Bacteriology - Final 08/08/23 20:46 Stool C. difficile DNA Amplification - Final 08/08/23 12:14 Nasal Secretion SARS-CoV-2 & FLU Antigen (Rapid) - Final Physical Exam Narrative GENERAL: cooperative HEENT: Atraumatic; normocephalic EYES; Anicteric, Normal Conjunctiva NECK; supple, normal thyroid, RESPIRATORY: Diminished to auscultation CARDIOVASCULAR: Regular S1 S2, GI: soft, normoactive bowel sounds, : No Renal angle tenderness; EXTREMITIES: No edema, no clubbing, MUSCULOSKELETAL: no muscle wasting NEURO: Awake; no lateralizing signs. SKIN: No Rash PSYCH; Flat affect Assessment & Plan Assessment/Plan (1) Diarrhea in adult patient: PLAN: Plan 1. Acute gastroenteritis-patient's diet was increased today, if he remains stable tomorrow, I told him most likely he would be discharged home. #2 chronic kidney disease stage IIIa secondary to type 2 diabetes-complicates care, medical course, recovery, and prognosis #3 morbid obesity-complicates care, medical course, recovery, and prognosis #4 essential hypertension-patient will remain on his present medication #5 hyperlipidemia-patient is on a statin Total clinical time spent by myself addressing the patient's medical issues, reviewing all of his data, and collaborating with patient's care team: 25 minutes
[2023-08-12] MEDS: Carvedilol 25 MG Tablet PO (09:57)
[2023-08-12] MEDS: Pantoprazole Sodium 40 MG Tablet PO (09:57)
[2023-08-12] MEDS: amLODIPine 5 MG Tablet PO (09:57)
[2023-08-12 10:00] VITALS: BP 137/67; PULSE 82; RESP 18; TEMP 36.6; O2SAT 97
--- NOTE | 2023-08-12 10:58 | PCM.DC.SUM ---
Providers Date of Admission: 08/08/23 Date of Discharge: 08/12/23 Primary Care Physician: Dr. Simon Victoria MD Consultations 08/08/23 18:30 Consult: General Surgery Routine Consulting Provider: Joey Alex Reason for Consult: concern for developing bowel obstruction EMERGENT Consult: No MD Notified: Yes Date Notified: 08/08/23 Time Notified: 16:07 Method of Notification: Text Reason For Visit: CONCERN FOR DEVELOPING SBO, INTRACTABLE DIARRHEA, Diagnosis Discharge Diagnosis (1) Diarrhea in adult patient: Status: Acute Code(s): R19.7 - Diarrhea, unspecified Medications at Discharge Home Medications albuterol sulfate 2.5 mg/3 mL (0.083 %) solution for nebulization 2.5 mg inhalation Q4H PRN WHEEZING/SHORTNESS OF BREATH 05/15/17 atorvastatin 40 mg tablet 40 mg PO QHS CHOLESTEROL 05/15/17 nitroglycerin 0.4 mg sublingual tablet (Nitrostat) 0.4 mg sublingual Q5M PRN CHEST PAIN 05/15/17 tamsulosin 0.4 mg capsule 0.4 mg PO QHS PROSTATE 10/23/17 albuterol sulfate 90 mcg/actuation aerosol inhaler 2 puff inhalation Q4H PRN WHEEZING/SHORTNESS OF BREATH 05/12/20 amlodipine 5 mg tablet 5 mg PO DAILY BLOOD PRESSURE 05/12/20 carvedilol 25 mg tablet 25 mg PO BID HEART 05/12/20 omeprazole 20 mg capsule,delayed release 20 mg PO DAILY ACID REFLUX 05/12/20 ondansetron 4 mg disintegrating tablet 4 mg PO Q8H PRN NAUSEA/VOMITING #10 tabs 03/05/22 oxybutynin chloride 10 mg tablet,extended release 24 hr 20 mg PO DAILY OVERACTIVE BLADDER 06/13/22 artificial tears with lanolin eye ointment 1 applic EACH EYE DAILY PRN LEFT EYE 08/08/23 celecoxib 100 mg capsule 100 mg PO BID INFLAMMATION 08/08/23 cholecalciferol (vitamin D3) 50 mcg (2,000 unit) tablet (Vitamin D3) 50 mcg PO DAILY SUPPLEMENT 08/08/23 cyanocobalamin (vitamin B-12) 1,000 mcg tablet (Vitamin B-12) 1,000 mcg PO DAILY SUUPLEMENT 08/08/23 furosemide 40 mg tablet 40 mg PO DAILY FLUID 08/08/23 semaglutide 2 mg/dose (8 mg/3 mL) subcutaneous pen injector (Ozempic) 2 mg subcut TH DIABETES 08/08/23 spironolactone 25 mg tablet 25 mg PO DAILY BLOOD PRESSURE 08/08/23 Hospital Course Summary of Care Provided Minutes Spent on Discharge: 35 Hospital Course: Patient is a 68-year-old gentleman admitted with nausea vomiting diarrhea as well as abdominal pain 1. Acute gastroenteritis ? Manage conservatively patient's symptoms did improve 2. Acute kidney injury ? Superimposed on chronic kidney disease stage IIIa. Patient baseline creatinine 1.5 Creatinine on admission was 1.83 potential nephrotoxic medications held patient kidney function did improve 3. Class III obesity with BMI of 58.7 ? Patient is on Ozempic as outpatient 4. BPH with lower urinary obstruction - Patient treated with tamsulosin 5. GERD ? On PPI 6. Diabetes mellitus type 2 ? Patient is on Ozempic 7. Hypertension - Blood pressure controlled, home medications continued with dose adjustment as needed 8. Dyslipidemia -Patient is on statin therapy, continued at home dose 9. Generalized osteoarthritis ? Patient is on celecoxib did continue 10. Obstructive sleep apnea ? On BiPAP at night 11. History of prostate CA ? Status post radiation therapy currently remission Physical Exam Narrative GENERAL: cooperative HEENT: Atraumatic; normocephalic EYES; Anicteric, Normal Conjunctiva NECK; supple, normal thyroid, RESPIRATORY: Diminished to auscultation CARDIOVASCULAR: Regular S1 S2, GI: soft, normoactive bowel sounds, : No Renal angle tenderness; EXTREMITIES: No edema, no clubbing, MUSCULOSKELETAL: no muscle wasting NEURO: Awake; no lateralizing signs. SKIN: No Rash PSYCH; Flat affect Weight / BMI Weight Weight: 170 kg Body Mass Index (BMI) 58.6 ABG / Lab / Microbiology Data 08/11/23 05:50 08/11/23 05:50 Laboratory: Laboratory Results - last 24 hr 08/11/23 17:06: POC Glucose 165 H 08/11/23 22:51: POC Glucose 108 H 08/12/23 07:46: POC Glucose 96 Microbiology: Microbiology 08/08/23 20:46 Stool Enteric Bacteriology - Final 08/08/23 20:46 Stool C. difficile DNA Amplification - Final 08/08/23 12:14 Nasal Secretion SARS-CoV-2 & FLU Antigen (Rapid) - Final D/C Instructions Discharge Diet: Low fat / Low cholesterol and 1800 Calorie Control Diet Discharge Activity: Return to Normal Activity Call your doctor if you observe: Fever of 101 or Higher, Shortness of breath, Fainting spells and Chest pain Meaningful Use Info Meaningful Use Diagnoses (Choose all that apply): None applicable Discharge Plan Admission Admit Date/Time: 08/08/23 16:03 Attending Provider: Weston Keller Primary Care Provider: Simon Victoria Consulting Providers: Joey Alex; Dawood Fuentes; Simon Egan Discharge Orders/Prescriptions Prescriptions: Continued atorvastatin 40 MG tablet 40 mg PO QHS albuterol sulfate 2.5 MG/3 ML solution for nebulization 2.5 mg inhalation Q4H PRN (Reason: WHEEZING/SHORTNESS OF BREATH ) nitroglycerin [Nitrostat] 0.4 MG tablet, sublingual 0.4 mg sublingual Q5M PRN (Reason: CHEST PAIN) Rx Instructions: DISSOLVE ONE TABLET UNDER THE TONGUE EVERY 5 MINUTES NEEDED FOR CHEST PAIN. DO NOT EXCEED 3 DOSES. tamsulosin 0.4 MG capsule 0.4 mg PO QHS carvedilol 25 MG tablet 25 mg PO BID amlodipine 5 MG tablet 5 mg PO DAILY omeprazole 20 MG capsule,delayed release(DR/EC) 20 mg PO DAILY albuterol sulfate 90 mcg/actuation HFA aerosol inhaler 2 puff inhalation Q4H PRN (Reason: WHEEZING/SHORTNESS OF BREATH ) ondansetron 4 mg tablet,disintegrating 4 mg PO Q8H PRN (Reason: NAUSEA/VOMITING ) Qty: 10 0RF oxybutynin chloride 10 mg Tablet Extended Release 24hr 20 mg PO DAILY Ozempic 2 mg/dose (8 mg/3 mL) pen injector 2 mg SUBCUT TH Patient Comments: PT STATES THEY ARE DUE FOR THEIR WEEKLY INJECTION TODAY 08-08-23 spironolactone 25 mg tablet 25 mg PO DAILY furosemide 40 mg tablet 40 mg PO DAILY celecoxib 100 mg capsule 100 mg PO BID cholecalciferol (vitamin D3) [Vitamin D3] 50 mcg (2,000 unit) tablet 50 mcg PO DAILY cyanocobalamin (vitamin B-12) [Vitamin B-12] 1,000 mcg tablet 1,000 mcg PO DAILY artificial tears with lanolin Ointment 1 applic EACH EYE DAILY PRN (Reason: LEFT EYE ) Referrals / Follow Up: Simon Victoria MD [Primary Care Provider] - Within 2 Weeks Disposition Disposition (needs filled in before D/C Order can be placed): Home, Self Care Charges/Coding Visit Charges Inpatient E&M: 40455 Disch Hosp >30min
--- NOTE | 2023-08-12 11:12 | PHA.DC.MR.R ---
Pharmacy [place] Med Reconciliation Pharmacy Service has performed discharge medication reconciliation for this patient. The patient's discharge medication list was reviewed for discrepancies and discrepancies were resolved. Medications at Discharge Home Medications albuterol sulfate 2.5 mg/3 mL (0.083 %) solution for nebulization 2.5 mg inhalation Q4H PRN WHEEZING/SHORTNESS OF BREATH 05/15/17 atorvastatin 40 mg tablet 40 mg PO QHS CHOLESTEROL 05/15/17 nitroglycerin 0.4 mg sublingual tablet (Nitrostat) 0.4 mg sublingual Q5M PRN CHEST PAIN 05/15/17 tamsulosin 0.4 mg capsule 0.4 mg PO QHS PROSTATE 10/23/17 albuterol sulfate 90 mcg/actuation aerosol inhaler 2 puff inhalation Q4H PRN WHEEZING/SHORTNESS OF BREATH 05/12/20 amlodipine 5 mg tablet 5 mg PO DAILY BLOOD PRESSURE 05/12/20 carvedilol 25 mg tablet 25 mg PO BID HEART 05/12/20 omeprazole 20 mg capsule,delayed release 20 mg PO DAILY ACID REFLUX 05/12/20 ondansetron 4 mg disintegrating tablet 4 mg PO Q8H PRN NAUSEA/VOMITING #10 tabs 03/05/22 oxybutynin chloride 10 mg tablet,extended release 24 hr 20 mg PO DAILY OVERACTIVE BLADDER 06/13/22 artificial tears with lanolin eye ointment 1 applic EACH EYE DAILY PRN LEFT EYE 08/08/23 celecoxib 100 mg capsule 100 mg PO BID INFLAMMATION 08/08/23 cholecalciferol (vitamin D3) 50 mcg (2,000 unit) tablet (Vitamin D3) 50 mcg PO DAILY SUPPLEMENT 08/08/23 cyanocobalamin (vitamin B-12) 1,000 mcg tablet (Vitamin B-12) 1,000 mcg PO DAILY SUUPLEMENT 08/08/23 furosemide 40 mg tablet 40 mg PO DAILY FLUID 08/08/23 semaglutide 2 mg/dose (8 mg/3 mL) subcutaneous pen injector (Ozempic) 2 mg subcut TH DIABETES 08/08/23 spironolactone 25 mg tablet 25 mg PO DAILY BLOOD PRESSURE 08/08/23
--- NOTE | 2023-08-12 12:00 | CASEMGMT ---
Patient has order for discharge. RN CM in to discuss needs at discharge. Patient state he's cool and denies needs at discharge. Patient had no further questions or concerns at this time.
[2023-08-12 12:27] VITALS: BP 137/67; PULSE 82; RESP 18; TEMP 36.6; O2SAT 97
[2023-08-12 12:33] LABS: Bedside Glucose 90 mg/dL (74-106)
== END 2023-08-12 12:46 | disposition home or self-care (01) | DRG 392 ==
LOC: ED 16:12 → PCU 17:28
PROVIDERS: Internal Medicine; Student in an Organized Health Care Education/Training Program; Admitting Provider Internal Medicine; Emergency Provider Emergency Medicine; PCP Family Medicine; Visit Provider Internal Medicine
DX: A08.4 Viral intestinal infection, unspecified (principal); N13.8 Other obstructive and reflux uropathy; N17.9 Acute kidney failure, unspecified; Z68.43 Body mass index [BMI] 50.0-59.9, adult; E11.22 Type 2 diabetes mellitus with diabetic chronic kidney disease; J44.9 Chronic obstructive pulmonary disease, unspecified; N18.31 Chronic kidney disease, stage 3a; E66.01 Morbid (severe) obesity due to excess calories; I12.9 Hypertensive chronic kidney disease with stage 1 through stage 4 chronic kidney disease, or unspecified chronic kidney disease; K21.9 Gastro-esophageal reflux disease without esophagitis; E78.5 Hyperlipidemia, unspecified; M15.9 Polyosteoarthritis, unspecified; N40.1 Benign prostatic hyperplasia with lower urinary tract symptoms; Z79.1 Long term (current) use of non-steroidal anti-inflammatories (NSAID); Z79.85 Long-term (current) use of injectable non-insulin antidiabetic drugs; Z79.899 Other long term (current) drug therapy; Z85.46 Personal history of malignant neoplasm of prostate; Z92.3 Personal history of irradiation; Z87.891 Personal history of nicotine dependence
CPT/HCPCS: 36415; 74018; 74176; 74250; 80048; 80053; 82962; 83036; 83605; 83690; 84484; 85025; 87428; 87493; 87506; 93005; 97162; 99285; J7030; J7040; A4216; J2405

== ENCOUNTER → 2024-12-18 | Outpatient (CLI) | payer MEDICARE, SELFPAY | END | disposition home or self-care (01) | LOC: SL 21:17 | PROVIDERS: PCP Family Medicine; Referring Provider Family Medicine; Visit Provider Family Medicine | DX: G47.33 Obstructive sleep apnea (adult) (pediatric) (principal) | CPT/HCPCS: 95811 ==

== ENCOUNTER 2024-12-29 10:25 | Inpatient (IN) | payer MEDICARE, SELFPAY ==
[2024-12-29] VITALS (11 sets, daily range): BP systolic 112–173; BP diastolic 63–71; PULSE 73–143; RESP 16–34; TEMP 36.6–37.1; O2SAT 95–97; BMI 60.9
--- NOTE | 2024-12-29 10:31 | EDS_ITS ---
HPI History of Present Illness Chief Complaint: Nausea/Vomiting/Diarrhea [facility] Medical History (Updated 12/29/24 @ 10:33 by Kristen Austin) Prostate cancer Diabetes Anxiety Cancer Coronary artery disease COPD (chronic obstructive pulmonary disease) Encounter for screening for COVID-19 Obesity SOBOE (shortness of breath on exertion) Chest pain Home Medications ?Medication ?Instructions ?Recorded ?Last Taken ?Type albuterol sulfate 2.5 mg/3 mL 2.5 mg inhalation Q4H FL N 05/15/17 08/26/18 History (0.083 %) solution for nebulization WHEEZING/SHORTNESS OF BREATH atorvastatin 40 mg tablet 40 mg PO QHS CHOLESTEROL 08/07/23 History nitroglycerin 0.4 mg sublingual 0.4 mg sublingual Q5M PRN CHEST 05/15/17 Unknown History tablet (Nitrostat) PAIN tamsulosin 0.4 mg capsule 0.4 mg PO QHS PROSTATE 10/2308/07/23 History albuterol sulfate 90 mcg/actuation 2 puff inhalation Q 4H PRN 05/12/20 Unknown History aerosol inhaler WHEEZING/SHORTNESS OF BREATH amlodipine 5 mg tablet 5 mg PO DAILY BLOOD PRESSURE 05/12/20 08/07/23 History carvedilol 25 mg tablet 25 mg PO BID HEART 05/12/20 08/07/23 History omeprazole 20 mg capsule,delayed 20 mg PO DAILY ACID R EFLUX 05/12/20 08/07/23 History release oxybutynin chloride 10 mg 20 mg PO DAILY OVERACTIVE BL ADDER 06/13/22 08/07/23 History tablet,extended release 24 hr artificial tears with lanolin eye 1 applic EACH EYE DA RAMÓN PRN LEFT 08/08/23 Unknown History ointment EYE celecoxib 100 mg capsule 100 mg PO BID INFLAMMATION 1 10/09/22 08/07/23 History cholecalciferol (vitamin D3) 50 50 mcg PO DAILY SUPPLE MENT 08/08/23 08/07/23 History mcg (2,000 unit) tablet (Vitamin D3) furosemide 40 mg tablet 40 mg PO DAILY FLUID 3 08/07/23 History spironolactone 25 mg tablet 25 mg PO DAILY BLOOD PRESS URE 08/08/23 08/07/23 History acetaminophen 500 mg tablet 500 mg PO Q6H PRN pain 02/17 Unknown History sildenafil 100 mg tablet 100 mg PO DAILY PRN sexual a ctivity 12/29/24 Unknown History Allergy/AdvReac Type Severity Reaction Status Date / Time oxycodone HCl (From Percodan) Allergy Hives Verified 12/29/24 10:31 oxycodone terephthalate Allergy Hives Verified 12/29/24 10:31 (From Percodan) Surgical History (Updated 12/29/24 @ 10:33 by Kristen Austin) H/O knee surgery Social History Smoking Status: Former smoker EXAM Physical Exam Const Vital Signs: 12/29/24 10:25 12/29/24 10:30 Temperature 98.4 F 98.4 F Temperature Source Oral Oral Pulse Rate 122 H 121 H Respiratory Rate 34 H 34 H Blood Pressure 173/71 H 133/63 H Blood Pressure Mean 105 86 Pulse Ox 96 97 Oxygen Delivery Method Room Air Room Air MDM MDM MDM Narrative Medical decision making narrative: HISTORY OF PRESENT ILLNESS: Chief complaint: Nausea vomiting diarrhea 69-year-old male history of CAD, COPD, hypertension, type 2 diabetes, obesity presents with nausea vomiting diarrhea. Notes started Saturday (12/23/2024). Notes he has been unable got a bed secondary to weakness from nausea vomiting diarrhea as well as left knee pain. Denies any trauma. REVIEW OF SYSTEMS: Pertinent positives: Nausea vomiting diarrhea, abdominal pain Pertinent negatives: PHYSICAL EXAM: Nursing triage notes reviewed, Vital signs reviewed Constitutional: please see mdm HENT: MMM Eyes: Pupils equal round and reactive to light, Extraocular muscles intact Neck: No stridor, no JVD, full neck ROM Lungs: Clear to auscultation, No wheezing or rales. No increased work of breathing, no conversational dyspnea, no accessory muscle use, no nasal flaring. No respiratory distress noted Heart: Regular rate and rhythm, No murmurs, No rubs and No gallops, 2+ distal pulses (radial, femoral, posterior tibial) in all extremities Abdomen: Soft, there is no tenderness, rigidity, rebound or guarding, no obvious peritoneal signs, no palpable pulsatile abdominal masses, no auscultated abdominal bruit : No CVAT Extremities: No edema Neuro: No new focal neurological deficits, cranial nerves II through XII intact, 5/5 strength in all present extremities. Intact sensation to light touch in all present extremities, 2+ reflexes bilateral patella tendons. Skin: No rash or lesions noted MEDICAL DECISION MAKING: Chief Complaint: please see HPI External records reviewed: reviewed prior imaging studies: Reviewed CT scan abdomen pelvis from 2022 which showed gastric distention, Small bowel distention Factors affecting care: As per HPI Social determinants of health: None History obtained from others: none Consults: none [facility] Narrative: The patient was initially tachycardic with a heart rate of 122, tachypneic to 34, saturating well on room air. I considered the following differential diagnosis: Dehydration, intra-abdominal surgical pathology, sepsis, UTI, invasive bacterial diarrhea, C. difficile Initially resuscitated patient 1 L normal saline, Zofran and Toradol. I obtained a broad lab and imaging workup to further elucidate etiology of the patient's complaint ALL IMAGES (IF OBTAINED) HAVE BEEN PERSONALLY REVIEWED AND INTERPRETED BY MYSELF. EKG with sinus tachycardia rate of 119, right axis deviation, prolonged QT interval, right bundle branch block, no obvious STEMI BMP with hyponatremia, metabolic acidosis, severe RICO LFTs show no evidence of hepatobiliary pathology. Lipase is wnl indicating no pancreatic inflammation. Initial lactate elevated consistent with endorgan hypoperfusion The patient and/or family, caregivers express understanding. The patient and/or family, caregivers agrees with the plan. Shared decision making: I will have a discussion with the patient and or visitors regarding risk/benefits of further testing or admission. They will be made aware of of the risk/benefits inherent in this decision they will be given the opportunity to voice understanding. Total critical care time today provided was at least 35 minutes. This excludes separately billable procedures. Critical care time (if documented) is secondary to the patient having high probability of clinically significant/life threatening deterioration in the patient's condition which required my urgent intervention. Impression: 1. Acute abdominal pain 2. Nausea vomiting diarrhea 3. Dehydration 4. RICO on CKD Dispo: Admit This note was generated with [employer] dictation software. It may contain incorrect words, spelling, and punctuation that were not noted in review of the chart prior to signing. Lab Data Labs: Laboratory Results - last 24 hr 12/29/24 10:58 Sodium 131 L Potassium 4.0 Chloride 98 Carbon Dioxide 19.2 L Anion Gap 14 BUN 45 H Creatinine 3.71 H Estim Creat Clear Calc 29.71 L Est GFR (MDRD) Non-Af 17 L BUN/Creatinine Ratio 12.0 Glucose 174 H Calcium 9.4 Total Bilirubin 0.71 AST 22 ALT 13 Alkaline Phosphatase 133 H Total Protein 8.0 Albumin 3.3 L Globulin 4.7 H Albumin/Globulin Ratio 0.7 L Lipase 31 Discharge Plan Triage Chief Complaint: Nausea/Vomiting/Diarrhea ED Provider: Felix Rivera Dx/Rx/DC Orders Prescriptions: No Action atorvastatin 40 MG tablet 40 mg PO QHS albuterol sulfate 2.5 MG/3 ML solution for nebulization 2.5 mg inhalation Q4H PRN (Reason: WHEEZING/SHORTNESS OF BREATH ) nitroglycerin [Nitrostat] 0.4 MG tablet, sublingual 0.4 mg sublingual Q5M PRN (Reason: CHEST PAIN) Rx Instructions: DISSOLVE ONE TABLET UNDER THE TONGUE EVERY 5 MINUTES NEEDED FOR CHEST PAIN. DO NOT EXCEED 3 DOSES. tamsulosin 0.4 MG capsule 0.4 mg PO QHS carvedilol 25 MG tablet 25 mg PO BID amlodipine 5 MG tablet 5 mg PO DAILY omeprazole 20 MG capsule,delayed release(DR/EC) 20 mg PO DAILY albuterol sulfate 90 mcg/actuation HFA aerosol inhaler 2 puff inhalation Q4H PRN (Reason: WHEEZING/SHORTNESS OF BREATH ) oxybutynin chloride 10 mg Tablet Extended Release 24hr 20 mg PO DAILY spironolactone 25 mg tablet 25 mg PO DAILY furosemide 40 mg tablet 40 mg PO DAILY celecoxib 100 mg capsule 100 mg PO BID cholecalciferol (vitamin D3) [Vitamin D3] 50 mcg (2,000 unit) tablet 50 mcg PO DAILY artificial tears with lanolin Ointment 1 applic EACH EYE DAILY PRN (Reason: LEFT EYE ) acetaminophen 500 mg tablet 500 mg PO Q6H PRN (Reason: pain) sildenafil 100 mg tablet 100 mg PO DAILY PRN (Reason: sexual activity) Rx Instructions: administer 30 minutes to 4 hours before activity Primary Care Provider: Simon Victoria Referrals: Simon Victoria MD [Primary Care Provider] - Print Language: Setswana
--- NOTE | 2024-12-29 10:31 | EX.ED.GENINJ ---
HPI History of Present Illness Chief Complaint: Nausea/Vomiting/Diarrhea [facility] Medical History (Updated 12/29/24 @ 13:50 by Delma Jeter) History of alcohol abuse Hx of substance abuse Former smoker BiPAP (biphasic positive airway pressure) dependence Myocardial infarct Migraines Prostate cancer Diabetes Anxiety Cancer Coronary artery disease COPD (chronic obstructive pulmonary disease) Encounter for screening for COVID-19 Obesity SOBOE (shortness of breath on exertion) Chest pain Home Medications ?Medication ?Instructions ?Recorded ?Last Taken ?Type albuterol sulfate 2.5 mg/3 mL 2.5 mg inhalation Q4H PRN 05/15/17 08/26/18 History (0.083 %) solution for nebulization WHEEZING/SHORTNESS OF BREATH atorvastatin 40 mg tablet 40 mg PO QHS CHOLESTEROL 05/15/17 08/07/23 History nitroglycerin 0.4 mg sublingual 0.4 mg sublingual Q5M PRN CHEST 05/15/17 Unknown History tablet (Nitrostat) PAIN tamsulosin 0.4 mg capsule 0.4 mg PO QHS PROSTATE 10/23/17 08/07/23 History albuterol sulfate 90 mcg/actuation 2 puff inhalation Q4H PRN 05/12/20 Unknown History aerosol inhaler WHEEZING/SHORTNESS OF BREATH amlodipine 5 mg tablet 5 mg PO DAILY BLOOD PRESSURE 05/12/20 08/07/23 History carvedilol 25 mg tablet 25 mg PO BID HEART 05/12/20 08/07/23 History omeprazole 20 mg capsule,delayed 20 mg PO DAILY ACID REFLUX 05/12/20 08/07/23 History release oxybutynin chloride 10 mg 20 mg PO DAILY OVERACTIVE BLADDER 06/13/22 08/07/23 History tablet,extended release 24 hr artificial tears with lanolin eye 1 applic EACH EYE DAILY PRN LEFT 08/08/23 Unknown History ointment EYE celecoxib 100 mg capsule 100 mg PO BID INFLAMMATION 08/08/23 08/07/23 History cholecalciferol (vitamin D3) 50 50 mcg PO DAILY SUPPLEMENT 08/08/23 08/07/23 History mcg (2,000 unit) tablet (Vitamin D3) furosemide 40 mg tablet 40 mg PO DAILY FLUID 08/08/23 08/07/23 History spironolactone 25 mg tablet 25 mg PO DAILY BLOOD PRESSURE 12/14/23 12/13/23 History acetaminophen 500 mg tablet 500 mg PO Q6H PRN pain 12/29/24 Unknown History sildenafil 100 mg tablet 100 mg PO DAILY PRN sexual activity 12/29/24 Unknown History Allergy/AdvReac Type Severity Reaction Status Date / Time oxycodone HCl (From Percodan) Allergy Hives Verified 12/29/24 10:31 oxycodone terephthalate Allergy Hives Verified 12/29/24 10:31 (From Percodan) Surgical History (Updated 12/29/24 @ 13:50 by Delma Jeter) History of coronary artery stent placement H/O knee surgery Social History Smoking Status: Former smoker EXAM Physical Exam Const Vital Signs: 12/29/24 10:25 12/29/24 10:30 12/29/24 11:30 Temperature 98.4 F 98.4 F 98.8 F Temperature Source Oral Oral Oral Pulse Rate 122 H 121 H 110 H Respiratory Rate 34 H 34 H 27 H Blood Pressure 173/71 H 133/63 H 119/66 Blood Pressure Mean 105 86 83 Pulse Ox 96 97 97 Oxygen Delivery Method Room Air Room Air Room Air 12/29/24 12:25 Temperature Temperature Source Pulse Rate 107 H Respiratory Rate 24 H Blood Pressure 119/66 Blood Pressure Mean 83 Pulse Ox 95 Oxygen Delivery Method Room Air MDM MDM MDM Narrative Medical decision making narrative: HISTORY OF PRESENT ILLNESS: Chief complaint: Nausea vomiting diarrhea 69-year-old male history of CAD, COPD, hypertension, type 2 diabetes, obesity presents with nausea vomiting diarrhea. Notes started Saturday (12/23/2024). Notes he has been unable got a bed secondary to weakness from nausea vomiting diarrhea as well as left knee pain. Denies any trauma. Denies shortness of breath or chest pain. Denies recent travel, new foods, sick contacts or recent antibiotics. REVIEW OF SYSTEMS: Pertinent positives: Nausea vomiting diarrhea, abdominal pain Pertinent negatives: PHYSICAL EXAM: Nursing triage notes reviewed, Vital signs reviewed Constitutional: please see mdm HENT: MMM Eyes: Pupils equal round and reactive to light, Extraocular muscles intact Neck: No stridor, no JVD, full neck ROM Lungs: Clear to auscultation, No wheezing or rales. No increased work of breathing, no conversational dyspnea, no accessory muscle use, no nasal flaring. No respiratory distress noted Heart: Regular rate and rhythm, No murmurs, No rubs and No gallops, 2+ distal pulses (radial, femoral, posterior tibial) in all extremities Abdomen: Limited by body habitus, soft, there is no tenderness, rigidity, rebound or guarding, no obvious peritoneal signs, no palpable pulsatile abdominal masses, no auscultated abdominal bruit : No CVAT Extremities: No edema Neuro: No new focal neurological deficits, cranial nerves II through XII intact, 5/5 strength in all present extremities. Intact sensation to light touch in all present extremities, 2+ reflexes bilateral patella tendons. Skin: No rash or lesions noted, there was stool noted along bilateral legs MEDICAL DECISION MAKING: Chief Complaint: please see HPI External records reviewed: reviewed prior imaging studies: Reviewed CT scan abdomen pelvis from 2022 which showed gastric distention, Small bowel distention Factors affecting care: As per [facility] Social determinants of health: None History obtained from others: none Consults: Internal medicine (Dr. Fuentes) recommended PCU admission MDM Narrative: The patient was initially tachycardic with a heart rate of 122, tachypneic to 34, saturating well on room air. Patient denied any respiratory symptoms despite tachypnea. Lungs were clear. Abdomen was distended and exam severe limited by body habitus. I considered the following differential diagnosis: Dehydration, intra-abdominal surgical pathology, sepsis, UTI, invasive bacterial diarrhea, C. difficile Initially resuscitated patient 1 L normal saline, Zofran and Toradol. I obtained a broad lab and imaging workup to further elucidate etiology of the patient's complaint ALL IMAGES (IF OBTAINED) HAVE BEEN PERSONALLY REVIEWED AND INTERPRETED BY MYSELF. EKG with sinus tachycardia rate of 119, right axis deviation, prolonged QT interval, right bundle branch block, no obvious STEMI BMP with hyponatremia, metabolic acidosis, severe RICO LFTs show no evidence of hepatobiliary pathology. Lipase is wnl indicating no pancreatic inflammation. Initial lactate elevated consistent with endorgan hypoperfusion LFTs show no evidence of hepatobiliary pathology. I have personally reviewed the patient's chest x-ray. Chest x-ray is unremarkable for pulmonary edema, pneumothorax, pneumonia or focal cardiopulmonary abnormality. CT scan of the abdomen pelvis shows stranding along the ureter and bladder wall thickening consistent with cystitis was pyelonephritis this could be the source of the patient's infection. Will begin broad-spectrum antibiotics The synthesis of the patient's history, physical exam, labs images suggest dehydration versus sepsis. Source could be urine. Gave broad-spectrum antibiotics and fluid resuscitation. Given abnormal vital signs, signs of RICO on CKD and sepsis will admit to PCU. Discussed with Dr. Fuentes who accepted the patient's case. The patient and/or family, caregivers express understanding. The patient and/or family, caregivers agrees with the plan. Shared decision making: I will have a discussion with the patient and or visitors regarding risk/benefits of further testing or admission. They will be made aware of of the risk/benefits inherent in this decision they will be given the opportunity to voice understanding. Total critical care time today provided was at least 35 minutes. This excludes separately billable procedures. Critical care time (if documented) is secondary to the patient having high probability of clinically significant/life threatening deterioration in the patient's condition which required my urgent intervention. Impression: 1. Acute abdominal pain 2. Nausea vomiting diarrhea 3. Dehydration 4. RICO on CKD 5. Hyponatremia 6. Metabolic acidosis Dispo: Admit This note was generated with Screenburn dictation software. It may contain incorrect words, spelling, and punctuation that were not noted in review of the chart prior to signing. Lab Data Labs: Laboratory Results - last 24 hr 12/29/24 12/29/24 10:58 12:06 WBC 6.9 RBC 3.72 L Hgb 10.7 L Hct 33.1 L MCV 89.0 MCH 28.8 MCHC 32.3 RDW Std Deviation 56.3 H RDW Coeff of Francis 17.2 H Plt Count 245 MPV 9.6 Immature Gran % (Auto) 0.600 Neut % (Auto) 60.0 Lymph % (Auto) 17.2 L [place] % (Auto) 14.8 H Eos % (Auto) 6.8 H Baso % (Auto) 0.6 Absolute Neuts (auto) 4.2 Absolute Lymphs (auto) 1.19 Nucleated RBC % 0 Sodium 131 L Potassium 4.0 Chloride 98 Carbon Dioxide 19.2 L Anion Gap 14 BUN 45 H Creatinine 3.71 H Estim Creat Clear Calc 29.71 L Est GFR (MDRD) Non-Af 17 L BUN/Creatinine Ratio 12.0 Glucose 174 H Lactic Acid 2.7 H* Calcium 9.4 Total Bilirubin 0.71 AST 22 ALT 13 Alkaline Phosphatase 133 H Total Protein 8.0 Albumin 3.3 L Globulin 4.7 H Albumin/Globulin Ratio 0.7 L Lipase 31 Radiography Diagnostic Testing: Clinical Impression(s) from Imaging Studies Abdomen/Pelvis CT 12/29/24 12:08 IMPRESSION: 1. Limited noncontrast exam. 2. Asymmetric stranding along the RIGHT kidney and ureter. No hydronephrosis or visualized ureteral calculus. Bladder wall thickening versus underdistention. Correlate for cystitis and ascending urinary tract infection such as pyelonephritis. 3. Colonic air-fluid levels suggesting malabsorption/diarrhea. No convincing inflammation to suggest colitis. 4. Partially imaged marked gynecomastia on the RIGHT, also present on CTA chest 06/13/2022. Although not definitely changed, given the marked asymmetry, the rare diagnosis of male breast cancer cannot be entirely excluded. Recommend clinical follow-up. 5. 6 mm nodule in the LEFT lung base. Given presumed history of prostate cancer, recommend clinical follow-up. Note that in the setting of known malignancy, the Fleischner recommendations for pulmonary nodule follow-up cannot be applied. 6. Mild splenomegaly. 7. Additional description as above. Reading Location: [facility] Chest X-Ray 12/29/24 12:15 IMPRESSION: 1. Limited underpenetrated exam. 2. Suspect perihilar bronchovascular prominence and mild interstitial/airspace disease. Consider edema or pneumonia/pneumonitis. PA and lateral chest radiographs or CT could be considered for improved delineation. 3. Additional description as above. Reading Location: [facility] Knee X-Ray 12/29/24 12:15 IMPRESSION: 1. No visible acute displaced fracture. 2. Additional description as above. Reading Location: [facility] Discharge Plan Triage Chief Complaint: Nausea/Vomiting/Diarrhea ED Provider: Felix Rivera Dx/Rx/DC Orders Prescriptions: No Action atorvastatin 40 MG tablet 40 mg PO QHS albuterol sulfate 2.5 MG/3 ML solution for nebulization 2.5 mg inhalation Q4H PRN (Reason: WHEEZING/SHORTNESS OF BREATH ) nitroglycerin [Nitrostat] 0.4 MG tablet, sublingual 0.4 mg sublingual Q5M PRN (Reason: CHEST PAIN) Rx Instructions: DISSOLVE ONE TABLET UNDER THE TONGUE EVERY 5 MINUTES NEEDED FOR CHEST PAIN. DO NOT EXCEED 3 DOSES. tamsulosin 0.4 MG capsule 0.4 mg PO QHS carvedilol 25 MG tablet 25 mg PO BID amlodipine 5 MG tablet 5 mg PO DAILY omeprazole 20 MG capsule,delayed release(DR/EC) 20 mg PO DAILY albuterol sulfate 90 mcg/actuation HFA aerosol inhaler 2 puff inhalation Q4H PRN (Reason: WHEEZING/SHORTNESS OF BREATH ) oxybutynin chloride 10 mg Tablet Extended Release 24hr 20 mg PO DAILY spironolactone 25 mg tablet 25 mg PO DAILY furosemide 40 mg tablet 40 mg PO DAILY celecoxib 100 mg capsule 100 mg PO BID cholecalciferol (vitamin D3) [Vitamin D3] 50 mcg (2,000 unit) tablet 50 mcg PO DAILY artificial tears with lanolin Ointment 1 applic EACH EYE DAILY PRN (Reason: LEFT EYE ) acetaminophen 500 mg tablet 500 mg PO Q6H PRN (Reason: pain) sildenafil 100 mg tablet 100 mg PO DAILY PRN (Reason: sexual activity) Rx Instructions: administer 30 minutes to 4 hours before activity Primary Care Provider: Simon Victoria Referrals: Simon Victoria MD [Primary Care Provider] - Print Language: Georgian
--- NOTE | 2024-12-29 10:40 | EKG12_ITS ---
Test Reason : HIGH HR Blood Pressure : */* mmHG Vent. Rate : 119 BPM Atrial Rate : 119 BPM P-R Int : 156 ms QRS Dur : 126 ms QT Int : 356 ms P-R-T Axes : 79 -84 66 degrees QTcB Int : 500 ms Sinus tachycardia with Premature atrial complexes Right bundle branch block Left anterior fascicular block Bifascicular block Abnormal ECG Confirmed by Joey Reyes ([id number]), video editor CHACHA PACHECO ([id number]) on 01/01/2025 12:53:10 PM Referred By: Simon Victoria Confirmed By: Joey Reyes
[2024-12-29] MEDS: Ondansetron 4 MG/2 ML Vial IV (11:37)
[2024-12-29] MEDS: Ketorolac 15 MG/ML Vial IV (11:37)
[2024-12-29] MEDS: 0.9% Normal Saline (1000mL) 1,000 ML 999 ML IV ×2 (11:38→13:32)
[2024-12-29 11:47] LABS: ALB/GLOB Ratio 0.7 RATIO (0.9-2.4); AST(SGOT) 22 U/L (<=37); Alanine Aminotransfer ALT/SGPT 13 U/L (<=46); Albumin, Serum 3.3 g/dL (3.4-4.8); Alkaline Phosphatase 133 U/L (40-129); Anion Gap 14 (5-15); BUN 45 mg/dL (4-19); Calcium,Total 9.4 mg/dL (7.6-11.0); Carbon Dioxide 19.2 mmol/L (21.0-32.0); Chloride 98 mmol/L (98-108); Creatinine, Serum 3.71 mg/dL (0.70-1.20); EST Glomerular Filtration Rate 17 (>60); Estimated Creatinine Clearance 29.71 ml/min (50-250); Globulin 4.7 g/dL (2.2-4.2); Glucose 174 mg/dL (70-99); Lipase 31 U/L (13-75); Sodium Level 131 mmol/L (133-145); Total Bilirubin 0.71 mg/dL (0.00-1.30)
--- NOTE | 2024-12-29 12:08 | CT_ITS ---
PROCEDURE: ABDOMEN/PELVIS WITHOUT CONT, 12/29/2024 REASON FOR EXAM: ABDOMINAL PAIN TECHNIQUE: CT abdomen and pelvis was performed without IV contrast. Multiplanar reformats were generated. IV contrast: None. RADIATION DOSE SUMMARY: CTDlvol: 24.18 mGy DLP: 1425.68 mGycm One or more dose reduction techniques were used (e.g., Automated exposure control, adjustment of the mA and/or kV according to patient size, use of iterative reconstruction technique). COMPARISON: 08/08/2023 FINDINGS: Exam limited by generalized photon starvation. Note that evaluation of the abdominopelvic viscera, vasculature, and remaining soft tissues is limited in the absence of IV contrast. Lung bases: Minimally imaged marked gynecomastia on the RIGHT, also present 06/13/2022. Coronary atherosclerosis and/or stents. Trace aortic annular calcification. Mild atelectasis/scarring. 6 mm subpleural nodule in the posterior LEFT costophrenic sulcus abutting the diaphragm (series 2, image 35). Similarly elevated LEFT hemidiaphragm. Liver: Unremarkable. Spleen: Mild splenomegaly, 13.5 cm.. Gallbladder: Unremarkable. Pancreas: Unremarkable. Adrenals: Unremarkable. Kidneys: Asymmetric RIGHT perinephric and periureteral stranding. No hydronephrosis or ureteral calculus identified. Bowel: Mild sigmoid diverticulosis colonic air-fluid levels suggesting malabsorption/diarrhea.. 3.3 cm cecal lipoma. Normal caliber appendix. Lymph nodes: Unremarkable. Vasculature: Mild atherosclerosis. Peritoneum: Unremarkable. Bladder: Bladder wall thickening versus underdistention. Reproductive Organs: Prostatic likely fiducial markers Body Wall: Tiny fat containing umbilical hernia. Small fat containing RIGHT inguinal hernia.. Bones: Multilevel spondylosis. Multilevel spinal canal stenoses probably up to severe, suboptimally evaluated by CT. Trace thoracolumbar levoscoliosis may be positional. Degenerative changes of the SI joints and pubic symphysis. CT/Abdomen/Pelvis without Cont IMPRESSION: 1. Limited noncontrast exam. 2. Asymmetric stranding along the RIGHT kidney and ureter. No hydronephrosis o r visualized ureteral calculus. Bladder wall thickening versus underdistention. Correlate for cystitis and ascending urinar y tract infection such as pyelonephritis. 3. Colonic air-fluid levels suggesting malabsorption/diarrhea. No convincing i nflammation to suggest colitis. 4. Partially imaged marked gynecomastia on the RIGHT, also present on CTA chest 06/13/2022. Although not definitely changed, given the marked asymmetry, the rare diagnosis of male breast cancer cannot be entirely excluded. Recommend clinical follow-up. 5. 6 mm nodule in the LEFT lung base. Given presumed history of prostate cance r, recommend clinical follow-up. Note that in the setting of known malignancy, the Fleischner recommendations for pulmonary nodul e follow-up cannot be applied. 6. Mild splenomegaly. 7. Additional description as above. Reading Location: [id number]
[2024-12-29 12:12] LABS: Lactic Acid 2.7 mmol/L (0.0-2.0)
--- NOTE | 2024-12-29 12:15 | RAD_ITS ---
PROCEDURE: KNEE 1 OR 2 VIEWS, 12/29/2024 REASON FOR EXAM: KNEE PAIN TECHNIQUE: PA and lateral views of the LEFT knee were obtained COMPARISON: None FINDINGS: Limited evaluation on the lateral view as the knee is held in greater than 90 degrees of flexion. Fracture/dislocation: None visible. Joint space(s): Mild loss of medial compartment joint space without bony hypertrophic changes suspected mild patellofemoral joint space loss suboptimally delineated.. Soft tissues: Unremarkable. Foreign bodies: None visible. Bone mineralization: Unremarkable. Other: None. RAD/Knee 1 or 2 Views IMPRESSION: 1. No visible acute displaced fracture. 2. Additional description as above. Reading Location: [id number]
--- NOTE | 2024-12-29 12:15 | RAD_ITS ---
PROCEDURE: CHEST 1 VIEW (PORTABLE), 12/29/2024 REASON FOR EXAM: SHORTNESS OF BREATH TECHNIQUE: A single portable AP view of the chest was obtained. COMPARISON: 06/13/2022 FINDINGS: Exam limited by underpenetration. Heart: Similar borderline mild cardiomegaly. Mediastinum: Central vascular prominence. Lungs/pleura: Suspect perihilar bronchovascular prominence and interstitial/airspace disease. Suspect prominent epicardial fat pad, similar to prior exams. No large pleural effusion or visible pneumothorax. Bones: Trace thoracolumbar dextroscoliosis may be positional.. Lines and support devices: None. Other: None. RAD/Chest 1 View (Portable) IMPRESSION: 1. Limited underpenetrated exam. 2. Suspect perihilar bronchovascular prominence and mild interstitial/airspace disease. Consider edema or pneumonia/pneumonitis. PA and lateral chest radiographs or CT could be considered for improved delinea tion. 3. Additional description as above. Reading Location: [id number]
[2024-12-29 12:17] LABS: Absolute Lymphocyte Count 1.19 X10^3/uL (0.83-4.51); Absolute Neutrophil Count 4.2 X10^3/uL (2.0-7.7); Basophil# 0.04 X10^3/uL; Basophil% 0.6 % (0-1); Eosinophil# 0.47 X10^3/uL; Eosinophils% 6.8 % (0-5); Hematocrit 33.1 % (40-54); Hemoglobin 10.7 g/dL (13.0-16.5); Lymphocyte # 1.19 X10^3/ul (0.83-4.51); Lymphocyte % 17.2 % (19-41); Mean Corp Hgb Conc 32.3 g/dL (32-36); Mean Corpuscular Hgb 28.8 pg (27.0-32.0); Mean Platelet Vol. 9.6 fl (6.2-12.0); Monocyte# 1.02 X10^3/uL; Monocyte% 14.8 % (0-10); NRBC Flagged by Analyzer 0 % (0-5); Neutrophil # 4.15 X10^3/uL (2.7-7.7); Platelet Count 245 K/mm3 (150-450); RBC Distribution Width CV 17.2 % (11.6-14.6); RBC Distribution Width SD 56.3 fl (35.1-43.9); Red Blood Count 3.72 M/mm3 (4.6-6.2); White Blood Count 6.9 K/mm3 (4.4-11.0)
[2024-12-29] MEDS: Piperacil/Tazobactam 4.5 GM in 0.9% Normal Saline (100mL MB+) 100 ML IV (13:32)
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
[2024-12-29] MEDS: Vancomycin HCl 2,000 MG in 0.9% Normal Saline (500mL Bag) 500 ML 250 MG IV (14:38)
[2024-12-29] MEDS: Carvedilol 25 MG Tablet PO (15:44)
--- NOTE | 2024-12-29 15:52 | PCM.RX.CS ---
Consult Antibiotic Management Pharmacy has been consulted to manage selected antibiotic: Vancomycin Type of Intervention Type of Consult: New start Suspected Infection Suspected Infection: Sepsis and Other (UTI) Prior Doses of Antibiotics Prior Doses of Antibiotics Received/Current Regimen: Vancomycin 2000 mg IV x 1 given 12/29/24 @ 1438 Labs Labs: Sodium 131 mmol/L (133-145) L 12/29/24 10:58 Potassium 4.0 mmol/L (3.3-5.1) 12/29/24 10:58 Chloride 98 mmol/L (98-108) 12/29/24 10:58 Carbon Dioxide 19.2 mmol/L (21.0-32.0) L 12/29/24 10:58 Anion Gap 14 (5-15) 12/29/24 10:58 BUN 45 mg/dL (4-19) H 12/29/24 10:58 Creatinine 3.71 mg/dL (0.70-1.20) H 12/29/24 10:58 Est GFR (MDRD) Non-Af 17 (>60) L 12/29/24 10:58 BUN/Creatinine Ratio 12.0 RATIO (10-20) 12/29/24 10:58 Glucose 174 mg/dL (70-99) H 12/29/24 10:58 Dosing Weight Weight used for dosin kg Estimated Creatinine Clearance Estimated Creatinine Clearance: ~30 Goal Trough Goal Trough: 15-20 mcg/mL Pharmacy Plan for Drug Dosing Pharmacy Plan for Drug Dosing: Vancomycin 2000 mg IV x 1 followed by 1500 mg Q24H Pharmacy Service will continue to monitor and adjust dosing as required. Follow-Up Labs Follow-Up Labs: Trough: Vancomycin Date/Time Labs Ordered Labs to be done on [date and time ordered]: 12/31/24 @ 1400
[2024-12-29 16:41] LABS: Bedside Glucose 134 mg/dL (74-106)
[2024-12-29] MEDS: 0.9% Normal Saline (1000mL) 1,000 ML 150 ML IV (17:14)
[2024-12-29 19:16] LABS: Lactic Acid 1.6 mmol/L (0.0-2.0)
[2024-12-29] MEDS: Tamsulosin HCl 0.4 MG Capsule PO (21:18)
[2024-12-29] MEDS: Atorvastatin Calcium 40 MG Tablet PO (21:18)
[2024-12-29] MEDS: Heparin Injection (Vial) 5,000 UNIT/ML VIAL 5000 UNIT SC (21:19)
[2024-12-29] MEDS: Acetaminophen 500 MG Tablet PO (21:36)
[2024-12-29] MEDS: Piperacil/Tazobactam 3.375 GM in 0.9% Normal Saline (50mL MB+) 50 ML IV (21:37)
[2024-12-29 22:03] LABS: Bedside Glucose 131 mg/dL (74-106)
[2024-12-30 03:43] VITALS: BP 143/83; PULSE 72; RESP 16; TEMP 36.2; O2SAT 95
[2024-12-30] MEDS: 0.9% Normal Saline (250mL Bag) 250 ML 15 ML IV (04:25)
[2024-12-30] MEDS: Piperacil/Tazobactam 3.375 GM in 0.9% Normal Saline (50mL MB+) 50 ML IV ×2 (05:24→22:33)
[2024-12-30] MEDS: Heparin Injection (Vial) 5,000 UNIT/ML VIAL 5000 UNIT SC ×3 (05:24→22:33)
[2024-12-30 06:46] LABS: Bedside Glucose 124 mg/dL (74-106)
[2024-12-30 06:47] LABS: Absolute Lymphocyte Count 0.64 X10^3/uL (0.83-4.51); Absolute Neutrophil Count 10.9 X10^3/uL (2.0-7.7); Basophil# 0.03 X10^3/uL; Basophil% 0.2 % (0-1); Eosinophils% 1.5 % (0-5); Hematocrit 36.7 % (40-54); Hemoglobin 11.9 g/dL (13.0-16.5); Lymphocyte # 0.64 X10^3/ul (0.83-4.51); Lymphocyte % 4.7 % (19-41); Mean Corp Hgb Conc 32.4 g/dL (32-36); Mean Corpuscular Hgb 28.5 pg (27.0-32.0); Mean Platelet Vol. 9.2 fl (6.2-12.0); Monocyte# 1.77 X10^3/uL; Monocyte% 12.9 % (0-10); NRBC Flagged by Analyzer 0 % (0-5); Neutrophil # 10.94 X10^3/uL (2.7-7.7); POSITIVE DIFFERENTIAL YES; POSITIVE MORPHOLOGY YES; Platelet Count 221 K/mm3 (150-450); RBC Distribution Width CV 14.3 % (11.6-14.6); RBC Distribution Width SD 46.1 fl (35.1-43.9); Red Blood Count 4.17 M/mm3 (4.6-6.2); White Blood Count 13.7 K/mm3 (4.4-11.0)
[2024-12-30 06:50] LABS: Differential Indicated SCAN CRITERIA MET
[2024-12-30 07:12] LABS: ALB/GLOB Ratio 0.7 RATIO (0.9-2.4); AST(SGOT) 23 U/L (<=37); Alanine Aminotransfer ALT/SGPT 14 U/L (<=46); Albumin, Serum 2.9 g/dL (3.4-4.8); Alkaline Phosphatase 107 U/L (40-129); Anion Gap 14 (5-15); BUN 61 mg/dL (4-19); Calcium,Total 8.8 mg/dL (7.6-11.0); Carbon Dioxide 18.3 mmol/L (21.0-32.0); Chloride 103 mmol/L (98-108); Creatinine, Serum 5.52 mg/dL (0.70-1.20); EST Glomerular Filtration Rate 11 (>60); Estimated Creatinine Clearance 19.97 ml/min (50-250); Globulin 4.5 g/dL (2.2-4.2); Glucose 138 mg/dL (70-99); Potassium 4.3 mmol/L (3.3-5.1); Protein, Total 7.4 g/dL (5.9-8.4); Sodium Level 135 mmol/L (133-145); Total Bilirubin 0.46 mg/dL (0.00-1.30)
[2024-12-30 07:58] LABS: Hemoglobin A1c 7.4 % (<=5.6)
[2024-12-30 08:17] LABS: Mucous, Urine 0 SEEN /hpf (<or=2+); Squamous Epithelial Cells - UA 0 SEEN /hpf (0-5)
[2024-12-30 08:21] LABS: Color, Urine Yellow (Yellow); Glucose, Dipstick Normal (Normal); Ketone-Dipstick Negative (Negative); Leukocyte Esterase-Dipstick 500 /ul (Negative); Nitrite-Dipstick Negative (Negative); Occult Blood-Urine 250 /ul (Negative); Protein-Dipstick 100 mg/dl (Negative); Urine Bilirubin Dipstick Negative (Negative); Urine Clarity Cloudy (Clear); Urine Urobilinogen Normal (Normal)
[2024-12-30 08:28] LABS: Bacteria 2+ /hpf (None Seen); White Blood Cells 25-50 SEEN /hpf (0-5)
[2024-12-30 08:29] LABS: Red Blood Cells-Urine 0-5 SEEN /hpf (0-5)
[2024-12-30 08:53] VITALS: BP 141/61; PULSE 88; RESP 17; TEMP 36.8; O2SAT 96
[2024-12-30] MEDS: Acetaminophen 500 MG Tablet PO (08:59)
[2024-12-30] MEDS: Tolterodine Tartrate 2 MG CAP.SA PO (09:00)
[2024-12-30] MEDS: Pantoprazole Sodium 20 MG Tablet PO (09:00)
[2024-12-30] MEDS: Carvedilol 25 MG Tablet PO ×2 (09:00→16:56)
[2024-12-30] MEDS: amLODIPine 5 MG Tablet PO (09:01)
[2024-12-30] MEDS: Cholecalciferol (VIT D3) 25 MCG TABLET (1,000 UNITS) 50 MCG PO (09:01)
--- NOTE | 2024-12-30 09:09 | PN.HOSP_ITS ---
Reason for Visit Reason for Visit: Diagnoses Sepsis, unspecified organism (12/29/24) Pressure ulcer of unspecified site, unspecified stage (12/29/24) Acute kidney failure, unspecified (12/29/24) Tachycardia, unspecified (12/29/24) Other malaise (12/29/24) Subjective Subjective uncomfortable in his chair. Feels cold. Started having urine output. Objective Data Objective Data Vital Signs: Vital Signs Temp Pulse Resp BP Pulse Ox O2 Del Method FiO2 36.8 C 88 17 141/61 H 96 Room Air 21 12/30/24 08:53 12/30/24 08:53 12/30/24 08:53 12/30/24 08:53 12/30/24 08:53 12/30/24 08:53 12/30/24 03:32 Oxygen Delivery Method Room Air Weight: 176.4 kg Body Mass Index (BMI) 60.9 Intake & Output: Intake and Output for Last 24 Hours 12/28/24 12/29/24 12/30/24 23:59 23:59 23:59 Intake Total 2740 / 2740 1150 / 1150 Balance 2740 / 2740 1150 / 1150 Lab / Micro Data 12/30/24 06:30 12/30/24 06:30 Labs: Laboratory Results - last 24 hr 12/29/24 10:58: Sodium 131 L, Potassium 4.0, Chloride 98, Carbon Dioxide 19.2 L, Anion Gap 14, BUN 45 H, Creatinine 3.71 H, Estim Creat Clear Calc 29.71 L, Est GFR (MDRD) Non-Af 17 L, BUN/Creatinine Ratio 12.0, Glucose 174 H, Lactic Acid 2.7 H*, Calcium 9.4, Total Bilirubin 0.71, AST 22, ALT 13, Alkaline Phosphatase 133 H, Total Protein 8.0, Albumin 3.3 L, Globulin 4.7 H, Albumin/Globulin Ratio 0.7 L, Lipase 31 12/29/24 12:06: WBC 6.9, RBC 3.72 L, Hgb 10.7 L, Hct 33.1 L, MCV 89.0, MCH 28.8, MCHC 32.3, RDW Std Deviation 56.3 H, RDW Coeff of Francis 17.2 H, Plt Count 245, MPV 9.6, Immature Gran % (Auto) 0.600, Neut % (Auto) 60.0, Lymph % (Auto) 17.2 L, M nelson % (Auto) 14.8 H, Eos % (Auto) 6.8 H, Baso % (Auto) 0.6, Absolute Neuts (auto) 4.2, Absolute Lymphs (auto) 1.19, Nucleated RBC % 0 12/29/24 16:22: POC Glucose 134 H 12/29/24 18:34: Lactic Acid 1.6 12/29/24 21:42: POC Glucose 131 H 12/30/24 06:26: POC Glucose 124 H 12/30/24 06:30: WBC 13.7 H, RBC 4.17 L, Hgb 11.9 L, Hct 36.7 L, MCV 88.0, MCH 28.5, MCHC 32.4, RDW Std Deviation 46.1 H, RDW Coeff of Francis 14.3, Plt Count 221, MPV 9.2, Immature Gran % (Auto) 0.700, Neut % (Auto) 80.0 H, Lymph % (Auto) 4.7 L, Isabela % (Auto) 12.9 H, Eos % (Auto) 1.5, Baso % (Auto) 0.2, Absolute Neuts (auto) 10.9 H, Absolute Lymphs (auto) 0.64 L, Nucleated RBC % 0, Differential Comment COMMENT, Sodium 135, Potassium 4.3, Chloride 103, Carbon Dioxide 18.3 L, Anion Gap 14, BUN 61 H, Creatinine 5.52 H, Estim Creat Clear Calc 19.97 L, Est GFR (MDRD) Non-Af 11 L, BUN/Creatinine Ratio 11.0, Glucose 138 H, Hemoglobin A1c 7.4 H, Calcium 8.8, Total Bilirubin 0.46, AST 23, ALT 14, Alkaline Phosphatase 107, Total Protein 7.4, Albumin 2.9 L, Globulin 4.5 H, Albumin/Globulin Ratio 0.7 L 12/30/24 08:10: Urine Color Yellow, Urine Clarity Cloudy, Urine pH 5.0, Ur Specific Rhame 1.020, Urine Protein 100 H, Urine Glucose (UA) Normal, Urine Ketones Negative, Urine Occult Blood 250 H, Urine Nitrite Negative, Urine Bilirubin Negative, Urine Urobilinogen Normal, Ur Leukocyte Esterase 500 H, Urine RBC 0-5 SEEN, Urine WBC 25-50 SEEN, Ur Squamous Epith Cells 0 SEEN, Urine Bacteria 2+, Urine Mucus 0 SEEN Micro: Microbiology 12/29/24 Unknown Stool Enteric Bacteriology - Final 12/29/24 12:29 Blood Culture (Wb) - Venous Blood Culture - Preliminary 12/29/24 10:58 Blood Culture (Wb) - Venous Blood Culture - Preliminary 12/29/24 Unknown Stool Clostridioides difficile (PCR) - Final Radiography Diagnostic Testing: Radiology Impression Abdomen/Pelvis CT 12/29/24 12:08 IMPRESSION: 1. Limited noncontrast exam. 2. Asymmetric stranding along the RIGHT kidney and ureter. No hydronephrosis or visualized ureteral calculus. Bladder wall thickening versus underdistention. Correlate for cystitis and ascending urinary tract infection such as pyelonephritis. 3. Colonic air-fluid levels suggesting malabsorption/diarrhea. No convincing inflammation to suggest colitis. 4. Partially imaged marked gynecomastia on the RIGHT, also present on CTA chest 06/13/2022. Although not definitely changed, given the marked asymmetry, the rare diagnosis of male breast cancer cannot be entirely excluded. Recommend clinical follow-up. 5. 6 mm nodule in the LEFT lung base. Given presumed history of prostate cancer, recommend clinical follow-up. Note that in the setting of known malignancy, the Fleischner recommendations for pulmonary nodule follow-up cannot be applied. 6. Mild splenomegaly. 7. Additional description as above. Reading Location: [facility] Chest X-Ray 12/29/24 12:15 IMPRESSION: 1. Limited underpenetrated exam. 2. Suspect perihilar bronchovascular prominence and mild interstitial/airspace disease. Consider edema or pneumonia/pneumonitis. PA and lateral chest radiographs or CT could be considered for improved delineation. 3. Additional description as above. Reading Location: [facility] Knee X-Ray 12/29/24 12:15 IMPRESSION: 1. No visible acute displaced fracture. 2. Additional description as above. Reading Location: [id number] Physical Exam Const alert and no apparent distress Constitutional Narrative: alert. nontoxic. afebrile. Resp normal respiratory effort, no retractions and no use of accessory muscles Cardio regular rate, regular rhythm, S1 normal heart sound and S2 normal heart sound GI normal to inspection, nondistended, normoactive bowel sounds, soft to palpation, non-tender and non-distended Extremity normal to inspection and full ROM Assessment & Plan Assessment/Plan (1) Sepsis: PLAN: Unclear source but there is concern for perinephric stranding on his CT. Urinalysis not yet performed in the emergency room though was ordered. Therefore concerning for urinary source. Lactic acid elevated at 2.7. Patient is tachycardic but he is normotensive and alert and not hypoxic. He did receive 2 L of IV fluid. I do not feel the patient requires 30 cc/kg IV fluid is out quite out to roughly 5.3 L and I would be concerned about the patient developing pulmonary vascular congestion and respiratory distress or even failure if he were to receive the full quantity. Therefore he will not receive the 30 cc/kg of IV fluid. I will continue to give him IV fluids as he does have RICO. Follow-up blood cultures, UA equivocal. UCx pending. Continue the antibiotics with pip-tazo and vancomycin (2) RICO (acute kidney injury): PLAN: Worse today. Suspect prerenal Patient noted that his urine is bloody. I suspect is probably just more concentrated from the RICO. Will continue with IV fluids and monitor. Hold furosemide and spironolactone renal US negative. Check urine studies. (3) Debility: PLAN: Secondary to the underlying infection and sepsis. PT OT evaluate and treat Case management to assist with disposition. (4) Decubitus ulcer: PLAN: Ruled out. No wound identified, likely injury from laying on this extremity. (5) Sinus tachycardia: PLAN: Resolved Is more likely reactive secondary to his underlying sepsis, RICO but also the fact that he is probably not been taking his carvedilol. Patient received a dose of carvedilol in the emergency room. Will continue to monitor and continue with his carvedilol We will add as needed IV metoprolol if needed. PLAN: Plan Chronic conditions * Obesity class III: BMI of 60. Complicates care and recovery * AMRIK: Patient does use BiPAP. Patient can resume his BiPAP with sleep and naps. * Diabetes mellitus type 2: Sliding scale insulin. Check an A1c. * Prostate cancer: Follow-up with oncology * Hyperlipidemia: Continue with atorvastatin * Hypertension: Continue with amlodipine * BPH: Continue with tamsulosin VTE prophylaxis with subcu heparin CODE STATUS: Addressed with the patient. Patient wishes to be full code. Charges/Coding Visit Charges Inpatient E&M: 68200 Subs Hosp L2
--- NOTE | 2024-12-30 09:15 | US_ITS ---
PROCEDURE: KIDNEY AND BLADDER, 12/30/2024 REASON FOR EXAM: RICO TECHNIQUE: Grayscale and color doppler ultrasound of the kidneys and bladder was performed. COMPARISON: 12/29/2024 FINDINGS: Exam limited by soft tissue attenuation. Right kidney: 12.7 cm in length. No visualized mass, calculus, or hydronephrosis. Left kidney: 12.8 cm in length. No visualized mass, calculus, or hydronephrosis. Bladder: Decompressed by a Del Toro catheter and suboptimally evaluated.. Other: Suspect echogenic appearance of the minimally imaged hepatic parenchyma.. US/Kidney and Bladder IMPRESSION: 1. No hydronephrosis. 2. Appearance of the minimally imaged hepatic parenchyma most commonly associat ed with hepatic steatosis, however note is made of normal attenuation on previous CT. Fibrosis could appear similarly. Correlate for clinical and laboratory evidence of chronic liver disease. 3. Additional description as above. Reading Location: [id number]
--- NOTE | 2024-12-30 09:32 | PCM.RX.CS ---
Consult Antibiotic Management Pharmacy has been consulted to manage selected antibiotic: Vancomycin Type of Intervention Type of Consult: Follow-up Suspected Infection Suspected Infection: Sepsis Prior Doses of Antibiotics Prior Doses of Antibiotics Received/Current Regimen: current dose is vanc 1500mg IV q24h Labs Labs: Sodium 135 mmol/L (133-145) 12/30/24 06:30 Potassium 4.3 mmol/L (3.3-5.1) 12/30/24 06:30 Chloride 103 mmol/L (98-108) 12/30/24 06:30 Carbon Dioxide 18.3 mmol/L (21.0-32.0) L 12/30/24 06:30 Anion Gap 14 (5-15) 12/30/24 06:30 BUN 61 mg/dL (4-19) H 12/30/24 06:30 Creatinine 5.52 mg/dL (0.70-1.20) H 12/30/24 06:30 Est GFR (MDRD) Non-Af 11 (>60) L 12/30/24 06:30 BUN/Creatinine Ratio 11.0 RATIO (10-20) 12/30/24 06:30 Glucose 138 mg/dL (70-99) H 12/30/24 06:30 Microbiology Microbiology: Microbiology 12/29/24 Unknown Stool Enteric Bacteriology - Final 12/29/24 12:29 Blood Culture (Wb) - Venous Blood Culture - Preliminary 12/29/24 10:58 Blood Culture (Wb) - Venous Blood Culture - Preliminary 12/29/24 Unknown Stool Clostridioides difficile (PCR) - Final Dosing Weight Weight used for dosin.4 kg Estimated Creatinine Clearance Estimated Creatinine Clearance: 20 ml/min Goal Trough Goal Trough: 15-20 mcg/mL Pharmacy Plan for Drug Dosing Pharmacy Plan for Drug Dosing: The patient's SCr went up to 5.52 today from 3.71 yesterday and CrCl is about 20 today so will hold current dose and check a vanc level today approximately 24 hours after the 2000mg dose that the patient received yesterday in ER. Will use that level to determine if a dose should be given today. Pharmacy Service will continue to monitor and adjust dosing as required. Follow-Up Labs Follow-Up Labs: Trough: Vancomycin Date/Time Labs Ordered Labs to be done on [date and time ordered]: 12/31/24 14:00
--- NOTE | 2024-12-30 09:56 | WOUNDNOTE ---
was asked to see patient for possible decub to the left hip. patient states he had fallen at home and was not able to get up for a few days. states that he had laid in urine. pt repositioned in the bed to assess skin. no open areas or breakdown noted. pt pointed to the area he laid on to the left hip. skin blanches and is intact. will monitor. pt will most likely need NH placement at discharge.
[2024-12-30] MEDS: Insulin Lispro 100 UNIT/ML INSULN.PEN SC (11:34)
[2024-12-30 11:45] LABS: Bedside Glucose 179 mg/dL (74-106)
--- NOTE | 2024-12-30 13:31 | CASEMGMT ---
This RN CM to pt room at this time for initial assessment. Patient refused RN CM to complete assessment at this time. Pt states to maybe try again at a later time. PCU CM notified.
[2024-12-30 14:49] VITALS: BP 144/70; PULSE 79; RESP 18; TEMP 36.8; O2SAT 95
[2024-12-30 16:22] LABS: Lactic Acid 1.6 mmol/L (0.0-2.0)
--- NOTE | 2024-12-30 16:46 | PCM.RX.CS ---
Consult Antibiotic Management Pharmacy has been consulted to manage selected antibiotic: Vancomycin Type of Intervention Type of Consult: Follow-up Labs Labs: Sodium 135 mmol/L (133-145) 12/30/24 06:30 Potassium 4.3 mmol/L (3.3-5.1) 12/30/24 06:30 Chloride 103 mmol/L (98-108) 12/30/24 06:30 Carbon Dioxide 18.3 mmol/L (21.0-32.0) L 12/30/24 06:30 Anion Gap 14 (5-15) 12/30/24 06:30 BUN 61 mg/dL (4-19) H 12/30/24 06:30 Creatinine 5.52 mg/dL (0.70-1.20) H 12/30/24 06:30 Est GFR (MDRD) Non-Af 11 (>60) L 12/30/24 06:30 BUN/Creatinine Ratio 11.0 RATIO (10-20) 12/30/24 06:30 Glucose 138 mg/dL (70-99) H 12/30/24 06:30 Random Vancomycin 14.0 ug/mL (0.0-15.0) 12/30/24 15:15 Microbiology Microbiology: Microbiology 12/29/24 12:29 Blood Culture (Wb) - Anticubital Right Blood Culture - Preliminary 12/29/24 10:58 Blood Culture (Wb) - Anticubital Right Blood Culture - Preliminary GNR lactose weather strip mechanic 12/29/24 Unknown Stool Enteric Bacteriology - Final 12/29/24 Unknown Stool Clostridioides difficile (PCR) - Final Pharmacy Plan for Drug Dosing Pharmacy Plan for Drug Dosing: VANCOMYCIN LEVEL RECEIVED Current Vancomycin Dose: on hold Number of Doses Received: 1 Vancomycin Level: 14 MG/DL Hours Since Last Dose: 24.5 Renal Function: SCr 5.52 mg/dL, CrCl 20 ML/MIN Renal Function Trend: SCr worsened, 3.71 mg/dL, 5/ Lab/Micro: blood cx - GNR, urine Cx pending Vancomycin Plan/Comments: 24.5 hour random level is subtherapeutic at 14 mg/dL (goal 15-20). Will give a x1 1500mg dose as patient us just below therapeutic level and had a large jump in SCr today. Will get another level in 24 hours. Pending Level: 12/31/24 @ 1700 - random Pharmacy Service will continue to monitor and adjust dosing as required.
[2024-12-30] MEDS: Vancomycin HCl 1,500 MG in 0.9% Normal Saline (500mL Bag) 500 ML 250 MG IV (17:03)
[2024-12-30 17:25] LABS: Bedside Glucose 139 mg/dL (74-106)
[2024-12-30 22:00] VITALS: BP 136/63; PULSE 75; RESP 16; TEMP 36.8; O2SAT 99
[2024-12-30] MEDS: Tamsulosin HCl 0.4 MG Capsule PO (22:33)
[2024-12-30] MEDS: Atorvastatin Calcium 40 MG Tablet PO (22:33)
[2024-12-30] MEDS: 0.9% Saline Lock 10 ML Syringe IV (22:34)
[2024-12-30] MEDS: Ondansetron 4 MG/2 ML Vial IV (22:34)
[2024-12-30 23:31] LABS: Bedside Glucose 145 mg/dL (74-106)
[2024-12-30 23:47] LABS: Urea Nitrogen, Urine 274 mg/dL (NO RANGE EST.)
[2024-12-31 00:15] VITALS: RESP 18; O2SAT 99
[2024-12-31 03:50] VITALS: BP 138/69; PULSE 78; RESP 18; TEMP 36.6; O2SAT 95
[2024-12-31] MEDS: Insulin Lispro 100 UNIT/ML INSULN.PEN SC (06:10)
[2024-12-31] MEDS: 0.9% Saline Lock 10 ML Syringe IV (06:10)
[2024-12-31] MEDS: Heparin Injection (Vial) 5,000 UNIT/ML VIAL 5000 UNIT SC ×3 (06:10→21:29)
[2024-12-31 06:16] LABS: Absolute Lymphocyte Count 1.14 X10^3/uL (0.83-4.51); Absolute Neutrophil Count 10.7 X10^3/uL (2.0-7.7); Basophil# 0.03 X10^3/uL; Basophil% 0.2 % (0-1); Eosinophil# 0.46 X10^3/uL; Eosinophils% 3.3 % (0-5); Hematocrit 34.6 % (40-54); Hemoglobin 11.3 g/dL (13.0-16.5); Lymphocyte # 1.14 X10^3/ul (0.83-4.51); Lymphocyte % 8.1 % (19-41); Mean Corp Hgb Conc 32.7 g/dL (32-36); Mean Corpuscular Hgb 28.3 pg (27.0-32.0); Mean Corpuscular Volume 86.7 fL (80-94); Mean Platelet Vol. 9.7 fl (6.2-12.0); Monocyte# 1.62 X10^3/uL; Monocyte% 11.6 % (0-10); NRBC Flagged by Analyzer 0 % (0-5); Neutrophil # 10.68 X10^3/uL (2.7-7.7); Neutrophil % 76.3 % (47-70); POSITIVE DIFFERENTIAL YES; Platelet Count 257 K/mm3 (150-450); RBC Distribution Width CV 14.6 % (11.6-14.6); RBC Distribution Width SD 46.5 fl (35.1-43.9); Red Blood Count 3.99 M/mm3 (4.6-6.2)
[2024-12-31 06:31] LABS: Anion Gap 16 (5-15); BUN 73 mg/dL (4-19); BUN/Creat Ratio 10.2 RATIO (10-20); Carbon Dioxide 17.3 mmol/L (21.0-32.0); Chloride 99 mmol/L (98-108); Creatinine, Serum 7.13 mg/dL (0.70-1.20); EST Glomerular Filtration Rate 8 (>60); Estimated Creatinine Clearance 15.46 ml/min (50-250); Glucose 156 mg/dL (70-99); Potassium 3.9 mmol/L (3.3-5.1); Sodium Level 132 mmol/L (133-145)
[2024-12-31 06:40] LABS: Bedside Glucose 156 mg/dL (74-106)
[2024-12-31] MEDS: Calcium Carbonate 500 MG Tablet 1000 MG PO (06:40)
[2024-12-31 07:19] LABS: Differential Indicated SCAN CRITERIA MET
--- NOTE | 2024-12-31 08:36 | PCM.PN.HOSP ---
Reason for Visit Reason for Visit: Diagnoses Sepsis, unspecified organism (12/29/24) Pressure ulcer of unspecified site, unspecified stage (12/29/24) Acute kidney failure, unspecified (12/29/24) Tachycardia, unspecified (12/29/24) Other malaise (12/29/24) Subjective Subjective Bailey unwell last night that he may not make it. Upset with therapy today as a work coming off the wrong way with the patient. He had declined physical therapy today though he understands the reasoning for it. No appetite but states when he does eat meat vomits it up. Objective Data Objective Data Vital Signs: Vital Signs Temp Pulse Resp BP Pulse Ox O2 Del Method FiO2 36.6 C 78 18 138/69 H 95 Room Air 21 12/31/24 03:50 12/31/24 03:50 12/31/24 03:50 12/31/24 03:50 12/31/24 03:50 12/31/24 03:50 12/31/24 00:15 Oxygen Delivery Method Room Air Weight: 176.4 kg Body Mass Index (BMI) 60.9 Intake & Output: Intake and Output for Last 24 Hours 12/29/24 12/30/24 12/31/24 23:59 23:59 23:59 Intake Total 2740 / 2740 2830 / 2830 50 / 50 Output Total 330 / 580 650 / 650 Balance 2740 / 2740 2500 / 2250 -600 / -600 Lab / Micro Data 12/31/24 05:36 12/31/24 05:36 Labs: Laboratory Results - last 24 hr 12/30/24 08:10: Urine Creatinine 160.00 12/30/24 11:25: POC Glucose 179 H 12/30/24 13:00: Lactic Acid 1.6 12/30/24 15:15: Random Vancomycin 14.0 12/30/24 16:53: POC Glucose 139 H 12/30/24 22:31: POC Glucose 145 H 12/30/24 23:15: Urine Creatinine 128.00, Urine Urea Nitrogen 274 12/31/24 05:36: WBC 14.0 H, RBC 3.99 L, Hgb 11.3 L, Hct 34.6 L, MCV 86.7, MCH 28.3, MCHC 32.7, RDW Std Deviation 46.5 H, RDW Coeff of Francis 14.6, Plt Count 257, MPV 9.7, Immature Gran % (Auto) 0.500, Neut % (Auto) 76.3 H, Lymph % (Auto) 8.1 L, Putnam % (Auto) 11.6 H, Eos % (Auto) 3.3, Baso % (Auto) 0.2, Absolute Neuts (auto) 10.7 H, Absolute Lymphs (auto) 1.14, Nucleated RBC % 0, Sodium 132 L, Potassium 3.9, Chloride 99, Carbon Dioxide 17.3 L, Anion Gap 16 H, BUN 73 H, Creatinine 7.13 H, Estim Creat Clear Calc 15.46 L, Est GFR (MDRD) Non-Af 8 L, BUN/Creatinine Ratio 10.2, Glucose 156 H, Calcium 9.0 12/31/24 06:08: POC Glucose 156 H Micro: Microbiology 12/29/24 12:29 Blood Culture (Wb) - Anticubital Right Blood Culture - Preliminary 12/29/24 10:58 Blood Culture (Wb) - Anticubital Right Blood Culture - Preliminary GNR lactose manager primary care 12/29/24 Unknown Stool Enteric Bacteriology - Final 12/29/24 Unknown Stool Clostridioides difficile (PCR) - Final Radiography Diagnostic Testing: Radiology Impression Renal Ultrasound 12/30/24 09:15 IMPRESSION: 1. No hydronephrosis. 2. Appearance of the minimally imaged hepatic parenchyma most commonly associated with hepatic steatosis, however note is made of normal attenuation on previous CT. Fibrosis could appear similarly. Correlate for clinical and laboratory evidence of chronic liver disease. 3. Additional description as above. Reading Location: [facility] Physical Exam Const alert and no apparent distress HEENT head/scalp atraumatic and moist oral mucous membranes Neck no lymphadenopathy Resp normal respiratory effort, no retractions, no use of accessory muscles and clear to auscultation bilaterally Cardio regular rate, regular rhythm, S1 normal heart sound and S2 normal heart sound GI normal to inspection, nondistended, normoactive bowel sounds and soft to palpation GI Narrative: Abdomen obese. Extremity normal to inspection and no clubbing, cyanosis or edema Neuro no focal motor deficits Sensorium / Orientation: awake and alert Psych affect normal Assessment & Plan Assessment/Plan (1) Sepsis: PLAN: Unclear source but there is concern for perinephric stranding on his CT. and therefore concerning for pyelonephritis. It also appears that he has bacteremia with E. coli. His urine culture is growing out gram-negative rods thus far. Continue the antibiotics with pip-tazo and vancomycin Blood cultures showing E. coli (2) RICO (acute kidney injury): PLAN: Worse today. Suspect prerenal Patient noted that his urine is bloody. I suspect is probably just more concentrated from the RICO. Will continue with IV fluids and monitor. Hold furosemide and spironolactone renal US negative. FEUrea 19.37% consistent with prerenal azotemia. Continue IVF. Consult nephrology who is recommending continue with IV fluids. (3) Debility: PLAN: Secondary to the underlying infection and sepsis. PT OT evaluate and treat Case management to assist with disposition. (4) Sinus tachycardia: PLAN: Resolved Is more likely reactive secondary to his underlying sepsis, RICO but also the fact that he is probably not been taking his carvedilol. Patient received a dose of carvedilol in the emergency room. Will continue to monitor and continue with his carvedilol We will add as needed IV metoprolol if needed. (5) Vomiting: PLAN: Unclear significance at this [place] of his underlying infection. I will check an abdominal x-ray. PLAN: Plan Chronic conditions Obesity class III: BMI of 60. Complicates care and recovery AMRIK: Patient does use BiPAP. Patient can resume his BiPAP with sleep and naps. Diabetes mellitus type 2: Sliding scale insulin. Check an A1c. Prostate cancer: Follow-up with oncology Hyperlipidemia: Continue with atorvastatin Hypertension: Continue with amlodipine BPH: Continue with tamsulosin VTE prophylaxis with subcu heparin CODE STATUS: Addressed with the patient. Patient wishes to be full code. Greater than 50 minutes of which greater than 5% of time was counseling patient at bedside about RICO, underlying infection, treatment course, importance of therapy, and also providing reassurance that overall he is going to continue to improve. Charges/Coding Visit Charges Inpatient E&M: 950[address] [facility] H[facility] L3
[2024-12-31 09:07] VITALS: BP 151/77; PULSE 79; RESP 18; TEMP 36.6; O2SAT 96
[2024-12-31] MEDS: Piperacil/Tazobactam 3.375 GM in 0.9% Normal Saline (50mL MB+) 50 ML IV ×2 (09:13→21:29)
[2024-12-31] MEDS: 0.9% Normal Saline (1000mL) 1,000 ML 150 ML IV ×2 (09:13→17:20)
[2024-12-31] MEDS: amLODIPine 5 MG Tablet PO (09:17)
[2024-12-31] MEDS: Pantoprazole Sodium 20 MG Tablet PO (09:17)
[2024-12-31] MEDS: Carvedilol 25 MG Tablet PO ×2 (09:18→16:52)
[2024-12-31] MEDS: Cholecalciferol (VIT D3) 25 MCG TABLET (1,000 UNITS) 50 MCG PO (09:18)
[2024-12-31] MEDS: Tolterodine Tartrate 2 MG CAP.SA PO (09:18)
[2024-12-31] MEDS: Ondansetron 4 MG/2 ML Vial IV (09:23)
[2024-12-31 11:19] LABS: Bedside Glucose 117 mg/dL (74-106)
--- NOTE | 2024-12-31 11:32 | CASEMGMT ---
EZIO CARUSO Assessment: Face to Face with pt for initial transition planning/care coordination assessment. RN SHADY introduced self and role at [facility], pt voices understanding and consents to assessment. Pt lying in bed in no distress, has cpap on and states I wear this at night time so I just put it on in case I doze off. Pt states Someone from your department came in yesterday to talk with me RN SHADY Responded Yes, he said you didn't want to do the assessment yesterday so I came back today to see if I can speak with you today Pt states I couldn't yesterday because I had to go to get x-rays and he (EZIO CARUSO) wanted me to answer questions, but that's just too much for one day Pt states He's lying about not wanting to talk yesterday, I just need you guys to make an appointment, you can't just pop in here like that and expect me to be able to answer all your questions EZIO CARUSO explained that the CM from yesterday just stated pt not wanting to do assessment at that time so this RN CM wanted to follow up. Offered to leave and come back at a better time if Pt desired, Pt states No, I am ready to talk now. Pt is A&O x4 and answers all questions appropriately at this time. Care providers, pharmacy, and demographics verified/updated. Strata: 3 Admitting Dx: SEPSIS PCP: Esme Specialists: Urologist, [facility] - does not recall name. Preferred Pharmacy: [facility] Insurance: [facility] Prescription Benefit: yes LNOK: Pt refuses to provide a contact name for emergencies. Living Arrangements: Pt lives alone in an apt with 1 step to enter. Pt states It is getting difficult for me to do the step, but I don't want to call my landlord about it because I don't want him to raise the rent rate. ADLs: Pt reports I do everything myself at home Transportation: Pt reports he drives himself and denies concerns with transportation. DME: CPAP, Walker, Shower bench. HHC/SNF: [facility], [facility] or TCU. Pt states he does not feel he is able to go home at this time, he states I'm too weak, I can't take care of myself at this time. EZIO CARUSO asked Pt if he would like a list of local HHC facilities, pt states I don't think I am going to live through the day, I think I am dying. If I live through today, you can bring me a list tomorrow. RN CM informed RN SHADY and CHRISTIAN on unit. Pt states no further concerns/needs. CM to follow. Advised pt to ask CM if any further question/concerns/needs arise, voices understanding. Pt Goal: SNF Plan: SNF, follow for safe DC plan. Devon HOLGUIN CM
--- NOTE | 2024-12-31 13:02 | PCM.CONS.R ---
Assessment & Plan Assessment/Plan (1) RICO (acute kidney injury): PLAN: Acute renal failure. CKD stage IIIa at baseline, baseline creatinine is around 1.5. Presented with nausea, vomiting, generalized weakness. He states urine has also turned dark versus occasional red-colored. CT abdomen without any hydronephrosis, there is some perinephric stranding noted. Renal ultrasound no hydronephrosis. Urine analysis with RBC, protein, WBC. Urine culture pending. On empiric Zosyn for suspected pyelo-. Preadmission medication list reviewed. He is on Lasix and spironolactone. Noted to have gynecomastia on CT. Could be related to spironolactone. This might need to be switched, we will have to review old records. Both of these are on hold. Outpatient notes also mention Celebrex for arthritis. He says he has not been taking them. He was started on Lipitor couple of months ago for dyslipidemia. In view of marked muscle weakness, will check a CPK. Continue IV fluids otherwise. HPI Consult Data Date of Consult: 12/31/24 HPI Narrative Reason for Consultation: RICO HPI Narrative: IRAJ MANNING, is a 69 M who presents To the hospital with generalized weakness. Nephrology on consultation in view of acute renal failure. Reviewed records from [facility] with his primary care physician's. Baseline creatinine around 1.5. He says he has been sick for last couple of weeks. Main complaint was GI symptoms including vomiting and diarrhea. Subsequently developed severe generalized muscle weakness to the point that he cannot get out of the bed. He also noticed his urine turned dark brownish to reddish over the last several days. Denies any significant dysuria. No flank pain currently. No fevers or chills. Admission labs, creatinine 3.7, worsening. Lactate levels were slightly elevated, treated for sepsis, receiving IV fluids. CT abdomen showed perinephric stranding predominantly on the right side. Urine cultures pending. On empiric antibiotics. Preadmission medication list reviewed, he is on Lasix and spironolactone. He was also taking Celebrex for arthritis. No obstructive symptoms. [facility] Medical History History of alcohol abuse Hx of substance abuse Former smoker BiPAP (biphasic positive airway pressure) dependence Myocardial infarct Migraines Prostate cancer Diabetes Anxiety Cancer Coronary artery disease COPD (chronic obstructive pulmonary disease) Encounter for screening for COVID-19 Obesity SOBOE (shortness of breath on exertion) Chest pain Home Medications ?Medication ?Instructions ?Recorded ?Last Taken ?Type albuterol sulfate 2.5 mg/3 mL 2.5 mg inhalation Q4H PRN 05/15/17 08/26/18 History (0.083 %) solution for nebulization WHEEZING/SHORTNESS OF BREATH atorvastatin 40 mg tablet 40 mg PO QHS CHOLESTEROL 05/15/17 08/07/23 History nitroglycerin 0.4 mg sublingual 0.4 mg sublingual Q5M PRN CHEST 05/15/17 Unknown History tablet (Nitrostat) PAIN tamsulosin 0.4 mg capsule 0.4 mg PO QHS PROSTATE 10/23/17 08/07/23 History albuterol sulfate 90 mcg/actuation 2 puff inhalation Q4H PRN 05/12/20 Unknown History aerosol inhaler WHEEZING/SHORTNESS OF BREATH amlodipine 5 mg tablet 5 mg PO DAILY BLOOD PRESSURE 05/12/20 08/07/23 History carvedilol 25 mg tablet 25 mg PO BID HEART 05/12/20 08/07/23 History omeprazole 20 mg capsule,delayed 20 mg PO DAILY ACID REFLUX 05/12/20 08/07/23 History release oxybutynin chloride 10 mg 20 mg PO DAILY OVERACTIVE BLADDER 06/13/22 08/07/23 History tablet,extended release 24 hr artificial tears with lanolin eye 1 applic EACH EYE DAILY PRN LEFT 08/08/23 Unknown History ointment EYE celecoxib 100 mg capsule 100 mg PO BID INFLAMMATION 08/08/23 08/07/23 History cholecalciferol (vitamin D3) 50 50 mcg PO DAILY SUPPLEMENT 08/08/23 08/07/23 History mcg (2,000 unit) tablet (Vitamin D3) furosemide 40 mg tablet 40 mg PO DAILY FLUID 08/08/23 08/07/23 History spironolactone 25 mg tablet 25 mg PO DAILY BLOOD PRESSURE 08/08/23 08/07/23 History acetaminophen 500 mg tablet 500 mg PO Q6H PRN pain 12/29/24 Unknown History sildenafil 100 mg tablet 100 mg PO DAILY PRN sexual activity 12/29/24 Unknown History Allergy/AdvReac Type Severity Reaction Status Date / Time oxycodone HCl (From Percodan) Allergy Hives Verified 12/29/24 10:31 oxycodone terephthalate Allergy Hives Verified 12/29/24 10:31 (From Percodan) Family History (Updated 12/29/24 @ 14:[address] Dawood Fuentes DO) Other CAD (coronary artery disease) Surgical History History of coronary artery stent placement H/O knee surgery Social History (Updated 12/29/24 @ 14:[address] Dawood Fuentes DO) Smoking Status: Former smoker alcohol intake: former substance use type: does not use ROS ROS Narrative negative except above Physical Exam Narrative Alert awake oriented x 3 no obvious distress no pallor no icterus no JVD s1s2 no murmurs lungs clear abdomen soft no organomegaly no edema no cyanosis Lab / Micro Data 12/31/24 05:36 12/31/24 05:36 Labs: Laboratory Results - last 24 hr 12/30/24 08:10: Urine Creatinine 160.00 12/30/24 13:00: Lactic Acid 1.6 12/30/24 15:15: Random Vancomycin 14.0 12/30/24 16:53: POC Glucose 139 H 12/30/24 22:31: POC Glucose 145 H 12/30/24 23:15: Urine Creatinine 128.00, Urine Urea Nitrogen 274 12/31/24 05:36: WBC 14.0 H, RBC 3.99 L, Hgb 11.3 L, Hct 34.6 L, MCV 86.7, MCH 28.3, MCHC 32.7, RDW Std Deviation 46.5 H, RDW Coeff of Francis 14.6, Plt Count 257, MPV 9.7, Immature Gran % (Auto) 0.500, Neut % (Auto) 76.3 H, Lymph % (Auto) 8.1 L, Jenkins % (Auto) 11.6 H, Eos % (Auto) 3.3, Baso % (Auto) 0.2, Absolute Neuts (auto) 10.7 H, Absolute Lymphs (auto) 1.14, Nucleated RBC % 0, Sodium 132 L, Potassium 3.9, Chloride 99, Carbon Dioxide 17.3 L, Anion Gap 16 H, BUN 73 H, Creatinine 7.13 H, Estim Creat Clear Calc 15.46 L, Est GFR (MDRD) Non-Af 8 L, BUN/Creatinine Ratio 10.2, Glucose 156 H, Calcium 9.0 12/31/24 06:08: POC Glucose 156 H 12/31/24 11:00: POC Glucose 117 H Micro: Microbiology 12/30/24 08:10 Urine, Clean Catch Urine Culture - Preliminary GNR lactose manual qa tester GNR lactose manual qa tester#2 12/29/24 10:58 Blood Culture (Wb) - Anticubital Right Blood Culture - Final Escherichia coli 12/29/24 12:29 Blood Culture (Wb) - Anticubital Right Blood Culture - Final GNR lactose manual qa tester Imaging Radiology Impression Renal Ultrasound 12/30/24 09:15 IMPRESSION: 1. No hydronephrosis. 2. Appearance of the minimally imaged hepatic parenchyma most commonly associated with hepatic steatosis, however note is made of normal attenuation on previous CT. Fibrosis could appear similarly. Correlate for clinical and laboratory evidence of chronic liver disease. 3. Additional description as above. Reading Location: [id number]
[2024-12-31 15:06] VITALS: BP 137/66; PULSE 80; RESP 18; TEMP 36.6; O2SAT 96
[2024-12-31 15:09] LABS: CPK Total, Creatine Kinase 196 U/L (24-195)
[2024-12-31 17:10] LABS: Bedside Glucose 141 mg/dL (74-106)
--- NOTE | 2024-12-31 17:40 | RAD_ITS ---
PROCEDURE: ABDOMEN SINGLE VIEW (PORTABLE) 12/31/2024 REASON FOR EXAM: NAUSEA AND VOMITING. TECHNIQUE: Frontal views of the abdomen and pelvis. COMPARISON: Small bowel series on 08/09/2023, CT abdomen and pelvis 12/29/2024 FINDINGS: Limited exam due to patient body habitus and positioning. Bowel gas: Prominent gastric bubble. No radiographic evidence of bowel obstruction. Calcifications: No pathologic calcifications identified. Bones: There are degenerative changes of the spine. Unchanged sacroiliac joint sclerosis bilaterally. Other: Fiducial markers in the prostate. RAD/Abdomen Single View (Portable) IMPRESSION: Limited exam, without radiographic evidence of bowel obstruction. Reading Location: [facility]
[2024-12-31 17:47] LABS: Vancomycin, Random Level 19.8 ug/mL (0.0-15.0)
--- NOTE | 2024-12-31 18:03 | PHA.PHARE_ITS ---
Consult Antibiotic Management Pharmacy has been consulted to manage selected antibiotic: Vancomycin Type of Intervention Type of Consult: Follow-up Suspected Infection Suspected Infection: Sepsis and Other (UTI) Prior Doses of Antibiotics Prior Doses of Antibiotics Received/Current Regimen: Vancomycin 1500 mg IV x 1 given 12/30/24 @ 1703 Labs Labs: Sodium 132 mmol/L (133-145) L 12/31/24 05:36 Potassium 3.9 mmol/L (3.3-5.1) 12/31/24 05:36 Chloride 99 mmol/L (98-108) 12/31/24 05:36 Carbon Dioxide 17.3 mmol/L (21.0-32.0) L 12/31/24 05:36 Anion Gap 16 (5-15) H 12/31/24 05:36 BUN 73 mg/dL (4-19) H 12/31/24 05:36 Creatinine 7.13 mg/dL (0.70-1.20) H 12/31/24 05:36 Est GFR (MDRD) Non-Af 8 (>60) L 12/31/24 05:36 BUN/Creatinine Ratio 10.2 RATIO (10-20) 12/31/24 05:36 Glucose 156 mg/dL (70-99) H 12/31/24 05:36 Random Vancomycin 19.8 ug/mL (0.0-15.0) H 12/31/24 16:55 Microbiology Microbiology: Microbiology 12/30/24 08:10 Urine, Clean Catch Urine Culture - Preliminary GNR lactose paper cup machine operator GNR lactose paper cup machine operator#2 12/29/24 10:58 Blood Culture (Wb) - Anticubital Right Blood Culture - Final Escherichia coli 12/29/24 12:29 Blood Culture (Wb) - Anticubital Right Blood Culture - Final GNR lactose paper cup machine operator 12/29/24 Unknown Stool Enteric Bacteriology - Final 12/29/24 Unknown Stool Clostridioides difficile (PCR) - Final Dosing Weight Weight used for dosin kg Estimated Creatinine Clearance Estimated Creatinine Clearance: ~ 15 Goal Trough Goal Trough: 15-20 mcg/mL Pharmacy Plan for Drug Dosing Pharmacy Plan for Drug Dosing: Vancomycin random level 19.8 drawn 24 hours after 1.5 gram dose. Continue to hold, get a random level in the AM. Im am concerned that giving further vancomycin today could cause a high random level tomorrow as scr has increased again today. Evaluate further doses of vancomycin after random level in AM to assess current clearance. Pharmacy Service will continue to monitor and adjust dosing as required. Follow-Up Labs Follow-Up Labs: Trough: Vancomycin Date/Time Labs Ordered Labs to be done on [date and time ordered]: 01/01/25 @ 0600
[2024-12-31 21:06] VITALS: BP 134/66; PULSE 72; RESP 18; TEMP 36.6; O2SAT 97
[2024-12-31] MEDS: Tamsulosin HCl 0.4 MG Capsule PO (21:29)
[2024-12-31] MEDS: Atorvastatin Calcium 40 MG Tablet PO (21:29)
[2024-12-31 21:52] LABS: Bedside Glucose 133 mg/dL (74-106)
[2025-01-01 03:15] VITALS: BP 134/67; PULSE 60; RESP 16; TEMP 36.6; O2SAT 98
[2025-01-01] MEDS: Heparin Injection (Vial) 5,000 UNIT/ML VIAL 5000 UNIT SC ×3 (06:26→22:22)
[2025-01-01] MEDS: Menthol/Lanolin/Calamine/Znox 113 GM Tube 1 APPLIC TOPICAL ×3 (06:26→22:23)
[2025-01-01] MEDS: Nystatin Powder 15gm Bottle 1 APPLIC TOPICAL ×3 (06:27→22:23)
[2025-01-01 06:38] LABS: Bedside Glucose 112 mg/dL (74-106)
[2025-01-01 07:05] LABS: Absolute Lymphocyte Count 1.63 X10^3/uL (0.83-4.51); Absolute Neutrophil Count 12.8 X10^3/uL (2.0-7.7); Basophil# 0.04 X10^3/uL; Basophil% 0.2 % (0-1); Eosinophil# 0.56 X10^3/uL; Eosinophils% 3.4 % (0-5); Hematocrit 32.8 % (40-54); Hemoglobin 10.9 g/dL (13.0-16.5); Lymphocyte # 1.63 X10^3/ul (0.83-4.51); Lymphocyte % 9.8 % (19-41); Mean Corp Hgb Conc 33.2 g/dL (32-36); Mean Corpuscular Hgb 28.9 pg (27.0-32.0); Mean Platelet Vol. 9.3 fl (6.2-12.0); Monocyte# 1.51 X10^3/uL; NRBC Flagged by Analyzer 0 % (0-5); Neutrophil # 12.78 X10^3/uL (2.7-7.7); Neutrophil % 76.5 % (47-70); POSITIVE DIFFERENTIAL YES; Platelet Count 270 K/mm3 (150-450); RBC Distribution Width CV 14.6 % (11.6-14.6); RBC Distribution Width SD 46.8 fl (35.1-43.9); Red Blood Count 3.77 M/mm3 (4.6-6.2); White Blood Count 16.7 K/mm3 (4.4-11.0)
[2025-01-01 07:18] LABS: Differential Indicated SCAN CRITERIA MET
[2025-01-01 07:40] LABS: Anion Gap 13 (5-15); BUN 78 mg/dL (4-19); BUN/Creat Ratio 10.5 RATIO (10-20); Calcium,Total 8.7 mg/dL (7.6-11.0); Carbon Dioxide 17.3 mmol/L (21.0-32.0); Chloride 103 mmol/L (98-108); Creatinine, Serum 7.47 mg/dL (0.70-1.20); EST Glomerular Filtration Rate 7 (>60); Estimated Creatinine Clearance 14.76 ml/min (50-250); Glucose 118 mg/dL (70-99); Sodium Level 133 mmol/L (133-145)
[2025-01-01 07:46] LABS: Vancomycin, Random Level 17.8 ug/mL (0.0-15.0)
--- NOTE | 2025-01-01 07:49 | PCM.PN.HOSP ---
Reason for Visit Reason for Visit: Diagnoses Sepsis, unspecified organism (12/29/24) Pressure ulcer of unspecified site, unspecified stage (12/29/24) Acute kidney failure, unspecified (12/29/24) Tachycardia, unspecified (12/29/24) Vomiting, unspecified (12/29/24) Other malaise (12/29/24) Subjective Subjective Feeling muych better. Objective Data Objective Data Vital Signs: Vital Signs Temp Pulse Resp BP Pulse Ox O2 Del Method FiO2 36.6 C 60 16 134/67 H 98 CPAP 21 01/01/25 03:15 01/01/25 03:15 01/01/25 03:15 01/01/25 03:15 01/01/25 03:15 01/01/25 03:15 01/01/25 02:10 Oxygen Delivery Method CPAP Weight: 176.4 kg Body Mass Index (BMI) 60.9 Intake & Output: Intake and Output for Last 24 Hours 12/30/24 12/31/24 01/01/25 23:59 23:59 23:59 Intake Total 2830 / 2830 1999 / 1999 1050 / 1050 Output Total 330 / 580 850 / 1250 800 / 800 Balance 2500 / 2250 1150 / 750 250 / 250 Lab / Micro Data 01/01/25 06:20 01/01/25 06:20 Labs: Laboratory Results - last 24 hr 12/31/24 05:36: Total Creatine Kinase 196 H 12/31/24 11:00: POC Glucose 117 H 12/31/24 16:50: POC Glucose 141 H 12/31/24 16:55: Random Vancomycin 19.8 H 12/31/24 21:26: POC Glucose 133 H 01/01/25 06:12: POC Glucose 112 H 01/01/25 06:20: WBC 16.7 H, RBC 3.77 L, Hgb 10.9 L, Hct 32.8 L, MCV 87.0, MCH 28.9, MCHC 33.2, RDW Std Deviation 46.8 H, RDW Coeff of Francis 14.6, Plt Count 270, MPV 9.3, Immature Gran % (Auto) 1.100 H, Neut % (Auto) 76.5 H, Lymph % (Auto) 9.8 L, [place] % (Auto) 9.0, Eos % (Auto) 3.4, Baso % (Auto) 0.2, Absolute Neuts (auto) 12.8 H, Absolute Lymphs (auto) 1.63, Nucleated RBC % 0, Sodium 133, Potassium 4.0, Chloride 103, Carbon Dioxide 17.3 L, Anion Gap 13, BUN 78 H, Creatinine 7.47 H*, Estim Creat Clear Calc 14.76 L, Est GFR (MDRD) Non-Af 7 L, BUN/Creatinine Ratio 10.5, Glucose 118 H, Calcium 8.7, Random Vancomycin 17.8 H Micro: Microbiology 12/30/24 08:10 Urine, Clean Catch Urine Culture - Preliminary GNR lactose pca GNR lactose pca#2 12/29/24 10:58 Blood Culture (Wb) - Anticubital Right Blood Culture - Final Escherichia coli 12/29/24 12:29 Blood Culture (Wb) - Anticubital Right Blood Culture - Final GNR lactose pca 12/29/24 Unknown Stool Enteric Bacteriology - Final 12/29/24 Unknown Stool Clostridioides difficile (PCR) - Final Radiography Diagnostic Testing: Radiology Impression KUB X-Ray 12/31/24 17:40 IMPRESSION: Limited exam, without radiographic evidence of bowel obstruction. Reading Location: [facility] Physical Exam Const alert and no apparent distress Constitutional Narrative: on BiPAP HEENT head/scalp atraumatic and moist oral mucous membranes Resp normal respiratory effort, no retractions, no use of accessory muscles and clear to auscultation bilaterally Cardio regular rate, regular rhythm, S1 normal heart sound and S2 normal heart sound GI normal to inspection, nondistended, normoactive bowel sounds, soft to palpation, non-tender and non-distended GI Narrative: obese. soft Neuro Sensorium / Orientation: awake and alert Psych affect normal Assessment & Plan Assessment/Plan (1) Sepsis: PLAN: Bacteremia and UTI, likely pyelonephritis. It also appears that he has bacteremia with E. coli. His urine culture is growing out gram-negative rods thus far. Continue the antibiotics with pip-tazo. BCx growing out E. coli. Will dc vancomycin. Blood cultures showing E. coli (2) RICO (acute kidney injury): PLAN: Worse today. Suspect prerenal Patient noted that his urine is bloody. I suspect is probably just more concentrated from the RICO. Will continue with IV fluids and monitor. Hold furosemide and spironolactone renal US negative. FEUrea 19.37% consistent with prerenal azotemia. Continue IVF. Nephrology following. Continue with IVF. Anticipate that his creatinine is leveling off and should hopefully improve soon. Give another liter of IVF. (3) Debility: PLAN: Secondary to the underlying infection and sepsis. PT OT evaluate and treat Case management to assist with disposition. (4) Sinus tachycardia: PLAN: Resolved Is more likely reactive secondary to his underlying sepsis, RICO but also the fact that he is probably not been taking his carvedilol. Patient received a dose of carvedilol in the emergency room. Will continue to monitor and continue with his carvedilol We will add as needed IV metoprolol if needed. (5) Vomiting: PLAN: Unclear significance at this [place] of his underlying infection. I will check an abdominal x-ray. PLAN: Plan Chronic conditions Obesity class III: BMI of 60. Complicates care and recovery AMRIK: Patient does use BiPAP. Patient can resume his BiPAP with sleep and naps. Diabetes mellitus type 2: Sliding scale insulin. Check an A1c. Prostate cancer: Follow-up with oncology Hyperlipidemia: Continue with atorvastatin Hypertension: Continue with amlodipine BPH: Continue with tamsulosin VTE prophylaxis with subcu heparin CODE STATUS: Addressed with the patient. Patient wishes to be full code. Charges/Coding Visit Charges Inpatient E&M: 49388 Subs Hosp L3
--- NOTE | 2025-01-01 07:57 | PHA.PHARE_ITS ---
Consult Antibiotic Management Pharmacy has been consulted to manage selected antibiotic: Vancomycin Type of Intervention Type of Consult: Follow-up Suspected Infection Suspected Infection: Sepsis Prior Doses of Antibiotics Prior Doses of Antibiotics Received/Current Regimen: the most recent dose was vanc 1500mg IV x1 given at 17:03 on 12/30/24 Labs Labs: Sodium 133 mmol/L (133-145) 01/01/25 06:20 Potassium 4.0 mmol/L (3.3-5.1) 01/01/25 06:20 Chloride 103 mmol/L (98-108) 01/01/25 06:20 Carbon Dioxide 17.3 mmol/L (21.0-32.0) L 01/01/25 06:20 Anion Gap 13 (5-15) 01/01/25 06:20 BUN 78 mg/dL (4-19) H 01/01/25 06:20 Creatinine 7.47 mg/dL (0.70-1.20) H* 01/01/25 06:20 Est GFR (MDRD) Non-Af 7 (>60) L 01/01/25 06:20 BUN/Creatinine Ratio 10.5 RATIO (10-20) 01/01/25 06:20 Glucose 118 mg/dL (70-99) H 01/01/25 06:20 Random Vancomycin 17.8 ug/mL (0.0-15.0) H 01/01/25 06:20 Microbiology Microbiology: Microbiology 12/30/24 08:10 Urine, Clean Catch Urine Culture - Preliminary GNR lactose mechanical applications engineer GNR lactose mechanical applications engineer#2 12/29/24 10:58 Blood Culture (Wb) - Anticubital Right Blood Culture - Final Escherichia coli 12/29/24 12:29 Blood Culture (Wb) - Anticubital Right Blood Culture - Final GNR lactose mechanical applications engineer 12/29/24 Unknown Stool Enteric Bacteriology - Final 12/29/24 Unknown Stool Clostridioides difficile (PCR) - Final Dosing Weight Weight used for dosin.4 kg Estimated Creatinine Clearance Estimated Creatinine Clearance: 14.8ml/min Goal Trough Goal Trough: 15-20 mcg/mL Pharmacy Plan for Drug Dosing Pharmacy Plan for Drug Dosing: The vanc random level drawn at 06:20 today was 17.8 mcg/ml. This is still in goal range. Will not give a dose today since still in goal range and since the patient's SCr continues to go up (up to 7.47 today from 7.13 yesterday. Will repeat a random level tomorrow morning. Pharmacy Service will continue to monitor and adjust dosing as required. Follow-Up Labs Follow-Up Labs: Trough: Vancomycin (random) Date/Time Labs Ordered Labs to be done on [date and time ordered]: 01/02/25 06:00
[2025-01-01 08:40] LABS: Platelet Estimate A (ADEQ)
[2025-01-01 08:50] VITALS: O2SAT 93
[2025-01-01 08:53] VITALS: BP 152/78; PULSE 64; RESP 15; TEMP 36.6; O2SAT 99
[2025-01-01] MEDS: Pantoprazole Sodium 20 MG Tablet PO (08:59)
[2025-01-01] MEDS: amLODIPine 5 MG Tablet PO (08:59)
[2025-01-01] MEDS: Carvedilol 25 MG Tablet PO ×2 (08:59→18:40)
[2025-01-01] MEDS: Tolterodine Tartrate 2 MG CAP.SA PO (08:59)
[2025-01-01] MEDS: Cholecalciferol (VIT D3) 25 MCG TABLET (1,000 UNITS) 50 MCG PO (08:59)
[2025-01-01] MEDS: Piperacil/Tazobactam 3.375 GM in 0.9% Normal Saline (50mL MB+) 50 ML IV ×2 (09:23→22:24)
[2025-01-01] MEDS: 0.9% Saline Lock 10 ML Syringe IV (09:23)
[2025-01-01 12:57] LABS: Bedside Glucose 141 mg/dL (74-106)
--- NOTE | 2025-01-01 14:24 | CHAPLAIN ---
Type of Pastoral Visit _x__ Initial Visit ___ Follow-up Visit ___ On-call Visit ___ General Patient Visit ___ Spiritual Assessment ___ Family Conference ___ Bereavement ___ Rapid Response ___ Code Blue ___ Other (describe below) Pastoral Care Referral From _x__ Patient ___ Family _x__ Nurse ___ Physician ___ Shoulder Sawyer ___ Rn Charge ___ Other (describe below) Sacrament/Intervention ___ Active listening ___ Anointing ___ Sabianism ___ Bereavement ___ Communion ___ Maryanne exploration ___ ___ Life review _x__ Prayer ___ Reconciliation ___ Sacrament of Sick _x__ Supportive presence ___ Wedding ___ Other (describe below) Pastoral Comments patient requested a visit from the marzipan maker and to have a Bible; this was reported by RN; entering room the patient was on a bi-pap and resting; pt admitted that he was unable to talk much due to feeling weak; pt did ask for the Bible and a prayer which he then offered thanks; pt asked if a visit another day would be possible
[2025-01-01] MEDS: 0.9% Normal Saline (1000mL) 1,000 ML 150 ML IV (15:03)
[2025-01-01 15:19] VITALS: BP 142/71; PULSE 75; RESP 17; TEMP 36.6; O2SAT 98
--- NOTE | 2025-01-01 15:41 | PCM.PN.REN ---
Subjective Subjective c/o not feeling well. Complains of low back pain. Urine output has improved. Creatinine slightly higher. Blood culture growing gram-negative rods. Currently on Zosyn. Poor appetite. No diarrhea. No abdominal pain, nausea. Objective Data Objective Data Vital Signs: Vital Signs Temp Pulse Resp BP Pulse Ox O2 Del Method FiO2 97.9 F 75 17 142/71 H 98 CPAP 21 01/01/25 15:19 01/01/25 15:19 01/01/25 15:19 01/01/25 15:19 01/01/25 15:19 01/01/25 15:19 01/01/25 02:10 Oxygen Delivery Method CPAP Weight: 176.4 kg Body Mass Index (BMI) 60.9 Intake & Output: Intake and Output for Last 24 Hours 12/30/24 12/31/24 01/01/25 23:59 23:59 23:59 Intake Total 2830 / 2830 1999 / 1999 1475 / 1475 Output Total 330 / 580 850 / 1250 1600 / 1600 Balance 2500 / 2250 1150 / 750 -125 / -125 Lab / Micro Data 01/01/25 06:20 01/01/25 06:20 Labs: Laboratory Results - last 24 hr 12/31/24 16:50: POC Glucose 141 H 12/31/24 16:55: Random Vancomycin 19.8 H 12/31/24 21:26: POC Glucose 133 H 01/01/25 06:12: POC Glucose 112 H 01/01/25 06:20: WBC 16.7 H, RBC 3.77 L, Hgb 10.9 L, Hct 32.8 L, MCV 87.0, MCH 28.9, MCHC 33.2, RDW Std Deviation 46.8 H, RDW Coeff of Francis 14.6, Plt Count 270, MPV 9.3, Immature Gran % (Auto) 1.100 H, Neut % (Auto) 76.5 H, Lymph % (Auto) 9.8 L, [place] % (Auto) 9.0, Eos % (Auto) 3.4, Baso % (Auto) 0.2, Absolute Neuts (auto) 12.8 H, Absolute Lymphs (auto) 1.63, Nucleated RBC % 0, Platelet Estimate A, Sodium 133, Potassium 4.0, Chloride 103, Carbon Dioxide 17.3 L, Anion Gap 13, BUN 78 H, Creatinine 7.47 H*, Estim Creat Clear Calc 14.76 L, Est GFR (MDRD) Non-Af 7 L, BUN/Creatinine Ratio 10.5, Glucose 118 H, Calcium 8.7, Random Vancomycin 17.8 H 01/01/25 12:20: POC Glucose 141 H Micro: Microbiology 12/30/24 08:10 Urine, Clean Catch Urine Culture - Preliminary GNR lactose crosscutter rolled glass GNR lactose crosscutter rolled glass#2 12/29/24 10:58 Blood Culture (Wb) - Anticubital Right Blood Culture - Final Escherichia coli 12/29/24 12:29 Blood Culture (Wb) - Anticubital Right Blood Culture - Final GNR lactose crosscutter rolled glass 12/29/24 Unknown Stool Enteric Bacteriology - Final 12/29/24 Unknown Stool Clostridioides difficile (PCR) - Final Radiography Diagnostic Testing: Radiology Impression KUB X-Ray 12/31/24 17:40 IMPRESSION: Limited exam, without radiographic evidence of bowel obstruction. Reading Location: [id number] Physical Exam Narrative Alert awake oriented x 3 no obvious distress no pallor no icterus no JVD s1s2 no murmurs lungs clear abdomen soft no organomegaly no edema no cyanosis Assessment & Plan Assessment/Plan (1) RICO (acute kidney injury): PLAN: Acute renal failure. CKD stage IIIa at baseline, baseline creatinine is around 1.5. Presented with nausea, vomiting, generalized weakness. He states urine has also turned dark versus occasional red-colored. CT abdomen without any hydronephrosis, there is some perinephric stranding noted. Renal ultrasound no hydronephrosis. Urine analysis with RBC, protein, WBC. Urine culture final report pending. Blood culture positive for E. coli. Preadmission medication list reviewed. He is on Lasix and spironolactone. Noted to have gynecomastia on CT. Could be related to spironolactone. This might need to be switched, we will have to review old records. Both of these are on hold. He says that he has not been taking any water pills for several weeks now since he had cramping from diuretics. Outpatient notes also mention Celebrex for arthritis. He says he has not been taking them. He was started on Lipitor couple of months ago for dyslipidemia. CPK level is not significantly elevated Acute renal failure likely related to volume depletion, sepsis. Creatinine today is only slightly higher compared to yesterday, hopefully peak. Urine output has improved significantly. Continue IV fluids for 1 more day.
[2025-01-01 19:02] LABS: Bedside Glucose 132 mg/dL (74-106)
[2025-01-01 22:15] VITALS: BP 118/64; PULSE 73; RESP 16; TEMP 36.4; O2SAT 96
[2025-01-01] MEDS: Atorvastatin Calcium 40 MG Tablet PO (22:22)
[2025-01-01] MEDS: Tamsulosin HCl 0.4 MG Capsule PO (22:22)
[2025-01-01 22:47] LABS: Bedside Glucose 114 mg/dL (74-106)
[2025-01-02 03:15] VITALS: BP 129/64; PULSE 68; RESP 16; TEMP 36.6; O2SAT 99
[2025-01-02] MEDS: Nystatin Powder 15gm Bottle 1 APPLIC TOPICAL ×3 (06:28→21:22)
[2025-01-02] MEDS: Heparin Injection (Vial) 5,000 UNIT/ML VIAL 5000 UNIT SC ×3 (06:28→21:21)
[2025-01-02] MEDS: Menthol/Lanolin/Calamine/Znox 113 GM Tube 1 APPLIC TOPICAL ×3 (06:28→21:22)
[2025-01-02] MEDS: 0.9% Saline Lock 10 ML Syringe IV (06:29)
[2025-01-02 06:57] LABS: Bedside Glucose 102 mg/dL (74-106)
[2025-01-02 07:12] LABS: Absolute Lymphocyte Count 1.73 X10^3/uL (0.83-4.51); Absolute Neutrophil Count 10.9 X10^3/uL (2.0-7.7); Basophil# 0.04 X10^3/uL; Basophil% 0.3 % (0-1); Eosinophil# 0.47 X10^3/uL; Eosinophils% 3.2 % (0-5); Hematocrit 32.6 % (40-54); Hemoglobin 10.9 g/dL (13.0-16.5); Lymphocyte # 1.73 X10^3/ul (0.83-4.51); Lymphocyte % 11.9 % (19-41); Mean Corp Hgb Conc 33.4 g/dL (32-36); Mean Corpuscular Hgb 29.1 pg (27.0-32.0); Mean Corpuscular Volume 87.2 fL (80-94); Mean Platelet Vol. 9.2 fl (6.2-12.0); Monocyte# 1.16 X10^3/uL; NRBC Flagged by Analyzer 0 % (0-5); Neutrophil # 10.85 X10^3/uL (2.7-7.7); Neutrophil % 74.5 % (47-70); POSITIVE MORPHOLOGY YES; Platelet Count 296 K/mm3 (150-450); RBC Distribution Width CV 14.6 % (11.6-14.6); RBC Distribution Width SD 47.3 fl (35.1-43.9); Red Blood Count 3.74 M/mm3 (4.6-6.2); White Blood Count 14.6 K/mm3 (4.4-11.0)
[2025-01-02 07:17] LABS: Differential Indicated SCAN CRITERIA MET
[2025-01-02 08:03] LABS: Anion Gap 14 (5-15); BUN 82 mg/dL (4-19); BUN/Creat Ratio 11.2 RATIO (10-20); Calcium,Total 8.6 mg/dL (7.6-11.0); Carbon Dioxide 15.6 mmol/L (21.0-32.0); Chloride 105 mmol/L (98-108); Creatinine, Serum 7.39 mg/dL (0.70-1.20); EST Glomerular Filtration Rate 7 (>60); Estimated Creatinine Clearance 14.91 ml/min (50-250); Glucose 106 mg/dL (70-99); Sodium Level 135 mmol/L (133-145)
--- NOTE | 2025-01-02 08:26 | PN.HOSP_ITS ---
Reason for Visit Reason for Visit: Diagnoses Sepsis, unspecified organism (12/29/24) Pressure ulcer of unspecified site, unspecified stage (12/29/24) Acute kidney failure, unspecified (12/29/24) Tachycardia, unspecified (12/29/24) Vomiting, unspecified (12/29/24) Other malaise (12/29/24) Subjective Subjective Feeling better. Good urine outpt Objective Data Objective Data Vital Signs: Vital Signs Temp Pulse Resp BP Pulse Ox O2 Del Method FiO2 36.6 C 68 16 129/64 H 99 Room Air 21 01/02/25 03:15 01/02/25 03:15 01/02/25 03:15 01/02/25 03:15 01/02/25 03:15 01/02/25 03:15 01/02/25 02:36 Oxygen Delivery Method Room Air Weight: 176.4 kg Body Mass Index (BMI) 60.9 Intake & Output: Intake and Output for Last 24 Hours 12/31/24 01/01/25 01/02/25 23:59 23:59 23:59 Intake Total 1999 / 1999 2995 / 2995 50 / 50 Output Total 850 / 1250 2200 / 3200 1700 / 1700 Balance 1150 / 750 795 / -205 -1650 / -1650 Lab / Micro Data 01/02/25 06:48 01/02/25 06:48 Labs: Laboratory Results - last 24 hr 01/01/25 06:20: Platelet Estimate A 01/01/25 12:20: POC Glucose 141 H 01/01/25 18:39: POC Glucose 132 H 01/01/25 22:19: POC Glucose 114 H 01/02/25 06:27: POC Glucose 102 01/02/25 06:48: WBC 14.6 H, RBC 3.74 L, Hgb 10.9 L, Hct 32.6 L, MCV 87.2, MCH 29.1, MCHC 33.4, RDW Std Deviation 47.3 H, RDW Coeff of Francis 14.6, Plt Count 296, MPV 9.2, Immature Gran % (Auto) 2.100 H, Neut % (Auto) 74.5 H, Lymph % (Auto) 11.9 L, Bureau % (Auto) 8.0, Eos % (Auto) 3.2, Baso % (Auto) 0.3, Absolute Neuts (auto) 10.9 H, Absolute Lymphs (auto) 1.73, Nucleated RBC % 0, Sodium 135, Potassium 4.0, Chloride 105, Carbon Dioxide 15.6 L, Anion Gap 14, BUN 82 H, C reatinine 7.39 H, Estim Creat Clear Calc 14.91 L, Est GFR (MDRD) Non-Af 7 L, BUN/Creatinine Ratio 11.2, Glucose 106 H, Calcium 8.6 Micro: Microbiology 12/30/24 08:10 Urine, Clean Catch Urine Culture - Final Escherichia coli 12/29/24 10:58 Blood Culture (Wb) - Anticubital Right Blood Culture - Final Escherichia coli 12/29/24 12:29 Blood Culture (Wb) - Anticubital Right Blood Culture - Final GNR lactose regulatory affairs associate 12/29/24 Unknown Stool Enteric Bacteriology - Final 12/29/24 Unknown Stool Clostridioides difficile (PCR) - Final Physical Exam Const alert and no apparent distress HEENT head/scalp atraumatic and moist oral mucous membranes Resp normal respiratory effort and no retractions Cardio regular rate Neuro no focal motor deficits Sensorium / Orientation: awake and alert Assessment & Plan Assessment/Plan (1) Sepsis: PLAN: Bacteremia and UTI, likely pyelonephritis. It also appears that he has bacteremia with E. coli. His urine culture is growing out gram-negative rods thus far. BCx and UCx showing lopez-sensitive E. coli. Deescalate abx to CTX (2) RICO (acute kidney injury): PLAN: Slightly improved today 7.39 from 7.47. Urine output improved. I anticipate his creatinine to continue to improve. Hold furosemide and spironolactone renal US negative. FEUrea 19.37% consistent with prerenal azotemia. Continue IVF. Nephrology following. (3) Debility: PLAN: Secondary to the underlying infection and sepsis. PT OT evaluate and treat Case management to assist with disposition. PLAN: Plan Chronic conditions * Obesity class III: BMI of 60. Complicates care and recovery * AMRIK: Patient does use BiPAP. Patient can resume his BiPAP with sleep and naps. * Diabetes mellitus type 2: Sliding scale insulin. Check an A1c. * Prostate cancer: Follow-up with oncology * Hyperlipidemia: Continue with atorvastatin * Hypertension: Continue with amlodipine * BPH: Continue with tamsulosin VTE prophylaxis with subcu heparin CODE STATUS: Addressed with the patient. Patient wishes to be full code. Disposition: eventually to SNF. Hopefully Charges/Coding Visit Charges Inpatient E&M: 28338 Subs Hosp L2
[2025-01-02 09:15] VITALS: BP 153/75; PULSE 68; RESP 18; TEMP 36.7; O2SAT 99
[2025-01-02] MEDS: Carvedilol 25 MG Tablet PO ×2 (10:19→16:48)
[2025-01-02] MEDS: Cholecalciferol (VIT D3) 25 MCG TABLET (1,000 UNITS) 50 MCG PO (10:21)
[2025-01-02] MEDS: Pantoprazole Sodium 20 MG Tablet PO (10:21)
[2025-01-02] MEDS: amLODIPine 5 MG Tablet PO (10:21)
[2025-01-02] MEDS: Tolterodine Tartrate 2 MG CAP.SA PO (10:21)
[2025-01-02] MEDS: Ceftriaxone 1 GM/50 ML BAG IV (10:22)
[2025-01-02 12:42] LABS: Bedside Glucose 129 mg/dL (74-106)
[2025-01-02 15:15] VITALS: BP 149/78; PULSE 72; RESP 16; TEMP 36.6; O2SAT 99
[2025-01-02 17:07] LABS: Bedside Glucose 127 mg/dL (74-106)
--- NOTE | 2025-01-02 19:30 | PN.RENAL_ITS ---
Subjective Subjective Following for RICO. History is limited because he is on BiPAP tonight. There is no chest pain or dyspnea at rest. Objective Data Objective Data Vital Signs: Vital Signs Temp Pulse Resp BP Pulse Ox O2 Del Method FiO2 97.9 F 72 16 149/78 H 99 Room Air 21 01/02/25 15:15 01/02/25 15:15 01/02/25 15:15 01/02/25 15:15 01/02/25 15:15 01/02/25 15:15 01/02/25 02:36 Oxygen Delivery Method Room Air Weight: 176.4 kg Body Mass Index (BMI) 60.9 Intake & Output: Intake and Output for Last 24 Hours 12/31/24 01/01/25 01/02/25 23:59 23:59 23:59 Intake Total 1999 / 1999 2995 / 2995 820 / 820 Output Total 850 / 1250 2200 / 3200 2690 / 2690 Balance 1150 / 750 795 / -205 -1870 / -1870 Lab / Micro Data 01/02/25 06:48 01/02/25 06:48 Labs: Laboratory Results - last 24 hr 01/01/25 22:19: POC Glucose 114 H 01/02/25 06:27: POC Glucose 102 01/02/25 06:48: WBC 14.6 H, RBC 3.74 L, Hgb 10.9 L, Hct 32.6 L, MCV 87.2, MCH 29.1, MCHC 33.4, RDW Std Deviation 47.3 H, RDW Coeff of Francis 14.6, Plt Count 296, MPV 9.2, Immature Gran % (Auto) 2.100 H, Neut % (Auto) 74.5 H, Lymph % (Auto) 11.9 L, [place] % (Auto) 8.0, Eos % (Auto) 3.2, Baso % (Auto) 0.3, Absolute Neuts (auto) 10.9 H, Absolute Lymphs (auto) 1.73, Nucleated RBC % 0, Sodium 135, Potassium 4.0, Chloride 105, Carbon Dioxide 15.6 L, Anion Gap 14, BUN 82 H, C reatinine 7.39 H, Estim Creat Clear Calc 14.91 L, Est GFR (MDRD) Non-Af 7 L, BUN/Creatinine Ratio 11.2, Glucose 106 H, Calcium 8.6 01/02/25 12:06: POC Glucose 129 H 01/02/25 16:48: POC Glucose 127 H Micro: Microbiology 12/30/24 08:10 Urine, Clean Catch Urine Culture - Final Escherichia coli 12/29/24 10:58 Blood Culture (Wb) - Anticubital Right Blood Culture - Final Escherichia coli 12/29/24 12:29 Blood Culture (Wb) - Anticubital Right Blood Culture - Final GNR lactose telegraphic typewriter operator chief 12/29/24 Unknown Stool Enteric Bacteriology - Final 12/29/24 Unknown Stool Clostridioides difficile (PCR) - Final Physical Exam Narrative Alert awake oriented x 3, on BiPAP no obvious distress no pallor no icterus no JVD s1s2 no murmurs lungs clear abdomen soft no organomegaly no edema no cyanosis Assessment & Plan Assessment/Plan (1) RICO (acute kidney injury): PLAN: Acute renal failure. CKD stage IIIa at baseline, baseline creatinine is around 1.5. Presented with nausea, vomiting, generalized weakness. He states urine has also turned dark versus occasional red-colored. CT abdomen without any hydronephrosis, there is some perinephric stranding noted. Renal ultrasound no hydronephrosis. Urine analysis with RBC, protein, WBC. Urine culture final report pending. Blood culture positive for E. coli. Preadmission medication list reviewed. He is on Lasix and spironolactone. Noted to have gynecomastia on CT. Could be related to spironolactone. This might need to be switched, we will have to review old records. Both of these are on hold. He says that he has not been taking any water pills for several weeks now since he had cramping from diuretics. Outpatient notes also mention Celebrex for arthritis. He says he has not been taking them. He was started on Lipitor couple of months ago for dyslipidemia. CPK level is not significantly elevated Acute kidney injury is likely related to volume depletion, sepsis-> ischemic ATN. Serum creatinine appears to have peaked on 01/01/2025 at 7.47 mg/dL. Serum creatinine slightly better today at 7.39 mg/dL on 01/02/2025. The patient is not oliguric. He is not hyperkalemic. Although he is acidotic, patient appears to be compensating without significant tachypnea or dyspnea. Therefore, there is no urgent need for kidney replacement therapy today. Since patient is hemodynamically stable, we can stop IV fluids today. Continue keep MAP above 65 mmHg. Will recheck renal function, volume status, acid-base and electrolytes again tomorrow.
[2025-01-02 21:15] VITALS: BP 147/71; PULSE 74; RESP 18; TEMP 36.7; O2SAT 100
[2025-01-02] MEDS: Atorvastatin Calcium 40 MG Tablet PO (21:21)
[2025-01-02] MEDS: Tamsulosin HCl 0.4 MG Capsule PO (21:21)
[2025-01-02 22:09] LABS: Bedside Glucose 147 mg/dL (74-106)
[2025-01-03 03:15] VITALS: BP 135/68; PULSE 65; RESP 16; TEMP 36.7; O2SAT 100
[2025-01-03 05:15] LABS: Absolute Lymphocyte Count 1.87 X10^3/uL (0.83-4.51); Absolute Neutrophil Count 10.8 X10^3/uL (2.0-7.7); Basophil# 0.04 X10^3/uL; Basophil% 0.3 % (0-1); Eosinophils% 2.8 % (0-5); Hematocrit 34.2 % (40-54); Hemoglobin 11.3 g/dL (13.0-16.5); Lymphocyte # 1.87 X10^3/ul (0.83-4.51); Lymphocyte % 12.9 % (19-41); Mean Corpuscular Hgb 28.8 pg (27.0-32.0); Mean Corpuscular Volume 87.2 fL (80-94); Mean Platelet Vol. 9.1 fl (6.2-12.0); Monocyte# 0.96 X10^3/uL; Monocyte% 6.6 % (0-10); NRBC Flagged by Analyzer 0 % (0-5); Neutrophil # 10.75 X10^3/uL (2.7-7.7); POSITIVE MORPHOLOGY YES; Platelet Count 371 K/mm3 (150-450); RBC Distribution Width CV 14.8 % (11.6-14.6); RBC Distribution Width SD 47.3 fl (35.1-43.9); Red Blood Count 3.92 M/mm3 (4.6-6.2); White Blood Count 14.5 K/mm3 (4.4-11.0)
[2025-01-03 05:39] LABS: Differential Indicated SCAN CRITERIA MET
[2025-01-03] MEDS: Nystatin Powder 15gm Bottle 1 APPLIC TOPICAL ×3 (05:39→21:10)
[2025-01-03] MEDS: Menthol/Lanolin/Calamine/Znox 113 GM Tube 1 APPLIC TOPICAL ×3 (05:40→21:10)
[2025-01-03] MEDS: Heparin Injection (Vial) 5,000 UNIT/ML VIAL 5000 UNIT SC ×3 (05:40→21:09)
[2025-01-03 05:43] LABS: Anion Gap 14 (5-15); BUN 84 mg/dL (4-19); BUN/Creat Ratio 11.8 RATIO (10-20); Calcium,Total 8.9 mg/dL (7.6-11.0); Carbon Dioxide 16.1 mmol/L (21.0-32.0); Chloride 106 mmol/L (98-108); Creatinine, Serum 7.07 mg/dL (0.70-1.20); EST Glomerular Filtration Rate 8 (>60); Estimated Creatinine Clearance 15.59 ml/min (50-250); Glucose 111 mg/dL (70-99); Potassium 4.4 mmol/L (3.3-5.1); Sodium Level 136 mmol/L (133-145)
[2025-01-03 06:26] LABS: Atypical Lymphocyte 2+ %
[2025-01-03 08:55] VITALS: BP 158/83; PULSE 74; RESP 18; TEMP 36.7; O2SAT 98
[2025-01-03 09:15] VITALS: BP 166/81; PULSE 70; RESP 18; TEMP 37; O2SAT 98
[2025-01-03] MEDS: Cholecalciferol (VIT D3) 25 MCG TABLET (1,000 UNITS) 50 MCG PO (09:21)
[2025-01-03] MEDS: Tolterodine Tartrate 2 MG CAP.SA PO (09:21)
[2025-01-03] MEDS: Pantoprazole Sodium 20 MG Tablet PO (09:21)
[2025-01-03] MEDS: amLODIPine 5 MG Tablet PO (09:21)
[2025-01-03] MEDS: Carvedilol 25 MG Tablet PO ×2 (09:22→19:23)
--- NOTE | 2025-01-03 09:28 | PCM.PN.HOSP ---
Reason for Visit Reason for Visit: Diagnoses Sepsis, unspecified organism (12/29/24) Pressure ulcer of unspecified site, unspecified stage (12/29/24) Acute kidney failure, unspecified (12/29/24) Tachycardia, unspecified (12/29/24) Vomiting, unspecified (12/29/24) Other malaise (12/29/24) Subjective Subjective Feeling well. Willing to work with therapy, but unsure if he'll go in the hallway with them. Objective Data Objective Data Vital Signs: Vital Signs Temp Pulse Resp BP Pulse Ox O2 Del Method FiO2 36.7 C 65 16 135/68 H 100 CPAP 21 01/03/25 03:15 01/03/25 03:15 01/03/25 03:15 01/03/25 03:15 01/03/25 03:15 01/03/25 03:15 01/03/25 03:35 Oxygen Delivery Method CPAP Weight: 176.4 kg Body Mass Index (BMI) 60.9 Intake & Output: Intake and Output for Last 24 Hours 01/01/25 01/02/25 01/03/25 23:59 23:59 23:59 Intake Total 2995 / 2995 820 / 880 60 / 60 Output Total 2200 / 3200 2690 / 3990 1700 / 1700 Balance 795 / -205 -1870 / -3110 -1640 / -1640 Lab / Micro Data 01/03/25 04:55 01/03/25 04:55 Labs: Laboratory Results - last 24 hr 01/02/25 12:06: POC Glucose 129 H 01/02/25 16:48: POC Glucose 127 H 01/02/25 21:25: POC Glucose 147 H 01/03/25 04:55: WBC 14.5 H, RBC 3.92 L, Hgb 11.3 L, Hct 34.2 L, MCV 87.2, MCH 28.8, MCHC 33.0, RDW Std Deviation 47.3 H, RDW Coeff of Francis 14.8 H, Plt Count 371, MPV 9.1, Immature Gran % (Auto) 3.400 H, Neut % (Auto) 74.0 H, Lymph % (Auto) 12.9 L, [place] % (Auto) 6.6, Eos % (Auto) 2.8, Baso % (Auto) 0.3, Absolute Neuts (auto) 10.8 H, Absolute Lymphs (auto) 1.87, Nucleated RBC % 0, Atypical Lymphocytes 2+, Sodium 136, Potassium 4.4, Chloride 106, Carbon Dioxide 16.1 L, Anion Gap 14, BUN 84 H, Creatinine 7.07 H, Estim Creat Clear Calc 15.59 L, Est GFR (MDRD) Non-Af 8 L, BUN/Creatinine Ratio 11.8, Glucose 111 H, Calcium 8.9 Micro: Microbiology 12/30/24 08:10 Urine, Clean Catch Urine Culture - Final Escherichia coli 12/29/24 10:58 Blood Culture (Wb) - Anticubital Right Blood Culture - Final Escherichia coli 12/29/24 12:29 Blood Culture (Wb) - Anticubital Right Blood Culture - Final GNR lactose automatic glove former 12/29/24 Unknown Stool Enteric Bacteriology - Final 12/29/24 Unknown Stool Clostridioides difficile (PCR) - Final Physical Exam Const alert and no apparent distress Constitutional Narrative: on his home BiPAP/CPAP. HEENT head/scalp atraumatic and moist oral mucous membranes Resp normal respiratory effort and no retractions Neuro Sensorium / Orientation: awake and alert Psych affect normal Assessment & Plan Assessment/Plan (1) Sepsis: PLAN: Bacteremia and UTI, likely pyelonephritis. It also appears that he has bacteremia with E. coli. His urine culture is growing out gram-negative rods thus far. BCx and UCx showing lopez-sensitive E. coli. Deescalate abx to CTX (2) RICO (acute kidney injury): PLAN: Slightly improved today 7.39 from 7.47. Urine output improved. I anticipate his creatinine to continue to improve. Hold furosemide and spironolactone renal US negative. FEUrea 19.37% consistent with prerenal azotemia. Continue IVF. Nephrology following. (3) Debility: PLAN: Secondary to the underlying infection and sepsis. PT OT evaluate and treat Case management to assist with disposition. I encouraged him to work with therapy and let them guide his limits. Reassurance provided that they will push him to unrealistic limts. PLAN: Plan Chronic conditions Obesity class III: BMI of 60. Complicates care and recovery AMRIK: Patient does use BiPAP. Patient can resume his BiPAP with sleep and naps. Diabetes mellitus type 2: Sliding scale insulin. Check an A1c. Prostate cancer: Follow-up with oncology Hyperlipidemia: Continue with atorvastatin Hypertension: Continue with amlodipine BPH: Continue with tamsulosin VTE prophylaxis with subcu heparin CODE STATUS: Addressed with the patient. Patient wishes to be full code. Disposition: eventually to SNF. Hopefully early next week. Charges/Coding Visit Charges Inpatient E&M: 62561 Subs Hosp L2
[2025-01-03] MEDS: Ceftriaxone 1 GM/50 ML BAG IV (09:59)
[2025-01-03 11:58] LABS: Bedside Glucose 119 mg/dL (74-106)
[2025-01-03 17:35] LABS: Bedside Glucose 130 mg/dL (74-106)
--- NOTE | 2025-01-03 18:44 | PN.RENAL_ITS ---
Subjective Subjective Following for RICO on CKD. Patient feels better today. He ate lunch today without nausea or vomiting. Patient still has some dyspnea. There is no chest pain. Objective Data Objective Data Vital Signs: Vital Signs Temp Pulse Resp BP Pulse Ox O2 Del Method FiO2 98.6 F 70 18 166/81 H 98 Room Air 21 01/03/25 09:15 01/03/25 09:15 01/03/25 09:15 01/03/25 09:15 01/03/25 09:15 01/03/25 09:15 01/03/25 03:35 Oxygen Delivery Method Room Air Weight: 176.4 kg Body Mass Index (BMI) 60.9 Intake & Output: Intake and Output for Last 24 Hours 01/01/25 01/02/25 01/03/25 23:59 23:59 23:59 Intake Total 2995 / 2995 820 / 880 1070 / 1070 Output Total 2200 / 3200 2690 / 3990 2150 / 2150 Balance 795 / -205 -1870 / -3110 -1080 / -1080 Lab / Micro Data 01/03/25 04:55 01/03/25 04:55 Labs: Laboratory Results - last 24 hr 01/02/25 21:25: POC Glucose 147 H 01/03/25 04:55: WBC 14.5 H, RBC 3.92 L, Hgb 11.3 L, Hct 34.2 L, MCV 87.2, MCH 28.8, MCHC 33.0, RDW Std Deviation 47.3 H, RDW Coeff of Francis 14.8 H, Plt Count 371, MPV 9.1, Immature Gran % (Auto) 3.400 H, Neut % (Auto) 74.0 H, Lymph % (Auto) 12.9 L, [place] % (Auto) 6.6, Eos % (Auto) 2.8, Baso % (Auto) 0.3, Absolute Neuts (auto) 10.8 H, Absolute Lymphs (auto) 1.87, Nucleated RBC % 0, Atypical Lymphocytes 2+, Sodium 136, Potassium 4.4, Chloride 106, Carbon Dioxide 16.1 L, Anion Gap 14, BUN 84 H, Creatinine 7.07 H, Estim Creat Clear Calc 15.59 L, Est GFR (MDRD) Non-Af 8 L, BUN/Creatinine Ratio 11.8, Glucose 111 H, Calcium 8.9 01/03/25 11:30: POC Glucose 119 H 01/03/25 17:16: POC Glucose 130 H Micro: Microbiology 12/30/24 08:10 Urine, Clean Catch Urine Culture - Final Escherichia coli 12/29/24 10:58 Blood Culture (Wb) - Anticubital Right Blood Culture - Final Escherichia coli 12/29/24 12:29 Blood Culture (Wb) - Anticubital Right Blood Culture - Final GNR lactose digital cartographer 12/29/24 Unknown Stool Enteric Bacteriology - Final 12/29/24 Unknown Stool Clostridioides difficile (PCR) - Final Physical Exam Narrative Alert awake oriented x 3 no obvious distress no pallor no icterus no JVD s1s2 no murmurs lungs clear anteriorly abdomen obese, soft no organomegaly no edema no cyanosis Assessment & Plan Assessment/Plan (1) RICO (acute kidney injury): PLAN: Acute renal failure. CKD stage IIIa at baseline, baseline creatinine is around 1.5. Presented with nausea, vomiting, generalized weakness. He states urine has also turned dark versus occasional red-colored. CT abdomen without any hydronephrosis, there is some perinephric stranding noted. Renal ultrasound no hydronephrosis. Urine analysis with RBC, protein, WBC. Urine culture final report pending. Blood culture positive for E. coli. Preadmission medication list reviewed. He is on Lasix and spironolactone. Noted to have gynecomastia on CT. Could be related to spironolactone. This might need to be switched, we will have to review old records. Both of these are on hold. He says that he has not been taking any water pills for several weeks now since he had cramping from diuretics. Outpatient notes also mention Celebrex for arthritis. He says he has not been taking them. He was started on Lipitor couple of months ago for dyslipidemia. CPK level is not significantly elevated Acute kidney injury is likely related to volume depletion, sepsis-> ischemic ATN. Serum creatinine appears to have peaked on 01/01/2025 at 7.47 mg/dL. Serum creatinine has slowly improved the last 2 days and is 7.07 mg/dL today on 01/03/2025. The patient is not oliguric. He is not hyperkalemic. Although he is acidotic, patient appears to be compensating without significant tachypnea or dyspnea. Therefore, there is no urgent need for kidney replacement therapy today. Since patient is hemodynamically stable, there is no need for IV fluid. Continue keep MAP above 65 mmHg. Will recheck renal function, volume status, acid-base and electrolytes again tomorrow.
[2025-01-03 20:55] VITALS: BP 145/68; PULSE 75; RESP 16; TEMP 36.7; O2SAT 98
[2025-01-03] MEDS: Tamsulosin HCl 0.4 MG Capsule PO (21:09)
[2025-01-03] MEDS: Atorvastatin Calcium 40 MG Tablet PO (21:09)
[2025-01-03 21:33] LABS: Bedside Glucose 125 mg/dL (74-106)
[2025-01-04] VITALS (8 sets, daily range): BP systolic 143–172; BP diastolic 63–89; PULSE 68–81; RESP 16–25; TEMP 36.4–37; O2SAT 95–100
[2025-01-04] MEDS: Heparin Injection (Vial) 5,000 UNIT/ML VIAL 5000 UNIT SC ×3 (05:22→20:23)
[2025-01-04] MEDS: Nystatin Powder 15gm Bottle 1 APPLIC TOPICAL ×3 (05:22→20:25)
[2025-01-04] MEDS: Menthol/Lanolin/Calamine/Znox 113 GM Tube 1 APPLIC TOPICAL ×3 (05:22→20:23)
[2025-01-04 06:12] LABS: Albumin, Serum 3.1 g/dL (3.4-4.8); Anion Gap 14 (5-15); BUN 81 mg/dL (4-19); BUN/Creat Ratio 12.2 RATIO (10-20); Calcium,Total 9.2 mg/dL (7.6-11.0); Carbon Dioxide 15.8 mmol/L (21.0-32.0); Chloride 108 mmol/L (98-108); Creatinine, Serum 6.62 mg/dL (0.70-1.20); EST Glomerular Filtration Rate 8 (>60); Estimated Creatinine Clearance 16.65 ml/min (50-250); Glucose 124 mg/dL (70-99); Phosphorus 5.1 mg/dL (2.7-4.5); Potassium 4.3 mmol/L (3.3-5.1); Sodium Level 138 mmol/L (133-145)
--- NOTE | 2025-01-04 08:49 | PN.HOSP_ITS ---
Reason for Visit Reason for Visit: Diagnoses Sepsis, unspecified organism (12/29/24) Pressure ulcer of unspecified site, unspecified stage (12/29/24) Acute kidney failure, unspecified (12/29/24) Tachycardia, unspecified (12/29/24) Vomiting, unspecified (12/29/24) Other malaise (12/29/24) Subjective Subjective Stating that he has to get into a mental state. Became upset when I encouraged him to work with therapy. Objective Data Objective Data Vital Signs: Vital Signs Temp Pulse Resp BP Pulse Ox O2 Del Method FiO2 37.0 C 81 18 172/76 H 100 Room Air 21 01/04/25 08:18 01/04/25 08:18 01/04/25 08:18 01/04/25 08:18 01/04/25 08:18 01/04/25 08:18 01/04/25 03:07 Oxygen Delivery Method Room Air Weight: 176.4 kg Body Mass Index (BMI) 60.9 Intake & Output: Intake and Output for Last 24 Hours 01/02/25 01/03/25 01/04/25 23:59 23:59 23:59 Intake Total 820 / 880 1070 / 1190 120 / 120 Output Total 2690 / 3990 2150 / 3050 1500 / 1500 Balance -1870 / -3110 -1080 / -1860 -1380 / -1380 Lab / Micro Data 01/03/25 04:55 01/04/25 05:22 Labs: Laboratory Results - last 24 hr 01/03/25 11:30: POC Glucose 119 H 01/03/25 17:16: POC Glucose 130 H 01/03/25 21:01: POC Glucose 125 H 01/04/25 05:22: Sodium 138, Potassium 4.3, Chloride 108, Carbon Dioxide 15.8 L, Anion Gap 14, BUN 81 H, Creatinine 6.62 H, Estim Creat Clear Calc 16.65 L, Est GFR (MDRD) Non-Af 8 L, BUN/Creatinine Ratio 12.2, Glucose 124 H, Calcium 9.2, P hosphorus 5.1 H, Albumin 3.1 L Micro: Microbiology 12/30/24 08:10 Urine, Clean Catch Urine Culture - Final Escherichia coli 12/29/24 10:58 Blood Culture (Wb) - Anticubital Right Blood Culture - Final Escherichia coli 12/29/24 12:29 Blood Culture (Wb) - Anticubital Right Blood Culture - Final GNR lactose internet salesperson 12/29/24 Unknown Stool Enteric Bacteriology - Final 12/29/24 Unknown Stool Clostridioides difficile (PCR) - Final Physical Exam Const alert and no apparent distress HEENT head/scalp atraumatic and moist oral mucous membranes Resp normal respiratory effort and no retractions Assessment & Plan Assessment/Plan (1) Sepsis: PLAN: Bacteremia and UTI, likely pyelonephritis. It also appears that he has bacteremia with E. coli. His urine culture is growing out gram-negative rods thus far. BCx and UCx showing lopez-sensitive E. coli. Deescalate abx to CTX (2) RICO (acute kidney injury): PLAN: Slightly improved today 7.39 from 7.47. Urine output improved. I anticipate his creatinine to continue to improve. Hold furosemide and spironolactone renal US negative. FEUrea 19.37% consistent with prerenal azotemia. Continue IVF. Nephrology following. (3) Debility: PLAN: Secondary to the underlying infection and sepsis. PT OT evaluate and treat Case management to assist with disposition. I encouraged him to work with therapy today. He became upset and told me to leave his room. PLAN: Plan Chronic conditions * Obesity class III: BMI of 60. Complicates care and recovery * AMRIK: Patient does use BiPAP. Patient can resume his BiPAP with sleep and naps. * Diabetes mellitus type 2: Sliding scale insulin. Check an A1c. * Prostate cancer: Follow-up with oncology * Hyperlipidemia: Continue with atorvastatin * Hypertension: Continue with amlodipine * BPH: Continue with tamsulosin VTE prophylaxis with subcu heparin CODE STATUS: Addressed with the patient. Patient wishes to be full code. Disposition: eventually to SNF. Hopefully this week. I encouraged him to work with therapy and told him if he decline therapy, he may compromise his acceptance at SNF. Transfer to [facility]. Charges/Coding Visit Charges Inpatient E&M: 85097 Subs Hosp L2
[2025-01-04] MEDS: Cholecalciferol (VIT D3) 25 MCG TABLET (1,000 UNITS) 50 MCG PO (09:27)
[2025-01-04] MEDS: Pantoprazole Sodium 20 MG Tablet PO (09:27)
[2025-01-04] MEDS: Carvedilol 25 MG Tablet PO ×2 (09:27→18:01)
[2025-01-04] MEDS: amLODIPine 5 MG Tablet PO (09:27)
[2025-01-04] MEDS: Tolterodine Tartrate 2 MG CAP.SA PO (09:27)
[2025-01-04] MEDS: Ceftriaxone 1 GM/50 ML BAG IV (09:28)
--- NOTE | 2025-01-04 11:03 | CASEMGMT ---
Addendum entered by Phylicia Gonzalez 01/04/25 16:17: SW received call from pt in his room to inquire into status of referral to [place]. SW shared that the facility was reviewing. SW offered to provide updates as available. Pt reports that he would like to rest and requested no updates until morning. Pt reports that he is disheartened by [facility] referral and feeling emotional today. SW offered support. SW received notice that [facility] unable to accept referral at this time. SW completed referral to [facility]. TL Grant Addendum entered by Phylicia Gonzalez 01/04/25 15:07: SW called to follow up on referral. Referral has not been reviewed at this time. TL Grant Addendum entered by Phylicia Gonzalez 01/04/25 13:28: Pt chose [facility] as alternate choice; SW completed referral. TL Grant Addendum entered by Phylicia Gonzalez 01/04/25 12:42: [facility] declined referral at this time. A list of SNF providers including quality and resource use data and consistent with the patient?s preferred geographic region, medical needs, and insurance network were provided from the [facility] Guide. Pt to select additional choices. TL Grant Original Note: Social Work- SW met with pt to offer support and follow up on SNF selections. SW introduced self and role; pt agreeable to meeting. Pt pleasant and cooperative; engaging and initiating conversation. Pt shared concerns, challenges, and emotional state as he is working to process medical condition. Pt was appreciative of support. Pt declined SNF list at this time, as pt selected [facility] as FOC. SW competed referral. SW remains available to follow. TL Grant
--- NOTE | 2025-01-04 12:16 | PN.RENAL_ITS ---
Subjective Subjective sitting up in bed, no overnight events. States appetite is fair, no recent nausea but feels he is not eating as much as he should. Objective Data Objective Data Vital Signs: Vital Signs Temp Pulse Resp BP Pulse Ox O2 Del Method FiO2 98.6 F 72 18 172/76 H 100 Room Air 21 01/04/25 08:18 01/04/25 11:00 01/04/25 08:18 01/04/25 08:18 01/04/25 08:18 01/04/25 08:52 01/04/25 03:07 Oxygen Delivery Method Room Air Weight: 176.4 kg Body Mass Index (BMI) 60.9 Intake & Output: Intake and Output for Last 24 Hours 01/02/25 01/03/25 01/04/25 23:59 23:59 23:59 Intake Total 820 / 880 1070 / 1190 670 / 670 Output Total 2690 / 3990 2150 / 3050 2800 / 2800 Balance -1870 / -3110 -1080 / -1860 -2130 / -2130 Lab / Micro Data 01/03/25 04:55 01/04/25 05:22 Labs: Laboratory Results - last 24 hr 01/03/25 17:16: POC Glucose 130 H 01/03/25 21:01: POC Glucose 125 H 01/04/25 05:22: Sodium 138, Potassium 4.3, Chloride 108, Carbon Dioxide 15.8 L, Anion Gap 14, BUN 81 H, Creatinine 6.62 H, Estim Creat Clear Calc 16.65 L, Est GFR (MDRD) Non-Af 8 L, BUN/Creatinine Ratio 12.2, Glucose 124 H, Calcium 9.2, P hosphorus 5.1 H, Albumin 3.1 L Micro: Microbiology 12/30/24 08:10 Urine, Clean Catch Urine Culture - Final Escherichia coli 12/29/24 10:58 Blood Culture (Wb) - Anticubital Right Blood Culture - Final Escherichia coli 12/29/24 12:29 Blood Culture (Wb) - Anticubital Right Blood Culture - Final GNR lactose gas maker helper 12/29/24 Unknown Stool Enteric Bacteriology - Final 12/29/24 Unknown Stool Clostridioides difficile (PCR) - Final Physical Exam Narrative Alert awake oriented x 3 no obvious distress s1s2 no murmurs lungs clear anteriorly abdomen soft, rounded no edema Assessment & Plan Assessment/Plan (1) RICO (acute kidney injury): PLAN: 69 yo male with PMH significant for prostate CA, CAD, COPD, DM type 2 and CKD stage IIIa. Presented to ER with complaints of generalized weakness. Acute renal failure. CKD stage IIIa at baseline, baseline creatinine is around 1.5. Presented with nausea, vomiting, generalized weakness. CT abdomen without any hydronephrosis, there is some perinephric stranding noted. Renal ultrasound no hydronephrosis. Urine analysis with RBC, protein, WBC. Preadmission medication included Lasix and spironolactone, both of these are on hold. Patient was not taking any water pills for several weeks now since he had cramping from diuretics. He was not taking Celebrex but did take Ibuprofen occasionally for pain. He was started on Lipitor couple of months ago for dyslipidemia. CPK level is not significantly elevated - Acute kidney injury is likely related to volume depletion, sepsis: blood and urine cx + ecoli->evolving to ischemic ATN. SCr 3.7 on 12/29-- SCr peaked on 01/01/2025 at 7.47 mg/dL. Serum creatinine has slowly improved over last few days and today SCr 6.62, K+ and bicarb acceptable. No acute indication for W[employer]E CH[employer]PER. Good urine output, so far 1.5L today. Will continue to follow. Will also arrange for hospital follow-up at hospital discharge. Reviewed with patient importance to avoid NSAIDs. Assessment and plan reviewed with Dr. John.
[2025-01-04 12:27] LABS: Bedside Glucose 119 mg/dL (74-106)
[2025-01-04] MEDS: Acetaminophen 500 MG Tablet PO (15:30)
[2025-01-04 17:43] LABS: Bedside Glucose 128 mg/dL (74-106)
[2025-01-04] MEDS: Atorvastatin Calcium 40 MG Tablet PO (20:22)
[2025-01-04] MEDS: Tamsulosin HCl 0.4 MG Capsule PO (20:23)
[2025-01-04 23:37] LABS: Bedside Glucose 106 mg/dL (74-106)
[2025-01-05 03:50] VITALS: BP 161/85; PULSE 70; RESP 16; TEMP 36.6; O2SAT 100
[2025-01-05] MEDS: Heparin Injection (Vial) 5,000 UNIT/ML VIAL 5000 UNIT SC ×3 (06:17→22:24)
[2025-01-05] MEDS: Menthol/Lanolin/Calamine/Znox 113 GM Tube 1 APPLIC TOPICAL ×3 (06:17→22:15)
[2025-01-05 06:52] LABS: Bedside Glucose 100 mg/dL (74-106)
--- NOTE | 2025-01-05 08:03 | PN.HOSP_ITS ---
Reason for Visit Reason for Visit: Diagnoses Sepsis, unspecified organism (12/29/24) Pressure ulcer of unspecified site, unspecified stage (12/29/24) Acute kidney failure, unspecified (12/29/24) Tachycardia, unspecified (12/29/24) Vomiting, unspecified (12/29/24) Other malaise (12/29/24) Objective Data Objective Data Vital Signs: Vital Signs Temp Pulse Resp BP Pulse Ox O2 Del Method FiO2 36.6 C 70 16 161/85 H 100 Room Air 21 01/05/25 03:50 01/05/25 03:50 01/05/25 03:50 01/05/25 03:50 01/05/25 03:50 01/05/25 03:50 01/05/25 02:51 Oxygen Delivery Method Room Air Weight: 176.4 kg Body Mass Index (BMI) 60.9 Intake & Output: Intake and Output for Last 24 Hours 01/03/25 01/04/25 01/05/25 23:59 23:59 23:59 Intake Total 1070 / 1190 1150 / 1150 Output Total 2150 / 3050 3200 / 3200 200 / 200 Balance -1080 / -1860 -2050 / -2050 -200 / -200 Lab / Micro Data 01/03/25 04:55 01/05/25 07:18 Labs: Laboratory Results - last 24 hr 01/04/25 12:09: POC Glucose 119 H 01/04/25 17:14: POC Glucose 128 H 01/04/25 23:13: POC Glucose 106 01/05/25 06:33: POC Glucose 100 Micro: Microbiology 12/30/24 08:10 Urine, Clean Catch Urine Culture - Final Escherichia coli 12/29/24 10:58 Blood Culture (Wb) - Anticubital Right Blood Culture - Final Escherichia coli 12/29/24 12:29 Blood Culture (Wb) - Anticubital Right Blood Culture - Final GNR lactose services engineer 12/29/24 Unknown Stool Enteric Bacteriology - Final 12/29/24 Unknown Stool Clostridioides difficile (PCR) - Final Assessment & Plan Assessment/Plan (1) Sepsis: PLAN: Bacteremia and UTI, likely pyelonephritis. It also appears that he has bacteremia with E. coli. His urine culture is growing out gram-negative rods thus far. BCx and UCx showing lopez-sensitive E. coli. Deescalate abx to CTX (2) RICO (acute kidney injury): PLAN: Slightly improved today 7.39 from 7.47. Urine output improved. I anticipate his creatinine to continue to improve. Hold furosemide and spironolactone renal US negative. FEUrea 19.37% consistent with prerenal azotemia. Continue IVF. Nephrology following. (3) Debility: PLAN: Secondary to the underlying infection and sepsis. PT OT evaluate and treat Case management to assist with disposition. I encouraged him to work with therapy today. He became upset and told me to leave his room. PLAN: Plan Chronic conditions * Obesity class III: BMI of 60. Complicates care and recovery * AMRIK: Patient does use BiPAP. Patient can resume his BiPAP with sleep and naps. * Diabetes mellitus type 2: Sliding scale insulin. Check an A1c. * Prostate cancer: Follow-up with oncology * Hyperlipidemia: Continue with atorvastatin * Hypertension: Continue with amlodipine * BPH: Continue with tamsulosin VTE prophylaxis with subcu heparin CODE STATUS: Addressed with the patient. Patient wishes to be full code. Disposition: eventually to SNF. Hopefully this week. I encouraged him to work with therapy and told him if he decline therapy, he may compromise his acceptance at SNF. Charges/Coding Visit Charges Inpatient E&M: 68283 [facility] Hosp L1
[2025-01-05 08:47] LABS: Anion Gap 15 (5-15); BUN 77 mg/dL (4-19); BUN/Creat Ratio 12.9 RATIO (10-20); Calcium,Total 9.2 mg/dL (7.6-11.0); Carbon Dioxide 15.9 mmol/L (21.0-32.0); Chloride 110 mmol/L (98-108); EST Glomerular Filtration Rate 10 (>60); Estimated Creatinine Clearance 18.37 ml/min (50-250); Glucose 109 mg/dL (70-99); Potassium 4.2 mmol/L (3.3-5.1); Sodium Level 141 mmol/L (133-145)
[2025-01-05 09:48] VITALS: BP 181/60; PULSE 90; RESP 16; TEMP 36.4; O2SAT 95
[2025-01-05] MEDS: Tolterodine Tartrate 2 MG CAP.SA PO (09:50)
[2025-01-05] MEDS: Ceftriaxone 1 GM/50 ML BAG IV (09:50)
[2025-01-05] MEDS: Cholecalciferol (VIT D3) 25 MCG TABLET (1,000 UNITS) 50 MCG PO (09:50)
[2025-01-05] MEDS: Pantoprazole Sodium 20 MG Tablet PO (09:50)
[2025-01-05] MEDS: Carvedilol 25 MG Tablet PO ×2 (09:50→17:17)
[2025-01-05] MEDS: amLODIPine 5 MG Tablet PO (09:50)
--- NOTE | 2025-01-05 10:48 | CASEMGMT ---
SW was informed by CHRISTIAN covering PCU yesterday that patient was calling. SW went to patient's room. Patient was on his cell phone. SW asked patient if he would like SW to return. Patient said, Who are you. SW introduced self and role at [facility]. Patient asked what SW wanted. SW explained that he was attempting to call [place] the SW he spoke with yesterday. Patient said it must have been a butt dial. SW told patient that is fine SW just wanted to make sure he did not need something. Patient then told the person on the phone he will call them back. SW told patient that we are just waiting on his insurance to approve him for [facility]. Patient was surprised to hear that he is going to [facility]. Patient said he was told [facility]. SW told patient SW can re-review CHRISTIAN's note and get back to him. At that time patient's door opened. Patient immediately said, Who is that. It was actually two of patient's friends/family. Patient asked if SW could come back at 1430. SW told patient that is fine and SW will return. Patient did thank CHRISTIAN for checking in with him. Meghann Donnelly STONE DECORATOR SILVERIO
--- NOTE | 2025-01-05 13:10 | PCM.PN.HOSP ---
Reason for Visit Reason for Visit: Diagnoses Sepsis, unspecified organism (12/29/24) Pressure ulcer of unspecified site, unspecified stage (12/29/24) Acute kidney failure, unspecified (12/29/24) Tachycardia, unspecified (12/29/24) Vomiting, unspecified (12/29/24) Other malaise (12/29/24) Subjective Subjective No new issues. Objective Data Objective Data Vital Signs: Vital Signs Temp Pulse Resp BP Pulse Ox O2 Del Method FiO2 36.4 C L 90 16 181/60 H 95 Room Air 21 01/05/25 09:48 01/05/25 09:48 01/05/25 09:48 01/05/25 09:48 01/05/25 09:48 01/05/25 10:00 01/05/25 02:51 Oxygen Delivery Method Room Air Weight: 176.4 kg Body Mass Index (BMI) 60.9 Intake & Output: Intake and Output for Last 24 Hours 01/03/25 01/04/25 01/05/25 23:59 23:59 23:59 Intake Total 1070 / 1190 1150 / 1150 50 / 50 Output Total 2150 / 3050 3200 / 3200 1000 / 1000 Balance -1080 / -1860 -2050 / -2050 -950 / -950 Lab / Micro Data 01/03/25 04:55 01/05/25 07:18 Labs: Laboratory Results - last 24 hr 01/04/25 17:14: POC Glucose 128 H 01/04/25 23:13: POC Glucose 106 01/05/25 06:33: POC Glucose 100 01/05/25 07:18: Sodium 141, Potassium 4.2, Chloride 110 H, Carbon Dioxide 15.9 L, Anion Gap 15, BUN 77 H, Creatinine 6.00 H, Estim Creat Clear Calc 18.37 L, Est GFR (MDRD) Non-Af 10 L, BUN/Creatinine Ratio 12.9, Glucose 109 H, Calcium 9.2 Micro: Microbiology 12/30/24 08:10 Urine, Clean Catch Urine Culture - Final Escherichia coli 12/29/24 10:58 Blood Culture (Wb) - Anticubital Right Blood Culture - Final Escherichia coli 12/29/24 12:29 Blood Culture (Wb) - Anticubital Right Blood Culture - Final GNR lactose market research senior project manager 12/29/24 Unknown Stool Enteric Bacteriology - Final 12/29/24 Unknown Stool Clostridioides difficile (PCR) - Final Physical Exam Const alert and no apparent distress Constitutional Narrative: in bed with blanket over his head. pulled blanket over his head. had his phone camera side pointed at me during the encounter (unknown if he was recording the encounter, but did request days prior to record encounter) HEENT head/scalp atraumatic and moist oral mucous membranes Resp normal respiratory effort and no retractions Assessment & Plan Assessment/Plan (1) Sepsis: PLAN: Bacteremia and UTI, likely pyelonephritis. It also appears that he has bacteremia with E. coli. His urine culture is growing out gram-negative rods thus far. BCx and UCx showing lopez-sensitive E. coli. Deescalate abx to CTX. Treat with antibiotics through 01/08. (2) RICO (acute kidney injury): PLAN: Slightly improved today 7.39 from 7.47. Urine output improved. I anticipate his creatinine to continue to improve. Hold furosemide and spironolactone renal US negative. FEUrea 19.37% consistent with prerenal azotemia. Continue IVF. Nephrology following. (3) Debility: PLAN: Secondary to the underlying infection and sepsis. PT OT evaluate and treat Case management to assist with disposition. I encouraged him to work with therapy today. He became upset and told me to leave his room. PLAN: Plan Chronic conditions Obesity class III: BMI of 60. Complicates care and recovery AMRIK: Patient does use BiPAP. Patient can resume his BiPAP with sleep and naps. Diabetes mellitus type 2: Sliding scale insulin. Check an A1c. Prostate cancer: Follow-up with oncology Hyperlipidemia: Continue with atorvastatin Hypertension: Continue with amlodipine BPH: Continue with tamsulosin VTE prophylaxis with subcu heparin CODE STATUS: Addressed with the patient. Patient wishes to be full code. Disposition: eventually to SNF. Hopefully this week. I encouraged him to work with therapy and told him if he decline therapy, he may compromise his acceptance at SNF. Charges/Coding Visit Charges Inpatient E&M: 49574 Subs Hosp L2
[2025-01-05 15:00] VITALS: BP 162/74; PULSE 78; RESP 16; TEMP 36.5; O2SAT 100
[2025-01-05] MEDS: Acetaminophen 500 MG Tablet PO (15:14)
--- NOTE | 2025-01-05 15:22 | CASEMGMT ---
SW went back to patient's room at 1430 per his request. SW sat and listened to patient for quite a while. Patient was venting frustrations. SW was able to notify patient that [facility], but [facility] can take him. SW explained we are waiting on his insurance to approve him. Patient said [facility] is the worst place to go to. They accepted him because no one else wants to go there. Patient went on to say [facility] is dirty and he is afraid he will get some other sickness. SW asked patient if he would like to try somewhere else. Patient asked what his other options would be. Patient said he did not take the list from [employer]. SW printed a list and took it back to patient.Patient asked when SW leaves and SW told him 4p. Patient said he will talk with SW in the am. SW will check back with patient in the morning. Meghann SAWYER
[2025-01-05 17:16] VITALS: BP 149/74; PULSE 77
[2025-01-05 17:30] LABS: Bedside Glucose 144 mg/dL (74-106)
[2025-01-05 22:13] VITALS: BP 166/74; PULSE 79; RESP 18; TEMP 36.5; O2SAT 100
[2025-01-05] MEDS: Tamsulosin HCl 0.4 MG Capsule PO (22:16)
[2025-01-05] MEDS: Atorvastatin Calcium 40 MG Tablet PO (22:16)
[2025-01-06 04:00] VITALS: BP 147/99; PULSE 71; RESP 18; TEMP 36.4; O2SAT 100
[2025-01-06] MEDS: Menthol/Lanolin/Calamine/Znox 113 GM Tube 1 APPLIC TOPICAL (06:19)
[2025-01-06] MEDS: Heparin Injection (Vial) 5,000 UNIT/ML VIAL 5000 UNIT SC (06:19)
--- NOTE | 2025-01-06 08:16 | PN.HOSP_ITS ---
Reason for Visit Reason for Visit: Diagnoses Sepsis, unspecified organism (12/29/24) Pressure ulcer of unspecified site, unspecified stage (12/29/24) Acute kidney failure, unspecified (12/29/24) Tachycardia, unspecified (12/29/24) Vomiting, unspecified (12/29/24) Other malaise (12/29/24) Subjective Subjective No new events. Still getting easily upset about intrusions to his room and assertive attitudes that many of the staff he perceives. Openly acknowledged that he sould have psychiatric care. Objective Data Objective Data Vital Signs: Vital Signs Temp Pulse Resp BP Pulse Ox O2 Del Method FiO2 36.4 C L 71 18 147/99 H 100 Room Air 21 01/06/25 04:00 01/06/25 04:00 01/06/25 04:00 01/06/25 04:00 01/06/25 04:00 01/06/25 06:22 01/05/25 20:31 Oxygen Delivery Method Room Air Weight: 176.4 kg Body Mass Index (BMI) 60.9 Intake & Output: Intake and Output for Last 24 Hours 01/04/25 01/05/25 01/06/25 23:59 23:59 23:59 Intake Total 1150 / 1150 50 / 50 Output Total 3200 / 3200 3200 / 3200 1000 / 1000 Balance -2050 / -2050 -3150 / -3150 -1000 / -1000 Lab / Micro Data 01/03/25 04:55 01/05/25 07:18 Labs: Laboratory Results - last 24 hr 01/05/25 07:18: Sodium 141, Potassium 4.2, Chloride 110 H, Carbon Dioxide 15.9 L , Anion Gap 15, BUN 77 H, Creatinine 6.00 H, Estim Creat Clear Calc 18.37 L, Est GFR (MDRD) Non-Af 10 L, BUN/Creatinine Ratio 12.9, Glucose 109 H, Calcium 9.2 01/05/25 17:11: POC Glucose 144 H Micro: Microbiology 12/30/24 08:10 Urine, Clean Catch Urine Culture - Final Escherichia coli 12/29/24 10:58 Blood Culture (Wb) - Anticubital Right Blood Culture - Final Escherichia coli 12/29/24 12:29 Blood Culture (Wb) - Anticubital Right Blood Culture - Final GNR lactose business support assistant 12/29/24 Unknown Stool Enteric Bacteriology - Final 12/29/24 Unknown Stool Clostridioides difficile (PCR) - Final Physical Exam Const alert and no apparent distress Constitutional Narrative: in bed. no respiratory distress. no conversational dyspnea. Resp normal respiratory effort and no retractions Assessment & Plan Assessment/Plan (1) Sepsis: PLAN: Bacteremia and pyelonephritis. It also appears that he has bacteremia with E. coli. His urine culture is growing out gram-negative rods thus far. BCx and UCx showing lopez-sensitive E. coli. continue CTX treat through 01/08. Could change to fluoroquinolone, but will need to renally adjust depending on ultimate kidney function. (2) RICO (acute kidney injury): PLAN: Slightly improved today 7.39 from 7.47. Urine output improved. I anticipate his creatinine to continue to improve. Hold furosemide and spironolactone renal US negative. FEUrea 19.37% consistent with prerenal azotemia. Continue IVF. Nephrology following. SHELLEY Avalos. (3) Debility: PLAN: Secondary to the underlying infection and sepsis. PT OT evaluate and treat Case management to assist with disposition. Previously, I encouraged him to work with therapy today and he became upset and told me to leave his room. Yesterday, he decline PT services. [facility] declined SNF needs stating that he was at his baseline. I did a [id number] with the physician with [facility] and SNF was still declined. SHELLEY social work, who later discussed with the patient. He cannot afford [id number]-it-pszmon for SNF. He wishes to contemplate Medicaid then going to a SNF with Medicaid v home with [facility]. (4) Depression: PLAN: Patient open acknowledged that he should seek psychiatric help. I told him that I do strongly feel that he does need further counseling to work through his issues. I told him that I am concerned that he may be misinterpreting people's interactions and about coming in at times that are inconvenient to him as being an affront to him. He then told me he is not interested in any counseling but will speak with his sabianist. PLAN: Plan Chronic conditions * Obesity class III: BMI of 60. Complicates care and recovery * AMRIK: Patient does use BiPAP. Patient can resume his BiPAP with sleep and naps. * Diabetes mellitus type 2: Sliding scale insulin. Check an A1c. * Prostate cancer: Follow-up with oncology * Hyperlipidemia: Continue with atorvastatin * Hypertension: Continue with amlodipine * BPH: Continue with tamsulosin VTE prophylaxis with subcu heparin CODE STATUS: Addressed with the patient. Patient wishes to be full code. Disposition: to be determined. The patient estimated to talk with his brother, Mil Han. Given his number which is [phone]. I spoke with Mr. Han about his brother. He did acknowledge the that the patient can be hard headed. I did explain his his medical condition is greatly improved. He did state that the patient's house is in rather disrepair and would need to be further clean. He has concerns about the patient going home because it is so poorly kept and he would be concerned about further infections because of the squalor. Greater than 60 minutes of which greater than 50% of time was discussing with patient, discussing with socially responsible investment adviser as well as the patient's brother. Charges/Coding Visit Charges Inpatient E&M: 55046 Subs Hosp L3
--- NOTE | 2025-01-06 08:17 | CASEMGMT ---
Discharge Planning Updates sent to [facility]. Kat Ramos DC Planning Asst.
--- NOTE | 2025-01-06 09:11 | PN.RENAL_ITS ---
Subjective Subjective Following for RICO. Patient denies chest pain, dyspnea or nausea. He is feeling better. Objective Data Objective Data Vital Signs: Vital Signs Temp Pulse Resp BP Pulse Ox O2 Del Method FiO2 97.6 F L 71 18 147/99 H 100 Room Air 21 01/06/25 04:00 01/06/25 04:00 01/06/25 04:00 01/06/25 04:00 01/06/25 04:00 01/06/25 06:22 01/05/25 20:31 Oxygen Delivery Method Room Air Weight: 176.4 kg Body Mass Index (BMI) 60.9 Intake & Output: Intake and Output for Last 24 Hours 01/04/25 01/05/25 01/06/25 23:59 23:59 23:59 Intake Total 1150 / 1150 50 / 50 Output Total 3200 / 3200 3200 / 3200 1000 / 1000 Balance -2050 / -2050 -3150 / -3150 -1000 / -1000 Lab / Micro Data 01/03/25 04:55 01/05/25 07:18 Labs: Laboratory Results - last 24 hr 01/05/25 17:11: POC Glucose 144 H Micro: Microbiology 12/30/24 08:10 Urine, Clean Catch Urine Culture - Final Escherichia coli 12/29/24 10:58 Blood Culture (Wb) - Anticubital Right Blood Culture - Final Escherichia coli 12/29/24 12:29 Blood Culture (Wb) - Anticubital Right Blood Culture - Final GNR lactose foreign trade teacher 12/29/24 Unknown Stool Enteric Bacteriology - Final 12/29/24 Unknown Stool Clostridioides difficile (PCR) - Final Physical Exam Narrative Alert awake oriented x 3 no obvious distress s1s2 no murmurs lungs clear anteriorly abdomen soft, rounded no edema Assessment & Plan Assessment/Plan (1) RICO (acute kidney injury): PLAN: Impression/Plan: Patient is a 69-year-old male with PMH of CKD stage G3a, type 2 diabetes mellitus, hypertension, CAD, COPD, and prostate cancer. Patient presented to hospital on 12/29/2024 with generalized weakness. He was subsequently diagnosed with severe sepsis with E. coli bacteremia, likely due to UTI. Patient is being treated with antibiotic. Nephrology is following for RICO on CKD. Acute kidney injury on chronic kidney disease stage G3a. Patient has known CKD stage G3a with baseline creatinine is around 1.5. Presented with nausea, vomiting, generalized weakness. He states urine has also turned dark versus occasional red-colored. CT abdomen without any hydronephrosis, there is some perinephric stranding noted. Renal ultrasound no hydronephrosis. Urine analysis with RBC, protein, WBC. Urine culture final report pending. Blood culture positive for E. coli. Preadmission medication list reviewed. He is on Lasix and spironolactone. Noted to have gynecomastia on CT. Could be related to spironolactone. This might need to be switched, we will have to review old records. Both of these are on hold. He says that he has not been taking any water pills for several weeks now since he had cramping from diuretics. Outpatient notes also mention Celebrex for arthritis. He says he has not been taking them. He was started on Lipitor couple of months ago for dyslipidemia. CPK level is not significantly elevated Acute kidney injury is likely related to volume depletion, sepsis-> ischemic ATN. Serum creatinine appears to have peaked on 01/01/2025 at 7.47 mg/dL. Serum creatinine has slowly improved the last 2 days and is 6.00 mg/dL today on 01/06/2025. The patient is not oliguric. He is not hyperkalemic. Although he is acidotic, patient appears to be compensating without significant tachypnea or dyspnea. Therefore, there is no urgent need for kidney replacement therapy today. Since patient is hemodynamically stable, there is no need for IV fluid. Continue keep MAP above 65 mmHg. Will recheck renal function, volume status, acid-base and electrolytes again tomorrow. Nephrology plan is discussed with Dr. Syed.
--- NOTE | 2025-01-06 09:14 | CASEMGMT ---
[facility] notified SW that [employer] has the intent to deny patient. [employer] is offering a peer to peer. notified physician. Meghann SAWYER
[2025-01-06 09:23] VITALS: BP 174/86; PULSE 79; RESP 20; TEMP 36.8; O2SAT 98
[2025-01-06] MEDS: Acetaminophen 500 MG Tablet PO (09:37)
--- NOTE | 2025-01-06 09:38 | CASEMGMT ---
SW went to patient's room to let him know that insurance has expressed they intend to deny his request for correction. Patient was upset. He wanted to know why. Patient said, What did they put in the notes that insurance is planning on denying me? SW attempted to explain to patient that when a patient is able to walk 30-50 ft that is considered household distances and insurance often denies based on this. CHRISTIAN also let patient know that CHRISTIAN did ask CC if insurance has stated why they intend to deny. CHRISTIAN has not heard back yet. Patient said he needs to charge his phone. Patient said he just got off the phone with [employer] and they did not see anything on file requesting SNF. CHRISTIAN explained to patient that not every person at the insurance has the same access to their system. Patient said he needs to think about what he is going to do. CHRISTIAN did notify physician of peer to peer. Meghann Donnelly HR GENERALIST SILVERIO
[2025-01-06] MEDS: amLODIPine 5 MG Tablet PO (09:40)
[2025-01-06] MEDS: Cholecalciferol (VIT D3) 25 MCG TABLET (1,000 UNITS) 50 MCG PO (09:40)
[2025-01-06] MEDS: Pantoprazole Sodium 20 MG Tablet PO (09:40)
[2025-01-06] MEDS: Carvedilol 25 MG Tablet PO ×2 (09:40→17:02)
[2025-01-06] MEDS: Tolterodine Tartrate 2 MG CAP.SA PO (09:40)
[2025-01-06] MEDS: Ceftriaxone 1 GM/50 ML BAG IV (09:47)
--- NOTE | 2025-01-06 11:27 | CASEMGMT ---
CHRISTIAN received a phone call from Erin with [facility]'s escalation department. Erin said she has patient on the phone as well. Erin was telling CHRISTIAN about the peer to peer and how to do it. CHRISTIAN let Erin know that CHRISTIAN has the number and the physician has called and left a message. Erin also said that the patient said he was being discharged today regardless and he would be sent home without any assistance. CHRISTIAN assured Erin that CHRISTIAN did let patient know [facility] will assist with making a d/c plan. Meghann SAWYER
[2025-01-06 11:45] VITALS: BP 145/62; PULSE 76; RESP 20; TEMP 36.7; O2SAT 98
--- NOTE | 2025-01-06 12:14 | CASEMGMT ---
Peer to peer was completed and patient is being denied. SW went to patient's room and let him know this information. CHRISTIAN told patient his options are private paying at the fci which is around $300+ dollars a day patient said no, applying for Medicaid and go to a fci on pending Medicaid, and third would be going home with home health. SW explained that therapy would be out a couple of times a week, nursing could come out possibly once a week, and an aide possibly once a week to assist with personal care. Patient said he needs to think about it since he just got the news. CHRISTIAN told patient SW can check back in a little bit. Patient said he wants to set up a time as he does not want SW coming back in in an hour asking if he made up his mind yet. Patient said 3:00. Patient is going to eat lunch and will then make phone calls. Meghann SAWYER
[2025-01-06 12:22] LABS: Bedside Glucose 141 mg/dL (74-106)
[2025-01-06 14:08] LABS: Bedside Glucose 138 mg/dL (74-106); Bedside Glucose 140 mg/dL (74-106)
--- NOTE | 2025-01-06 14:32 | CASEMGMT ---
Patient's RN asked to talk with CHRISTIAN early. CHRISTIAN went to patient's room. Patient if SW had anything different. CHRISTIAN said no. SW asked patient if he has decided what he is going to do. Patient asked what are his options. CHRISTIAN re-explained he could private pay which is around $300 + dollars a day. Patient interrupted CHRISTIAN and said, Look at me I don't look like a private pay sukhdeep person. CHRISTIAN then said you could apply for Medicaid and go to a halfway on pending Medicaid. CHRISTIAN did explain that we would not know if he definitely qualifies for Medicaid until [facility] has all of the verification information they need like bank statements etc. Lastly, patient could go home and [facility] could set up home health PT,OT, nursing, and aide. Patient said he would like to try and apply for Medicaid. CHRISTIAN explained CHRISTIAN will contact Rosalba the individual that assists patients in applying for Medicaid. She then sends it to [facility]. Once they have a pending number they give it to Rosalba. CHRISTIAN told patient CHRISTIAN can check with [facility] to see if they can still take him on pending Medicaid. CHRISTIAN told patient CHRISTIAN will contact Rosalba and let him know. Patient asked while he is here will he have to do therapy. CHRISTIAN told patient that it is advised as that is the point in him going to a halfway is to do rehab and build up strength. CHRISTIAN called Rosalba and left her a voice mail regarding patient and asked that she call CHRISTIAN before seeing patient. CHRISTIAN updated physician. Meghann Donnelly MSW SILVERIO
--- NOTE | 2025-01-06 15:10 | CASEMGMT ---
CHRISTIAN received a call from Rosalba with [employer]. Rosalba said she would have time to see patient today. CHRISTIAN went to patient's room and asked if it would be okay if Rosalba came and spoke with him today. Patient said that is fine. CHRISTIAN called Rosalba and let her know. Meghann SAWYER
[2025-01-06 16:58] VITALS: BP 160/71; PULSE 84; RESP 20; TEMP 36.4; O2SAT 98
[2025-01-06 21:58] VITALS: BP 163/85; PULSE 71; RESP 20; TEMP 36.2; O2SAT 97
[2025-01-07 03:18] VITALS: BP 168/80; PULSE 76; RESP 18; TEMP 36.4; O2SAT 100
[2025-01-07 07:34] LABS: Anion Gap 12 (5-15); BUN 61 mg/dL (4-19); BUN/Creat Ratio 12.7 RATIO (10-20); Calcium,Total 9.5 mg/dL (7.6-11.0); Chloride 108 mmol/L (98-108); Creatinine, Serum 4.82 mg/dL (0.70-1.20); EST Glomerular Filtration Rate 12 (>60); Estimated Creatinine Clearance 22.87 ml/min (50-250); Glucose 139 mg/dL (70-99); Potassium 4.3 mmol/L (3.3-5.1); Sodium Level 139 mmol/L (133-145)
--- NOTE | 2025-01-07 09:06 | CASEMGMT ---
SW went to patient's room. SW knocked on the door, told patient who it was and asked if it was okay if SW came in. Patient was okay with SW coming into his room. Patient had [employer] bags of items such as lotion, wipes etc that he was sorting through. Patient asked SW what he can do for Social Work. SW told patient SW just wanted to update him. SW explained Rosalba submitted the Medicaid application. Once we get a pending number which could be today vs tomorrow we will be able to get him to [facility] if that is what he would still like to do. Patient told CHRISTIAN, You come in here and have answers before me. Then you expect me.. SW stopped patient and told him SW is simply updating him and not asking for anything. SW asked patient if he would like SW to come back a little later. Patient told CHRISTIAN he will call CHRISTIAN because he will have people in and out of his room today. SW said that is fine and wrote SW's name and number on patient's white board. Meghann SAWYER
--- NOTE | 2025-01-07 09:34 | CASEMGMT ---
CHRISTIAN did receive a pending Medicaid case number for patient [id number]. CHRISTIAN will notify physician that patient can go today as long as that is what patient wants to do. Meghann SAWYER
[2025-01-07 10:17] VITALS: BP 162/75; PULSE 83; RESP 20; TEMP 36.7; O2SAT 99
[2025-01-07] MEDS: Carvedilol 25 MG Tablet PO ×2 (10:20→16:54)
[2025-01-07] MEDS: Tolterodine Tartrate 2 MG CAP.SA PO (10:22)
[2025-01-07] MEDS: Pantoprazole Sodium 20 MG Tablet PO (10:23)
[2025-01-07] MEDS: amLODIPine 5 MG Tablet PO (10:23)
[2025-01-07] MEDS: Cholecalciferol (VIT D3) 25 MCG TABLET (1,000 UNITS) 50 MCG PO (10:23)
[2025-01-07] MEDS: 0.9% Saline Lock 10 ML Syringe IV (10:45)
--- NOTE | 2025-01-07 10:45 | CASEMGMT ---
CHRISTIAN went to patient's room to let him know we do have a pending number and the physician will send him to [facility] today as long as that is still his plan. CHRISTIAN knocked on patient's door, introduced self and asked if it was okay if SW came in as CHRISTIAN has an update. Patient asked SW to call him back as he has people in his room. CHRISTIAN went back to CHRISTIAN's desk and called patient on his room phone, but there was no answer. CHRISTIAN then received a phone call from patient. CHRISTIAN let patient know that we did receive a pending Medicaid number and the physician will send him to [facility] today as long as that is what he still wants. Patient said someone is bringing him pants. He asked when this will happen. CHRISTIAN let patient know that once the physician completes his paperwork we can get things moving. CHRISTIAN told patient it would likely be this afternoon. Patient thanked CHRISTIAN. Meghann Donnelly AIRPORT SECURITY SCREENER SILVERIO
[2025-01-07] MEDS: Ceftriaxone 1 GM/50 ML BAG IV (10:47)
--- NOTE | 2025-01-07 11:50 | CASEMGMT ---
SW received a call from patient asking SW to come to his room. SW went to patient's room. SW pulled up a chair and sat down. Patient said he is going home. SW asked patient what happened. Patient said he received a phone call from [facility] stating he would have to be there 30 days and he would have to give [facility] all of his social security except for $50. SW told patient SW was under the impression that the only time that happens is when patient goes to a SNF panama hat smearer and they are at the group home for more than 90 days. Patient went on to express frustrations with the system. SW listened and provided emotional support. SW asked patient if he would like to set up home health. Patient declined stating he doesn't want to have to deal with all of the red tape involved. SW asked patient if he would like to call [facility] and clarify. At first patient said no then he told SW to go ahead. CHRISTIAN called Patria with [facility] and asked. Patria confirmed that patient would need to be in a medical facility for 30 days in order for Medicaid to activate. Patient's days at the hospital count towards this 30 days. Patient would have a pro-rated patient liability since it is part way through December. Patient could set up a payment plan. SW thanked Patria and let her know patient may be going home now. SW spoke with patient letting him know above. SW apologized for not knowing this information. Patient thanked CHRISTIAN for checking on this for him. SW did offer to set up home health several more times and patient declined. SW also attempted to tell patient if he gets home and decides he would like home health he could contact his primary care doctor, but patient was not interested. Patient told SW his ride would not be able to be here until 5 or a little after. SW told patient that is fine. SW will update everyone. Patient thanked CHRISTIAN for everything SW did and trying to help him. SW notified RN, discharge specialist, TRANSCRIPTER, and physician. Meghann SAWYER
--- NOTE | 2025-01-07 14:14 | PCM.PN.REN ---
Subjective Subjective Patient up in room in chair. Being discharged home today. No overnight events. No complaints. Objective Data Objective Data Vital Signs: Vital Signs Temp Pulse Resp BP Pulse Ox O2 Del Method FiO2 98.1 F 83 20 H 162/75 H 99 Room Air 21 01/07/25 10:17 01/07/25 10:17 01/07/25 10:17 01/07/25 10:17 01/07/25 10:01/07/25 10:01/07/25 03:28 Oxygen Delivery Method Room Air Weight: 176.4 kg Body Mass Index (BMI) 60.9 Intake & Output: Intake and Output for Last 24 Hours 01/05/25 01/06/25 01/07/25 23:59 23:59 23:59 Intake Total 50 / 50 50 / 50 50 / 50 Output Total 3200 / 3200 4000 / 4000 700 / 700 Balance -3150 / -3150 -3950 / -3950 -650 / -650 Lab / Micro Data 01/03/25 04:55 01/07/25 06:44 Labs: Laboratory Results - last 24 hr 01/07/25 06:44: Sodium 139, Potassium 4.3, Chloride 108, Carbon Dioxide 19.0 L, Anion Gap 12, BUN 61 H, Creatinine 4.82 H, Estim Creat Clear Calc 22.87 L, Est GFR (MDRD) Non-Af 12 L, BUN/Creatinine Ratio 12.7, Glucose 139 H, Calcium 9.5 Micro: Microbiology 12/30/24 08:10 Urine, Clean Catch Urine Culture - Final Escherichia coli 12/29/24 10:58 Blood Culture (Wb) - Anticubital Right Blood Culture - Final Escherichia coli 12/29/24 12:29 Blood Culture (Wb) - Anticubital Right Blood Culture - Final GNR lactose rag willow operator 12/29/24 Unknown Stool Enteric Bacteriology - Final 12/29/24 Unknown Stool Clostridioides difficile (PCR) - Final Physical Exam Narrative Alert awake oriented x 3 no obvious distress s1s2 no murmurs lungs clear anteriorly abdomen soft, rounded no edema Assessment & Plan Assessment/Plan (1) RICO (acute kidney injury): PLAN: Impression/Plan: Patient is a 69-year-old male with PMH of CKD stage G3a, type 2 diabetes mellitus, hypertension, CAD, COPD, and prostate cancer. Patient presented to hospital on 12/29/2024 with generalized weakness. He was subsequently diagnosed with severe sepsis with E. coli bacteremia, likely due to UTI. Patient is being treated with antibiotic. Nephrology is following for RICO on CKD. Acute kidney injury on chronic kidney disease stage G3a. Patient has known CKD stage G3a with baseline creatinine ~ 1.5 in July 2023. No lab work to review 2023. Presented with nausea, vomiting, generalized weakness. He states urine has also turned dark versus occasional red-colored. CT abdomen without any hydronephrosis, there is some perinephric stranding noted. Renal ultrasound no hydronephrosis. Urine analysis with RBC, protein, WBC. Urine culture final report pending. Blood culture positive for E. coli. Preadmission medication list reviewed. He was on Lasix and spironolactone. Noted to have gynecomastia on CT. Could be related to spironolactone. This might need to be switched, we will have to review old records. Both of these are on hold. He says that he has not been taking any water pills for several weeks now since he had cramping from diuretics. Outpatient notes also mention Celebrex for arthritis. He says he has not been taking them. He was started on Lipitor couple of months ago for dyslipidemia. CPK level is not significantly elevated Acute kidney injury is likely related to volume depletion, sepsis-> ischemic ATN. Serum creatinine peaked on 01/01/2025 at 7.47 mg/dL. Serum creatinine has slowly improved daily, creatinine 4.8 today. The patient is not oliguric. Patient being discharged home today. Will arrange for hospital follow-up in [place] office. Reviewed with patient importance of avoiding NSAIDs. Recommend for patient not to go home on spironolactone and/or furosemide. Will follow up with patient in office.
[2025-01-07 16:46] VITALS: BP 150/98; PULSE 86; RESP 20; TEMP 36.6; O2SAT 99
--- NOTE | 2025-01-07 16:47 | DS.PCM_ITS ---
Providers Date of Admission: 12/29/24 Date of Discharge: 01/07/25 Primary Care Physician: Dr. 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 Routine Comment: 12/31/24 08:41 Consult: Nephrology Routine Consulting Provider: Wisam John Reason for Consult: RICO EMERGENT Consult: No MD Notified: Yes Date Notified: 12/31/24 Time Notified: 08:41 Method of Notification: Verbal Reason For Visit: SEPSIS Diagnosis Discharge Diagnosis (1) RICO (acute kidney injury): Status: Acute Code(s): N17.9 - Acute kidney failure, unspecified Medications at Discharge Home Medications albuterol sulfate 2.5 mg/3 mL (0.083 %) solution for nebulization 2.5 mg inhalation Q4H PRN WHEEZING/SHORTNESS OF BREATH 05/15/17 atorvastatin 40 mg tablet 40 mg PO QHS CHOLESTEROL 05/15/17 nitroglycerin 0.4 mg sublingual tablet (Nitrostat) 0.4 mg sublingual Q5M PRN CHEST PAIN 05/15/17 tamsulosin 0.4 mg capsule 0.4 mg PO QHS PROSTATE 10/23/17 albuterol sulfate 90 mcg/actuation aerosol inhaler 2 puff inhalation Q4H PRN WHEEZING/SHORTNESS OF BREATH 05/12/20 amlodipine 5 mg tablet 5 mg PO DAILY BLOOD PRESSURE 05/12/20 carvedilol 25 mg tablet 25 mg PO BID HEART 05/12/20 omeprazole 20 mg capsule,delayed release 20 mg PO DAILY ACID REFLUX 05/12/20 oxybutynin chloride 10 mg tablet,extended release 24 hr 20 mg PO DAILY OVERACTIVE BLADDER 06/13/22 artificial tears with lanolin eye ointment 1 applic EACH EYE DAILY PRN LEFT EYE 08/08/23 cholecalciferol (vitamin D3) 50 mcg (2,000 unit) tablet (Vitamin D3) 50 mcg PO DAILY SUPPLEMENT 08/08/23 acetaminophen 500 mg tablet 500 mg PO Q6H PRN pain 12/29/24 sildenafil 100 mg tablet 100 mg PO DAILY PRN sexual activity 12/29/24 cefdinir 300 mg capsule 300 mg PO DAILY #8 caps 01/07/25 Hospital Course Operations None Procedures None Summary of Care Provided Minutes Spent on Discharge: 47 Hospital Course: Patient is a 69-year-old male with past medical history as outlined was admitted to the ED on 12/29/2024 with complaint of weakness, vomiting and diarrhea. He had not been feeling well for about 10 days prior to admission. He had not been able to eat much but had been trying to drink water. On admission creatinine was 3.71 with a baseline around 1.5. Lactic acid was also elevated at 2.7. He was started on broad-spectrum antibiotics with IV vancomycin and Zosyn and hydrated with IV fluids. CT of the abdomen and pelvis done showed asymmetric stranding along the right kidney and ureter concerning for pyelonephritis. Urinalysis also showed evidence of UTI. Was admitted and managed for pyelonephritis and UTI as well as RICO. He was hydrated with IV fluids and antibiotics were continued. Nephrology was consulted. Blood cultures were positive for E. coli which was pansensitive. This was also shown in the urine cultures. Antibiotics were therefore narrowed down to IV ceftriaxone. Nephrology was consulted. Patient was not oliguric and creatinine gradually trended downwards. His creatinine did peak at 7.47. FEUrea was 19.37 consistent with prerenal azotemia. Renal ultrasound showed no evidence of hydronephrosis and showed appearance of minimally imaged hepatic parenchyma most commonly assisted with hepatic steatosis. Patient's creatinine trended downwards and was 4.7 on day of discharge. Nephrology was however okay with patient being discharged. His lisinopril and spironolactone as well as Lasix were discontinued. He was discharged home on a 4-day course of p.o. cefdinir 300 mg daily to complete a total of 10 days of antibiotics. He is follow-up with his primary care doctor and with nephrology within 1 week for repeat BMP to monitor kidney function. Patient seen and examined prior to discharge. He had no active complaints. He had an uneventful night. His brother and his friend were by his bedside. Review of systems otherwise negative. Labs and vitals reviewed. Home medication reviewed and reconciled. Physical Exam Const alert, oriented x3 and no apparent distress Constitutional Narrative: class III obesity General Appearance: cooperative and comfortable Orientation / Consciousness: awake Exam Limitations: no limitations HEENT normocephalic, head/scalp atraumatic, hearing grossly normal bilaterally and oropharynx normal Mouth: oral and palatal mucosa normal Eyes PERRL, EOMs intact bilaterally and conjunctivae normal Neck no lymphadenopathy and supple Resp normal respiratory effort, no retractions, no use of accessory muscles and clear to auscultation bilaterally Cardio regular rate, regular rhythm, S1 normal heart sound, S2 normal heart sound and no murmurs GI normal to inspection, nondistended, normoactive bowel sounds, soft to palpation, non-tender and non-distended Extremity normal to inspection, full ROM and no clubbing, cyanosis or edema Skin no rashes or lesions noted Neuro oriented x3, CN's II-XII intact bilaterally, moves all extremities and no focal motor deficits Sensorium / Orientation: awake and alert Motor Exam: strength 5/5 throughout Psych affect normal Weight / BMI Weight Weight: 388 lb 14.327 oz Body Mass Index (BMI) 60.9 ABG / Lab / Microbiology Data 01/03/25 04:55 01/07/25 06:44 Laboratory: Laboratory Results - last 24 hr 01/07/25 06:44: Sodium 139, Potassium 4.3, Chloride 108, Carbon Dioxide 19.0 L, Anion Gap 12, BUN 61 H, Creatinine 4.82 H, Estim Creat Clear Calc 22.87 L, Est GFR (MDRD) Non-Af 12 L, BUN/Creatinine Ratio 12.7, Glucose 139 H, Calcium 9.5 Microbiology: Microbiology 12/30/24 08:10 Urine, Clean Catch Urine Culture - Final Escherichia coli 12/29/24 10:58 Blood Culture (Wb) - Anticubital Right Blood Culture - Final Escherichia coli 12/29/24 12:29 Blood Culture (Wb) - Anticubital Right Blood Culture - Final GNR 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 12/29/24 Unknown Stool Enteric Bacteriology - Final 12/29/24 Unknown Stool Clostridioides difficile (PCR) - Final D/C Instructions Discharge Diet: Low fat / Low cholesterol Discharge Activity: Return to Normal Activity Weight Bearing Status: Weight bearing as tolerated Call your doctor if you observe: Fever of 101 or Higher, Shortness of breath, Dizziness, Swelling in the ankles and Chest pain DC O2, CPAP, BIPAP Needs Home O2 Discharge instructions: No DC home with Oxygen: No Meaningful Use Info Meaningful Use Meaningful Use Diagnoses (Choose all that apply): None applicable Ischemic Stroke Statin Dosing Therapy Reference: STATIN DOSE THERAPY REFERENCE: * Patients > 75 years receive moderate or high dose statin therapy. * Patients 75 years or YOUNGER should receive HIGH intensity statin dose unless contraindicated. You will be required to document reason for non-treatment if statin daily dose does not meet guidelines. 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 DO NOT EXCEED 3 DOSES. tamsulosin 0.4 MG capsule 0.4 mg PO QHS carvedilol 25 MG tablet 25 mg PO BID amlodipine 5 MG tablet 5 mg PO DAILY omeprazole 20 MG capsule,delayed release(DR/EC) 20 mg PO DAILY albuterol sulfate 90 mcg/actuation HFA aerosol inhaler 2 puff inhalation Q4H PRN (Reason: WHEEZING/SHORTNESS OF BREATH ) oxybutynin chloride 10 mg Tablet Extended Release 24hr 20 mg PO DAILY cholecalciferol (vitamin D3) [Vitamin D3] 50 mcg (2,000 unit) tablet 50 mcg PO DAILY artificial tears with lanolin Ointment 1 applic EACH EYE DAILY PRN (Reason: LEFT EYE ) acetaminophen 500 mg tablet 500 mg PO Q6H PRN (Reason: pain) sildenafil 100 mg tablet 100 mg PO DAILY PRN (Reason: sexual activity) Rx Instructions: administer 30 minutes to 4 hours before activity Discontinued spironolactone 25 mg tablet 25 mg PO DAILY furosemide 40 mg tablet 40 mg PO DAILY celecoxib 100 mg capsule 100 mg PO BID Referrals / Follow Up: Wisam John MD [Med Staff - Consulting] - Within 1 Week Simon Victoria MD [Primary Care Provider] - Within 1 Week Disposition Disposition (needs filled in before D/C Order can be placed): Home, Self Care Charges/Coding Visit Charges Inpatient E&M: 48248 Disch Hosp >30min
== END 2025-01-07 18:43 | disposition home or self-care (01) | DRG 871 ==
LOC: ED 11:00 → PCU 14:29
PROVIDERS: Internal Medicine Nephrology; Emergency Provider Emergency Medicine; PCP Family Medicine; Visit Provider Student in an Organized Health Care Education/Training Program
DX: A41.51 Sepsis due to Escherichia coli [E. coli] (principal); N17.0 Acute kidney failure with tubular necrosis; E87.20 Acidosis, unspecified; Z68.44 Body mass index [BMI] 60.0-69.9, adult; E87.1 Hypo-osmolality and hyponatremia; E11.22 Type 2 diabetes mellitus with diabetic chronic kidney disease; J44.9 Chronic obstructive pulmonary disease, unspecified; N18.31 Chronic kidney disease, stage 3a; I12.9 Hypertensive chronic kidney disease with stage 1 through stage 4 chronic kidney disease, or unspecified chronic kidney disease; F32.A Depression, unspecified; L89.899 Pressure ulcer of other site, unspecified stage; G47.33 Obstructive sleep apnea (adult) (pediatric); E78.5 Hyperlipidemia, unspecified; I25.10 Atherosclerotic heart disease of native coronary artery without angina pectoris; R65.20 Severe sepsis without septic shock; I25.2 Old myocardial infarction; R11.10 Vomiting, unspecified; M19.90 Unspecified osteoarthritis, unspecified site; Z99.81 Dependence on supplemental oxygen; E66.813 Obesity, class 3; Z87.891 Personal history of nicotine dependence; R53.81 Other malaise; Z95.5 Presence of coronary angioplasty implant and graft; M62.81 Muscle weakness (generalized); N16 Renal tubulo-interstitial disorders in diseases classified elsewhere; Z85.46 Personal history of malignant neoplasm of prostate; Z79.899 Other long term (current) drug therapy; N40.0 Benign prostatic hyperplasia without lower urinary tract symptoms
CPT/HCPCS: 36415; 71045; 73560; 74018; 74176; 76770; 80048; 80053; 80069; 80202; 81001; 82550; 82570; 82962; 83036; 83605; 83690; 84540; 85025; 87040; 87077; 87086; 87088; 87177; 87186; 87209; 87493; 87506; 93005; 94002; 94003; 97116; 97162; 97166; 97530; 97802; 97803; 99285; A4216; J2405